=== PATIENT | male | born 1945 | race Caucasian/White ===

== ENCOUNTER 2017-07-14 12:09 | Inpatient (IN) | payer OTHER, MEDICARE ==
[~2017-07-14] VITALS: Ht 172.7 cm; Wt 84.6 kg
[2017-07-14] MEDS ORDERED: MAGNESIUM SULFATE 1GM / D5W 1 GM BAG IV STA (13:02)
[2017-07-14] MEDS ORDERED: METHYLPREDNISOLONE 125 MG VIAL IV STA (13:02)
--- NOTE | 2017-07-14 13:02 | EMERGENCY ROOM VISIT NOTE ---
History Report prepared by Carlos: Oni Parsons Under the Supervision of: Dr. Dimitry Kessler M.D. First contact with patient: 12:57 Chief Complaint: CARDIAC ASSESSMENT Stated Complaint: CHEST TIGHTNESS Nursing Triage Summary: Pt. arrived to exam room via EMS transport. Pt. sent from physician's office for an abnormal EKG. Per report from EMS, pt. is new to [facility] and was having an intake appt. with new physician. He has been reporting increasing SOB, orthopnea and wheezing. Has history of COPD. History of Present Illness The patient is a 71 year old male who presents to the Emergency Room with complaints of worsening shortness of breath that started a week ago. He says that was diagnosed with COPD a year ago, but his breathing has worsened over the past week, especially with walking. The patient says that the shortness of breath is intermittent, and is resolved by medicine. Currently, he says that he is not short of breath. The patient states that he recently moved to the [facility], so he had his initial primary care physician visit earlier today, and during the visit, he started to "feel funny", so the patient was told to come here. He was given medications in the office, but has not taken the medications yet. The patient was noted to have had an abnormal EKG at the visit. The patient notes that he feels okay right now, and has no chest pain. He adds that he has had a worsening cough lately, with yellow phlegm. He states that he has been taking a nebulizer, as well as [id number] sinus and allergy tablets. The patient denies any dizziness, headaches, nausea, vomiting, fevers, chills, or leg swelling. He notes no history of blood clots in his legs or lungs. He is an ex- smoker. The patient states that he had a stent placement 2 years ago. Source of History: patient Onset: A week ago Position: other (global - shortness of breath) Timing: worsening Modifying Factors (Worsening): exertion Modifying Factors (Relieving): other (nebulizer) Associated Symptoms: + cough (yellow phlegm), No fevers, No chills, No chest pain, No nausea, No vomiting Note: Associated symptoms: [place] "funny" earlier today. Denies dizziness, leg swelling. Review of Systems See HPI for pertinent positives and negatives. A total of ten systems were reviewed and were otherwise negative. Past Medical & Surgical Medical Problems: (1) COPD (chronic obstructive pulmonary disease) (2) Diabetes (3) HLD (hyperlipidemia) Surgical Problems: (1) History of intravascular stent placement Family History Diabetes mellitus Social History Smoking Status: Former Smoker Smokeless Tobacco Use: No Housing Status: lives with family Current/Historical Medications Scheduled Clopidogrel (Plavix), 75 MG PO DAILY Fluticasone Furoate-Vilanterol (Breo Ellipta 200-25 Mcg/INH), 1 PUFF INH DAILY Insulin Human Regular (Insulin Regular Pump ), 1 EA N/A UD Isosorbide Mononitrate Ext Rel (Imdur Ext Rel), 1 TAB PO DAILY Lisinopril (Lisinopril), 10 MG PO DAILY Lovastatin (Mevacor), 10 MG PO HS Metoprolol Tartrate (Lopressor) (Lopressor), 25 MG PO BID Multiple Vitamins W/ Minerals (Centrum Silver Adult 50+), 1 TAB PO DAILY [place]-3 Fatty Acids (Fish Oil), 1,200 MG PO DAILY Prednisone (Prednisone), 1 DOSE PO UD Umeclidinium [place] (Incruse Ellipta), 1 PUFF INH DAILY Scheduled PRN Albuterol Hfa (Ventolin Hfa), 2 PUFFS INH Q4 PRN for SOB/Wheezing Cetirizine (Zyrtec), 10 MG PO DAILY PRN for ALLERGIES Ipratropium-Albuterol (Duoneb), 1 TREATMENT INH Q4H PRN for SOB/Wheezing Allergies Coded Allergies: Simvastatin (Unverified Adverse Reaction, Intermediate, SEE COMMENT PLEASE , 07/14/17) PATIENT IS UNSURE OF WHICH CHOLESTEROL MEDS HE IS ALLERGIC TO BUT HE SAYS THEY "JUST DON'T AGREE WITH ME" Physical Exam Vital Signs Date Time Temp Pulse Resp B/P (MAP) Pulse Ox O2 Delivery O2 Flow Rate FiO2 07/14/17 16:31 82 07/14/17 16:14 86 16 126/69 95 Room Air 07/14/17 14:46 85 16 120/58 95 Room Air 07/14/17 13:35 61 18 96 Room Air 07/14/17 13:30 62 21 148/80 99 Room Air 07/14/17 13:00 63 24 168/68 94 Room Air 8/24/17 12:25 63 07/14/17 12:10 36.8 68 19 187/89 98 Room Air 07/14/17 12:10 98 Room Air 07/14/17 12:10 98 Room Air Physical Exam GENERAL: Awake, alert, appears short of breath but in no acute distress. HENT: Normocephalic, atraumatic. Oropharynx unremarkable. Dry mucous membranes. EYES: Normal conjunctiva. Sclera non-icteric. NECK: Supple. No nuchal rigidity. FROM. No JVD. RESPIRATORY: Diffuse wheezing with poor airflow, diminished particularly at bases. Pursed lip breathing. CARDIAC: Regular rate, normal rhythm. Extremities warm and well perfused. Pulses equal. ABDOMEN: Soft, non-distended. No tenderness to palpation. No rebound or guarding. No masses. RECTAL: Deferred. MUSCULOSKELETAL: Chest examination reveals no tenderness. The back is symmetrical on inspection without obvious abnormality. There is no CVA tenderness to palpation. No joint edema. LOWER EXTREMITIES: Calves are equal size bilaterally and non-tender. No edema. No discoloration. NEURO: Normal sensorium. No sensory or motor deficits noted. SKIN: No rash or jaundice noted. Medical Decision & Procedures ER Provider Diagnostic Interpretation: X-ray: Per my interpretation, radiologist review. CHEST ONE VIEW PORTABLE CLINICAL HISTORY: Chest tightness. Chest pain. COMPARISON STUDY: None available at time of interpretation due to PACS downtime. FINDINGS: Lung volumes are normal. No pneumothorax or pleural effusion is present. There is no evidence of pulmonary edema. Cardiomediastinal silhouette is unremarkable. Pulmonary vascularity is normal. IMPRESSION: No acute cardiopulmonary findings. Electronically signed by: Ren Zepeda M.D. 07/14/2017 2:13 PM Dictated Date/Time: 07/14/2017 2:09 PM Laboratory Results Test 07/14/17 13:00 07/14/17 13:29 Pro-B-Type Natriuretic Peptide 921 pg/ml (0-900) Hepatitis C Antibody Screen NEG (NEG) Venous Blood pH 7.38 (7.36-7.41) Venous Blood Partial Pressure CO2 45 mmHg (38.0-50.0) Venous Blood Partial Pressure O2 40 mmHg Venous Blood HCO3 26 mmol/L Venous Blood Oxygen Saturation 72.1 % Venous Blood Base Excess 0.2 mEq/L Laboratory results reviewed by me Medications Administered Medications (Trade) Dose Ordered Sig/Nessa Route Start Time Stop Time Status Last Admin Dose Admin Methylprednisolone Sodium Succinate (Solu-Medrol IV) 125 mg NOW STAT IV 07/14/17 13:02 07/14/17 13:07 DC 07/14/17 13:34 125 MG Albuterol/ Ipratropium (Duoneb) 12 ml ONE ONCE INH 07/14/17 13:15 07/14/17 13:16 DC 07/14/17 13:32 12 ML Azithromycin 500 mg/Dextrose 255 ml @ 125 mls/hr ONE ONCE IV 07/14/17 13:15 07/14/17 15:17 DC 07/14/17 14:12 125 MLS/HR Magnesium Sulfate (Magnesium Sulfate) 2 gm NOW STAT IV 07/14/17 13:02 07/14/17 13:08 DC 07/14/17 13:34 2 GM Sodium Chloride 500 ml @ 999 mls/hr Q31M STAT IV 07/14/17 17:16 07/14/17 17:46 DC 07/14/17 17:16 999 MLS/HR Acetaminophen (Tylenol Tab) 650 mg Q4H PRN PO 07/14/17 17:30 08/13/17 17:29 07/14/17 21:14 650 MG Cetirizine HCl (zyrTEC TAB) 10 mg DAILY PRN PO 07/14/17 17:30 08/13/17 17:29 07/15/17 09:17 10 MG ECG Indication: SOB/dyspnea Rate (beats per minute): 69 Rhythm: normal sinus Findings: no acute ischemic change, other (nonspecific T-wave abnormalities latearlly, normal axis) Comparison ECG Date: no prior available ED Course 1258: The patient was evaluated in room B12B. A complete history and physical exam was performed. 1302: Ordered Magnesium Sulfate 2 gm IV, Solu-Medrol IV 125 mg IV. 1315: Ordered Azithromycin 500 mg/Dextrose 255 ml @ 125 mls/hr IV, Duoneb 12 ml INH. 1627: I reevaluated the patient and he is feeling better, but still has pursed lip breathing. The patient verbally expressed understanding and agreement of the treatment plan. The patient will be evaluated for further treatment. 1705: I discussed the patient with Dr. Nolasco - [facility] [place] dextrine mixer - he will evaluate the patient for further treatment. Medical Decision I reviewed the patient's past medical history, medications, and the nursing notes as described above. Differential diagnoses: COPD exacerbation, pneumonia, bronchitis, ACS, less likely CHF. Patient is a 71 gentleman with a pmhx of COPD who presents to the ED with worsening cough, congestion, sputum, sob over the past week per HPI. On arrival the patient appears dyspneic but in NAD. AFVSS. On exam patient has diffuse wheezing with poor air movement, particularly diminished at baseline. Given Solu -medrol, hour continuous duoneb, Magnesium, and azithro in setting of yellow thick sputum production. EKG unremarkable. Trop negative in setting of 1 week of sx. CXR negative. WBC 14. Cr 1.5 and K 5.4 in setting of clinically dry appearing. Given IVF. Patient feeling improved but still with some pursed lip breathing. Case d/w medicine team who will admit the patient for further management. Medication Reconcilliation Current Medication List: was personally reviewed by me Blood Pressure Screening Patient's blood pressure: Elevated blood pressure Referred to dextrine mixer. Consults Time Called: 1650 Consulting Physician: Dr. Constance GONZALEZ dextrine mixer Returned Call: 1705 I discussed the patient with Dr. Constance GONZALEZ dextrine mixer - he will evaluate the patient for further treatment. Impression Primary Impression: COPD exacerbation Scribe Attestation The scribe's documentation has been prepared under my direction and personally reviewed by me in its entirety. I confirm that the note above accurately reflects all work, treatment, procedures, and medical decision making performed by me. Departure Information Dispostion Being Evaluated By Hospitalist Referrals Balaji Lopez M.D. (PCP) Patient Instructions [facility]
[2017-07-14 13:15] LABS: BASO % 0.3 %; BASO ABS # 0.05 K/uL (0-0.2); COMPLETE YES; EOS % 7.7 %; IG% 0.3 %; LYMPH % 13.4 %; LYMPH ABS # 1.92 K/uL (1.2-3.4); MEAN CELL VOLUME 85.6 fL (80-100); MEAN CORPUSCULAR HEMOGLOBIN 30.4 pg (25-34); MEAN CORPUSCULAR HGB CONC 35.5 g/dl (32-36); MEAN PLATELET VOLUME 9.3 fL (7.4-10.4); MONO % 5.5 %; NEUT % 72.8 %; PLATELET COUNT 254 K/uL (130-400); RED BLOOD COUNT 5.14 M/uL (4.2-5.4); WHITE BLOOD COUNT 14.36 K/uL (4.8-10.8)
[2017-07-14] MEDS ORDERED: AZITHROMYCIN IV 500 MG in DEXTROSE 5% 250ML 250 ML IV ONE (13:15)
[2017-07-14] MEDS ORDERED: ALBUT/IPRATROP 3MG/0.5MG NEB 3 ML VIAL INH ONE (13:15)
[2017-07-14 13:32] LABS: BLOOD UREA NITROGEN 26 mg/dl (7-18); BUN/CREATININE RATIO 17.5 (10-20); CALCIUM 9.5 mg/dl (8.5-10.1); CARBON DIOXIDE 27 mmol/L (21-32); CHLORIDE 104 mmol/L (98-107); GLUCOSE 182 mg/dl (70-99); POTASSIUM 5.4 mmol/L (3.5-5.1); SODIUM 135 mmol/L (136-145)
[2017-07-14 13:35] VITALS: PULSE 61; O2SAT 96
[2017-07-14 13:39] LABS: VEN BLD GAS O2 SATURATION 72.1 %; VEN BLOOD GAS BASE EXCESS 0.2 mEq/L
--- NOTE | 2017-07-14 14:14 | DIAGNOSTIC IMAGING REPORT ---
CHEST ONE VIEW PORTABLE CLINICAL HISTORY: Chest tightness. Chest pain. COMPARISON STUDY: None available at time of interpretation due to PACS downtime. FINDINGS: Lung volumes are normal. No pneumothorax or pleural effusion is present. There is no evidence of pulmonary edema. Cardiomediastinal silhouette is unremarkable. Pulmonary vascularity is normal. IMPRESSION: No acute cardiopulmonary findings. Electronically signed by: Ren Zepeda M.D. 07/14/2017 2:13 PM Dictated Date/Time: 07/14/2017 2:09 PM
[2017-07-14] MEDS ORDERED: CLOP1TAB15 PO (14:29)
[2017-07-14] MEDS ORDERED: METO25TA56 PO (14:29)
[2017-07-14] MEDS ORDERED: OMEG120013 PO (14:29)
[2017-07-14] MEDS ORDERED: IPRASOL4 INH (14:29)
[2017-07-14] MEDS ORDERED: CETI10TA84 PO (14:29)
[2017-07-14] MEDS ORDERED: FLUT1INH7 INH (14:29)
[2017-07-14] MEDS ORDERED: ISOS30TA35 PO (14:29)
[2017-07-14] MEDS ORDERED: PRED10TA PO (14:29)
[2017-07-14] MEDS ORDERED: LOVA10TA3 PO (14:29)
[2017-07-14] MEDS ORDERED: LISI-461 PO (14:29)
[2017-07-14] MEDS ORDERED: UMEC1INH INH (14:29)
[2017-07-14] MEDS ORDERED: VNTHFA/IN INH (14:29)
[2017-07-14] MEDS ORDERED: INSPMPRG (14:29)
[2017-07-14] MEDS ORDERED: MULT-845 PO (14:29)
[2017-07-14] MEDS ORDERED: SODIUM CHLORIDE 0.9% 500ML 500 ML IV STA (17:16)
[2017-07-14] MEDS ORDERED: ACETAMINOPHEN 325 MG TAB PO PRN (17:30)
[2017-07-14] MEDS ORDERED: MoRPHine SULFATE 2 MG/ML CARP IV PRN (17:30)
[2017-07-14] MEDS ORDERED: NITROGLYCERIN 0.4 MG SL PER TAB CHARGE SL PRN (17:30)
[2017-07-14] MEDS ORDERED: ALUMINUM/MAGNESIUM/SIMETH (MAALOX MAX) 30 ML UDC PO PRN (17:30)
[2017-07-14] MEDS ORDERED: CETIRIZINE HCL 10 MG TAB PO PRN (17:30)
[2017-07-14] MEDS ORDERED: ALBUTEROL HFA 8 GM INHALER INH PRN (17:30)
[2017-07-14] MEDS ORDERED: INSULIN REGULAR PUMP SCH (17:30)
[2017-07-14] MEDS ORDERED: POLYETHYLENE (MIRALAX) 17 GM PACK PO PRN (17:30)
[2017-07-14] MEDS ORDERED: MAGNESIUM HYDROXIDE SUSP 30 ML UDC PO PRN (17:30)
[2017-07-14] MEDS ORDERED: ONDANSETRON INJ 2 MG/ML 2 ML VIAL IV PRN (17:30)
[2017-07-14] MEDS ORDERED: HydrALAZINE HCL 20 MG/ML VIAL IV. PRN (17:30)
--- NOTE | 2017-07-14 18:02 | History and Physical ---
History & Physical Date & Time of Service: Jul 14, 2017 at 17:37 Chief Complaint: Chest Tightness Primary Care Physician: Balaji Lopez M.D. History of Present Illness Source: patient, family (son at bedside), clinic records, hospital records Patient is a pleasant 71 y/o male, with PMHx of COPD, HTN, T2DM w/ insulin pump , hyperlipidemia, CAD s/p stent placement, PAD, and BPH, who presented to the ED via EMS from Dr. Singer's office due to "feeling funny" and chest tightness. Patient is new to the area; he is from [place] and has recently moved to the area to live with his son. He has been having progressive SOB on exertion over the past few days and needed to establish care with a PCP in the area. Per Dr. Singer's record, patient was getting ready to leave from his appointment and an EKG was ordered showing possible septal infarct, ST T wave changes, and inverted T waves. Upon further questioning, patient admitted to chest tightness so he was advised to come to ED. Currently, patient states he is feeling well; SOB is at baseline and anterior central chest tightness has resolved. Discomfort did not radiate. Denies any other associated symptoms. Admits to productive cough- sputum yellow/green in color. He does have a h/o CAD w/ stents x5. According to patient, his only symptoms was SOB, which resulted in a stress test indicated cath. +wheezing. Patient denies any fever, chills, sweats , lightheadedness, dizziness, vision changes, palpitations, edema, abdominal pain, nausea, vomiting, diarrhea, urinary symptoms, melena, numbness/tingling, weakness, muscle/joint pain, anxiety/depression, active bleeding, or new skin discoloration/changes. Past Medical/Surgical History Medical Problems: COPD HTN T2DM w/ insulin pump hyperlipidemia CAD s/p stent placement PAD BPH Surgical history: s/p stent placement x5 cataract surgery prostate surgery Family History DM- mother cancer- father Social History Smoking Status: Former Smoker Smokeless Tobacco Use: No Allergies Coded Allergies: Simvastatin (Unverified Adverse Reaction, Intermediate, SEE COMMENT PLEASE , 07/14/17) PATIENT IS UNSURE OF WHICH CHOLESTEROL MEDS HE IS ALLERGIC TO BUT HE SAYS THEY "JUST DON'T AGREE WITH ME" Home Medications Scheduled Clopidogrel (Plavix), 75 MG PO DAILY Fluticasone Furoate-Vilanterol (Breo Ellipta 200-25 Mcg/INH), 1 PUFF INH DAILY Insulin Human Regular (Insulin Regular Pump ), 1 EA N/A UD Isosorbide Mononitrate Ext Rel (Imdur Ext Rel), 1 TAB PO DAILY Lisinopril (Lisinopril), 10 MG PO DAILY Lovastatin (Mevacor), 10 MG PO HS Metoprolol Tartrate (Lopressor) (Lopressor), 25 MG PO BID Multiple Vitamins W/ Minerals (Centrum Silver Adult 50+), 1 TAB PO DAILY [place]-3 Fatty Acids (Fish Oil), 1,200 MG PO DAILY Prednisone (Prednisone), 1 DOSE PO UD Umeclidinium [place] (Incruse Ellipta), 1 PUFF INH DAILY Scheduled PRN Albuterol Hfa (Ventolin Hfa), 2 PUFFS INH Q4 PRN for SOB/Wheezing Cetirizine (Zyrtec), 10 MG PO DAILY PRN for ALLERGIES Ipratropium-Albuterol (Duoneb), 1 TREATMENT INH Q4H PRN for SOB/Wheezing Physical Exam Vital Signs Date Time Temp Pulse Resp B/P (MAP) Pulse Ox O2 Delivery O2 Flow Rate FiO2 07/14/17 16:31 82 07/14/17 16:14 86 16 126/69 95 Room Air 07/14/17 14:46 85 16 120/58 95 Room Air 07/14/17 13:35 61 18 96 Room Air 07/14/17 13:30 62 21 148/80 99 Room Air 07/14/17 13:00 63 24 168/68 94 Room Air 07/14/17 12:25 63 07/14/17 12:10 36.8 68 19 187/89 98 Room Air 07/14/17 12:10 98 Room Air 07/14/17 12:10 98 Room Air General Appearance: no apparent distress Head: normocephalic, atraumatic Eyes: normal inspection, PERRL ENT: hearing grossly normal Neck: supple Respiratory/Chest: no respiratory distress, no accessory muscle use, + decreased breath sounds, + wheezing (throughout all lung spencer ) Cardiovascular: regular rate, rhythm, no JVD Abdomen/GI: normal bowel sounds, non tender, soft Back: normal inspection Extremities/Musculoskelatal: no calf tenderness, no pedal edema Neurologic/Psych: alert, normal mood/affect, oriented x 3 Skin: normal color, warm/dry, no rash Diagnostics Laboratory Results Results Past 24 Hours Test 07/14/17 13:00 07/14/17 13:29 Range/Units White Blood Count 14.36 4.8-10.8 K/uL Red Blood Count 5.14 4.2-5.4 M/uL Hemoglobin 15.6 12.0-16.0 g/dL Hematocrit 44.0 37-47 % Mean Corpuscular Volume 85.6 80-100 fL Mean Corpuscular Hemoglobin 30.4 25-34 pg Mean Corpuscular Hemoglobin Concent 35.5 32-36 g/dl Platelet Count 254 130-400 K/uL Mean Platelet Volume 9.3 7.4-10.4 fL Neutrophils (%) (Auto) 72.8 % Lymphocytes (%) (Auto) 13.4 % Monocytes (%) (Auto) 5.5 % Eosinophils (%) (Auto) 7.7 % Basophils (%) (Auto) 0.3 % Neutrophils # (Auto) 10.45 1.4-6.5 K/uL Lymphocytes # (Auto) 1.92 1.2-3.4 K/uL Monocytes # (Auto) 0.79 0.11-0.59 K/uL Eosinophils # (Auto) 1.11 0-0.5 K/uL Basophils # (Auto) 0.05 0-0.2 K/uL RDW Standard Deviation 44.0 36.4-46.3 fL RDW Coefficient of Variation 14.2 11.5-14.5 % Immature Granulocyte % (Auto) 0.3 % Immature Granulocyte # (Auto) 0.04 0.00-0.02 K/uL Sodium Level 135 136-145 mmol/L Potassium Level 5.4 3.5-5.1 mmol/L Chloride Level 104 98-107 mmol/L Carbon Dioxide Level 27 21-32 mmol/L Anion Gap 4.0 3-11 mmol/L Blood Urea Nitrogen 26 7-18 mg/dl Creatinine 1.50 0.60-1.20 mg/dl Est Creatinine Clear Calc Drug Dose 40.7 ml/min Estimated GFR () 40.5 Estimated GFR (Non- 34.9 BUN/Creatinine Ratio 17.5 10-20 Random Glucose 182 70-99 mg/dl Calcium Level 9.5 8.5-10.1 mg/dl Troponin I < 0.015 0-0.045 ng/ml Pro-B-Type Natriuretic Peptide 921 0-900 pg/ml Venous Blood pH 7.38 7.36-7.41 Venous Blood Partial Pressure CO2 45 38.0-50.0 mmHg Venous Blood Partial Pressure O2 40 mmHg Venous Blood HCO3 26 mmol/L Venous Blood Oxygen Saturation 72.1 % Venous Blood Base Excess 0.2 mEq/L Diagnostic Radiology CHEST ONE VIEW PORTABLE CLINICAL HISTORY: Chest tightness. Chest pain. COMPARISON STUDY: None available at time of interpretation due to PACS downtime. FINDINGS: Lung volumes are normal. No pneumothorax or pleural effusion is present. There is no evidence of pulmonary edema. Cardiomediastinal silhouette is unremarkable. Pulmonary vascularity is normal. IMPRESSION: No acute cardiopulmonary findings. Electronically signed by: Ren Zepeda M.D. 07/14/2017 2:13 PM Dictated Date/Time: 07/14/2017 2:09 PM The status of this report is Signed. Draft = Not yet reviewed or approved by Radiologist. Signed = Reviewed and approved by Radiologist. EKG AUBREE TAY ID:[id number] 14-JUL-2017 12:15:11 [facility] Normal sinus rhythm Septal infarct , age undetermined T wave abnormality, consider lateral ischemia Abnormal ECG No previous ECGs available 25mm/s 10mm/mV 150Hz 8.0 SP2 12SL 241 SHAHID: 0 Referred by: ER Unconfirmed Vent. rate 69 BPM IL interval 156 ms QRS duration 88 ms QT/QTc 410/439 ms P-R-T axes 73 78 125 1945 (71 yr) Female Room: Loc:15 Cager Operator:BRIANNE Pugh ind: Impression Assessment and Plan Patient is a pleasant 71 y/o male, with PMHx of COPD, HTN, T2DM w/ insulin pump , hyperlipidemia, CAD s/p stent placement, PAD, and BPH, who presented to the ED via EMS from Dr. Singer's office due to "feeling funny" and chest tightness. ACS r/o, h/o CAD s/p stent placement, PAD, dyslipidemia: - Admit to tele for cardiac monitoring - Trend cardiac enzymes- initial trop negative - EKG QAM and PRN w/ chest pain - Continue Plavix 75 mg daily, Imdur 30 mg daily, Lopressor 25 mg BID - Continue Lovastatin 10 mg HS- check lipid panel - Add ASA 81 mg daily Mild acute on chronic COPD exacerbation: - O2 protocol, wean as tolerated- does not wear O2 supplement at home - DuoNeb QID and PRN SOB/wheezing - Continue home inhalers - IV SoluMedrol 125 mg x1 given in ED; per Dr. Singer's note, was going to start Prednisone 60 mg taper- will start tomorrow - IV Azithromycin 500 mg x1 given in ED; due to discolored sputum, will continue Azithromycin 250 mg daily HTN: - Hold Lisinopril 10 mg day due to Cr at 1.50- unsure of baseline - Hydralazine 10 mg IV q6 hrs PRN sbp >180 or dbp >100 ?CKD stage III- baseline Cr unknown: - IV NSS @ 125 ml/hr - Hold Lisinopril to follow kidney function - Follow PRP Mild hyponatremia at 1.5: IVF as above and follow PRP Mild hyperkalemia at 5.4: - Follow PRP, tele monitor, and EKG - Treat PRN if continues to rise tomorrow and/or EKG/tele monitor changes T2DM: - Continue insulin pump - Check HgbA1c h/o BPH GI prophylaxis: Protonix DVT prophylaxis: Heparin SQ BID Code Status: LEVEL V, DNR Dispo: From home, lives w/ son- no discharge needs anticipated i personally examined pt and verified all hay points w T Murarik PAC feeling sob. also was told EKG abnormal. vitals noted lungs quiet w poor air entry and wheezing COPD exac - med management as above CP - likely relates to COPD but concern on cardiac -- serial enzymes and baseline echo. at some point stress echo likely reasonable but while having active exacerbation will hold off otherwise as above Level of Care Telemetry Resuscitation Status DO NOT RESUSCITATE VTE Prophylaxis VTE Risk Assessment Done? Y/N: Yes Risk Level: Moderate Given or contraindicated: Unfractionated heparin SQ, T.E.D. Stockings, SCD's
[2017-07-14 18:25] VITALS: O2SAT 94; BMI 29.8
[2017-07-14 19:18] VITALS: BP 158/79; PULSE 93; TEMP 36.7; O2SAT 94
[2017-07-14 19:50] VITALS: PULSE 94; O2SAT 94
[2017-07-14] MEDS: ALBUT/IPRATROP 3MG/0.5MG NEB 3 ML VIAL INH SCH (19:50)
[2017-07-14 20:00] VITALS: O2SAT 94
[2017-07-14] MEDS ORDERED: GLUCAGON FOR INJ 1 MG VIAL SQ PRN (20:15)
[2017-07-14] MEDS ORDERED: GLUCOSE 40% GEL 15 GM TUBE PO PRN (20:15)
[2017-07-14] MEDS ORDERED: DEXTROSE 50% 50 ML SYR IV PRN (20:15)
[2017-07-14] MEDS ORDERED: HumuLIN-R 10 ML VIAL SC PRN (20:15)
[2017-07-14] MEDS ORDERED: GLUCOSE 10 TABS/TUBE PO PRN (20:15)
[2017-07-14] MEDS: INCRUSE ELLIPTA~ORDER AWAITING ACTION SCH ×2 (20:30→23:58)
[2017-07-14] MEDS ORDERED: LOVASTATIN 20 MG TAB PO SCH (21:00)
[2017-07-14] MEDS ORDERED: INSULIN GLARGINE SOLOSTAR 100 UNITS/ML 3 ML PEN SC SCH (21:00)
[2017-07-14] MEDS ORDERED: [UNRECOGNIZED DRUG - OTHER] SCH (21:00)
[2017-07-14] MEDS: SODIUM CHLORIDE 0.9% 1000ML 1,000 ML IV SCH (21:07)
[2017-07-14] MEDS: METOPROLOL TARTRATE 25 MG TAB PO SCH (21:08)
[2017-07-14] MEDS: INSULIN ASPART 100 UNITS/ML 3 ML PEN SC SCH (21:13)
[2017-07-14 22:23] LABS: PROTHROMBIN TIME (PATIENT) 10.8 SECONDS (9.0-12.0)
[2017-07-14] MEDS ORDERED: IV FLUIDS COMPLETED PRN (23:30)
[2017-07-15] VITALS (15 sets, daily range): BP systolic 102–149; BP diastolic 55–75; PULSE 69–89; TEMP 36.3–36.7; O2SAT 91–99; Ht 172.7 cm; Wt 84.6 kg
[2017-07-15] MEDS: ALBUT/IPRATROP 3MG/0.5MG NEB 3 ML VIAL INH SCH ×6 (00:08→19:45)
[2017-07-15] MEDS: SODIUM CHLORIDE 0.9% 1000ML 1,000 ML IV SCH (04:03)
[2017-07-15] MEDS: INCRUSE ELLIPTA~ORDER AWAITING ACTION SCH ×3 (08:00→23:58)
[2017-07-15 08:27] LABS: BASO % 0.1 %; BASO ABS # 0.01 K/uL (0-0.2); COMPLETE YES; HEMATOCRIT 40.3 % (42-52); IG% 0.3 %; LYMPH % 9.3 %; LYMPH ABS # 1.66 K/uL (1.2-3.4); MEAN CELL VOLUME 85.4 fL (80-100); MEAN CORPUSCULAR HEMOGLOBIN 29.7 pg (25-34); MEAN CORPUSCULAR HGB CONC 34.7 g/dl (32-36); MEAN PLATELET VOLUME 9.3 fL (7.4-10.4); NEUT % 85.3 %; PLATELET COUNT 306 K/uL (130-400); RED BLOOD COUNT 4.72 M/uL (4.7-6.1)
[2017-07-15] MEDS: INSULIN ASPART 100 UNITS/ML 3 ML PEN SC SCH ×4 (08:34→20:29)
[2017-07-15 08:56] LABS: BLOOD UREA NITROGEN 31 mg/dl (7-18); BUN/CREATININE RATIO 19.2 (10-20); CALCIUM 8.8 mg/dl (8.5-10.1); CARBON DIOXIDE 21 mmol/L (21-32); CHLORIDE 105 mmol/L (98-107); CHOLESTEROL 211 mg/dl (0-200); GLUCOSE 272 mg/dl (70-99); POTASSIUM 4.7 mmol/L (3.5-5.1); SODIUM 134 mmol/L (136-145)
[2017-07-15] MEDS: ASPIRIN 81 MG ECTAB PO SCH (09:00)
[2017-07-15] MEDS ORDERED: HEPARIN SOD 5000 UNIT/0.5 ML CARP SQ SCH (09:00)
[2017-07-15 09:07] LABS: CHOLESTEROL/HDL RATIO 3.7; HDL CHOLESTEROL 57 mg/dl; LDL CHOLESTEROL CALCULATED 138 mg/dl; TRIGLYCERIDES 79 mg/dl (0-150); VERY LOW DENSITY LIPOPROT CALC 16 mg/dl
[2017-07-15] MEDS: AZITHROMYCIN 250 MG TAB PO SCH (09:17)
[2017-07-15] MEDS: CLOPIDOGREL BISULFATE 75 MG TAB PO SCH (09:18)
[2017-07-15] MEDS: METOPROLOL TARTRATE 25 MG TAB PO SCH ×2 (09:18→20:32)
[2017-07-15] MEDS: ISOSORBIDE MONONITRATE 30 MG TABCR PO SCH (09:18)
[2017-07-15] MEDS: CEROVITE ADV FORMULA TAB PO SCH (09:19)
[2017-07-15] MEDS: PANTOprazole SOD 40 MG TAB PO SCH (09:19)
[2017-07-15 09:24] LABS: ESTIMATED AVERAGE GLUCOSE 209 mg/dl; HA1C FLAG Normal (Normal)
[2017-07-15] MEDS ORDERED: HEPARIN IV LOW DOSE NO BOLUS STA (11:33)
[2017-07-15] MEDS: GUAIFENESIN 600 MG TABCR PO SCH ×2 (12:06→20:31)
[2017-07-15] MEDS ORDERED: INSULIN GLARGINE SOLOSTAR 100 UNITS/ML 3 ML PEN SC SCH (12:30)
[2017-07-15] MEDS: HEPARIN 25,000 UNIT/500ML D5W 500 ML IV PRN ×2 (12:30→20:29)
--- NOTE | 2017-07-15 14:40 | Hospitalist Progress Note ---
Hospitalist Progress Note Date of Service Jul 15, 2017. (Laurie Hernández ., RUCHIC) Subjective Pt evaluation today including: conversation w/ patient, physical exam, chart review, lab review, review of inpatient medication list Pain: None PO Intake: Tolerating PO diet Voiding: no voiding problems Patient states that he did not sleep at all last night but is otherwise feeling better today compared to admission. He states that he has a productive cough and that this is worse at night or when he is laying down. He describes this as "congestion" in his chest and associates an intermittent shortness of breath and wheezing. He denies any chest pain, tightness or discomfort currently, but states his chest feels tight sometimes when he's coughing. The patient denies fevers, chills, sweats, chest pain, palpitations, claudication, cough, wheezing , shortness of breath, nausea, vomiting, abdominal pain, dysuria, hematuria, urinary retention, paralysis, weakness, numbness and tingling. Additional Comments: See HPI for pertinent positives and negatives. All other systems reviewed and negative. (Laurie Hernández ., PA-C) Objective Vital Signs Date Time Temp Pulse Resp B/P (MAP) Pulse Ox O2 Delivery O2 Flow Rate FiO2 07/15/17 13:17 99 Room Air 07/15/17 11:52 99 Room Air 07/15/17 11:32 72 20 97 Room Air 07/15/17 10:56 36.7 69 20 102/55 (71) 95 Room Air 07/15/17 08:00 99 Room Air 07/15/17 07:48 36.4 87 20 149/75 (99) 99 Room Air 07/15/17 07:11 82 20 93 Room Air 07/15/17 04:54 36.4 89 16 122/69 (86) 94 Room Air 07/15/17 04:00 94 Room Air 07/15/17 01:57 77 20 91 Room Air 07/15/17 00:00 94 Room Air 07/15/17 00:00 36.3 71 22 129/69 (89) 94 Room Air 07/15/17 00:00 74 20 92 Room Air 07/14/17 20:00 94 Room Air 07/14/17 19:50 94 20 94 Room Air 07/14/17 19:18 36.7 93 20 158/79 (105) 94 Room Air 07/14/17 18:25 94 Room Air 07/14/17 18:00 86 16 124/74 94 07/14/17 16:31 82 07/14/17 16:14 86 16 126/69 95 Room Air 07/14/17 14:46 85 16 120/58 95 Room Air (Laurie Hernández ., PA-C) Physical Exam Notes: General appearance: Well-developed, well-nourished, no apparent distress Head: Normocephalic, atraumatic Eyes: Normal inspection, PERRL, EOMI ENT: Normal ENT inspection, hearing grossly normal, pharynx normal Neck: Supple, no JVD, trachea midline Respiratory/Chest: +Diffuse wheezing throughout all lung spencer. Diminished breath sounds throughout, especially in bases. Poor air movement. No respiratory distress Cardiovascular: Regular rate & rhythm, no gallop, no murmur Abdomen/GI: Normal bowel sounds, non-tender, soft Extremities/Musculoskeletal: Normal inspection, no calf tenderness, no pedal edema Neurological/Psych: Alert, normal mood/affect, oriented x 3 Skin: Normal color, warm/dry, no rash (Laurie Hernández ., PA-C) Laboratory Results Last 24 Hours Test 07/14/17 19:53 07/14/17 20:56 07/14/17 21:00 07/14/17 21:57 Bedside Glucose 318 mg/dl 333 mg/dl Creatine Kinase MB Ratio Prothrombin Time 10.8 SECONDS Prothromb Time International Ratio 1.0 Creatine Kinase MB 2.0 ng/ml Troponin I 0.017 ng/ml Test 07/15/17 02:13 07/15/17 04:44 07/15/17 07:51 07/15/17 08:07 Bedside Glucose 247 mg/dl 242 mg/dl Creatine Kinase MB Ratio White Blood Count 17.90 K/uL Red Blood Count 4.72 M/uL Hemoglobin 14.0 g/dL Hematocrit 40.3 % Mean Corpuscular Volume 85.4 fL Mean Corpuscular Hemoglobin 29.7 pg Mean Corpuscular Hemoglobin Concent 34.7 g/dl Platelet Count 306 K/uL Mean Platelet Volume 9.3 fL Neutrophils (%) (Auto) 85.3 % Lymphocytes (%) (Auto) 9.3 % Monocytes (%) (Auto) 5.0 % Eosinophils (%) (Auto) 0.0 % Basophils (%) (Auto) 0.1 % Neutrophils # (Auto) 15.28 K/uL Lymphocytes # (Auto) 1.66 K/uL Monocytes # (Auto) 0.89 K/uL Eosinophils # (Auto) 0.00 K/uL Basophils # (Auto) 0.01 K/uL RDW Standard Deviation 43.2 fL RDW Coefficient of Variation 13.9 % Immature Granulocyte % (Auto) 0.3 % Immature Granulocyte # (Auto) 0.06 K/uL Sodium Level 134 mmol/L Potassium Level 4.7 mmol/L Chloride Level 105 mmol/L Carbon Dioxide Level 21 mmol/L Anion Gap 8.0 mmol/L Blood Urea Nitrogen 31 mg/dl Creatinine 1.60 mg/dl Est Creatinine Clear Calc Drug Dose 45.9 ml/min Estimated GFR () 49.9 Estimated GFR (Non- 43.0 BUN/Creatinine Ratio 19.2 Random Glucose 272 mg/dl Estimated Average Glucose 209 mg/dl Hemoglobin A1c 8.9 % Calcium Level 8.8 mg/dl Magnesium Level 2.0 mg/dl Creatine Kinase MB 7.9 ng/ml Troponin I 0.565 ng/ml Triglycerides Level 79 mg/dl Cholesterol Level 211 mg/dl HDL Cholesterol 57 mg/dl LDL Cholesterol, Calculated 138 mg/dl VLDL Cholesterol, Calculated 16 mg/dl Cholesterol/HDL Ratio 3.7 Test 07/15/17 11:35 07/15/17 12:12 07/15/17 13:39 07/15/17 14:22 Bedside Glucose 241 mg/dl Activated Partial Thromboplast Time 27.1 SECONDS Partial Thromboplastin Ratio 1.0 Creatine Kinase MB Ratio (Laurie Hernández, RUCHIC) Assessment and Plan 71 y/o male with a history of COPD, HTN, T2DM w/ insulin pump, hyperlipidemia, CAD s/p stent placement, PAD, and BPH who presented to the ED via EMS from Dr. Singer's office due to "feeling funny" and chest tightness. ACS r/o, h/o CAD s/p stent placement, PAD, dyslipidemia - Admit to tele for cardiac monitoring - Cardiac enzymes negative first 2 sets, 3rd set positive with troponin of 0.565. Continue to trend - Started on heparin drip - Echo pending - Repeat EKG 07/15 shows same T wave inversions - EKG QAM and PRN w/ chest pain - Continue Plavix 75 mg daily, Imdur 30 mg daily, Lopressor 25 mg BID - Continue Lovastatin 10 mg HS - Lipid panel: total cholesterol 211, LDL 138, HDL 57, triglycerides 79 - Add ASA 81 mg daily Acute COPD exacerbation--ongoing - O2 protocol, wean as tolerated--currently 99% on room air - DuoNeb QID and PRN SOB/wheezing - Continue Breo and Incruse inhalers - IV SoluMedrol 125 mg x1 given in ED. Pt was to start Prednisone 60 mg taper per PCP - Solu-Medrol 40 mg IV BID - IV Azithromycin 500 mg x1 given in ED; due to discolored sputum, will continue Azithromycin 250 mg PO daily x 4 more days. Day #1 HTN--stable - Hold Lisinopril 10 mg daily due to Cr at 1.50- unsure of baseline. Cr 1.6 on 07/15, continue to hold - Hydralazine 10 mg IV q6 hrs PRN sbp >180 or dbp >100 ?CKD stage III- baseline Cr unknown--stable - Creatinine 1.6 on 07/15 - D/C IVF - Hold Lisinopril to follow kidney function - Follow PRP Mild hyperkalemia at 5.4--resolved - Potassium 4.7 on 07/15, no hyperkalemia EKG changes Q2AM--jtxyree last HgbA1c - Continue insulin pump - HgbA1c 8.9 on 07/15 DVT prophylaxis -Heparin drip -SARAVANAN jimenez and SCDs Code Status -Level V, DO NOT RESUSCITATE (Laurie Hernández ., PA-C) Attending Attestation: Pt seen/examined, chart reviewed, care plan d/w STEVEN Hernández. I agree w/ the hay components of her documentation. Pt c/o cough, mucous production, wheezing, dyspnea. States that his cough is chronic but since moving to [place] from [place] a few weeks ago his cough has considerably worsened. The chest pain/tightness he had yesterday has not returned. He is a poor historian and told me he didn't have coronary stents but had what sounds like stents in his legs for PAD and possibly an intra-abdominal stent ( renal artery?). He reports having been hospitalized "5 times" at [facility] since 2014. Tele stable since admission. When asked about his pump he reports a basal rate of 3 units/hr from 7am-7pm and 2.5 units/hr from 7pm-7am. He cannot tell me his carb ratio or a correction or how much he gets in boluses with eating. Pump battery is . VSS no fever o2 sats acceptable gen - mild purse lipped breathing but able to talk in full sentences, mild tachypnea neck - no JVD heart - tones are very distant, but s1 s2 lungs - diffuse wheezing in all lung segments with poor airation; no rales abd - soft, NT ext - no edema troponin + Cr 1.6 Na, K both improved EKG - lateral ST changes A/P: 1. COPD with exacerbation - moderate-severe - ongoing. d/c oral prednisone, change to solumedrol 40mg IV q12h. nebs, mucinex, pulmonary toilet. 2. NSTEMI - trending enzymes appears to show acute injury pattern. I reviewed the limited # of records that came from [facility]. I don't have a formal cath report but simply a [id number] cath procedure report. The report appears to show he had a drug-eluting stent to a diagonal in February 2015. I have requested the formal cath report to get details on his coronary anatomy. In meantime - start heparin drip, cont BB, increase his statin agent, continue aspirin, and I have formally consulted Dr. Ernandez from cardiology. Echo w/o wall motion abnormality. Trend enzymes until the peak. 3. Uncontrolled T2DM - on pump - pump battery is , and thus changed to SC insulin regimen. His basals would put him at about 70 units of basal insulin per day. Change lantus to 30 units BID; use novolog correction of 15 with carb ratio of 1:5. 4. CKD - unclear stage, No response to fluids, Repeat bmp in AM. 5. PAD - per limited records from [place] has had various procedures on b/l legs along with stents. Cont statin, asa, etc 6. hyperlipidemia - uncontrolled - increase his statin to 40mg daily. total time today - about 70 minutes which included speaking with cardiology, reviewing records, seeing patient twice, etc. Gopi Thompson MD In my clinical judgment this beneficiary meets acute admission criteria, established by [facility], that includes being hospitalized through two midnights. (Gopi Thompson MD)
[2017-07-15 15:11] LABS: CKMB/CK RATIO 3.7 (0-3.0)
--- NOTE | 2017-07-15 16:11 | ECHOCARDIOGRAM REPORT ---
*NOTICE TO RECEIVING DEMOCRAT AGENCY This information is strictly Confidential and protected under [place] law. [place] law prohibits you from making any further disclosure of this information unless further disclosure is expressly permitted by the written consent of the person to whom it pertains or is authorized by law. A general authorization for the release of medical or other information is not sufficient for this purpose. Hospital accepts no responsibility if the information is made available to any other person, INCLUDING THE PATIENT. Interpretation Summary * Conclusions -- * Technically limited study. * Left ventricular systolic function is normal. * No obvious wall motion abnormality. * Ejection Fraction = 60-65%. * There is mild concentric left ventricular hypertrophy. Procedure Details * There were technical limitations due to patient'sinability to cooperate Left Ventricle * The left ventricle is grossly normal size. * There is mild concentric left ventricular hypertrophy. * Ejection Fraction = 60-65%. * Left ventricular systolic function is normal. * No obvious wall motion abnormality. Right Ventricle * The right ventricle is not well visualized. * The right ventricular systolic function is normal as assessed by tricuspid annular plane systolic excursion (TAPSE) (normal >1.5 cm). Atria * The left atrium is not well visualized. * Right atrium not well visualized. * Atrial septum not well visualized. Mitral Valve * The mitral valve is not well visualized. * Significant mitral regurgitation is absent. Tricuspid Valve * The tricuspid valve is not well visualized. * Significant tricuspid regurgitation is absent. Aortic Valve * The aortic valve is not well visualized. * There is severe calcific aortic valve stenosis. * There is no significant aortic regurgitation. Pulmonic Valve * The pulmonic valve is not well visualized. Great Vessels * The aortic root is normal size. Pericardium/Pleural * There is no pericardial effusion. Great Vessels * Inferior vena cava not well visualized. MMode 2D Measurements and Calculations IVSd 1.0 cm LVIDd 4.8 cm LVIDs 2.4 cm LVPWd 1.4 cm IVS/LVPW 0.72 FS 49.6 % EDV(Teich) 109.3 ml ESV(Teich) 20.9 ml EF(Teich) 80.8 % EDV(cubed) 113.0 ml ESV(cubed) 14.5 ml EF(cubed) 87.2 % LV mass(C)d 220.9 grams LV mass(C)dI 109.3 grams/m\S\2 SV(Teich) 88.4 ml SI(Teich) 43.7 ml/m\S\2 SV(cubed) 98.5 ml SI(cubed) 48.7 ml/m\S\2 Ao root diam 3.0 cm Ao root area 7.3 cm\S\2 LVOT diam 2.0 cm LVOT area 3.2 cm\S\2 LVAd ap4 34.5 cm\S\2 LVLd ap4 9.7 cm EDV(MOD-sp4) 100.7 ml EDV(sp4-el) 104.5 ml LVAs ap4 20.3 cm\S\2 LVLs ap4 8.3 cm ESV(MOD-sp4) 40.3 ml ESV(sp4-el) 42.0 ml EF(MOD-sp4) 60.0 % EF(sp4-el) 59.8 % LVAd ap2 42.2 cm\S\2 LVLd ap2 9.5 cm EDV(MOD-sp2) 155.6 ml EDV(sp2-el) 158.6 ml LVAs ap2 22.5 cm\S\2 LVLs ap2 7.7 cm ESV(MOD-sp2) 55.8 ml ESV(sp2-el) 56.0 ml EF(MOD-sp2) 64.2 % EF(sp2-el) 64.7 % LVLd %diff -1.48 % EDV(MOD-bp) 125.0 ml LVLs %diff -8.85 % ESV(MOD-bp) 48.7 ml EF(MOD-bp) 61.0 % SV(MOD-sp4) 60.4 ml SI(MOD-sp4) 29.9 ml/m\S\2 SV(MOD-sp2) 99.8 ml SI(MOD-sp2) 49.4 ml/m\S\2 SV(MOD-bp) 76.3 ml SI(MOD-bp) 37.7 ml/m\S\2 SV(sp4-el) 62.5 ml SI(sp4-el) 30.9 ml/m\S\2 SV(sp2-el) 102.7 ml SI(sp2-el) 50.8 ml/m\S\2 Doppler Measurements and Calculations Ao V2 max 98.8 cm/sec Ao max PG 3.9 mmHg Ao max PG (full) 1.5 mmHg NICK(V,A) 2.5 cm\S\2 NICK(V,D) 2.5 cm\S\2 LV V1 max PG 2.4 mmHg LV V1 max 77.7 cm/sec
[2017-07-15] MEDS: METHYLPREDNISOLONE IV 40 MG in SYRINGE 0 ML IV SCH (19:13)
[2017-07-15 19:41] LABS: PARTIAL THROMBOPLASTIN RATIO 1.7
[2017-07-15] MEDS ORDERED: HEPARIN IV BOLUS 3,000 UNIT in SYRINGE 0 ML IV ONE (20:15)
[2017-07-15] MEDS: LOVASTATIN 20 MG TAB PO SCH (21:29)
[2017-07-15] MEDS: INSULIN GLARGINE SOLOSTAR 100 UNITS/ML 3 ML PEN SC SCH (21:31)
[2017-07-15 22:42] LABS: CKMB/CK RATIO 2.5 (0-3.0)
[2017-07-16] VITALS (8 sets, daily range): BP systolic 112–152; BP diastolic 67–83; PULSE 63–80; TEMP 36.4–36.6; O2SAT 93–97
[2017-07-16] MEDS ORDERED: NURSING DECISION MEDICATION ORDER SCH (03:15)
[2017-07-16] MEDS ORDERED: COUGH DROP (SUGAR FREE) LOZ 24 LOZ/1 BOX PO PRN (03:15)
[2017-07-16 03:24] LABS: PARTIAL THROMBOPLASTIN RATIO 4.8
[2017-07-16] MEDS: HEPARIN 25,000 UNIT/500ML D5W 500 ML IV PRN ×3 (04:33→18:10)
[2017-07-16] MEDS: METHYLPREDNISOLONE IV 40 MG in SYRINGE 0 ML IV SCH ×2 (06:33→19:04)
[2017-07-16] MEDS: ALBUT/IPRATROP 3MG/0.5MG NEB 3 ML VIAL INH SCH ×4 (07:10→20:08)
[2017-07-16 07:12] LABS: HEMATOCRIT 36.6 % (42-52); MEAN CELL VOLUME 84.7 fL (80-100); MEAN CORPUSCULAR HEMOGLOBIN 29.6 pg (25-34); MEAN PLATELET VOLUME 9.5 fL (7.4-10.4); PLATELET COUNT 243 K/uL (130-400); RED BLOOD COUNT 4.32 M/uL (4.7-6.1); WHITE BLOOD COUNT 19.77 K/uL (4.8-10.8)
[2017-07-16 07:53] LABS: BUN/CREATININE RATIO 25.9 (10-20); CALCIUM 8.8 mg/dl (8.5-10.1); CREATININE 1.4 mg/dl (0.60-1.40); POTASSIUM 5.4 mmol/L (3.5-5.1)
[2017-07-16] MEDS: INCRUSE ELLIPTA~ORDER AWAITING ACTION SCH ×2 (08:00→16:00)
[2017-07-16 08:02] LABS: CKMB/CK RATIO 1.9 (0-3.0)
[2017-07-16] MEDS: INSULIN ASPART 100 UNITS/ML 3 ML PEN SC SCH ×4 (08:04→20:57)
[2017-07-16] MEDS: AZITHROMYCIN 250 MG TAB PO SCH (08:05)
[2017-07-16] MEDS: GUAIFENESIN 600 MG TABCR PO SCH ×2 (08:06→20:58)
[2017-07-16] MEDS: ASPIRIN 81 MG ECTAB PO SCH ×2 (08:06→08:11)
[2017-07-16] MEDS: ISOSORBIDE MONONITRATE 30 MG TABCR PO SCH (08:06)
[2017-07-16] MEDS: METOPROLOL TARTRATE 25 MG TAB PO SCH ×2 (08:06→20:59)
[2017-07-16] MEDS: CLOPIDOGREL BISULFATE 75 MG TAB PO SCH (08:06)
[2017-07-16] MEDS: CEROVITE ADV FORMULA TAB PO SCH (08:06)
[2017-07-16] MEDS: PANTOprazole SOD 40 MG TAB PO SCH (08:07)
[2017-07-16] MEDS: INSULIN GLARGINE SOLOSTAR 100 UNITS/ML 3 ML PEN SC SCH ×2 (08:08→20:58)
[2017-07-16 10:11] LABS: PARTIAL THROMBOPLASTIN RATIO 4.3
--- NOTE | 2017-07-16 11:11 | Cardiology Consultation ---
Cardiology Consultation Date of Consultation: Jul 16, 2017. Requesting Physician: Jay Reason for Consultation: Elevated troponin Pt evaluation today including: conversation w/ patient, physical exam, chart review, lab review, review of studies, conversation w/ attending History of Present Illness Patient is a 71-year-old gentleman with a history of both cardiac and peripheral vascular disease who was admitted to [facility] 2 days ago for worsening dyspnea. Patient states that several years ago he was diagnosed with pneumonia and ever since then he has had progressive worsening shortness of breath. He moved to the area approximately 3 weeks ago and that his primary care physician on . At that visit the patient was noted to be significantly short of breath and also had some EKG changes concerning for acute coronary syndrome. On that basis he was admitted to [facility] for evaluation. Patient states that he also felt unwell and states that his primary symptom was wooziness. Patient was treated for a COPD exacerbation and based on his abnormal EKG cardiac biomarkers were obtained. These were markedly elevated. Patient states that he has not had symptoms of chest discomfort. In the past he has been evaluated for cardiac disease with stress testing due to his dyspnea. He states that he never had symptoms of chest discomfort leading up to any cardiac intervention. Subsequent to his cardiac interventions he cannot recall any significant improvement in symptoms including no improvement in his breathing difficulty. Currently the patient claims to be feeling well. He continues to have an element of breathing difficulty. He denies chest pain currently. In general he is a sedentary individual who is limited by his dyspnea. He is unable to walk through a large department store without stopping due to breathing difficulty. He denies any lower extremity claudication or leg discomfort with ambulation. He does state that on occasion his legs get tired. Denies any exertional chest discomfort. He denies any orthopnea or paroxysmal nocturnal dyspnea. He has not suffered any recent syncope. He has not report symptoms of palpitations. Past Medical/Surgical History 1. COPD 2. coronary artery disease having undergone percutaneous intervention in the LAD in 2014 3. Peripheral vascular disease with stenting to the right SFA and possibly right popliteal arteries. 4. Diabetes mellitus 5. Hyperlipidemia 6. Hypertension 7. BPH 8. Allergic rhinitis 9. Cataracts Surgical history TURP Bilateral cataract surgery Family History Diabetes mellitus No premature coronary disease Social History Smoking Status: Former Smoker History of Alcohol Use: Yes (beer, "once in awhile") Recently moved to the area and is living with his son Review of Systems Constitutional: + see HPI Respiratory: + see HPI Cardiac: + see HPI Abdomen: + see HPI Male : + see HPI Neurologic: + see HPI Heme: + see HPI Endo: + see HPI Skin: + see HPI He states that he does have some nasal drainage occasionally this causes coughing. During coughing fits he will have some right-sided chest discomfort. He also notices an elevation in his blood pressure around that time. He has been eating well. Occasionally dry food gets stuck but this is a chronic problem. He denies swelling of lower extremities. He denies any ulcerations and lower extremities. He does have a rash that comes and goes on his legs. This appears to have improved with application of a dermatologic cream. No change in his bowel habits. No recent epistaxis. All Other Systems: Reviewed and Negative Allergies Coded Allergies: Simvastatin (Unverified Adverse Reaction, Intermediate, SEE COMMENT PLEASE , 07/14/17) PATIENT IS UNSURE OF WHICH CHOLESTEROL MEDS HE IS ALLERGIC TO BUT HE SAYS THEY "JUST DON'T AGREE WITH ME" Medications Current Inpatient Medications Medications (Trade) Dose Ordered Sig/Nessa Route Start Time Stop Time Status Last Admin Dose Admin Acetaminophen (Tylenol Tab) 650 mg Q4H PRN PO 07/14/17 17:30 08/13/17 17:29 07/14/17 21:14 650 MG Al Hydrox/Mg Hydrox/Simethicone (Maalox Max Susp) 15 ml Q4H PRN PO 07/14/17 17:30 08/13/17 17:29 Magnesium Hydroxide (Milk Of Magnesia Susp) 30 ml Q12H PRN PO 07/14/17 17:30 08/13/17 17:29 Ondansetron HCl (Zofran Inj) 4 mg Q6H PRN IV 07/14/17 17:30 08/13/17 17:29 Nitroglycerin (Nitrostat Tab) 0.4 mg UD PRN SL 07/14/17 17:30 08/13/17 17:29 Morphine Sulfate (MoRPHine SULFATE INJ) 2 mg Q30M PRN IV 07/14/17 17:30 07/28/17 17:29 Aspirin (Ecotrin Tab) 81 mg QAM PO 07/15/17 09:00 08/14/17 08:59 Polyethylene (Miralax Powder Packet) 17 gm DAILY PRN PO 07/14/17 17:30 08/13/17 17:29 Azithromycin (Zithromax Tab) 250 mg QAM PO 07/15/17 09:00 07/22/17 08:59 07/16/17 08:05 250 MG Albuterol (Ventolin Hfa Inhaler) 2 puffs Q4 PRN INH 07/14/17 17:30 08/13/17 17:29 07/16/17 04:40 2 PUFFS Cetirizine HCl (zyrTEC TAB) 10 mg DAILY PRN PO 07/14/17 17:30 08/13/17 17:29 07/15/17 09:17 10 MG Clopidogrel Bisulfate (plAVix TAB) 75 mg DAILY PO 07/15/17 09:00 08/14/17 08:59 07/16/17 08:06 75 MG Isosorbide Mononitrate (Imdur Ext Rel Tab) 30 mg DAILY PO 07/15/17 09:00 08/14/17 08:59 07/16/17 08:06 30 MG Metoprolol Tartrate (Lopressor Tab) 25 mg BID PO 07/14/17 21:00 08/13/17 20:59 07/16/17 08:06 25 MG Multivitamins/ Minerals (Multivitamin W/ Minerals Tab) 1 tab DAILY PO 07/15/17 09:00 08/14/17 08:59 07/16/17 08:06 1 TAB Miscellaneous Information (Order Awaiting Action) 1 ea QS N/A 07/14/17 20:30 08/13/17 20:29 Miscellaneous Information (Order Awaiting Action) 1 ea QS N/A 07/14/17 20:30 08/13/17 20:29 Hydralazine HCl (HydrALAZINE INJ) 10 mg Q6H PRN IV. 07/14/17 17:30 08/13/17 17:29 Albuterol/ Ipratropium (Duoneb) 3 ml QIDR INH 07/14/17 20:00 08/13/17 19:59 07/16/17 07:10 3 ML Pantoprazole Sodium (Protonix Tab) 40 mg QAM PO 07/15/17 09:00 08/14/17 08:59 07/16/17 08:07 40 MG Glucose (Glucose 40% Gel) UD PRN PO 07/14/17 20:15 08/13/17 20:14 Glucose (Glucose Chew Tab) 1 tabs UD PRN PO 07/14/17 20:15 08/13/17 20:14 Dextrose (Dextrose 50% 50ML Syringe) 50 ml UD PRN IV 07/14/17 20:15 08/13/17 20:14 Glucagon (Glucagon Inj) 1 mg UD PRN SQ 07/14/17 20:15 08/13/17 20:14 Insulin Aspart (novoLOG ASPART) SLIDING SCALE G... ACHS SC 07/14/17 21:00 08/13/17 20:59 07/16/17 08:04 13 UNITS Miscellaneous (Iv Fluids Completed) 1 ea PRN PRN N/A 07/14/17 23:30 07/14/18 23:29 Methylprednisolone Sodium Succinate 40 mg/Syringe 0.64 ml @ 1.5 mls/min Q12H IV 07/15/17 19:00 08/14/17 18:59 07/16/17 06:33 1.5 MLS/MIN Guaifenesin (Mucinex Contr Rel Tab) 1,200 mg Q12 PO 07/15/17 12:00 08/14/17 11:59 07/16/17 08:06 1,200 MG Heparin Sodium/ Dextrose 500 ml @ 10 mls/hr Q24H PRN IV 07/15/17 12:00 08/14/17 11:59 07/16/17 04:33 15 MLS/HR Insulin Glargine (Lantus Solostar Pen) 30 units HS SC 07/15/17 21:00 08/13/17 20:59 07/15/17 21:31 30 UNITS Insulin Glargine (Lantus Solostar Pen) 30 units QAM SC 07/16/17 09:00 08/14/17 12:29 07/16/17 08:08 30 UNITS Lovastatin (Mevacor Tab) 40 mg PM PO 07/15/17 21:00 08/13/17 20:59 07/15/17 21:29 40 MG Menthol (Nice Marcello) 1 marcello PRN PRN PO 07/16/17 03:15 08/15/17 03:14 07/16/17 03:24 1 MARCELLO Physical Exam Vital Signs Past 12 Hours Date Time Temp Pulse Resp B/P (MAP) Pulse Ox O2 Delivery O2 Flow Rate FiO2 07/16/17 08:00 Room Air 07/16/17 07:57 36.4 63 18 125/82 (96) 97 07/16/17 07:12 65 18 96 Room Air 07/16/17 04:00 Room Air 07/16/17 04:00 36.5 73 22 152/83 (106) 07/16/17 00:00 Room Air 07/15/17 23:22 36.5 77 18 108/70 (83) 93 Room Air The patient is alert and oriented. Mood and affect appeared normal. He answered all questions appropriately. HEENT: Pupils are equal and reactive to light and accommodation. Extraocular movements are intact. The sclerae are anicteric. Neuro: Cranial nerves intact Neck: Patient's neck is supple. He has palpable carotid pulses bilaterally without bruits on auscultation. There is no evidence of jugular venous distention. The thyroid is not enlarged. Lungs: Clear to auscultation bilaterally. He has good air movement without use of accessory muscles. No rales wheezes or rhonchi. Cardiac: Heart demonstrates a regular rate and rhythm. Normal S1 and S2. No murmurs on examination. Pulses: The patient has palpable radial pulses bilaterally that are equal in intensity. He had palpable femoral pulses bilaterally that were slightly reduced. There are no bruits on auscultation. Extremities: There was no evidence of hypoperfusion. There is no cyanosis or clubbing. There is no edema. Patient was wearing compression stockings. There are trophic changes bilaterally. Skin: I did not appreciate any rashes on examination today. Some excoriations on the legs bilaterally Data Laboratory Results: Last 24 Hours Test 07/15/17 11:35 07/15/17 12:12 07/15/17 14:22 07/15/17 16:49 Bedside Glucose 241 mg/dl 286 mg/dl Activated Partial Thromboplast Time 27.1 SECONDS Partial Thromboplastin Ratio 1.0 Total Creatine Kinase 344 U/L Creatine Kinase MB 12.7 ng/ml Creatine Kinase MB Ratio 3.7 Troponin I 1.280 ng/ml Test 07/15/17 18:58 8/25/17 19:58 07/15/17 21:55 07/16/17 02:35 Activated Partial Thromboplast Time 44.4 SECONDS 125.3 SECONDS Partial Thromboplastin Ratio 1.7 4.8 Bedside Glucose 314 mg/dl Total Creatine Kinase 542 U/L Creatine Kinase MB 13.4 ng/ml Creatine Kinase MB Ratio 2.5 Troponin I 1.770 ng/ml Test 07/16/17 06:27 07/16/17 07:45 07/16/17 09:38 White Blood Count 19.77 K/uL Red Blood Count 4.32 M/uL Hemoglobin 12.8 g/dL Hematocrit 36.6 % Mean Corpuscular Volume 84.7 fL Mean Corpuscular Hemoglobin 29.6 pg Mean Corpuscular Hemoglobin Concent 35.0 g/dl RDW Standard Deviation 44.6 fL RDW Coefficient of Variation 14.2 % Platelet Count 243 K/uL Mean Platelet Volume 9.5 fL Sodium Level 135 mmol/L Potassium Level 5.4 mmol/L Chloride Level 105 mmol/L Carbon Dioxide Level 24 mmol/L Anion Gap 6.0 mmol/L Blood Urea Nitrogen 36 mg/dl Creatinine 1.40 mg/dl Est Creatinine Clear Calc Drug Dose 52.3 ml/min Estimated GFR () 58.6 Estimated GFR (Non- 50.5 BUN/Creatinine Ratio 25.9 Random Glucose 276 mg/dl Calcium Level 8.8 mg/dl Total Creatine Kinase 574 U/L Creatine Kinase MB 11.1 ng/ml Creatine Kinase MB Ratio 1.9 Troponin I 2.760 ng/ml Bedside Glucose 264 mg/dl Activated Partial Thromboplast Time 110.9 SECONDS Partial Thromboplastin Ratio 4.3 Imaging: Chest x-ray did not demonstrate any acute cardiopulmonary process. EKG: Normal sinus rhythm with T-wave inversions. Telemetry reviewed: No significant arrhythmias Echocardiogram demonstrated preserved LV systolic function. No wall motion abnormalities There is no significant valvular disease. Mild LVH Assessment & Plan 1. Non ST-elevation myocardial infarction: Patient did have elevation of cardiac biomarkers consistent with an recent infarct. This appears to have happened within the last 24 hours. Interestingly, he did not appear to have symptoms of coronary insufficiency during this period of time. I asked him on several occasions with a had any symptoms of chest discomfort in the past 24 hours and denied any. He is not appear to have been markedly hypotensive for hypoxic during this period of time. Does have intermittent episodes of hypertension, but this is unlikely to have resulted in the significant rise in his biomarkers. Would seem reasonable to conclude that he did suffer a recent plaque rupture event. Echocardiogram is normal without evidence of wall motion abnormality, but this may have happened subsequent to his imaging. This point would seem reasonable to continue him on heparin infusion, his outpatient medical regimen of beta-blockade and Mack inhibition. Aspirin has been added to his Plavix. He does report a history of epistaxis associated with dual anti- platelet therapy, but this is somewhat remote. I suggested we repeat his coronary angiogram on Tuesday provided he maintains an element of stability over the weekend. 2. Coronary artery disease: Patient reports having had 5 stents. Do not have all the records regarding these interventions. Appears that he did have at least 1 stent placed in the LAD. Appears to be on a reasonable outpatient medical regimen for secondary prevention. He was on low-dose lovastatin due to an intolerance to other medications. Did not appear to have symptoms of angina leading up to his interventions. 3. Peripheral vascular disease: Patient did not describe symptoms of claudication or nonhealing ulcers leading up to his evaluations. He is not appear to have limiting claudication currently. He is very sedentary. He is limited mostly by his breathing difficulty. Not appear to have any nonhealing ulcers. Femoral pulses appear to be adequate currently. Secondary prevention for his coronary disease will also address his peripheral vascular disease. 4. Hypertension: Somewhat labile but will be monitored during his hospitalization
--- NOTE | 2017-07-16 12:25 | PROGRESS NOTE ---
DATE: 07/16/2017 HOSPITALIST PROGRESS NOTE HISTORY OF PRESENT ILLNESS: Mr. Bruner is a very pleasant 71-year-old male with a history of longstanding hypertension, insulin requiring type 2 diabetes mellitus, dyslipidemia, PAD, BPH, CAD status post multiple stents, and COPD, who was admitted acutely on 07/14/2017, complaining of progressive shortness of breath, dyspnea on exertion, wheezing, and cough over the preceding 3-4 days. He also had a "funny feeling" in his chest and some chest tightness (which was somewhat pleuritic). He was admitted with an acute COPD exacerbation and was started on the appropriate medication regimen. His wheezing, cough, and shortness of breath continued to improve gradually. He was noted to have elevated cardiac biomarkers and had some nonspecific EKG changes. He subsequently ruled in for an NSTEMI. Fortunately, his echocardiogram shows no significant wall motion abnormalities, LVEF is 60%. The patient was evaluated by cardiology today and will undergo a cardiac catheterization on 07/18/2017. The patient offers no other complaints or concerns. He denies any chest discomfort at the present time. Shortness of breath has improved. Wheezing has improved. He denies any orthopnea or PND. He denies any palpitations, tachypalpitations, syncope, or near syncope. MEDICATIONS: 1. Lantus 30 units subcutaneous injection b.i.d. 2. Lovastatin 40 mg daily. 3. Menthol lozenges. 4. Methylprednisolone 40 mg IV q. 12 hours. 5. Mucinex 1200 mg p.o. q. 12 hours. 6. Heparin drip. 7. Aspirin 81 mg daily. 8. Azithromycin 250 mg daily. 9. Plavix 75 mg daily. 10. Imdur 30 mg daily. 11. Multivitamin with minerals daily. 12. Protonix 40 mg daily. 13. Lopressor 25 mg b.i.d. 14. NovoLog sliding scale insulin. 15. DuoNeb nebulizers q.i.d. 16. Tylenol p.r.n. 17. Maalox Max p.r.n. 18. Milk of magnesia p.r.n. 19. Zofran 4 mg IV q. 6 hours p.r.n. 20. Nitroglycerin 0.4 mg as needed. 21. Morphine sulfate 2 mg IV q. 30 minutes p.r.n. for chest pain. 22. MiraLax p.r.n. 23. Albuterol MDI 2 puffs p.o. q. 4 hours p.r.n. 24. Zyrtec 10 mg daily as needed for allergies. 25. Hydralazine 10 mg IV q. 6 hours p.r.n. for systolic blood pressure greater than 180 or diastolic blood pressure greater than 100. PHYSICAL EXAMINATION: VITAL SIGNS: Temperature is 36.4 degrees, pulse 63 and regular, respiratory rate 18 and unlabored, blood pressure is 125/82 and SpO2 is 97% on room air. GENERAL: The patient is in no acute distress. HEENT: Head is atraumatic and normocephalic. EOMs intact. Sclerae are anicteric. Face is symmetric. No perioral cyanosis. Mucous membranes moist. NECK: Without thyromegaly, adenopathy or JVD. Carotid upstrokes +2 bilaterally without bruits. CHEST AND LUNGS: With diffuse late inspiratory and expiratory wheezes. No rales. No accessory muscle use. CARDIOVASCULAR: S1 and S2 are regular without murmur, gallop or rub. PMI is nondisplaced. No lifts, heaves, or thrills. ABDOMINAL EXAM: Bowel sounds present. No masses, organomegaly or tenderness. EXTREMITIES: Without clubbing, cyanosis or edema. NEUROLOGIC: The patient is awake, alert and oriented. Pleasant and cooperative. Answers questions appropriately. Speech is clear. Normal movement in all 4 extremities. LABORATORIES: White blood cell count is 19.77, hemoglobin 12.8 g/dL, hematocrit 36.6%, and platelet count 243,000. Sodium is 135 mmol/L, potassium 5.4 mmol/L, BUN 36 mg/dL, creatinine 1.40 mg/dL and random glucose 264 mg/dL. Total CKs are 574, 542, and 344 units per liter with respective CK-MBs of 11.1, 13.4, and 12.7 ng/mL. Troponin I levels are 2.760, 1.770, 1.280, 0.565, 0.017, and less than 0.015 ng/mL. ASSESSMENT: 1. Chronic obstructive pulmonary disease exacerbation. 2. Non-ST elevation myocardial infarction by cardiac enzymes. The patient has a known history of coronary artery disease. 3. History of coronary artery disease. 4. Peripheral arterial disease. 5. Insulin requiring type 2 diabetes mellitus. 6. History of LAD stent in 2014. 7. Hypertension. 8. Dyslipidemia. PLAN: 1. The patient continues to improve gradually. Shortness of breath, wheezing, and cough have improved. 2. Continue IV methylprednisolone 40 mg q. 12 hours. 3. Continue DuoNeb nebulizers. 4. Continue Albuterol inhaler as needed. 5. We will strongly recommend starting higher dose Advair upon discharge to prevent future COPD exacerbations. 6. Continue guaifenesin as directed. 7. As far as his NSTEMI, he was evaluated by cardiology. 8. Continue dual antiplatelet therapy with aspirin 81 mg and Plavix 75 mg daily. 9. Continue heparin drip for the time being. 10. Continue Lopressor at current dose. 11. Continue Imdur 30 mg daily. 12. Agree with increasing Lovastatin to 40 mg daily. 13. Continue aggressive management of underlying diabetes mellitus. Continue sliding scale insulin as his blood sugars are quite labile and now that he is on corticosteroids. 14. Continue Protonix for GI prophylaxis. 15. Anticipate diagnostic cardiac catheterization on Tuesday with Dr. Ernandez. 16. Continue to monitor daily laboratories. 17. We will continue to follow while hospitalized. TESS
[2017-07-16 17:52] LABS: PARTIAL THROMBOPLASTIN RATIO 2.1
[2017-07-16] MEDS: LOVASTATIN 20 MG TAB PO SCH (20:59)
[2017-07-17] VITALS (8 sets, daily range): BP systolic 118–138; BP diastolic 64–82; PULSE 58–78; TEMP 36.4–36.6; O2SAT 91–100
[2017-07-17 06:34] LABS: COMPLETE YES; HEMATOCRIT 37.1 % (42-52); IG% 0.5 %; LYMPH % 7.3 %; LYMPH ABS # 1.37 K/uL (1.2-3.4); MEAN CELL VOLUME 83.6 fL (80-100); MEAN CORPUSCULAR HEMOGLOBIN 29.7 pg (25-34); MEAN CORPUSCULAR HGB CONC 35.6 g/dl (32-36); MEAN PLATELET VOLUME 9.2 fL (7.4-10.4); MONO % 4.6 %; NEUT % 87.6 %; PLATELET COUNT 235 K/uL (130-400); RED BLOOD COUNT 4.44 M/uL (4.7-6.1); WHITE BLOOD COUNT 18.65 K/uL (4.8-10.8)
[2017-07-17 06:54] LABS: PARTIAL THROMBOPLASTIN RATIO 2.2
[2017-07-17 07:11] LABS: BUN/CREATININE RATIO 23.4 (10-20); CALCIUM 8.9 mg/dl (8.5-10.1); CREATININE 1.4 mg/dl (0.60-1.40); POTASSIUM 4.9 mmol/L (3.5-5.1)
[2017-07-17] MEDS: ALBUT/IPRATROP 3MG/0.5MG NEB 3 ML VIAL INH SCH ×4 (07:23→20:00)
[2017-07-17] MEDS: INCRUSE ELLIPTA~ORDER AWAITING ACTION SCH ×4 (07:53→23:26)
[2017-07-17] MEDS: INSULIN ASPART 100 UNITS/ML 3 ML PEN SC SCH ×4 (08:03→20:59)
[2017-07-17] MEDS: METHYLPREDNISOLONE IV 40 MG in SYRINGE 0 ML IV SCH ×2 (08:04→18:42)
[2017-07-17] MEDS: INSULIN GLARGINE SOLOSTAR 100 UNITS/ML 3 ML PEN SC SCH ×2 (08:04→20:59)
[2017-07-17] MEDS: CEROVITE ADV FORMULA TAB PO SCH (08:04)
[2017-07-17] MEDS: METOPROLOL TARTRATE 25 MG TAB PO SCH ×2 (08:04→19:11)
[2017-07-17] MEDS: PANTOprazole SOD 40 MG TAB PO SCH (08:04)
[2017-07-17] MEDS: CLOPIDOGREL BISULFATE 75 MG TAB PO SCH (08:05)
[2017-07-17] MEDS: ASPIRIN 81 MG ECTAB PO SCH (08:05)
[2017-07-17] MEDS: ISOSORBIDE MONONITRATE 30 MG TABCR PO SCH (08:05)
[2017-07-17] MEDS: AZITHROMYCIN 250 MG TAB PO SCH (08:05)
[2017-07-17] MEDS: GUAIFENESIN 600 MG TABCR PO SCH ×2 (08:05→19:12)
--- NOTE | 2017-07-17 10:10 | Progress Note ---
Subjective Date of Service: Jul 17, 2017. Subjective pt has no current chest pain is agreeable to [facility] 07/18. He is resting comfortably and only ambulating short distances in room Problem List Medical Problems: (1) COPD exacerbation Status: Acute Review of Systems Constitutional: No fever, No chills Respiratory: No cough, No sputum, No shortness of breath, No dyspnea on exertion Cardiac: No chest pain, No orthopnea, No edema Abdomen: No pain, No nausea, No vomiting, No diarrhea Neurologic: No memory loss, No paralysis Psychiatric: No depression symptoms, No anhedonism Objective Vital Signs Date Time Temp Pulse Resp B/P (MAP) Pulse Ox O2 Delivery O2 Flow Rate FiO2 07/17/17 08:04 36.5 61 18 130/64 (86) 96 Room Air 07/17/17 08:00 Room Air 07/17/17 07:24 78 18 95 Room Air 07/17/17 04:18 36.4 63 18 138/79 (98) 95 Room Air 07/17/17 04:00 Room Air 07/17/17 00:00 Room Air 07/16/17 23:55 36.6 63 18 117/67 (84) 96 Room Air 07/16/17 20:15 Room Air 07/16/17 20:08 80 18 96 Room Air 07/16/17 18:59 36.5 78 17 112/70 (84) 93 07/16/17 16:15 Room Air 07/16/17 15:01 36.5 76 16 133/72 (92) 93 07/16/17 14:40 68 18 95 Room Air 07/16/17 12:00 Room Air Physical Exam General Appearance: WD/WN, + mild distress Neck: supple, no JVD Respiratory/Chest: chest non-tender, lungs clear, normal breath sounds Cardiovascular: regular rate, rhythm, no murmur Abdomen: normal bowel sounds, non tender, soft Extremities: normal range of motion, no pedal edema Neurologic/Psychiatric: alert, oriented x 3 Laboratory Results Last 24 Hours Test 07/16/17 12:03 07/16/17 16:51 07/16/17 17:24 07/16/17 20:36 Bedside Glucose 269 mg/dl 228 mg/dl 289 mg/dl Activated Partial Thromboplast Time 55.4 SECONDS Partial Thromboplastin Ratio 2.1 Test 07/17/17 06:13 07/17/17 07:53 White Blood Count 18.65 K/uL Red Blood Count 4.44 M/uL Hemoglobin 13.2 g/dL Hematocrit 37.1 % Mean Corpuscular Volume 83.6 fL Mean Corpuscular Hemoglobin 29.7 pg Mean Corpuscular Hemoglobin Concent 35.6 g/dl Platelet Count 235 K/uL Mean Platelet Volume 9.2 fL Neutrophils (%) (Auto) 87.6 % Lymphocytes (%) (Auto) 7.3 % Monocytes (%) (Auto) 4.6 % Eosinophils (%) (Auto) 0.0 % Basophils (%) (Auto) 0.0 % Neutrophils # (Auto) 16.33 K/uL Lymphocytes # (Auto) 1.37 K/uL Monocytes # (Auto) 0.86 K/uL Eosinophils # (Auto) 0.00 K/uL Basophils # (Auto) 0.00 K/uL RDW Standard Deviation 43.3 fL RDW Coefficient of Variation 14.2 % Immature Granulocyte % (Auto) 0.5 % Immature Granulocyte # (Auto) 0.09 K/uL Activated Partial Thromboplast Time 56.9 SECONDS Partial Thromboplastin Ratio 2.2 Sodium Level 135 mmol/L Potassium Level 4.9 mmol/L Chloride Level 104 mmol/L Carbon Dioxide Level 24 mmol/L Anion Gap 7.0 mmol/L Blood Urea Nitrogen 33 mg/dl Creatinine 1.40 mg/dl Est Creatinine Clear Calc Drug Dose 52.2 ml/min Estimated GFR () 58.6 Estimated GFR (Non- 50.5 BUN/Creatinine Ratio 23.4 Random Glucose 271 mg/dl Calcium Level 8.9 mg/dl Bedside Glucose 243 mg/dl Assessment and Plan Non-ST elevation myocardial infarction by cardiac enzymes. The patient is with a known history of coronary artery disease and previous stent, is on heparin and cardiology is going to consider [facility] 07/18 ,dual antiplatelet therapy with aspirin 81 mg and Plavix 75 mg, Imdur 30 mg daily. lovastatin to 40 mg daily. Insulin requiring type 2 diabetes mellitus. basal bolus Copd, IV methylprednisolone 40 mg q. 12 hours, Continue DuoNeb nebulizers, prn Albuterol inhaler as needed. Protonix for GI prophylaxis.
--- NOTE | 2017-07-17 16:00 | Cardiology Follow-Up ---
Subjective Date of Service: Jul 17, 2017. History of Present Illness Patient claims he feeling better. He has not had any additional episodes of feeling poorly. He has had some breathing trouble which has improved with inhaled therapy. He has not had any symptoms of chest discomfort. He has been ambulatory to the restroom and back without symptoms. Social History Smoking Status: Former Smoker History of Alcohol Use: Yes (beer, "once in awhile") Review of Systems Respiratory: + see HPI Cardiac: + see HPI He states that he does have some nasal drainage occasionally this causes coughing. During coughing fits he will have some right-sided chest discomfort. He also notices an elevation in his blood pressure around that time. He has been eating well. Occasionally dry food gets stuck but this is a chronic problem. He denies swelling of lower extremities. He denies any ulcerations and lower extremities. He does have a rash that comes and goes on his legs. This appears to have improved with application of a dermatologic cream. No change in his bowel habits. No recent epistaxis. Objective Vital Signs Past 12 Hours Date Time Temp Pulse Resp B/P (MAP) Pulse Ox O2 Delivery O2 Flow Rate FiO2 07/17/17 15:31 76 18 94 Room Air 07/17/17 12:00 Room Air 07/17/17 11:16 36.6 68 20 118/74 (89) 100 Room Air 07/17/17 08:04 36.5 61 18 130/64 (86) 96 Room Air 07/17/17 08:00 Room Air 07/17/17 07:24 78 18 95 Room Air 07/17/17 04:18 36.4 63 18 138/79 (98) 95 Room Air 07/17/17 04:00 Room Air Last Recorded Weight-Kilograms: 85.500 Intake & Output 8-Hour Column 07/17/17 07/18/17 07/18/17 16:00 00:00 08:00 Intake Total 300 ml Output Total 525 ml Balance -225 ml 24-Hour Column 07/18/17 08:00 Intake Total 300 ml Output Total 525 ml Balance -225 ml Physical Exam The patient is alert and oriented. Mood and affect appeared normal. He answered all questions appropriately. HEENT: Pupils are equal and reactive to light and accommodation. Extraocular movements are intact. The sclerae are anicteric. Neuro: Cranial nerves intact Neck: Patient's neck is supple. He has palpable carotid pulses bilaterally without bruits on auscultation. There is no evidence of jugular venous distention. The thyroid is not enlarged. Lungs: Coarse bronchial breath sounds with some expiratory wheezing. Cardiac: Heart demonstrates a regular rate and rhythm. Normal S1 and S2. No murmur Pulses: The patient has palpable radial pulses bilaterally that are equal in intensity. He had palpable femoral pulses bilaterally that were slightly reduced. There are no bruits on auscultation. Extremities: There was no evidence of hypoperfusion. There is no cyanosis or clubbing. There is no edema. Patient was wearing compression stockings. There are trophic changes bilaterally. Skin: I did not appreciate any rashes on examination today. Some excoriations on the legs bilaterally Data Laboratory Results: Last 24 Hours Test 07/16/17 16:51 07/16/17 17:24 07/16/17 20:36 07/17/17 06:13 Bedside Glucose 228 mg/dl 289 mg/dl Activated Partial Thromboplast Time 55.4 SECONDS 56.9 SECONDS Partial Thromboplastin Ratio 2.1 2.2 White Blood Count 18.65 K/uL Red Blood Count 4.44 M/uL Hemoglobin 13.2 g/dL Hematocrit 37.1 % Mean Corpuscular Volume 83.6 fL Mean Corpuscular Hemoglobin 29.7 pg Mean Corpuscular Hemoglobin Concent 35.6 g/dl Platelet Count 235 K/uL Mean Platelet Volume 9.2 fL Neutrophils (%) (Auto) 87.6 % Lymphocytes (%) (Auto) 7.3 % Monocytes (%) (Auto) 4.6 % Eosinophils (%) (Auto) 0.0 % Basophils (%) (Auto) 0.0 % Neutrophils # (Auto) 16.33 K/uL Lymphocytes # (Auto) 1.37 K/uL Monocytes # (Auto) 0.86 K/uL Eosinophils # (Auto) 0.00 K/uL Basophils # (Auto) 0.00 K/uL RDW Standard Deviation 43.3 fL RDW Coefficient of Variation 14.2 % Immature Granulocyte % (Auto) 0.5 % Immature Granulocyte # (Auto) 0.09 K/uL Sodium Level 135 mmol/L Potassium Level 4.9 mmol/L Chloride Level 104 mmol/L Carbon Dioxide Level 24 mmol/L Anion Gap 7.0 mmol/L Blood Urea Nitrogen 33 mg/dl Creatinine 1.40 mg/dl Est Creatinine Clear Calc Drug Dose 52.2 ml/min Estimated GFR () 58.6 Estimated GFR (Non- 50.5 BUN/Creatinine Ratio 23.4 Random Glucose 271 mg/dl Calcium Level 8.9 mg/dl Test 07/17/17 07:53 07/17/17 11:41 Bedside Glucose 243 mg/dl 253 mg/dl Assessment and Plan 1. Non ST-elevation myocardial infarction: No symptoms of chest discomfort. Patient has been on a heparin infusion, Plavix and aspirin. Based on the rise in his biomarkers in his history, I suggest repeating angiography. I described the risks benefits and alternatives and he is familiar with the procedure having gone through it several times. He signed a witnessed consent form and will plan on proceeding tomorrow. 2. Coronary artery disease: Patient reports having had 5 stents. Do not have all the records regarding these interventions. Appears that he did have at least 1 stent placed in the LAD. Appears to be on a reasonable outpatient medical regimen for secondary prevention. He was on low-dose lovastatin due to an intolerance to other medications. Did not appear to have symptoms of angina leading up to his interventions. 3. Peripheral vascular disease: Patient did not describe symptoms of claudication or nonhealing ulcers leading up to his evaluations. He is not appear to have limiting claudication currently. He is very sedentary. He is limited mostly by his breathing difficulty. Not appear to have any nonhealing ulcers. Femoral pulses appear to be adequate currently. Secondary prevention for his coronary disease will also address his peripheral vascular disease. 4. Hypertension: Somewhat labile but will be monitored during his hospitalization
[2017-07-17] MEDS: LOVASTATIN 20 MG TAB PO SCH (19:11)
[2017-07-17] MEDS: SODIUM CHLORIDE 0.9% 1000ML 1,000 ML IV SCH (23:27)
[2017-07-18] VITALS (18 sets, daily range): BP systolic 124–165; BP diastolic 64–84; PULSE 59–76; TEMP 36.2–36.8; O2SAT 95–97
[2017-07-18] MEDS ORDERED: [UNRECOGNIZED DRUG - REMARK] ONE (03:00)
[2017-07-18 06:32] LABS: PARTIAL THROMBOPLASTIN RATIO 1.1
[2017-07-18] MEDS: METHYLPREDNISOLONE IV 40 MG in SYRINGE 0 ML IV SCH ×2 (07:03→18:33)
[2017-07-18] MEDS: INCRUSE ELLIPTA~ORDER AWAITING ACTION SCH ×2 (07:13→16:00)
[2017-07-18] MEDS: GUAIFENESIN 600 MG TABCR PO SCH ×2 (07:14→20:36)
[2017-07-18] MEDS: ISOSORBIDE MONONITRATE 30 MG TABCR PO SCH (07:14)
[2017-07-18] MEDS: PANTOprazole SOD 40 MG TAB PO SCH (07:15)
[2017-07-18] MEDS: METOPROLOL TARTRATE 25 MG TAB PO SCH ×2 (07:15→20:35)
[2017-07-18] MEDS: CLOPIDOGREL BISULFATE 75 MG TAB PO SCH (07:15)
[2017-07-18] MEDS: AZITHROMYCIN 250 MG TAB PO SCH (07:15)
[2017-07-18] MEDS: ASPIRIN 81 MG ECTAB PO SCH (07:15)
[2017-07-18] MEDS: CEROVITE ADV FORMULA TAB PO SCH (07:15)
[2017-07-18] MEDS: ALBUT/IPRATROP 3MG/0.5MG NEB 3 ML VIAL INH SCH ×4 (07:20→20:00)
[2017-07-18] MEDS: INSULIN ASPART 100 UNITS/ML 3 ML PEN SC SCH ×4 (08:04→20:45)
[2017-07-18] MEDS: INSULIN GLARGINE SOLOSTAR 100 UNITS/ML 3 ML PEN SC SCH ×2 (08:54→20:44)
[2017-07-18] MEDS ORDERED: FENTANYL CITRATE INJ 50 MCG/1 ML 2 ML VIAL ONE (10:59)
[2017-07-18] MEDS ORDERED: HEPARIN SOD (PORCINE) 1000 UNIT/ML 10 ML VIAL ONE (10:59)
[2017-07-18] MEDS ORDERED: MIDAZOLAM HCL 1 MG/ML 2ML VIAL ONE ×2 (10:59→11:51)
[2017-07-18] MEDS ORDERED: NiCARDipine HCL INJ 2.5 MG/ML 10 ML AMP ONE (10:59)
[2017-07-18] MEDS: SODIUM CHLORIDE 0.9% 1000ML 1,000 ML IV SCH (11:46)
[2017-07-18] MEDS ORDERED: ADENOSINE IV SOLN 3 MG/ML 20 ML VIAL ONE ×2 (11:52→11:56)
--- NOTE | 2017-07-18 12:41 | [facility] Post Operative Brief Note ---
Preliminary Procedure Note Procedure Date Jul 18, 2017. Pre-Procedure Diagnosis Non STEMI AUC Score 8 Post-Procedure Diagnosis Severe CAD Procedure(s) Performed Fractional Flow [place] Project Surveyor Alfonso Stab Setter And Driller(s) Von Estimated Blood Loss 10 Medication(s) Fentanyl, Heparin, Versed Preliminary Findings For full details of patient's coronary angiography please see cath report dictated by Dr. Ernandez. Found to have moderate to severe distal LM/ostial LAD disease as well as moderate mid LAD disease and FFR undertaken. Access: 6Fr right radial artery Catheters: JL3.5 guide Mid circumflex: iFR 0.91 FFR 0.86 Distal LAD: iFR 0.70 Proximal LAD: FFR 0.78 Arterial Closure: TR Band Summary: 1. Hemodynamically significant distal LM/ostial LAD disease by FFR (0.78) Recommendations: Discussed with Dr. Ernandez, patient's primary relay dispatcher, will consider coronary bypass surgery. Recommendations CABG Specimens None Fluids (cc crystalloids) 125 NSS Drains None Anesthesia Moderate Procedural Complication(s) None Disposition PCU
--- NOTE | 2017-07-18 17:34 | Discharge Instructions ---
Discharge Instructions Date of Service Jul 18, 2017. Admission Reason for Admission: Copd Exacerbation Discharge Discharge Diagnosis / Problem: unstable angina, left main CAD Discharge Goals Goal(s): Diagnostic testing, Therapeutic intervention Activity Recommendations Activity Limitations: as noted below Lifting Limitations: until after follow-up appointment . Instructions / Follow-Up Instructions / Follow-Up Home Care: * Take your medications exactly as directed. Don't skip doses. * Remember that recovery after a heart attack takes time. Plan to rest for at lease 4-8 weeks while you recover. Then return to normal activity when your doctor says it's okay. * Ask your doctor about joining a heart rehabilitation program. * Tell your doctor if you are feeling depressed. Feelings of sadness are common after a heart attack, but it is important that you speak to someone if you are feeling overwhelmed by these feelings. * If you are having chest pain, call 911 for an ambulance. Do NOT drive yourself to the hospital. * Ask your family members to learn CPR. * Learn to take your own blood pressure and pulse. Keep a record of your results. Ask your doctor when you should seek emergency medical attention. He or she will tell you which blood pressure reading is dangerous. Lifestyle Changes: * Maintain a healthy weight. Get help to lose any extra pounds. * Cut back on salt. * Limit canned, dried, packaged, and fast foods. * Don't add salt to your food. * Season foods with herbs instead of salt when you cook. * Break the smoking habit. Enroll in a stop-smoking program to improve your chances of success. * Limit fatty foods. * Ask your doctor about having your lipid levels checked regularly. * Build up your activity according to your doctor's recommendation. * Ask your doctor when it's okay to resume sexual activity. * Tell your doctor about any erectile dysfunction (ED) medication you are taking. Some ED medications are not safe if you take certain heart medications. * Try to manage stress. Follow Up: It is important for you to keep your follow up appointments with your medical provider. Current Hospital Diet Patient's current hospital diet: AHA Diet (Heart Healthy), Diabetes Type 2 Diet Discharge Diet Recommended Diet: AHA Diet (Heart Healthy), Diabetes Type 2 Diet Pending Studies Studies pending at discharge: no Laboratory Results Hemoglobin A1c Test 07/15/17 08:07 Range/Units Estimated Average Glucose 209 mg/dl Hemoglobin A1c 8.9 H 4.5-5.6 % Lipid Panel Test 07/15/17 08:07 Range/Units Triglycerides Level 79 0-150 mg/dl Cholesterol Level 211 H 0-200 mg/dl HDL Cholesterol 57 mg/dl Cholesterol/HDL Ratio 3.7 LDL Cholesterol, Calculated 138 mg/dl Medical Emergencies . Who to Call and When: Medical Emergencies: If at any time you feel your situation is an emergency, please call 911 immediately. Call 911 immediately or go to your nearest Emergency Room if you experience any of the following: Warning Signs and Symptoms of a Heart Attack * Chest pain that is not relieved by medication * Shortness of breath . Non-Emergent Contact Non-Emergency issues call your: Cut And Cover Line Worker, Surgeon . . "Provider Documentation" section prepared by Sandeep Alvarez. . AMI Core Measures Reason no ASA as I/P: Treatment provided - N/A Reason no ASA at D/C: Contraindicated (may need cabg) Reason no statin as I/P: Treatment provided - N/A Reason no statin at D/C: Treatment provided - N/A VTE Core Measure Inpt VTE Proph given/why not?: Unfractionated heparin SQ, T.E.D. Stockings, SCD 's
--- NOTE | 2017-07-18 17:36 | Procedure Note ---
Cardiac Cath Report Procedure performed: Cardiac catheterization Staff superior court justice: Torey Ernandez MD Indication: Patient is a 71-year-old gentleman with a history of coronary artery disease having previously undergone multiple percutaneous interventions. He presented to [facility] after evaluation by his primary care physician. At that evaluation the patient complained of not feeling well and some atypical chest pain symptoms. He had an abnormal EKG and was referred for evaluation. During his hospitalization was noted to have elevated cardiac biomarkers in a pattern consistent with an acute coronary syndrome. Based on these results he was advised to undergo coronary angiography today Procedure in detail: The patient was informed of the risks benefits and alternatives to the intended procedure, he understood such an which proceed. He was taken to the cardiac catheterization suite in a fasting state. Conscious sedation was administered per protocol the patient was monitored electrocardiographically throughout today 's procedure. The right wrist area was prepped and draped in usual sterile fashion. This area was anesthetized using subcutaneous menstruation lidocaine solution. The right radial artery was then accessed using Seldinger technique, and a arterial sheath was placed at this site over a guidewire. The sheath was used to facilitate passage of the cardiac catheter for coronary angiography and left heart catheterization. Coronary angiography was then obtained in multiple orthogonal views prior to removal of the catheter. At the conclusion of the procedure the sheath was removed and hemostasis was achieved at the access site using manual pressure. The patient tolerated procedure well, there were no immediate complications. Equipment used: 5 Citizen Of [place] trapeze 3.5 Findings: Opening aortic pressure: 145/62 Left ventricular pressure: 161/9 Left ventricular end-diastolic pressure: 10 Coronary angiography: Left main: Left main was normal in size and caliber with tapering at its distal portion just before the takeoff of the ramus intermedius, left anterior descending and circumflex arteries. This appeared to be approximately 50% stenosis Left anterior descending: Left anterior descending was a large transapical vessel. It had approximately 60-70% ostial stenosis. There is no visible stent in the proximal portion but there was a discrete 70% stenosis in its midportion after a large septal intelligent systems engineer. Ramus intermedius: There was a large ramus intermedius branch with a stent in its proximal portion. This was 100% occluded Left circumflex: Left circumflex artery was a medium-size nondominant vessel. There were luminal irregularities throughout its course. There is approximate 50% ostial stenosis. There was a 90% stenosis a relatively small 1st OM branch. Right coronary artery: The right coronary artery had stent throughout the proximal and midportion prior to takeoff of the PDA and PLV branches. There is approximately 30% ostial stenosis. There were luminal irregularities in the distal branches but no discrete lesions. Impression: occlusion of the ramus intermedius at site of prior stenting, distal left main stenosis and discrete mid LAD stenosis. Plan: Order to determine if the patient is a candidate for percutaneous intervention evaluation of the distal left main stenosis will be performed.
--- NOTE | 2017-07-18 18:52 | Discharge Summary ---
Discharge Summary Date of Service Jul 18, 2017. Discharge Summary Admission Date: Jul 15, 2017 at 13:40 Discharge Date: Jul 18, 2017 Discharge Disposition: Acute care facility Principal Diagnosis: unstable angina left main coronary artery disease Procedures: Left heart catheterization showing left main coronary artery disease by Dr. Jarett Hamilton Medication Reconciliation Continued Medications: Albuterol Hfa (Ventolin Hfa) 200 Puffs/47338 Mcg Aers 2 PUFFS INH Q4 PRN for SOB/Wheezing Fluticasone Furoate-Vilanterol (Breo Ellipta 200-25 Mcg/INH) 1 Inh Inh 1 PUFF INH DAILY Insulin Human Regular (Insulin Regular Pump ) Pump 1 EA N/A UD Ipratropium-Albuterol (Duoneb) 3 Ml Nebu 1 TREATMENT INH Q4H PRN for SOB/Wheezing Isosorbide Mononitrate Ext Rel (Imdur Ext Rel) 30 Mg Tabcr 1 TAB PO DAILY Lisinopril (Lisinopril) 10 Mg Tab 10 MG PO DAILY Lovastatin (Mevacor) 10 Mg Tab 10 MG PO HS Metoprolol Tartrate (Lopressor) (Lopressor) 25 Mg Tab 25 MG PO BID Multiple Vitamins W/ Minerals (Centrum Silver Adult 50+) 1 Tab Tab 1 TAB PO DAILY [place]-3 Fatty Acids (Fish Oil) 1,200 Mg Cap 1200 MG PO DAILY Umeclidinium Vega (Incruse Ellipta) 62.5 Mcg/Inh Inh 1 PUFF INH DAILY Discontinued Medications: Cetirizine (Zyrtec) 10 Mg Tab 10 MG PO DAILY PRN for ALLERGIES Clopidogrel (Plavix) 75 Mg Tab 75 MG PO DAILY Prednisone (Prednisone) 10 Mg Tab 1 DOSE PO UD TAKE 60 MG BY MOUTH ONCE DAILY, TAPER BY 10 MG EVERY 2 DAYS UNTIL OFF (START DATE ON [facility] LIST SAYS 07/14/17), SON SAYS NEW MEDICATIONS TODAY WERE NOT STARTED YET. Discharge Exam Review of Systems: Constitutional: No fever, No chills, No sweats Respiratory: No cough, No sputum, No wheezing Cardiovascular: No chest pain, No orthopnea, No PND Abdomen: No pain, No nausea, No vomiting Physical Exam: General Appearance: WD/WN, + mild distress Neck: supple, no JVD Respiratory/Chest: chest non-tender, lungs clear, normal breath sounds Cardiovascular: regular rate, rhythm, no murmur Abdomen / GI: normal bowel sounds, non tender, soft Extremities: no pedal edema, normal range of motion Neurologic/Psychiatric: alert, oriented x 3 Hospital Course Non-ST elevation myocardial infarction by cardiac enzymes. The patient is with a known history of coronary artery disease and previous stent, cardiology and Dr. Jarett Hamilton have performed a [facility] 07/18 showing left main coronary disease with recommendation for bypass. The patient previously has been on,dual antiplatelet therapy with aspirin 81 mg and Plavix 75 mg this will need to be held and reevaluating given the possibility of upcoming surgery will continue, Imdur 30 mg daily. lovastatin to 40 mg daily. Patient is except at [facility] Dr. DUFF on the CT surgery service , ALS transfer is being arranged currently Insulin requiring type 2 diabetes mellitus. basal bolus Copd, initiated on IV methylprednisolone 40 mg q. 12 hours but has been stable this may be D escalated once arrives at [place], Continue DuoNeb nebulizers, prn Albuterol inhaler as needed. Protonix for GI prophylaxis. Total Time Spent: Greater than 30 minutes This includes examination of the patient, discharge planning, medication reconciliation, and communication with other providers. Discharge Instructions Please refer to the electronic Patient Visit Report (Discharge Instructions) for additional information.
[2017-07-18] MEDS: LOVASTATIN 20 MG TAB PO SCH (20:35)
[2017-09-02] MEDS ORDERED: CPR250 PO (12:34)
== END 2017-07-18 22:55 | disposition short-term general hospital (02) | DRG 281 ==
LOC: EDSEX 12:09 → EDBD 12:09 → C.EDB 12:10 → EDSEX 12:10 → C.MED 17:37 → ENRESERV 17:57 → OBSVTOIN 07-15 13:40 → CANBEDREQ 07-18 08:20 → ENRESERV 07-18 12:00 → C.2T 07-18 13:18
PROVIDERS: ADMIT Family Medicine; ATTEND Internal Medicine
PROC: 4A033BC Measurement of Arterial Pressure, Coronary, Percutaneous Approach (ICD-10-PCS; 2017-07-18)
PROC: B211YZZ Fluoroscopy of Multiple Coronary Arteries using Other Contrast (ICD-10-PCS; principal; 2017-07-18 07:19)
PROC: 4A023N7 Measurement of Cardiac Sampling and Pressure, Left Heart, Percutaneous Approach (ICD-10-PCS; principal; 2017-07-18 07:19)
DX: I21.4 Non-ST elevation (NSTEMI) myocardial infarction (principal); J44.1 Chronic obstructive pulmonary disease with (acute) exacerbation; E87.1 Hypo-osmolality and hyponatremia; E87.5 Hyperkalemia; E11.65 Type 2 diabetes mellitus with hyperglycemia; I25.110 Atherosclerotic heart disease of native coronary artery with unstable angina pectoris; I13.10 Hypertensive heart and chronic kidney disease without heart failure, with stage 1 through stage 4 chronic kidney disease, or unspecified chronic kidney disease; E78.5 Hyperlipidemia, unspecified; I73.9 Peripheral vascular disease, unspecified; N18.3 Chronic kidney disease, stage 3 (moderate); Z51.81 Encounter for therapeutic drug level monitoring; Z79.899 Other long term (current) drug therapy; Z79.4 Long term (current) use of insulin; Z79.02 Long term (current) use of antithrombotics/antiplatelets; Z96.41 Presence of insulin pump (external) (internal); Z66 Do not resuscitate; Z95.5 Presence of coronary angioplasty implant and graft; Z87.891 Personal history of nicotine dependence; Z83.3 Family history of diabetes mellitus

== ENCOUNTER → 2017-08-09 | Outpatient (CLI) | payer OTHER, MEDICARE ==
[~2017-08-09] MED LIST: CETI10TA84 PO; CLOP1TAB15 PO; CPR250 PO; FLUT1INH7 INH; GUAI1TAB75 PO; INSPMPRG; IPRASOL4 INH; ISOS30TA35 PO; LISI-461 PO; LOVA10TA3 PO; LSN10 PO; METO25TA56 PO; MULT-845 PO; OMEG120013 PO; PRD10 PO; PRED10TA PO; UMEC1INH INH; VNTHFA/IN INH
--- NOTE | 2017-08-09 16:28 | DIAGNOSTIC IMAGING REPORT ---
CHEST 2 VIEWS ROUTINE CLINICAL HISTORY: I25.10 Coronary artery [id number] Atherosclerotic vascular di dyspnea COMPARISON STUDY: 07/14/2017 FINDINGS: Interval median sternotomy. Atelectasis combined with pleural effusion left lung base. Lungs otherwise appear clear. No evidence pneumothorax. IMPRESSION: 1. Interval median sternotomy. 2. Interval small left pleural effusion with left basilar atelectatic change The above report was generated using voice recognition software. It may contain grammatical, syntax or spelling errors. Electronically signed by: Clint Reed M.D. 08/09/2017 4:27 PM Dictated Date/Time: 08/09/2017 4:26 PM
== END | disposition home or self-care (01) ==
LOC: C.RAD1850 16:11
PROVIDERS: ATTEND Internal Medicine Clinical Cardiac Electrophysiology
DX: I70.90 Unspecified atherosclerosis (principal); I25.10 Atherosclerotic heart disease of native coronary artery without angina pectoris; J90 Pleural effusion, not elsewhere classified; J98.11 Atelectasis

== ENCOUNTER → 2017-08-19 | Outpatient (CLI) | payer OTHER, MEDICARE ==
[~2017-08-19] MED LIST changes: -CPR250 PO; -GUAI1TAB75 PO; -LSN10 PO; -PRD10 PO
--- NOTE | 2017-08-19 10:49 | DIAGNOSTIC IMAGING REPORT ---
CHEST 2 VIEWS ROUTINE CLINICAL HISTORY: 71 years-old Male presenting with CAD, MULTIPLE VESSEL. TECHNIQUE: PA and lateral views of the chest were obtained. COMPARISON: 08/09/2017. FINDINGS: Median sternotomy wires and mediastinal surgical clips unchanged. Atherosclerosis of aortic arch. Cardiac silhouette slightly decreased in prominence from prior. Persistent elevation of the left hemidiaphragm with left basilar opacity and small pleural effusion. Right lung and pleural space clear. No pneumothorax. Osseous structures normal. Upper abdomen normal. IMPRESSION: 1. Unchanged left basilar atelectasis and small left pleural effusion. Electronically signed by: Jayme Mendez M.D. 08/19/2017 10:48 AM Dictated Date/Time: 08/19/2017 10:47 AM
== END | disposition home or self-care (01) ==
LOC: C.RAD1850 10:26
PROVIDERS: ATTEND Internal Medicine Clinical Cardiac Electrophysiology
DX: I25.10 Atherosclerotic heart disease of native coronary artery without angina pectoris (principal); J98.11 Atelectasis; J90 Pleural effusion, not elsewhere classified

== ENCOUNTER → 2017-08-19 | Outpatient (CLI) | payer OTHER, MEDICARE ==
[2017-08-19 13:09] LABS: HEMATOCRIT 35.8 % (42-52); MEAN CELL VOLUME 88.8 fL (80-100); MEAN CORPUSCULAR HEMOGLOBIN 27.5 pg (25-34); MEAN PLATELET VOLUME 8.5 fL (7.4-10.4); PLATELET COUNT 404 K/uL (130-400); RED BLOOD COUNT 4.03 M/uL (4.7-6.1); WHITE BLOOD COUNT 11.11 K/uL (4.8-10.8)
[2017-08-19 13:32] LABS: BLOOD UREA NITROGEN 11 mg/dl (7-18); BUN/CREATININE RATIO 8.8 (10-20); CALCIUM 9.5 mg/dl (8.5-10.1); CARBON DIOXIDE 29 mmol/L (21-32); CHLORIDE 101 mmol/L (98-107); GLUCOSE 228 mg/dl (70-99); POTASSIUM 4.3 mmol/L (3.5-5.1); SODIUM 137 mmol/L (136-145)
== END | disposition home or self-care (01) ==
LOC: C.LAB1850 10:44
PROVIDERS: ATTEND Internal Medicine Clinical Cardiac Electrophysiology
DX: I25.10 Atherosclerotic heart disease of native coronary artery without angina pectoris (principal)

== ENCOUNTER 2017-08-26 03:56 | Inpatient (IN) | payer OTHER, MEDICARE ==
[2017-08-26] VITALS (35 sets, daily range): BP systolic 84–198; BP diastolic 54–185; PULSE 72–118; TEMP 36–36.7; O2SAT 95–99; BMI 23.6
[~2017-08-26] VITALS: Ht 182.9 cm; Wt 76.0 kg
[2017-08-26] MEDS ORDERED: ALBUT/IPRATROP 3MG/0.5MG NEB 3 ML VIAL INH ONE (04:30)
[2017-08-26 04:41] LABS: BASO % 0.4 %; BASO ABS # 0.09 K/uL (0-0.2); COMPLETE YES; HEMATOCRIT 41.3 % (42-52); IG% 0.5 %; LYMPH % 18.3 %; LYMPH ABS # 4.37 K/uL (1.2-3.4); MEAN CELL VOLUME 86.8 fL (80-100); MEAN CORPUSCULAR HEMOGLOBIN 25.6 pg (25-34); MEAN CORPUSCULAR HGB CONC 29.5 g/dl (32-36); MEAN PLATELET VOLUME 8.7 fL (7.4-10.4); MONO % 5.1 %; NEUT % 63.7 %; PLATELET COUNT 549 K/uL (130-400); RED BLOOD COUNT 4.76 M/uL (4.7-6.1); WHITE BLOOD COUNT 23.88 K/uL (4.8-10.8)
[2017-08-26 05:04] LABS: BUN/CREATININE RATIO 13.6 (10-20); CALCIUM 9.1 mg/dl (8.5-10.1); CREATININE 1.6 mg/dl (0.60-1.40)
[2017-08-26] MEDS ORDERED: NITROGLYCERIN 0.4 MG SL PER TAB CHARGE SL PRN (06:15)
[2017-08-26] MEDS ORDERED: LORAZEPAM 2 MG/ML 1 ML VIAL IV PRN (06:15)
[2017-08-26] MEDS ORDERED: ACETAMINOPHEN 325 MG TAB PO PRN (06:15)
[2017-08-26] MEDS ORDERED: MoRPHine SULFATE 2 MG/ML CARP IV PRN (06:15)
[2017-08-26] MEDS ORDERED: GLUCOSE 40% GEL 15 GM TUBE PO PRN (06:30)
[2017-08-26] MEDS ORDERED: GLUCOSE 10 TABS/TUBE PO PRN (06:30)
[2017-08-26] MEDS ORDERED: ONDANSETRON INJ 2 MG/ML 2 ML VIAL IV PRN (06:30)
[2017-08-26] MEDS ORDERED: GLUCAGON FOR INJ 1 MG VIAL SQ PRN (06:30)
[2017-08-26] MEDS ORDERED: DEXTROSE 50% 50 ML SYR IV PRN (06:30)
[2017-08-26 06:34] LABS: INR 1.1 (0.9-1.1); PARTIAL THROMBOPLASTIN RATIO 1.1; PROTHROMBIN TIME (PATIENT) 11.5 SECONDS (9.0-12.0)
[2017-08-26] MEDS ORDERED: IPRATROPIUM BROMIDE NEB SOLN 0.02% 2.5 ML VIAL INH PRN (06:45)
[2017-08-26] MEDS ORDERED: LEVALBUTEROL 1.25MG/0.5ML NEB INH PRN (06:45)
[2017-08-26] MEDS ORDERED: HEPARIN 25000 UNIT/500 ML D5W ONE (06:46)
--- NOTE | 2017-08-26 06:54 | EMERGENCY ROOM VISIT NOTE ---
History Report prepared by Carlos: Zuleima Butterfield Under the Supervision of: Dr. Denise Mckeon D.O. First contact with patient: 04:13 Chief Complaint: RESPIRATORY DISTRESS Stated Complaint: RESPIRATORY DISTRESS Nursing Triage Summary: Patient arrived via EMS. EMS reports patient had CABG done recently. Patient Went to bed and awoke with SOB tonight. Patient has no lungsounds in the bases of the lungs. Patient was 85% on room air, on CPAP upon arrival at 99%. Patient given duoneb, albuterol neb, solumedrol, and 1 inch nitro paste. Patient has history of CHF and COPD. History of Present Illness The patient is a 71 year old male who presents to the Emergency Room with complaints of an episode of respiratory distress starting three hours ago. The patient states that he went to bed and felt fine. He reports that he had a double bypass and an aortic valve replacement. He states that he has had breathing difficulties in episodes since coming home from [place]. He notes that he sees the pulmonary doctor in a week. He states that tonight it worsened and he started using nebulizer treatments with no relief. His daughter states that his pulse ox was 79%. She reports that that is when they decided to call EMS because they have no O2 at home. The patient denies chest pain, abdominal pain, and recent use of steroids. The patient notes that his left leg has been swollen since surgery. Source of History: patient, family Onset: three hours ago Position: other (global) Quality: other (global) Timing: other (episode) Associated Symptoms: No chest pain, No abdominal pain Note: The patient complains of leg swelling. The patient denies recent use of steroids. Review of Systems See HPI for pertinent positives & negatives. A total of 10 systems reviewed and were otherwise negative. Past Medical & Surgical Medical Problems: (1) Acute respiratory failure with hypoxia (2) COPD (chronic obstructive pulmonary disease) (3) Diabetes (4) HLD (hyperlipidemia) Surgical Problems: (1) History of intravascular stent placement Family History Diabetes mellitus Social History Smoking Status: Former Smoker Alcohol Use: none Drug Use: none Marital Status: Housing Status: lives with family Current/Historical Medications Scheduled Clopidogrel (Plavix), 75 MG PO DAILY Insulin Human Regular (Insulin Regular Pump ), 1 EA N/A UD Lovastatin (Mevacor), 10 MG PO HS Metoprolol Tartrate (Lopressor) (Lopressor), 25 MG PO BID Multiple Vitamins W/ Minerals (Centrum Silver Adult 50+), 1 TAB PO DAILY [place]-3 Fatty Acids (Fish Oil), 1,200 MG PO DAILY Umeclidinium [place] (Incruse Ellipta), 1 PUFF INH DAILY Scheduled PRN Albuterol Hfa (Ventolin Hfa), 2 PUFFS INH Q4 PRN for SOB/Wheezing Cetirizine (Zyrtec), 10 MG PO DAILY PRN for ALLERGIES Ipratropium-Albuterol (Duoneb), 1 TREATMENT INH Q4H PRN for SOB/Wheezing Allergies Coded Allergies: Simvastatin (Unverified Adverse Reaction, Intermediate, SEE COMMENT PLEASE , 08/26/17) PATIENT IS UNSURE OF WHICH CHOLESTEROL MEDS HE IS ALLERGIC TO BUT HE SAYS THEY "JUST DON'T AGREE WITH ME" Physical Exam Vital Signs Date Time Temp Pulse Resp B/P (MAP) Pulse Ox O2 Delivery O2 Flow Rate FiO2 08/26/17 05:26 117 24 96 08/26/17 05:24 118 96 30 08/26/17 05:01 185/136 08/26/17 04:46 144/107 08/26/17 04:41 112 26 100 08/26/17 04:36 111 25 97 BiPAP/CPAP 30 08/26/17 04:19 113 96 30 08/26/17 04:08 114 08/26/17 04:04 99 CPAP 30 08/26/17 04:04 30 CPAP 99 08/26/17 04:04 36.8 114 24 167/95 99 CPAP 30 08/26/17 04:02 167/95 Physical Exam HEENT: Head - normocephalic and atraumatic Pupils are equal, round, and reactive to light. Extraocular eye muscles are intact, and sclera are anicteric. Nose - moist nasal mucosa without discharge. Mouth - moist buccal mucosa. Oropharynx is nonerythematous and there is no tonsillar exudate or edema noted. Neck: Supple; no cervical lymphadenopathy or auscultated stridor. Heart: Regular rate and rhythm. There is a normal S1 and S2 with no murmurs, clicks, or gallops appreciated. Lungs: Very minimal air exchange with end expiratory wheezing. In moderate to severe respiratory distress. Abdomen: Soft, completely nontender, nondistended, with good bowel sounds. There are no palpable pulsatile masses or hepatosplenomegaly. There is no guarding, rigidity, or rebound noted. Extremities: No evidence of cyanosis or clubbing. LLE edema greater than right but baseline. There are easily palpable peripheral pulses. Skin: warm and dry with good turgor and no rashes. Medical Decision & Procedures ER Provider Diagnostic Interpretation: CHEST X-RAY: Results were interpreted by me. Sternotomy wires in place. No evidence of CHF. Elevated [place]-diaphragm. Laboratory Results 08/26/17 03:50 Red Blood Count 4.76, Mean Corpuscular Volume 86.8, Mean Corpuscular Hemoglobin 25.6, Mean Corpuscular Hemoglobin Concent 29.5, Mean Platelet Volume 8.7, Neutrophils (%) (Auto) 63.7, Lymphocytes (%) (Auto) 18.3, Monocytes (%) (Auto) 5.1, Eosinophils (%) (Auto) 12.0, Basophils (%) (Auto) 0.4, Neutrophils # (Auto ) 15.21, Lymphocytes # (Auto) 4.37, Monocytes # (Auto) 1.22, Eosinophils # (Auto ) 2.87, Basophils # (Auto) 0.09 08/26/17 03:50 Test 08/26/17 03:50 08/26/17 06:12 08/26/17 06:18 White Blood Count 23.88 K/uL (4.8-10.8) Red Blood Count 4.76 M/uL (4.7-6.1) Hemoglobin 12.2 g/dL (14.0-18.0) Hematocrit 41.3 % (42-52) Mean Corpuscular Volume 86.8 fL (80-100) Mean Corpuscular Hemoglobin 25.6 pg (25-34) Mean Corpuscular Hemoglobin Concent 29.5 g/dl (32-36) Platelet Count 549 K/uL (130-400) Mean Platelet Volume 8.7 fL (7.4-10.4) Neutrophils (%) (Auto) 63.7 % Lymphocytes (%) (Auto) 18.3 % Monocytes (%) (Auto) 5.1 % Eosinophils (%) (Auto) 12.0 % Basophils (%) (Auto) 0.4 % Neutrophils # (Auto) 15.21 K/uL (1.4-6.5) Lymphocytes # (Auto) 4.37 K/uL (1.2-3.4) Monocytes # (Auto) 1.22 K/uL (0.11-0.59) Eosinophils # (Auto) 2.87 K/uL (0-0.5) Basophils # (Auto) 0.09 K/uL (0-0.2) RDW Standard Deviation 48.2 fL (36.4-46.3) RDW Coefficient of Variation 15.1 % (11.5-14.5) Immature Granulocyte % (Auto) 0.5 % Immature Granulocyte # (Auto) 0.12 K/uL (0.00-0.02) Prothrombin Time 11.5 SECONDS (9.0-12.0) Prothromb Time International Ratio 1.1 (0.9-1.1) Activated Partial Thromboplast Time 27.3 SECONDS (21.0-31.0) Partial Thromboplastin Ratio 1.1 Anion Gap 7.0 mmol/L (3-11) Est Creatinine Clear Calc Drug Dose 47.2 ml/min Estimated GFR () 49.9 Estimated GFR (Non- 43.0 BUN/Creatinine Ratio 13.6 (10-20) Calcium Level 9.1 mg/dl (8.5-10.1) Total Bilirubin 0.5 mg/dl (0.2-1) Direct Bilirubin 0.1 mg/dl (0-0.2) Aspartate Amino Transf (AST/SGOT) 14 U/L (15-37) Alanine Aminotransferase (ALT/SGPT) 23 U/L (12-78) Alkaline Phosphatase 105 U/L (45-117) Pro-B-Type Natriuretic Peptide 2171 pg/ml (0-900) Total Protein 8.2 gm/dl (6.4-8.2) Albumin 3.6 gm/dl (3.4-5.0) Bedside D-Dimer > 450 ng/mlFEU (0-450) Bedside Lactic Acid Venous 1.47 mmol/L (0.90-1.70) Laboratory results per my review. Medications Administered Medications (Trade) Dose Ordered Sig/Nessa Route Start Time Stop Time Status Last Admin Dose Admin Albuterol/ Ipratropium (Duoneb) 12 ml ONE ONCE INH 08/26/17 04:30 08/26/17 04:31 DC 08/26/17 04:36 12 ML Procedure 0430: Ordered Duoneb 12 ml INH. ECG Indication: SOB/dyspnea Rate (beats per minute): 116 Rhythm: sinus tachycardia Findings: PVC, ST depression (Inferior), T-wave inversion (Lateral) Comparison ECG Date: 07/16/2017 Change: no significant change ED Course 0423: Past medical records reviewed. The patient was evaluated in room A2. A complete history and physical exam was performed. Laboratory studies were drawn as above. The patient was placed on BiPAP 0430: Ordered Duoneb 12 ml INH. A chest x-ray was obtained as described above. 0534: The patient was reevaluated and seemed to be doing better after the hour- long nebulizer treatment. However, the patient had a significant leukocytosis. A septic protocol was completed. Discussed the patient's case with Dr. Murillo. The patient will be evaluated for further management. 0543: I reevaluated the patient and went over everything with him and his family. When they took Bi-PAP off for a short amount of time, he became short of breath without it. He now appears to be in more significant risk for distress. With such a normal-appearing chest x-ray, I was concerned about the possibility of PE. A [id number] d-dimer was obtained and was significantly elevated. Medical Decision This is a 71-year-old male patient who presents to the emergency department with hypoxia and increasing shortness of breath. Differential diagnoses include CHF, COPD exacerbation, PE, respiratory failure, pneumonia, sepsis. LABS: D dimer: 2311 White count 23.8 Hemoglobin 12.2 Lactic acid 1.4 Glucose 189 BUN 22 Creatine 1.6 Troponin 0.018 BNP 2171 Coags normal This is a 71-year-old male patient with multiple health problems presents to the emergency department with increasing shortness of breath and hypoxia. The patient recently underwent aortic valve replacement and bypass surgery. He also has a history of COPD. On physical exam, the patient had no obvious signs of heart failure but was having very little air exchange with expiratory wheezing. The patient's symptoms seemed to improve after an hour-long nebulized treatment on the BiPAP circuit. However, after removing his BiPAP mask for only a short period of time to go the bathroom, the patient had severe respiratory distress. Medication Reconcilliation Current Medication List: was personally reviewed by me Blood Pressure Screening Patient's blood pressure: Elevated blood pressure Will be further monitored by the hospitalist. Consults Time Called: 529 Consulting Physician: Dr. Murillo Returned Call: 05 Discussed the patient's case with Dr. Murillo. The patient will be evaluated for further management. Impression Primary Impression: COPD exacerbation Additional Impression: Acute respiratory failure with hypoxia Scribe Attestation The scribe's documentation has been prepared under my direction and personally reviewed by me in its entirety. I confirm that the note above accurately reflects all work, treatment, procedures, and medical decision making performed by me. Departure Information Dispostion Being Evaluated By Hospitalist Referrals Balaji Lopez M.D. (PCP) Patient Instructions Asthma - [facility], COPD - [facility], Croup - [facility], My [facility] Health Problem Qualifiers
[2017-08-26] MEDS ORDERED: INSULIN ASPART 100 UNITS/ML 3 ML PEN SC SCH (07:00)
--- NOTE | 2017-08-26 07:06 | DIAGNOSTIC IMAGING REPORT ---
CHEST ONE VIEW PORTABLE HISTORY: 71 years-old Male sob acute shortness of breath. COMPARISON: Chest radiograph 08/19/2017 TECHNIQUE: Portable upright AP view of the chest FINDINGS: Cardiac silhouette is upper limits of normal. Prior median sternotomy. There is atherosclerosis of the aorta. No pneumothorax. Left hemidiaphragmatic elevation is unchanged. Small left pleural effusion is again noted with subsegmental left basilar opacity suggesting atelectasis. No overt pulmonary edema. Peripheral nodular opacities are seen involving the lateral left mid thorax and also within the region of the left upper lobe. The bones are grossly intact. IMPRESSION: 1. Unchanged left hemidiaphragmatic elevation with subsegmental left basilar atelectasis and small left pleural effusion. 2. Nonspecific nodular opacities are seen involving the lateral left midlung and projecting over the left upper lobe. Attention at follow-up recommended. The above report was generated using voice recognition software. It may contain grammatical, syntax or spelling errors. Electronically signed by: Dagoberto Guerrero M.D. 08/26/2017 7:04 AM Dictated Date/Time: 08/26/2017 7:00 AM
[2017-08-26] MEDS ORDERED: HEPARIN 25,000 UNIT/500ML D5W 500 ML IV PRN (07:15)
--- NOTE | 2017-08-26 07:26 | History and Physical ---
History & Physical Date & Time of Service: Aug 26, 2017 at 07:03 Chief Complaint: Respiratory Distress Primary Care Physician: Balaji Lopez M.D. History of Present Illness Source: patient, family The patient is a 71-year-old male who presents to the emergency department with acute onset of shortness of breath/respiratory distress that began about 3 hours prior to arrival. He had a normal week, and went to bed feeling fine, and awoke acutely short of breath as noted. He was most recently admitted to [facility] from July 15 through July 18 for COPD exacerbation and referral was made to [facility], where he stayed for a week, and then underwent a CABG 2 and AVR on July 26. He was discharged from [facility] on August 02, and is staying locally with family. He had been doing well until the acute symptoms develop this morning. Past Medical/Surgical History Medical Problems: (1) COPD (chronic obstructive pulmonary disease) Status: Chronic (2) Diabetes Status: Chronic (3) HLD (hyperlipidemia) Status: Chronic Surgical Problems: (1) History of intravascular stent placement Status: Resolved Family History Diabetes mellitus Social History Smoking Status: Former Smoker Smokeless Tobacco Use: No Alcohol Use: none Drug Use: none Marital Status: Housing status: lives with family Occupational Status: retired Immunizations History of Influenza Vaccine: Unknown History of Tetanus Vaccine?: Unknown History of Pneumococcal: Unknown History of Hepatitis B Vaccine: Unknown Multi-Drug Resistant Organisms History of MDRO: No Allergies Coded Allergies: Simvastatin (Unverified Adverse Reaction, Intermediate, SEE COMMENT PLEASE , 08/26/17) PATIENT IS UNSURE OF WHICH CHOLESTEROL MEDS HE IS ALLERGIC TO BUT HE SAYS THEY "JUST DON'T AGREE WITH ME" Home Medications Scheduled Clopidogrel (Plavix), 75 MG PO DAILY Insulin Human Regular (Insulin Regular Pump ), 1 EA N/A UD Lovastatin (Mevacor), 10 MG PO HS Metoprolol Tartrate (Lopressor) (Lopressor), 25 MG PO BID Multiple Vitamins W/ Minerals (Centrum Silver Adult 50+), 1 TAB PO DAILY [place]-3 Fatty Acids (Fish Oil), 1,200 MG PO DAILY Umeclidinium [place] (Incruse Ellipta), 1 PUFF INH DAILY Scheduled PRN Albuterol Hfa (Ventolin Hfa), 2 PUFFS INH Q4 PRN for SOB/Wheezing Cetirizine (Zyrtec), 10 MG PO DAILY PRN for ALLERGIES Ipratropium-Albuterol (Duoneb), 1 TREATMENT INH Q4H PRN for SOB/Wheezing Review of Systems The patient denies palpitations, vision change, hearing change, sore throat, fevers, chills, sweats, weight change, fatigue, nausea, vomiting, diarrhea or constipation, abdominal pain, pelvic pain, blood in urine or stool, dysuria, urinary frequency or urgency, lightheadedness , dizziness, headache, memory loss, rash, abnormal bruising or bleeding, imbalance, focal or generalized weakness, numbness or tingling in arms or legs, generalized arthralgias or myalgias, back or neck pain, or night sweats. The review of systems is otherwise negative other than for that already noted above, and at least 10 systems have been reviewed. Physical Exam Vital Signs Date Time Temp Pulse Resp B/P (MAP) Pulse Ox O2 Delivery O2 Flow Rate FiO2 08/26/17 05:26 117 24 96 08/26/17 05:24 118 96 30 08/26/17 05:01 185/136 08/26/17 04:46 144/107 08/26/17 04:41 112 26 100 08/26/17 04:36 111 25 97 BiPAP/CPAP 30 08/26/17 04:19 113 96 30 08/26/17 04:08 114 08/26/17 04:04 99 CPAP 30 08/26/17 04:04 30 CPAP 99 08/26/17 04:04 36.8 114 24 167/95 99 CPAP 30 08/26/17 04:02 167/95 The patient is awake, well-developed and adequately nourished, alert and oriented 3, wearing CPAP, normocephalic and atraumatic, lying in bed and in moderately severe respiratory distress. HEENT--PERRL, EOMI, mucous membranes and oropharynx dry. Neck--supple, no JVD or bruits, thyroid normal, trachea midline, no adenopathy. Heart--normal S1 and S2, no extra beats, no murmurs, rubs or gallops. Lungs--clear bilaterally with good air movement, moderately severe respiratory distress with accessory muscle use. Abdomen--normal bowel sounds and soft, nontender and nondistended, no hernias or masses, no organomegaly. Extremities--no cyanosis, clubbing. There is bilateral pretibial and pedal 3+ pitting Edema. There are good distal pulses b/l. Dermatologic--normal skin turgor, normal color, warm and dry, no abnormal lymph nodes, no rash. Neurologic--cranial nerves II through XII grossly intact, motor and sensory examination normal. Rheumatologic--normal range of motion, nontender, muscles and joints. Psychiatric--normal affect. Diagnostics Laboratory Results Results Past 24 Hours Test 08/26/17 03:50 08/26/17 04:10 08/26/17 06:09 08/26/17 06:12 Range/Units White Blood Count 23.88 4.8-10.8 K/uL Red Blood Count 4.76 4.7-6.1 M/uL Hemoglobin 12.2 14.0-18.0 g/dL Hematocrit 41.3 42-52 % Mean Corpuscular Volume 86.8 80-100 fL Mean Corpuscular Hemoglobin 25.6 25-34 pg Mean Corpuscular Hemoglobin Concent 29.5 32-36 g/dl Platelet Count 549 130-400 K/uL Mean Platelet Volume 8.7 7.4-10.4 fL Neutrophils (%) (Auto) 63.7 % Lymphocytes (%) (Auto) 18.3 % Monocytes (%) (Auto) 5.1 % Eosinophils (%) (Auto) 12.0 % Basophils (%) (Auto) 0.4 % Neutrophils # (Auto) 15.21 1.4-6.5 K/uL Lymphocytes # (Auto) 4.37 1.2-3.4 K/uL Monocytes # (Auto) 1.22 0.11-0.59 K/uL Eosinophils # (Auto) 2.87 0-0.5 K/uL Basophils # (Auto) 0.09 0-0.2 K/uL RDW Standard Deviation 48.2 36.4-46.3 fL RDW Coefficient of Variation 15.1 11.5-14.5 % Immature Granulocyte % (Auto) 0.5 % Immature Granulocyte # (Auto) 0.12 0.00-0.02 K/uL Prothrombin Time 11.5 9.0-12.0 SECONDS Prothromb Time International Ratio 1.1 0.9-1.1 Activated Partial Thromboplast Time 27.3 21.0-31.0 SECONDS Partial Thromboplastin Ratio 1.1 Sodium Level 136 136-145 mmol/L Potassium Level 4.0 3.5-5.1 mmol/L Chloride Level 96 98-107 mmol/L Carbon Dioxide Level 33 21-32 mmol/L Anion Gap 7.0 3-11 mmol/L Blood Urea Nitrogen 22 7-18 mg/dl Creatinine 1.60 0.60-1.40 mg/dl Est Creatinine Clear Calc Drug Dose 47.2 ml/min Estimated GFR () 49.9 Estimated GFR (Non- 43.0 BUN/Creatinine Ratio 13.6 10-20 Random Glucose 189 70-99 mg/dl Calcium Level 9.1 8.5-10.1 mg/dl Total Bilirubin 0.5 0.2-1 mg/dl Direct Bilirubin 0.1 0-0.2 mg/dl Aspartate Amino Transf (AST/SGOT) 14 15-37 U/L Alanine Aminotransferase (ALT/SGPT) 23 12-78 U/L Alkaline Phosphatase 105 45-117 U/L Total Creatine Kinase 70 39-308 U/L Creatine Kinase MB 2.8 0.5-3.6 ng/ml Creatine Kinase MB Ratio 4.0 0-3.0 Troponin I 0.018 0-0.045 ng/ml Pro-B-Type Natriuretic Peptide 2171 0-900 pg/ml Total Protein 8.2 6.4-8.2 gm/dl Albumin 3.6 3.4-5.0 gm/dl Bedside Glucose 199 70-99 mg/dl Bedside D-Dimer > 450 0-450 ng/mlFEU Test 08/26/17 06:18 Range/Units Bedside Lactic Acid Venous 1.47 0.90-1.70 mmol/L Microbiology Results 08/26/17 Blood Culture, Received Pending 08/26/17 Blood Culture, Received Pending Impression Assessment and Plan Acute respiratory failure with hypoxia-- Patient is being admitted to the ICU. Continue BiPAP with settings 14/6 , FiO2 30%. Order venous Dopplers bilateral lower extremities to assess for DVT. Order VQ scan assess her pulmonary embolism. CTA chest not order due to creatinine 1.6 and prerenal state. Xopenex/Atrovent nebulizer every 6 hours while awake and every 2 hours when necessary. Pulmicort Respules 0.5 mg inhaled twice a day. Empiric treatment with heparin infusion standard concentration no bolus per protocol. CAD/hypertension/status post CABG 2 and aortic valve replacement on 07/26/2017- - Continue present medications of clopidogrel 75 mg by mouth daily, metoprolol tartrate 25 mg by mouth twice a day, aspirin 81 mg by mouth daily, Imdur extended release daily and lisinopril 10 mg by mouth daily. Order 2-D echocardiogram with Dopplers. Serial troponins. Consult his injection molding machine operator Dr. Ernandez. Diabetes mellitus-- D/C his insulin pump. Place on Accu-Cheks before meals and at bedtime with NovoLog coverage per scale. Hypercholesterolemia-- Continue lovastatin 10 mg by mouth at bedtime. Level of Care Critical Care Advanced Directives Existing Advance Directive: No Existing Living Will: No Existing Power of Generation Manager: No Resuscitation Status FULL RESUSCITATION VTE Prophylaxis VTE Risk Assessment Done? Y/N: Yes Risk Level: High Given or contraindicated: Unfractionated heparin SQ Social Service Consult None Apply Note Total Time: Critical Care 30 - 74 minutes
[2017-08-26] MEDS: IPRATROPIUM BROMIDE NEB SOLN 0.02% 2.5 ML VIAL INH SCH ×3 (07:41→19:43)
[2017-08-26] MEDS: BUDESONIDE 0.5 MG/2 ML VIAL (PULMICORT) INH SCH ×2 (07:42→19:43)
[2017-08-26] MEDS: LEVALBUTEROL 1.25MG/0.5ML NEB INH SCH ×3 (07:42→19:43)
[2017-08-26] MEDS ORDERED: PHARMACY GLYCEMIC MGMT CONSULT PRN (08:30)
[2017-08-26] MEDS ORDERED: LEVALBUTEROL/IPRATROPIUM NEB INH SCH (09:00)
[2017-08-26] MEDS ORDERED: FAMOTIDINE IV INJ 20 MG in DEXTROSE 5% 100ML 100 ML IV SCH (09:00)
[2017-08-26] MEDS: INSULIN REGULAR 250 UNITS in SODIUM CHLORIDE 0.9% 250ML 250 ML IV SCH (09:01)
[2017-08-26] MEDS: CLOPIDOGREL BISULFATE 75 MG TAB PO SCH (09:05)
[2017-08-26] MEDS: METOPROLOL TARTRATE 25 MG TAB PO SCH ×2 (09:05→20:52)
[2017-08-26] MEDS: PANTOprazole SOD 40 MG TAB PO SCH ×2 (09:05→20:53)
[2017-08-26] MEDS ORDERED: FUROSEMIDE INJ 20 MG in SYRINGE 0 ML IV ONE (09:45)
[2017-08-26] MEDS ORDERED: METHYLPREDNISOLONE 40 MG in SYRINGE 0 ML IV SCH (10:00)
--- NOTE | 2017-08-26 10:01 | Cardiology Consultation ---
Cardiology Consultation Date of Consultation: Aug 26, 2017. Requesting Physician: Merissa Reason for Consultation: Dyspnea Pt evaluation today including: conversation w/ patient, physical exam, chart review, lab review, review of studies, conversation w/ parts consultant, review of inpatient medication list, conversation w/ attending History of Present Illness The patient is a 71-year-old gentleman with a history of coronary disease and critical aortic stenosis who was admitted to [facility] at the end of June with symptoms of dyspnea on exertion. Patient underwent cardiac evaluation at that time was found to have significant coronary artery disease as well as critical aortic stenosis. He was transfer to [facility] for surgical evaluation and underwent aortic valve replacement and bypass surgery. The patient's recovery was uneventful and he was sent home for follow-up. Since returning home the patient continues to have significant dyspnea. He notes dyspnea on exertion with very limited activity. This occurs with simply transiting the room. He has some mild dyspnea at rest. He has been sleeping in a recliner at home. He does report some coughing at nighttime which often keeps him awake. During the course of yesterday he stated his breathing became worse. This appeared to be a fairly gradual phenomenon in the evening he was noted to have oxygen saturations of 79% by his daughter. Based on the progressive nature of his symptoms and hypoxemia he was brought to [facility] for an evaluation. The patient has rare episodes of chest discomfort with coughing. This is fairly focal in nature in the right mid chest. He does not seem to have pain with inspiration. He has no chest pain at rest. He denies any dizziness or lightheadedness recently. He attempted to participate in physical therapy recently but was too dyspneic. He has noticed some mild lower extremity edema involving the left leg. This appears to be chronic since his bypass surgery. He denies any pain in the left leg. He is not aware of any palpitations. He claims to be urinating normally. He has a Romero in place due to inability to urinate. He is unclear regarding the volume of urine he is producing as his son generally empties the Romero bag. Past Medical/Surgical History Coronary artery disease. Stenting to the LAD 2014, Status post coronary bypass grafting 07/27/2017 Aortic stenosis status post aortic valve replacement COPD Benign prostatic hypertrophy currently with indwelling Romero Asthma Allergic rhinitis Diabetes mellitus Retinopathy associated with diabetes Hyperlipidemia Hypertension Peripheral vascular disease with stenting of the right superficial femoral artery possibly popliteal artery in the past Surgical history: Percutaneous intervention involving the right superficial femoral artery and popliteal artery Coronary bypass grafting 07/27/2017 [facility] Carpenter to LAD, saphenous vein graft to diagonal, Aortic valve replacement 07/27/2017 23 mm bioprosthetic aortic valve Family History Diabetes mellitus Noncontributory Social History Smoking Status: Former Smoker History of Alcohol Use: Yes (beer, "once in awhile") Review of Systems He denies any recent fevers or chills. The remainder of the review of systems is contained in the history of present illness. All Other Systems: Reviewed and Negative Allergies Coded Allergies: Simvastatin (Unverified Adverse Reaction, Intermediate, SEE COMMENT PLEASE , 08/26/17) PATIENT IS UNSURE OF WHICH CHOLESTEROL MEDS HE IS ALLERGIC TO BUT HE SAYS THEY "JUST DON'T AGREE WITH ME" Medications Current Inpatient Medications Medications (Trade) Dose Ordered Sig/Nessa Route Start Time Stop Time Status Last Admin Dose Admin Acetaminophen (Tylenol Tab) 650 mg Q4H PRN PO 08/26/17 06:15 09/25/17 06:14 Lorazepam (Ativan Inj) 0.5 mg Q4H PRN IV 08/26/17 06:15 09/25/17 06:14 Nitroglycerin (Nitrostat Tab) 0.4 mg UD PRN SL 08/26/17 06:15 09/25/17 06:14 Morphine Sulfate (MoRPHine SULFATE INJ) 2 mg Q2H PRN IV 08/26/17 06:15 09/09/17 06:14 Cetirizine HCl (zyrTEC TAB) 10 mg DAILY PRN PO 08/26/17 06:15 09/25/17 06:14 Clopidogrel Bisulfate (plAVix TAB) 75 mg DAILY PO 08/26/17 09:00 09/25/17 08:59 08/26/17 09:05 75 MG Metoprolol Tartrate (Lopressor Tab) 25 mg BID PO 08/26/17 09:00 09/25/17 08:59 08/26/17 09:05 25 MG Ondansetron HCl (Zofran Inj) 4 mg Q6H PRN IV 08/26/17 06:30 09/25/17 06:29 Budesonide (Pulmicort Respules 0.5MG/ 2ML Neb Soln) 0.5 mg BIDR INH 08/26/17 08:00 09/25/17 07:59 08/26/17 07:42 0.5 MG Glucose (Glucose 40% Gel) UD PRN PO 08/26/17 06:30 09/25/17 06:29 Glucose (Glucose Chew Tab) 1 tabs UD PRN PO 08/26/17 06:30 09/25/17 06:29 Dextrose (Dextrose 50% 50ML Syringe) 50 ml UD PRN IV 08/26/17 06:30 09/25/17 06:29 Glucagon (Glucagon Inj) 1 mg UD PRN SQ 08/26/17 06:30 09/25/17 06:29 Ipratropium [place] (Atrovent 0.02% 0.5MG/2.5ML Neb) 0.5 mg Q6R INH 08/26/17 09:00 09/25/17 08:59 08/26/17 07:41 0.5 MG Levalbuterol (Xopenex 1.25MG/ 0.5ML Neb) 1.25 mg Q6R INH 08/26/17 09:00 09/25/17 08:59 08/26/17 07:42 1.25 MG Ipratropium [place] (Atrovent 0.02% 0.5MG/2.5ML Neb) 0.5 mg Q2H PRN INH 08/26/17 06:45 09/25/17 06:44 Levalbuterol (Xopenex 1.25MG/ 0.5ML Neb) 1.25 mg Q2H PRN INH 08/26/17 06:45 09/25/17 06:44 Heparin Sodium/ Dextrose 500 ml @ 28 mls/hr [id number] PRN IV 08/26/17 07:15 09/25/17 07:14 Pantoprazole Sodium (Protonix Tab) 40 mg BID PO 08/26/17 09:00 09/25/17 08:59 08/26/17 09:05 40 MG Miscellaneous Information (Consult Glycemic Management Pharmacy) 1 ea UD PRN N/A 08/26/17 08:30 09/25/17 08:29 Insulin Human Regular 250 units/ Sodium Chloride 252.5 ml @ 0 mls/hr DAILY@1130 IV 08/26/17 08:30 09/25/17 08:29 08/26/17 09:01 2 MLS/HR Insulin Aspart (novoLOG ASPART) [facility] 08/26/17 12:00 09/25/17 11:59 Furosemide 20 mg/ Syringe 2 ml @ 4 mls/min ONE ONCE IV 08/26/17 09:45 08/26/17 09:46 Physical Exam Vital Signs Past 12 Hours Date Time Temp Pulse Resp B/P (MAP) Pulse Ox O2 Delivery O2 Flow Rate FiO2 08/26/17 07:55 118 98 30 08/26/17 07:54 113 24 98 BiPAP/CPAP 30 08/26/17 07:36 36.6 114 24 130/87 98 BiPAP 08/26/17 05:26 117 24 96 08/26/17 05:24 118 96 30 08/26/17 05:01 185/136 08/26/17 04:46 144/107 08/26/17 04:41 112 26 100 08/26/17 04:36 111 25 97 BiPAP/CPAP 30 08/26/17 04:19 113 96 30 08/26/17 04:08 114 08/26/17 04:04 99 CPAP 30 08/26/17 04:04 30 CPAP 99 08/26/17 04:04 36.8 114 24 167/95 99 CPAP 30 08/26/17 04:02 167/95 The patient is alert and oriented. Mood and affect appeared normal. He answered all questions appropriately. He has increased work of breathing HEENT: Pupils are equal and reactive to light and accommodation. Extraocular movements are intact. The sclerae are anicteric. Neuro: Cranial nerves intact Neck: Patient's neck is supple. He has palpable carotid pulses bilaterally without bruits on auscultation. There is no evidence of jugular venous distention. The thyroid is not enlarged. Lungs: Reduced breath sounds in all lung spencer. With some expiratory wheezing was noted. No rales. Cardiac: Heart demonstrates a regular rate and rhythm. Normal S1 and crisp S2. No murmurs on examination. Chest: Well-healed sternotomy scar Pulses: The patient has palpable radial pulses bilaterally that are equal in intensity Extremities: There was no evidence of hypoperfusion. There is no cyanosis or clubbing. Mild edema in the left lower extremity. Skin: I did not appreciate any rashes on examination today. Data Laboratory Results: Last 24 Hours Test 08/26/17 03:50 08/26/17 04:10 08/26/17 06:12 08/26/17 06:18 White Blood Count 23.88 K/uL Red Blood Count 4.76 M/uL Hemoglobin 12.2 g/dL Hematocrit 41.3 % Mean Corpuscular Volume 86.8 fL Mean Corpuscular Hemoglobin 25.6 pg Mean Corpuscular Hemoglobin Concent 29.5 g/dl Platelet Count 549 K/uL Mean Platelet Volume 8.7 fL Neutrophils (%) (Auto) 63.7 % Lymphocytes (%) (Auto) 18.3 % Monocytes (%) (Auto) 5.1 % Eosinophils (%) (Auto) 12.0 % Basophils (%) (Auto) 0.4 % Neutrophils # (Auto) 15.21 K/uL Lymphocytes # (Auto) 4.37 K/uL Monocytes # (Auto) 1.22 K/uL Eosinophils # (Auto) 2.87 K/uL Basophils # (Auto) 0.09 K/uL RDW Standard Deviation 48.2 fL RDW Coefficient of Variation 15.1 % Immature Granulocyte % (Auto) 0.5 % Immature Granulocyte # (Auto) 0.12 K/uL Prothrombin Time 11.5 SECONDS Prothromb Time International Ratio 1.1 Activated Partial Thromboplast Time 27.3 SECONDS Partial Thromboplastin Ratio 1.1 Sodium Level 136 mmol/L Potassium Level 4.0 mmol/L Chloride Level 96 mmol/L Carbon Dioxide Level 33 mmol/L Anion Gap 7.0 mmol/L Blood Urea Nitrogen 22 mg/dl Creatinine 1.60 mg/dl Est Creatinine Clear Calc Drug Dose 47.2 ml/min Estimated GFR () 49.9 Estimated GFR (Non- 43.0 BUN/Creatinine Ratio 13.6 Random Glucose 189 mg/dl Calcium Level 9.1 mg/dl Total Bilirubin 0.5 mg/dl Direct Bilirubin 0.1 mg/dl Aspartate Amino Transf (AST/SGOT) 14 U/L Alanine Aminotransferase (ALT/SGPT) 23 U/L Alkaline Phosphatase 105 U/L Total Creatine Kinase 70 U/L Creatine Kinase MB 2.8 ng/ml Creatine Kinase MB Ratio 4.0 Troponin I 0.018 ng/ml Pro-B-Type Natriuretic Peptide 2171 pg/ml Total Protein 8.2 gm/dl Albumin 3.6 gm/dl Bedside Glucose 199 mg/dl Bedside D-Dimer > 450 ng/mlFEU Bedside Lactic Acid Venous 1.47 mmol/L Test 08/26/17 08:48 Lactic Acid Level 1.9 mmol/L Imaging: Single-view chest x-ray demonstrated mild elevation of the left hemidiaphragm. Minimal pulmonary vascular congestion. No effusions. EKG: Sinus tachycardia Telemetry reviewed: Sinus tachycardia Echocardiogram obtained during his last admission [facility] revealed preserved LV systolic function. Cardiac catheterization revealed left ventricular end-diastolic pressure 10 Assessment & Plan 1. Coronary artery disease: Patient recently underwent 2 vessel bypass surgery at [facility]. Many of his symptoms leading up to his evaluation and treatment involve dyspnea on exertion. He is not currently having symptoms consistent with angina. He was noted to have preserved LV systolic function prior to his surgery. I think it is unlikely that he had any graft failure or a recent acute coronary syndrome. He will be maintained on his current medical regimen which includes dual antiplatelet therapy, beta-shawn and lovastatin ( patient intolerant to other statins) 2. Aortic valve disease: Patient underwent successful aortic valve replacement with a bioprosthetic valve. While the hope was that his symptoms would improve with the surgery noted, he has not had marked improvement of his dyspnea suggesting that a lot of his symptoms are likely pulmonary in nature leading up to his surgery. 3. Dyspnea: His examination is more consistent with severe COPD. His x-ray is also suggestive of COPD rather than significant pulmonary vascular congestion. He has no effusions on exam. Despite significant dyspnea at his last admission his LVEDP was normal if not low. While he does suffer from an acute coronary syndrome at the time of his last admission, it is very likely that some of his chronic dyspnea was not related to his valve or coronary disease but to primary lung disease. He he was documented to be hypoxic last evening it is very possible that at times he was hypoxic in the setting of severe coronary disease resulting in elevated cardiac biomarkers and cardiac ischemia. Once again, despite revascularization and a new aortic valve he continues to have symptoms of dyspnea suggesting that this was not the etiology of his prior dyspnea either. I think we can maintain him on his usual diuretic regimen. Blood pressure could be controlled with nitroglycerin infusion which also reduce pulmonary vascular congestion. I think a lot of the efforts at improving his breathing will be directed at presumed severe COPD. He does have an elevated pro BNP and we will continue some mild diuresis. He does have some mild swelling in the left lower extremity but this is not severe. He has no pain in that extremity. I think the likelihood this is secondary to a pulmonary embolus is low, but Dopplers of the lower extremity will be obtained.
[2017-08-26 10:06] LABS: MANUAL MICROSCOPIC REQUIRED? NO; REVIEW REQ? YES; URINE APPEARANCE TURBID (CLEAR); URINE BILIRUBIN NEG (NEG); URINE COLOR DK YELLOW; URINE EPITHELIAL CELL AUTO 20-30 /lpf (0-5); URINE NITRITE NEG (NEG); URINE SPECIFIC GRAVITY 1.027 (1.000-1.030); UROBILINOGEN NEG (NEG); ZZURINE CULT IF INDIC CATH YES
[2017-08-26] MEDS ORDERED: NITROGLYCERIN/D5W 100 MCG/ML IV PRN (10:15)
[2017-08-26] MEDS: AZITHROMYCIN 500 MG / D5W 250 ML IV SCH ×2 (10:20)
--- NOTE | 2017-08-26 11:22 | Progress Note ---
Progress Note Date of Service Aug 26, 2017. Progress Note Patient admitted early this AM due to acute respiratory failure. Patient currently in ICU- resting in bed w/ BiPAP. States his breathing seem slightly improved since admission, but still extremely SOB at rest. +cough w/ yellow sputum production. General: BiPAP, mild distress HEENT: Normocephalic, atraumatic, PERRL Neck: Supple, no JVD noted Chest/Lungs: Noted anterior/midline scar- C/D/I; +accessory muscle use, decreased breath sounds and expiratory wheeze throughout all lung spencer Cardiac: Regular rate and rhythm - Romero draining concentrated yellow/clear urine Extremities: No pedal edema, no calf tenderness Skin: Normal color, warm/dry, no noted rashes or lesions Discussed ?infectious process due to recent hospitalization and ventilation w / ICU team- does not think infectious at this time, but likely acute on chronic COPD exacerbation. CXR w/out evidence of infectious process, believe leukocytosis is an acute response to exacerbation. BCx pending, MRSA negative Placed on IV Azithromycin Pulmonary consulted ?PE w/ elevated d-dimer, tachycardia and SOB- venous Doppler and VQ scan pending Cardiology consulted- does not believe acute cardiac issue Chronic indwelling Romero- UA dirty, UCx pending
[2017-08-26] MEDS ORDERED: METHYLPREDNISOLONE IV 80 MG in SYRINGE 0 ML IV ONE (12:00)
[2017-08-26] MEDS: INSULIN ASPART 100 UNITS/ML 3 ML PEN SC SCH ×3 (12:00→20:54)
--- NOTE | 2017-08-26 12:29 | Critical Care Consultation ---
Critical Care Consultation Date of Consultation: Aug 26, 2017. Attending Physician: Reece Vargas M.D. Reason for Consultation: Acute hypoxic respiratory failure History of Present Illness This is a 71 y/o male with hx of COPD, DM, HLD, and CAD s/p CABG X2 and aortic valve replacement presented to the ED with SOB/respiratory distress. Patient was admitted to the [facility] on Jul 15- for COPD exacerbation and was sent to [facility], where he had CABGX2 and AVR on Jul 26. Patient was discharged from [facility] on Aug 02. He states that after returning to home he continues to have dyspnea. However, last night his dyspnea worsened and used neb tx without much relief. Per daughter his ox was 79%. He doesn't use oxygen at home. He also had trouble sleeping at night because of cough. The patient notes that his left leg has been swollen since surgery. Denies chest pain, palpitation, headache, nausea, vomiting or any other symptoms. He is a former smoker and smoke until age of 36. Past Medical/Surgical History PMHx: - CAD, Stenting to the LAD 2014, Status post coronary bypass grafting 07/27/2017 - Aortic stenosis status post aortic valve replacement - COPD - Benign prostatic hypertrophy currently with indwelling Walsh - Asthma - Diabetes mellitus - Retinopathy associated with diabetes - HLD - HTN - Peripheral vascular disease with stenting of the right superficial femoral artery possibly popliteal artery in the past Surgical history: - Percutaneous intervention involving the right superficial femoral artery and popliteal artery - Coronary bypass grafting 07/27/2017 [facility] to LAD, saphenous vein graft to diagonal, - Aortic valve replacement 07/27/2017 23 mm bioprosthetic aortic valve Family History Diabetes mellitus Social History Smoking Status: Former Smoker Smokeless Tobacco Use: No Alcohol Use: none Drug Use: none Marital Status: Housing Status: lives with family Occupation Status: retired Allergies Coded Allergies: Simvastatin (Unverified Adverse Reaction, Intermediate, SEE COMMENT PLEASE , 08/26/17) PATIENT IS UNSURE OF WHICH CHOLESTEROL MEDS HE IS ALLERGIC TO BUT HE SAYS THEY "JUST DON'T AGREE WITH ME" Home Medications Scheduled Clopidogrel (Plavix), 75 MG PO DAILY Insulin Human Regular (Insulin Regular Pump ), 1 EA N/A UD Lovastatin (Mevacor), 10 MG PO HS Metoprolol Tartrate (Lopressor) (Lopressor), 25 MG PO BID Multiple Vitamins W/ Minerals (Centrum Silver Adult 50+), 1 TAB PO DAILY [place]-3 Fatty Acids (Fish Oil), 1,200 MG PO DAILY Umeclidinium [place] (Incruse Ellipta), 1 PUFF INH DAILY Scheduled PRN Albuterol Hfa (Ventolin Hfa), 2 PUFFS INH Q4 PRN for SOB/Wheezing Cetirizine (Zyrtec), 10 MG PO DAILY PRN for ALLERGIES Ipratropium-Albuterol (Duoneb), 1 TREATMENT INH Q4H PRN for SOB/Wheezing Current Inpatient Medications Current Inpatient Medications Medications (Trade) Dose Ordered Sig/Nessa Route Start Time Stop Time Status Last Admin Dose Admin Acetaminophen (Tylenol Tab) 650 mg Q4H PRN PO 08/26/17 06:15 09/25/17 06:14 Lorazepam (Ativan Inj) 0.5 mg Q4H PRN IV 08/26/17 06:15 09/25/17 06:14 Nitroglycerin (Nitrostat Tab) 0.4 mg UD PRN SL 08/26/17 06:15 09/25/17 06:14 Morphine Sulfate (MoRPHine SULFATE INJ) 2 mg Q2H PRN IV 08/26/17 06:15 09/09/17 06:14 Cetirizine HCl (zyrTEC TAB) 10 mg DAILY PRN PO 08/26/17 06:15 09/25/17 06:14 Clopidogrel Bisulfate (plAVix TAB) 75 mg DAILY PO 08/26/17 09:00 09/25/17 08:59 08/26/17 09:05 75 MG Metoprolol Tartrate (Lopressor Tab) 25 mg BID PO 08/26/17 09:00 09/25/17 08:59 08/26/17 09:05 25 MG Ondansetron HCl (Zofran Inj) 4 mg Q6H PRN IV 08/26/17 06:30 09/25/17 06:29 Budesonide (Pulmicort Respules 0.5MG/ 2ML Neb Soln) 0.5 mg BIDR INH 08/26/17 08:00 09/25/17 07:59 08/26/17 07:42 0.5 MG Glucose (Glucose 40% Gel) UD PRN PO 08/26/17 06:30 11/5/17 06:29 Glucose (Glucose Chew Tab) 1 tabs UD PRN PO 08/26/17 06:30 09/25/17 06:29 Dextrose (Dextrose 50% 50ML Syringe) 50 ml UD PRN IV 08/26/17 06:30 09/25/17 06:29 Glucagon (Glucagon Inj) 1 mg UD PRN SQ 08/26/17 06:30 09/25/17 06:29 Ipratropium [place] (Atrovent 0.02% 0.5MG/2.5ML Neb) 0.5 mg Q6R INH 08/26/17 09:00 09/25/17 08:59 08/26/17 07:41 0.5 MG Levalbuterol (Xopenex 1.25MG/ 0.5ML Neb) 1.25 mg Q6R INH 08/26/17 09:00 09/25/17 08:59 08/26/17 07:42 1.25 MG Ipratropium [place] (Atrovent 0.02% 0.5MG/2.5ML Neb) 0.5 mg Q2H PRN INH 08/26/17 06:45 09/25/17 06:44 Levalbuterol (Xopenex 1.25MG/ 0.5ML Neb) 1.25 mg Q2H PRN INH 08/26/17 06:45 09/25/17 06:44 Heparin Sodium/ Dextrose 500 ml @ 28 mls/hr [id number] PRN IV 08/26/17 07:15 09/25/17 07:14 Pantoprazole Sodium (Protonix Tab) 40 mg BID PO 08/26/17 09:00 09/25/17 08:59 08/26/17 09:05 40 MG Miscellaneous Information (Consult Glycemic Management Pharmacy) 1 ea UD PRN N/A 08/26/17 08:30 09/25/17 08:29 Insulin Human Regular 250 units/ Sodium Chloride 252.5 ml @ 0 mls/hr DAILY@1130 IV 08/26/17 08:30 09/25/17 08:29 08/26/17 09:01 2 MLS/HR Insulin Aspart (novoLOG ASPART) SLIDING SCALE PCHS SC 08/26/17 12:00 09/25/17 11:59 Review of Systems Constitutional: No fever, No chills Respiratory: + cough, + wheezing, + shortness of breath, + dyspnea on exertion , + dyspnea at rest Cardiovascular: + edema (left leg), No chest pain Abdomen: No pain, No nausea, No vomiting, No diarrhea, No constipation Musculoskeletal: No calf pain Genitourinary - Male: + urinary retention (on chronic walsh cath because of BPH ) Integumentary: No rash Physical Exam Date Time Temp Pulse Resp B/P (MAP) Pulse Ox O2 Delivery O2 Flow Rate FiO2 08/26/17 07:55 118 98 30 08/26/17 07:54 113 24 98 BiPAP/CPAP 30 08/26/17 07:36 36.6 114 24 130/87 98 BiPAP 08/26/17 05:26 117 24 96 08/26/17 05:24 118 96 30 08/26/17 05:01 185/136 08/26/17 04:46 144/107 08/26/17 04:41 112 26 100 08/26/17 04:36 111 25 97 BiPAP/CPAP 30 08/26/17 04:19 113 96 30 08/26/17 04:08 114 08/26/17 04:04 99 CPAP 30 08/26/17 04:04 30 CPAP 99 08/26/17 04:04 36.8 114 24 167/95 99 CPAP 30 08/26/17 04:02 167/95 General Appearance: well-appearing, mild distress, other (on BiPAP) Head: normocephalic, atraumatic Eyes: PERRLA, EOMI ENT: normal ear exam, normal nasal exam Neck: trachea midline, supple Respiratory: accessory muscle use, respiratory distress, wheezing, other ( decrease breath sound) Cardiovasular: normal S1S2, no JVD, normal peripheral pulses, other ( tachycardic) Abdomen: non tender, normal bowel sounds, no rebound, no guarding Lower Extremities: edema (LLE) Neuro: alert, oriented x 3, normal speech Psychiatric: normal affect Laboratory Results Last 24 Hours Test 08/26/17 03:50 08/26/17 04:10 08/26/17 06:12 08/26/17 06:18 White Blood Count 23.88 K/uL Red Blood Count 4.76 M/uL Hemoglobin 12.2 g/dL Hematocrit 41.3 % Mean Corpuscular Volume 86.8 fL Mean Corpuscular Hemoglobin 25.6 pg Mean Corpuscular Hemoglobin Concent 29.5 g/dl Platelet Count 549 K/uL Mean Platelet Volume 8.7 fL Neutrophils (%) (Auto) 63.7 % Lymphocytes (%) (Auto) 18.3 % Monocytes (%) (Auto) 5.1 % Eosinophils (%) (Auto) 12.0 % Basophils (%) (Auto) 0.4 % Neutrophils # (Auto) 15.21 K/uL Lymphocytes # (Auto) 4.37 K/uL Monocytes # (Auto) 1.22 K/uL Eosinophils # (Auto) 2.87 K/uL Basophils # (Auto) 0.09 K/uL RDW Standard Deviation 48.2 fL RDW Coefficient of Variation 15.1 % Immature Granulocyte % (Auto) 0.5 % Immature Granulocyte # (Auto) 0.12 K/uL Prothrombin Time 11.5 SECONDS Prothromb Time International Ratio 1.1 Activated Partial Thromboplast Time 27.3 SECONDS Partial Thromboplastin Ratio 1.1 Sodium Level 136 mmol/L Potassium Level 4.0 mmol/L Chloride Level 96 mmol/L Carbon Dioxide Level 33 mmol/L Anion Gap 7.0 mmol/L Blood Urea Nitrogen 22 mg/dl Creatinine 1.60 mg/dl Est Creatinine Clear Calc Drug Dose 47.2 ml/min Estimated GFR () 49.9 Estimated GFR (Non- 43.0 BUN/Creatinine Ratio 13.6 Random Glucose 189 mg/dl Calcium Level 9.1 mg/dl Total Bilirubin 0.5 mg/dl Direct Bilirubin 0.1 mg/dl Aspartate Amino Transf (AST/SGOT) 14 U/L Alanine Aminotransferase (ALT/SGPT) 23 U/L Alkaline Phosphatase 105 U/L Total Creatine Kinase 70 U/L Creatine Kinase MB 2.8 ng/ml Creatine Kinase MB Ratio 4.0 Troponin I 0.018 ng/ml Pro-B-Type Natriuretic Peptide 2171 pg/ml Total Protein 8.2 gm/dl Albumin 3.6 gm/dl Bedside Glucose 199 mg/dl Bedside D-Dimer > 450 ng/mlFEU Bedside Lactic Acid Venous 1.47 mmol/L Test 08/26/17 08:48 08/26/17 09:40 08/26/17 09:49 Lactic Acid Level 1.9 mmol/L Assessment & Plan This is a 71 y/o male with hx of COPD, DM, HLD, and CAD s/p CABG X2 and aortic valve replacement presented to the ED with hypoxic respiratory failure. Currently on BiPAP (10/25, FiO2 30%). Neuro - * CAM ICU: NEGATIVE. * Acetaminophen 650mg q4h prn * Ativan 0.5mg q4h prn * Morphine 2mg q2h Cardiac - * CAD s/p 2 vessel bypass surgery in [facility] * Cardiology was consulted and patient was evaluated Dr. Ernandez. His symptoms are not consistent with angina. His last echo prior to surgery showed preserved LV systolic function. It is very less likely he had graft failure or recent ACS. * Continue dual Plavix, Metoprolol and Lovastatin. * HTN * Will start him on Nitro drip which will also help with pulmonary congestion * Continue to monitor BP * Dyspnea * It is most likely multiple factorial, and COPD being the major contributor. He might have mild fluid overload also. CXR showed small left plural effusion. Will do mild diuresis with Lasix. * Gave IV 20mg Lasix, will monitor urine output and creatinine, will continue accordingly. Respiratory - * Acute hypoxic respiratory failure * Currently on BiPAP (10/25, FiO2 30%) * His symptoms most likely multifactorial, COPD exacerbation being the major contributor. There might be fluid overload as well. * Will tx the COPD with IV steroid, levalbuterol neb and Atrovent neb prn * Given IV 20mg Lasix, monitor I/O and BMP * COPD exacerbation * His current symptoms most likely secondary to COPD exacerbation * Continue IV Methylprednisone 60mg Q6h * IV azithromycin 500mg daily * Levalbuterol neb q6h and Atrovent neb q2h prn * Continue to with BiPAP * Dyspnea * D-dimer was elevated, it is very less likely patient PE, given he has no calf tenderness and very minimum edema of LLE. His symptoms most likely 2/2 COPD exacerbation * CXR showed small left pleural effusion, given IV 20mg Lasix, will monitor I/ O and BMP * will cancel US LE for now * d/himanshu heparin drip and started on SQ heparin 5000unit q8h * Pulmonology is consulted and patient was seen by Dr. Bueno and will continue to appreciate his recommendation GI - * Diet : regular diet * Protonix for GI prophylaxis RENAL/LYTES - * Baseline creatinine is 1.2-1.6. Current creatinine is 1.6 * Will continue to monitor his BMP - * Patient is in chronic Walsh because if BPH ENDO - * DM II * Patient had 2 reading of glucose >180 * Will start him on insulin drip, he is also on very high dose of steroid. HEME - * H&H stable ID - * No concerns for infection at this point. His WBC is elevated but he is afebrile. Will await for the result of BCx and UCx for further management. * Will monitor fever curve. DVT PROPHYLAXIS - * Heparin 5000unit SQ * * * Resident Physician Supervision Note: I was present with Dr. Delaney Rock during the history and exam. I discussed the case with the resident and agree with the findings and plan as documented in the note. In summary, the patient is a 71-year-old man, ex-smoker with history of COPD, coronary artery disease, severe aortic stenosis, chronic dyspnea for recently underwent CABG procedure with aortic valve replacement (08/02) without any significant improvement of his shortness of breath. Patient stated, that his shortness of breath has been progressively getting worse for last couple of days to the point that he was not able to sleep in his recliner chair. He denies any fever, chills, chest pain, abdominal pain, nausea or vomiting. Patient was started on steroids, IV antibiotics, BiPAP and transferred critically ill to the surgical intensive care unit for further management. Lung examination revealed diffusely decreased breath sounds and poor air movement bilaterally, no crackles, accessory muscle use. I suspect, patient has an acute on chronic respiratory failure secondary to emphysema and COPD exacerbation. We will continue with BiPAP and 25% of oxygen. Chest x-ray without any obvious infiltrates, improved right base congestion following diuresis. Patient does not tolerate being off BiPAP longer than 25 minutes. We 'll attempt gentle diuresis even though there are no signs of obvious fluid overload. COPD exacerbation for what will continue with DuoNeb's, steroids, azithromycin. Coronary artery disease, recent CABG 2 vessels, aortic valve replacement for severe aortic stenosis. I doubt that patient has any cardiac ischemia at this time. We will continue with aspirin, Plavix, metoprolol. Renal insufficiency, will follow urine output and replace electrolytes. Hyperglycemia is likely from steroids. Patient may require insulin drip. GI and DVT prophylaxis. Patient is full code. CCT 32 min.
[2017-08-26 12:36] LABS: IPAP 12; ISTAT ALLEN TEST Pass; ISTAT ARTERIAL BLOOD GAS HCO3 32 meq/L (19-24); ISTAT ARTERIAL BLOOD GAS PCO2 50 mmHg (35-46); ISTAT ARTERIAL BLOOD GAS PO2 105 mmHg (80-95); ISTAT ARTERIAL BLOOD GAS pH 7.41 (7.35-7.45); ISTAT CARBON DIOXIDE 34 mEq/l (24-31); ISTAT DELIVERY SYSTEM BIPAP; ISTAT FIO2 30 %; ISTAT RATE 23; ISTAT SITE L Radial
--- NOTE | 2017-08-26 13:00 | Pharmacy Progress Note ---
Glycemic Control Intl Consult Date of Service Aug 26, 2017. Scope Glycemic Pharmacist consulted by Dr Lazo on 08/26/17 for glycemic control and to write orders per [facility] inpatient glycemic control protocol. Objective Weight (Kilograms): 79.000 Accuchecks BSG (last 24hrs): Test 08/26/17 03:50 08/26/17 04:10 08/26/17 10:18 Random Glucose 189 mg/dl (70-99) Bedside Glucose 199 mg/dl (70-99) 161 mg/dl (70-99) Laboratory Data (last 24hrs) Test 08/26/17 03:50 Anion Gap 7.0 mmol/L BUN/Creatinine Ratio 13.6 Blood Urea Nitrogen 22 mg/dl Creatinine 1.60 mg/dl Potassium Level 4.0 mmol/L Sodium Level 136 mmol/L White Blood Count 23.88 K/uL Red Blood Count 4.76 M/uL Hemoglobin 12.2 g/dL Hematocrit 41.3 % Mean Corpuscular Volume 86.8 fL Mean Corpuscular Hemoglobin 25.6 pg Mean Corpuscular Hemoglobin Concent 29.5 g/dl Platelet Count 549 K/uL Mean Platelet Volume 8.7 fL Neutrophils (%) (Auto) 63.7 % Lymphocytes (%) (Auto) 18.3 % Monocytes (%) (Auto) 5.1 % Eosinophils (%) (Auto) 12.0 % Basophils (%) (Auto) 0.4 % Neutrophils # (Auto) 15.21 K/uL Lymphocytes # (Auto) 4.37 K/uL Monocytes # (Auto) 1.22 K/uL Eosinophils # (Auto) 2.87 K/uL Basophils # (Auto) 0.09 K/uL Recent Pertinent Medications Outpatient Anti-diabetic Regimen: * Regular insulin pump * A1c = 8.9% (07/15/17) Risk Factors for Insulin Resistance: * Steroids: SoluMedrol 60mg IV q6h * Infection: Azithromycin IV (COPD exac vs infx) * IVF: Nitro gtt * Diet: Type 2 diabetic/AHA diet Assessment & Plan ASSESSMENT: * Mr Bruner is a 71yo diabetic male who is managed on an insulin pump as an outpatient. * Patient reports on admission that his pump is not working correctly. Pump was therefore disconnected and patient was initiated on insulin gtt this morning. In the past, SQ insulin was attempted during admission, but it was not successful in controlling his BSGs. * Of note, patient reported problems with his pump the last time that he was admitted, also. Would recommend that patient f/u with PCP/inspector general HERVE upon discharge. Unsure if there is an issue with his pump, or if this is a matter of patient compliance? Pt seems unsure of pump settings as well. * CDE consult in place. * High-dose steroids initiated this morning. * ADA & AACE recommend a goal blood sugar range 140-180 mg/dl for the majority of critically ill & non-critically ill patients. However, more stringent targets may be selected in individual cases. Insulin infusion goal range ordered as 110-190mg/dL, which should produce BSGs within ICU goal range and require minimal rate adjustments. PLAN FOR INPATIENT GLYCEMIC CONTROL: * Starting IV insulin infusion per moderate stress protocol, no bolus * Goal Range 110 - 190 mg/dl * In the critical care setting, continuous IV insulin infusion has been shown to be the best method for achieving glycemic targets. * Would recommend continuing insulin infusion until steroids are discontinued and until pt can be transitioned back to insulin pump. * Please note that the plan above was derived based on current level of insulin resistance and hospital stress. These recommendations are appropriate for inpatient admission only. Plan of care upon discharge will need to be reassessed to avoid potential outpatient hypo/hyperglycemia. Thank you.
[2017-08-26] MEDS: HEPARIN SOD 5000 UNIT/0.5 ML CARP SQ SCH ×2 (14:36→21:01)
[2017-08-26 14:40] LABS: CKMB/CK RATIO 4.8 (0-3.0)
--- NOTE | 2017-08-26 15:05 | PULMONARY CONSULTATION ---
DATE OF CONSULTATION: 08/26/2017 TIME: 11:55 a.m. REPORT OF CONSULTATION: The patient was seen in room 105 in the intensive care unit. He is a 71-year-old male who is being seen because of respiratory distress. The patient has a significant history. He was hospitalized at [facility] from July 15 through July 18. During that hospital stay, he was found to have coronary artery disease with an abnormal catheterization. He was transferred to [facility]. The patient had coronary artery bypass grafting along with an aortic valve replacement. He was discharged from [facility] approximately August 02. He states that he did have shortness of breath before that surgery. It did not seem to improve much afterwards. He has had persistent shortness of breath since the surgery. Yesterday, he had a bad day all day. He was quite winded. He states even when he has a good day, he can only walk about 15 feet on level. He is short of breath walking from room to room. The patient previously had lived in [place], [place]. He was seeing a product tester there, but he cannot recall his name. He does know that at some point in time, he had a pulmonary function test done. Currently, he is living in the [facility] with his son. Yesterday, he was quite short of breath. He then awakened in the human resources services specialist hours today with gasping respirations. This prompted coming to the Emergency Room. He was in severe respiratory distress despite having a BiPAP on. His pulse ox initially reportedly had been 79% and I believe that was at home. He does not feel any better. He is still on BiPAP. Thus far, he has not responded dramatically to nebulizer treatment. Obtaining a history was somewhat difficult as the patient has a BiPAP in place and he is breathless. PAST SURGICAL HISTORY: 1. Cataract surgeries bilaterally. 2. Coronary artery bypass graft and aortic valve replacement. 3. Cardiac stent to the LAD in 2014. 4. Prostate surgery. 5. Stent to the right superficial femoral artery. PAST MEDICAL HISTORY: 1. Hypertension. 2. Diabetes. 3. Diabetic retinopathy. 4. Hyperlipidemia. 5. Hypertension. 6. COPD. 7. CHF. SOCIAL HISTORY: Tobacco none since age 36. Previously 1 pack per day for 20 years. FAMILY HISTORY: Positive for diabetes in his mother and cancer in his father. 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 ALLERGIES: LISTED ALLERGY TO A CHOLESTEROL MEDICATION THAT MAY HAVE BEEN SIMVASTATIN. MEDICATIONS: At home, 1. Clopidogrel 75 mg daily. 2. Breo Ellipta 1 puff daily, 200/25. 3. Insulin pump. 4. Isosorbide mononitrate 1 daily. 5. Lisinopril 10 mg daily. 6. Mevacor 10 mg daily. 7. Metoprolol 25 mg b.i.d., 8. Incruse Ellipta 1 puff daily. 9. Ventolin HFA. 10. DuoNeb treatments p.r.n. 11. Zyrtec p.r.n. REVIEW OF SYSTEMS: Very difficult to obtain as the patient is very winded and on BiPAP. However, essentially none except for the complaints noted above. PHYSICAL EXAMINATION: GENERAL: Mr. Bruner is a 71-year-old male who was cooperative and alert. He is using accessory muscles of respiration at rest and with wearing BiPAP. HEENT: His pupils were reactive to light. Implants were noted bilaterally. Nares and mouth exam could not be done as he has a BiPAP in place. NECK: Palpation of the neck reveals no lymph nodes. HEART: Heart rate is 93 per minute. The rhythm is regular. VITAL SIGNS: The blood pressure most recently was 153/84. However, current blood pressure recording is 84/72, but that probably needs repeating. Temperature is 36 degrees. CHEST: Lung spencer revealed the patient is severely tight. He has diffusely diminished breath sounds. He has marked prolongation to the expiratory phase of respiration. He is using the strap muscles. Oxygen saturation is 97% on the BiPAP with 30%. There is a scar on the anterior chest from his recent surgery. ABDOMEN: Soft. Bowel sounds were present. There was no tenderness to palpation or masses. EXTREMITIES: Showed edema in both lower extremities. There was no cyanosis or clubbing. LABORATORY DATA: Chest x-ray shows an elevation of the left hemidiaphragm. I reviewed serial x-rays going back prior to his cardiac surgery. The left hemidiaphragm elevation was not seen preoperatively. Thus, I suspect this is a postoperative complication. There was a question of a nonspecific nodular opacities in the left mid lung. White count is elevated at 23.88. Hemoglobin 12.2. Platelets are 549,000. Coags were normal. Urinalysis showed +2 protein, +3 blood, greater than 30 WBCs, greater than 30 RBCs, and +4 bacteria. Procalcitonin was 0.06. IMPRESSION: 1. Respiratory failure -- acute on chronic with hypercarbia and hypoxia. 2. Chronic obstructive pulmonary disease exacerbation. 3. Elevation of the left hemidiaphragm, likely secondary to at least partial paralysis. 4. Coronary artery disease. COMMENTS AND RECOMMENDATIONS: The patient is severely tight. He has only received 40 mg of Solu-Medrol. Suggest he be given another 80 and then changed his dose to 60 mg IV q. 6 hours. Would obtain a blood gas in the form of an arterial blood gas. This will give us a handle on how much carbon dioxide he is retaining. This may help with decision making in terms of needing mechanical ventilation if necessary. Urine culture should be done if it has not been put forth already, but I think it has been put forth. Blood cultures are also pending. The patient is listed as being on Incruse Ellipta. This may be contributing to his urinary retention. He has had a catheter in apparently since the surgery. I would not continue the Incruse upon discharge. Thank you very much for asking me to assist in his care.
[2017-08-26] MEDS: METHYLPREDNISOLONE IV 60 MG in SYRINGE 0 ML IV SCH (17:08)
[2017-08-26] MEDS: LOVASTATIN 20 MG TAB PO SCH (20:53)
[2017-08-26 23:01] LABS: CKMB/CK RATIO 4.4 (0-3.0)
[2017-08-27] VITALS (36 sets, daily range): BP systolic 85–132; BP diastolic 51–82; PULSE 77–106; TEMP 36.5–36.9; O2SAT 93–100
[2017-08-27] MEDS: METHYLPREDNISOLONE IV 60 MG in SYRINGE 0 ML IV SCH ×5 (00:45→23:49)
[2017-08-27] MEDS: LEVALBUTEROL 1.25MG/0.5ML NEB INH SCH ×4 (02:01→18:57)
[2017-08-27] MEDS: IPRATROPIUM BROMIDE NEB SOLN 0.02% 2.5 ML VIAL INH SCH ×4 (02:01→18:57)
[2017-08-27] MEDS: HEPARIN SOD 5000 UNIT/0.5 ML CARP SQ SCH ×3 (05:32→21:09)
[2017-08-27 05:45] LABS: INR 1.1 (0.9-1.1); PARTIAL THROMBOPLASTIN RATIO 1.1; PROTHROMBIN TIME (PATIENT) 11.6 SECONDS (9.0-12.0)
[2017-08-27 05:49] LABS: BASO % 0.1 %; BASO ABS # 0.01 K/uL (0-0.2); COMPLETE YES; HEMATOCRIT 32.3 % (42-52); IG% 0.3 %; LYMPH % 5.4 %; LYMPH ABS # 0.62 K/uL (1.2-3.4); MEAN CELL VOLUME 84.8 fL (80-100); MEAN CORPUSCULAR HEMOGLOBIN 27.8 pg (25-34); MEAN CORPUSCULAR HGB CONC 32.8 g/dl (32-36); MEAN PLATELET VOLUME 8.6 fL (7.4-10.4); MONO % 1.4 %; NEUT % 92.8 %; PLATELET COUNT 334 K/uL (130-400); RED BLOOD COUNT 3.81 M/uL (4.7-6.1)
[2017-08-27 06:00] LABS: BUN/CREATININE RATIO 24.3 (10-20); CALCIUM 8.7 mg/dl (8.5-10.1); CREATININE 1.6 mg/dl (0.60-1.40); MAGNESIUM 1.9 mg/dl (1.8-2.4); POTASSIUM 4.2 mmol/L (3.5-5.1)
[2017-08-27 06:05] LABS: PHOSPHORUS 3.2 mg/dl (2.5-4.9)
--- NOTE | 2017-08-27 06:42 | DIAGNOSTIC IMAGING REPORT ---
CHEST ONE VIEW PORTABLE HISTORY: 71 years-old Male ACUTE RESPIRATORY FAILURE acute respiratory failure COMPARISON: Chest radiograph 08/26/2017 TECHNIQUE: Portable upright AP view of the chest FINDINGS: Cardiac silhouette is upper limits of normal. Prior median sternotomy. There is unchanged left hemidiaphragmatic elevation with mildly improved aeration of the left lung base. Persistent blunting the left costophrenic angle. No pneumothorax, large pleural effusion or lobar airspace consolidation. There is persistent pleural thickening or nodular opacities of the lateral left midlung and left upper lobe region. Bones appear grossly intact. IMPRESSION: 1. Improved aeration of the left lung base with persistent small left pleural effusion. 2. Nonspecific pleural thickening or nodular opacities of the lateral left midlung redemonstrated. The above report was generated using voice recognition software. It may contain grammatical, syntax or spelling errors. Electronically signed by: Dagoberto Guerrero M.D. 08/27/2017 6:41 AM Dictated Date/Time: 08/27/2017 6:38 AM
[2017-08-27] MEDS: PANTOprazole SOD 40 MG TAB PO SCH ×2 (07:40→20:20)
[2017-08-27] MEDS: METOPROLOL TARTRATE 25 MG TAB PO SCH ×2 (07:40→20:20)
[2017-08-27] MEDS: CLOPIDOGREL BISULFATE 75 MG TAB PO SCH (07:40)
[2017-08-27] MEDS: BUDESONIDE 0.5 MG/2 ML VIAL (PULMICORT) INH SCH ×2 (08:17→18:56)
[2017-08-27] MEDS: INSULIN ASPART 100 UNITS/ML 3 ML PEN SC SCH ×5 (08:27→20:21)
--- NOTE | 2017-08-27 09:39 | PULMONARY PROGRESS NOTE ---
DATE: 08/27/2017 DATE: 08/27/2017 TIME: 9:10 a.m. SUBJECTIVE: The patient is feeling much better than yesterday. He is less short of breath. He has been wearing BiPAP most of the time. During the night when nursing had him off for about 30 minutes he was was getting short of breath. This morning he may have been off for 45 minutes while he ate breakfast. Clearly his work of breathing is less. He states he coughed up a little bit of phlegm. The patient is concerned about having his catheter in. He is asking about seeing a urologist. This is being deferred to his primary team. OBJECTIVE: The patient has BiPAP on. He looks comfortable. Temperature is 36.9. He has not had any significant fevers. His intake for yesterday; however, was only 473 mL. The patient likely will need some IV fluids if he is not able to eat and drink more. He did have 446 mL for breakfast this morning. PHYSICAL EXAMINATION: VITAL SIGNS: Heart rate is 92 per minute. The rhythm is regular. Blood pressure is 105/62. His respiratory rate is 24 per minute. He does not appear labored. Saturation is 97% on 4 liters. CHEST: Auscultation reveals wheezes bilaterally. They are not nearly as tight as they were yesterday. ABDOMEN: Soft and nontender. Good bowel sounds are heard. EXTREMITIES: Showed no cyanosis, clubbing or edema. The patient had a chest x-ray done this morning. This showed some improvement in the aeration of the left base compared with the prior x-ray done yesterday. There is nonspecific opacification of the lateral portion of the left mid lung. It is possible these are actually on the pleural surface. Ultimately perhaps a CAT scan of the chest could be done. The x-ray continues to show elevation of the left hemidiaphragm, likely related to his cardiac surgery. LABORATORY DATA: White count today is down to 11.4. Yesterday was 23.88. Hemoglobin is down to 10.6 and previously was 12.2. Platelets are 334,000. The patient's blood gas yesterday done on BiPAP, did show a pH of 7.41 with a pCO2 of 50, pO2 105. Electrolytes today show sodium 135, potassium 4.2, chloride 97, bicarb 31. BUN is 39 with a creatinine of 1.6. Previously they were 22 and 1.6. This may correlate with prerenal azotemia. His blood sugars are elevated. These were as high as 342. IMPRESSIONS: 1. Respiratory failure -- acute on chronic, both hypercarbia and hypoxia -- improved. 2. Chronic obstructive pulmonary disease exacerbation. 3. Elevation of left hemidiaphragm, likely secondary to at least partial paralysis. 4. Coronary artery disease. 5. Possible prerenal azotemia. COMMENTS AND RECOMMENDATIONS: The patient is improved. I would try to increase the time that he is off BiPAP during the day. He should still wear BiPAP at night. If he continues to improve as the day goes on the methylprednisolone dose could be decreased down to 40 mg IV q. 6 hours. Obviously his sugars need control, perhaps better than what we are doing thus far. I think the patient may need cautious hydration. This could even be simply by the patient drinking if he continues to improve.
[2017-08-27] MEDS: AZITHROMYCIN 500 MG / D5W 250 ML IV SCH ×2 (10:23)
--- NOTE | 2017-08-27 11:26 | Critical Care Progress Note ---
Critical Care Progress Note Date of Service Aug 27, 2017. Attending Dr. Clifton Hedrick I personally examined this patient, reviewed his clinical and laboratory data, interpreted x-ray and formulated further plan of care. In summary, the patient is a 71-year-old man, ex-smoker with history of COPD, coronary artery disease, severe aortic stenosis, sp CABG 2, aortic valve replacement (08/02) who developed progressively worsening shortness of breath to the point that patient was not able to sleep at night in his recliner. He was admitted to [facility] surgical intensive care unit on 08/26/2017 for management of his acute on chronic respiratory failure requiring BiPAP. Uneventful night. Patient almost continuously requires BiPAP. Objective General Appearance: well-appearing, mild distress, on BiPAP, increased work of breathing off BiPAP. Head: normocephalic, atraumatic Eyes: PERRLA, EOMI ENT: normal ear exam, normal nasal exam Neck: trachea midline, supple Respiratory: I'll accessory muscle use, diffusely decreased breath sounds, no crackles. Cardiovasular: normal S1S2, no JVD, normal peripheral pulses, other ( tachycardic) Abdomen: non tender, normal bowel sounds, no rebound, no guarding Lower Extremities: Minimal bilateral lower extremity edema. Neuro: alert, oriented x 3, normal speech Psychiatric: normal affect Assessment & Plan 1. Acute on chronic respiratory failure secondary to emphysema and COPD exacerbation. We will continue with BiPAP 25% of oxygen. Chest x-ray without any obvious infiltrates, improved right base congestion following diuresis. Patient does not tolerate being off BiPAP longer than 25 minutes. We'll attempt further gentle diuresis shooting for negative fluid balance for 500 mL to 1 L. 2. COPD exacerbation for what will continue with DuoNeb's, steroids, azithromycin. 3. Cardiovascular: Cor artery disease, status post CABG 2 vessels, aortic valve replacement for severe aortic stenosis. Marginal hypotension. We will discontinue nitroglycerin drip, continue with aspirin, Plavix and metoprolol as blood pressure allows. We will attempt diuresis with Lasix 20 middle grams IV to 12 hours. 4. Renal insufficiency, follow urinary output and replace electrolytes. 5. Hyperglycemia secondary to steroids. We will titrate up insulin drip for adequate glycemia control. 6. Neurologically, nonfocal examination. 7. GI/DVT prophylaxis. 8. Patient is full code. CCT 32 min. EMMONAK II Score Date Score Was Generated: Aug 27, 2017 Consults & Procedures Consultants: Critical care medicine Cardiology Pulmonary Procedures: None Data Medications: Current Inpatient Medications Medications (Trade) Dose Ordered Sig/Nessa Route Start Time Stop Time Status Last Admin Dose Admin Acetaminophen (Tylenol Tab) 650 mg Q4H PRN PO 08/26/17 06:15 09/25/17 06:14 Lorazepam (Ativan Inj) 0.5 mg Q4H PRN IV 08/26/17 06:15 09/25/17 06:14 Nitroglycerin (Nitrostat Tab) 0.4 mg UD PRN SL 08/26/17 06:15 09/25/17 06:14 Morphine Sulfate (MoRPHine SULFATE INJ) 2 mg Q2H PRN IV 08/26/17 06:15 09/09/17 06:14 Cetirizine HCl (zyrTEC TAB) 10 mg DAILY PRN PO 08/26/17 06:15 09/25/17 06:14 Clopidogrel Bisulfate (plAVix TAB) 75 mg DAILY PO 08/26/17 09:00 09/25/17 08:59 08/27/17 07:40 75 MG Metoprolol Tartrate (Lopressor Tab) 25 mg BID PO 08/26/17 09:00 09/25/17 08:59 08/27/17 07:40 25 MG Ondansetron HCl (Zofran Inj) 4 mg Q6H PRN IV 08/26/17 06:30 09/25/17 06:29 Budesonide (Pulmicort Respules 0.5MG/ 2ML Neb Soln) 0.5 mg BIDR INH 08/26/17 08:00 09/25/17 07:59 08/27/17 08:17 0.5 MG Glucose (Glucose 40% Gel) UD PRN PO 08/26/17 06:30 09/25/17 06:29 Glucose (Glucose Chew Tab) 1 tabs UD PRN PO 08/26/17 06:30 09/25/17 06:29 Dextrose (Dextrose 50% 50ML Syringe) 50 ml UD PRN IV 08/26/17 06:30 09/25/17 06:29 Glucagon (Glucagon Inj) 1 mg UD PRN SQ 08/26/17 06:30 09/25/17 06:29 Ipratropium [place] (Atrovent 0.02% 0.5MG/2.5ML Neb) 0.5 mg Q6R INH 08/26/17 09:00 09/25/17 08:59 08/27/17 08:17 0.5 MG Levalbuterol (Xopenex 1.25MG/ 0.5ML Neb) 1.25 mg Q6R INH 08/26/17 09:00 09/25/17 08:59 08/27/17 08:17 1.25 MG Ipratropium [place] (Atrovent 0.02% 0.5MG/2.5ML Neb) 0.5 mg Q2H PRN INH 08/26/17 06:45 09/25/17 06:44 Levalbuterol (Xopenex 1.25MG/ 0.5ML Neb) 1.25 mg Q2H PRN INH 08/26/17 06:45 09/25/17 06:44 Pantoprazole Sodium (Protonix Tab) 40 mg BID PO 08/26/17 09:00 09/25/17 08:59 08/27/17 07:40 40 MG Miscellaneous Information (Consult Glycemic Management Pharmacy) 1 ea UD PRN N/A 08/26/17 08:30 09/25/17 08:29 Insulin Human Regular 250 units/ Sodium Chloride 252.5 ml @ 0 mls/hr DAILY@1130 IV 08/26/17 08:30 09/25/17 08:29 08/26/17 09:01 2 MLS/HR Insulin Aspart (novoLOG ASPART) SLIDING SCALE [facility] 08/26/17 12:00 09/25/17 11:59 08/27/17 08:27 4 UNITS Azithromycin 500 mg/Dextrose 255 ml @ 127.5 mls/ hr Q24H IV 08/26/17 10:00 09/02/17 09:59 08/27/17 10:23 127.5 MLS/HR Nitroglycerin/ Dextrose 250 ml @ 0 mls/hr Q0M PRN IV 08/26/17 10:15 09/25/17 10:14 08/26/17 11:51 6 MLS/HR Heparin Sodium (Porcine) (Heparin Sq 5000 Unit/0.5ml) 5,000 unit Q8 SQ 08/26/17 14:00 09/25/17 13:59 08/27/17 05:32 5,000 UNIT Lovastatin (Mevacor Tab) 10 mg PM PO 08/26/17 21:00 09/25/17 20:59 08/26/17 20:53 10 MG Methylprednisolone Sodium Succinate 60 mg/Syringe 0.96 ml @ 1.5 mls/min Q6H IV 08/26/17 18:00 09/25/17 17:59 08/27/17 05:31 1.5 MLS/MIN Vital Signs: Date Time Temp Pulse Resp B/P (MAP) Pulse Ox O2 Delivery O2 Flow Rate FiO2 08/27/17 10:01 79 25 96/58 (71) 93 BiPAP 25 08/27/17 09:31 79 25 105/51 (69) 94 BiPAP 25 08/27/17 09:01 87 22 97/56 (70) 94 BiPAP 25 08/27/17 08:31 92 27 105/62 (76) 97 Nasal Cannula 4.0 08/27/17 08:18 90 24 94 BiPAP/CPAP 25 08/27/17 08:01 36.9 98 24 85/66 (72) 96 Nasal Cannula 4.0 08/27/17 08:00 Nasal Cannula 4.0 08/27/17 07:31 88 25 116/60 (78) 100 Nasal Cannula 4.0 08/27/17 07:01 91 25 88/57 (67) 95 BiPAP 25 08/27/17 06:00 89 20 87/59 (68) 93 BiPAP 25 08/27/17 05:24 92 94 25 08/27/17 04:00 BiPAP 25 08/27/17 04:00 36.9 96 20 96/62 (73) 95 BiPAP 25 08/27/17 02:02 88 96 25 08/27/17 02:01 88 24 96 BiPAP/CPAP 25 08/27/17 02:00 93 18 108/71 (83) 96 BiPAP 25 08/27/17 00:01 36.6 94 16 97/65 (76) 97 BiPAP 25 08/26/17 23:59 BiPAP 25 08/26/17 22:54 80 96 25 08/26/17 22:00 93 20 89/54 (66) 95 BiPAP 25 08/26/17 20:00 BiPAP 25 08/26/17 20:00 36.5 99 24 101/68 (79) 95 BiPAP 25 08/26/17 19:50 93 95 25 08/26/17 19:49 93 22 95 BiPAP/CPAP 25 08/26/17 18:00 36.7 93 20 127/64 (85) 96 Mechanical Ventilator 50 08/26/17 17:00 94 97 25 08/26/17 16:00 36.7 72 20 109/65 (80) 95 Mechanical Ventilator 50 08/26/17 16:00 BiPAP 25 08/26/17 15:01 86 119/62 (81) 98 08/26/17 15:00 84 97 08/26/17 14:31 86 127/64 (85) 96 08/26/17 14:30 86 97 08/26/17 14:17 88 116/74 (88) 99 08/26/17 14:01 75 17 97 BiPAP/CPAP 25 08/26/17 14:00 77 97 08/26/17 14:00 88 116/74 (88) 99 08/26/17 13:59 75 96 25 08/26/17 13:30 78 97 08/26/17 13:01 82 120/76 (90) 97 08/26/17 13:01 82 120/76 (91) 97 08/26/17 13:00 81 96 08/26/17 12:38 25 08/26/17 12:30 87 98 08/26/17 12:08 94 126/84 (117) 95 08/26/17 12:08 94 126/84 (98) 95 08/26/17 12:01 90 84/72 (76) 98 08/26/17 12:00 97 BiPAP 25 08/26/17 12:00 94 24 126/84 (98) 95 BiPAP 25 08/26/17 12:00 90 98 Laboratory Results: Last 24 Hours Test 08/26/17 11:37 08/26/17 12:21 08/26/17 12:25 08/26/17 13:35 Bedside Glucose 131 mg/dl 124 mg/dl 90 mg/dl Blood Gas Sample Site L Radial Bedside Blood Gas pH (LAB) 7.41 Bedside Blood Gas pCO2 (LAB) 50 mmHg Bedside Blood Gas pO2 (LAB) 105 mmHg Bedside Blood Gas HCO3 (LAB) 32 meq/L Bedside Blood Gas Total CO2 34 mEq/l Bedside Blood Gas Base Excess (LAB) 7.0 meq/L Bedside Blood Gas O2 Saturation 98.0 % Eamon Test Pass Oxygen Delivery Device BIPAP Bedside Oxygen Rate (breaths/min) 23 Bedside FiO2 30 % Blood Gas IPAP 12 Test 08/26/17 14:00 08/26/17 14:14 08/26/17 14:32 08/26/17 14:54 Total Creatine Kinase 85 U/L Creatine Kinase MB 4.1 ng/ml Creatine Kinase MB Ratio 4.8 Troponin I < 0.015 ng/ml Bedside Glucose 93 mg/dl 96 mg/dl 112 mg/dl Test 08/26/17 15:53 08/26/17 17:12 08/26/17 18:01 08/26/17 20:25 Bedside Glucose 120 mg/dl 129 mg/dl 136 mg/dl 170 mg/dl Test 08/26/17 21:45 08/26/17 22:17 08/27/17 00:47 08/27/17 02:19 Bedside Glucose 188 mg/dl 208 mg/dl 198 mg/dl Total Creatine Kinase 62 U/L Creatine Kinase MB 2.7 ng/ml Creatine Kinase MB Ratio 4.4 Troponin I 0.018 ng/ml Test 08/27/17 04:10 08/27/17 05:05 08/27/17 05:21 08/27/17 06:19 Bedside Glucose 235 mg/dl 229 mg/dl 246 mg/dl White Blood Count 11.40 K/uL Red Blood Count 3.81 M/uL Hemoglobin 10.6 g/dL Hematocrit 32.3 % Mean Corpuscular Volume 84.8 fL Mean Corpuscular Hemoglobin 27.8 pg Mean Corpuscular Hemoglobin Concent 32.8 g/dl Platelet Count 334 K/uL Mean Platelet Volume 8.6 fL Neutrophils (%) (Auto) 92.8 % Lymphocytes (%) (Auto) 5.4 % Monocytes (%) (Auto) 1.4 % Eosinophils (%) (Auto) 0.0 % Basophils (%) (Auto) 0.1 % Neutrophils # (Auto) 10.58 K/uL Lymphocytes # (Auto) 0.62 K/uL Monocytes # (Auto) 0.16 K/uL Eosinophils # (Auto) 0.00 K/uL Basophils # (Auto) 0.01 K/uL RDW Standard Deviation 48.0 fL RDW Coefficient of Variation 15.5 % Immature Granulocyte % (Auto) 0.3 % Immature Granulocyte # (Auto) 0.03 K/uL Prothrombin Time 11.6 SECONDS Prothromb Time International Ratio 1.1 Activated Partial Thromboplast Time 27.3 SECONDS Partial Thromboplastin Ratio 1.1 Sodium Level 135 mmol/L Potassium Level 4.2 mmol/L Chloride Level 97 mmol/L Carbon Dioxide Level 31 mmol/L Anion Gap 7.0 mmol/L Blood Urea Nitrogen 39 mg/dl Creatinine 1.60 mg/dl Est Creatinine Clear Calc Drug Dose 47.2 ml/min Estimated GFR () 49.9 Estimated GFR (Non- 43.0 BUN/Creatinine Ratio 24.3 Random Glucose 234 mg/dl Calcium Level 8.7 mg/dl Phosphorus Level 3.2 mg/dl Magnesium Level 1.9 mg/dl Total Bilirubin 0.5 mg/dl Direct Bilirubin 0.2 mg/dl Aspartate Amino Transf (AST/SGOT) 12 U/L Alanine Aminotransferase (ALT/SGPT) 19 U/L Alkaline Phosphatase 74 U/L Total Protein 6.5 gm/dl Albumin 3.0 gm/dl Lipase 55 U/L Test 08/27/17 07:17 08/27/17 08:23 Bedside Glucose 246 mg/dl 342 mg/dl
[2017-08-27] MEDS: INSULIN REGULAR 250 UNITS in SODIUM CHLORIDE 0.9% 250ML 250 ML IV SCH (11:53)
[2017-08-27] MEDS ORDERED: FUROSEMIDE INJ 20 MG in SYRINGE 0 ML IV SCH (13:00)
[2017-08-27] MEDS ORDERED: NURSING VERBAL MED ORDER ONE (13:00)
--- NOTE | 2017-08-27 13:31 | Cardiology Follow-Up ---
Subjective Date of Service: Aug 27, 2017. Pt evaluation today including: conversation w/ patient, physical exam, chart review, lab review, review of studies, conversation w/ funeral pre need consultant History of Present Illness The patient continues to be short of breath. He was able to eat a portion of his large became significantly short of breath while his BiPAP was off. He does not report significant improvement with the breathing treatments. He denies any significant chest discomfort. Was not out of bed yesterday. Social History Smoking Status: Former Smoker History of Alcohol Use: Yes (beer, "once in awhile") Review of Systems He denies any recent fevers or chills. The remainder of the review of systems is contained in the history of present illness. Objective Vital Signs Past 12 Hours Date Time Temp Pulse Resp B/P (MAP) Pulse Ox O2 Delivery O2 Flow Rate FiO2 08/27/17 12:37 96 25 08/27/17 12:36 98 24 97 BiPAP/CPAP 25 08/27/17 12:02 36.6 100 26 115/70 (85) 98 Nasal Cannula 2.0 08/27/17 12:00 Nasal Cannula 2.0 08/27/17 11:01 81 22 86/56 (66) 96 BiPAP 25 08/27/17 10:01 79 25 96/58 (71) 93 BiPAP 25 08/27/17 09:31 79 25 105/51 (69) 94 BiPAP 25 08/27/17 09:01 87 22 97/56 (70) 94 BiPAP 25 08/27/17 08:31 92 27 105/62 (76) 97 Nasal Cannula 4.0 08/27/17 08:18 90 24 94 BiPAP/CPAP 25 08/27/17 08:01 36.9 98 24 85/66 (72) 96 Nasal Cannula 4.0 08/27/17 08:00 Nasal Cannula 4.0 08/27/17 07:31 88 25 116/60 (78) 100 Nasal Cannula 4.0 08/27/17 07:01 91 25 88/57 (67) 95 BiPAP 25 08/27/17 06:00 89 20 87/59 (68) 93 BiPAP 25 08/27/17 05:24 92 94 25 08/27/17 04:00 BiPAP 25 08/27/17 04:00 36.9 96 20 96/62 (73) 95 BiPAP 25 08/27/17 02:02 88 96 25 08/27/17 02:01 88 24 96 BiPAP/CPAP 25 08/27/17 02:00 93 18 108/71 (83) 96 BiPAP 25 Last Recorded Weight-Kilograms: 79.000 Physical Exam The patient is alert and oriented. Mood and affect appeared normal. He answered all questions appropriately. He has increased work of breathing HEENT: Pupils are equal and reactive to light and accommodation. Extraocular movements are intact. The sclerae are anicteric. Neuro: Cranial nerves intact Neck: Patient's neck is supple. He has palpable carotid pulses bilaterally without bruits on auscultation. There is no evidence of jugular venous distention. The thyroid is not enlarged. Lungs: Reduced breath sounds in all lung spencer. With some expiratory wheezing was noted. No rales. Cardiac: Heart demonstrates a regular rate and rhythm. Normal S1 and crisp S2. No murmurs on examination. Chest: Well-healed sternotomy scar Pulses: The patient has palpable radial pulses bilaterally that are equal in intensity Extremities: There was no evidence of hypoperfusion. There is no cyanosis or clubbing. Mild edema in the left lower extremity. Skin: I did not appreciate any rashes on examination today. Data Laboratory Results: Last 24 Hours Test 08/26/17 13:35 08/26/17 14:00 08/26/17 14:14 08/26/17 14:32 Bedside Glucose 90 mg/dl 93 mg/dl 96 mg/dl Total Creatine Kinase 85 U/L Creatine Kinase MB 4.1 ng/ml Creatine Kinase MB Ratio 4.8 Troponin I < 0.015 ng/ml Test 08/26/17 14:54 08/26/17 15:53 08/26/17 17:12 08/26/17 18:01 Bedside Glucose 112 mg/dl 120 mg/dl 129 mg/dl 136 mg/dl Test 08/26/17 20:25 08/26/17 21:45 08/26/17 22:17 08/27/17 00:47 Bedside Glucose 170 mg/dl 188 mg/dl 208 mg/dl Total Creatine Kinase 62 U/L Creatine Kinase MB 2.7 ng/ml Creatine Kinase MB Ratio 4.4 Troponin I 0.018 ng/ml Test 08/27/17 02:19 10/7/17 04:10 08/27/17 05:05 08/27/17 05:21 Bedside Glucose 198 mg/dl 235 mg/dl 229 mg/dl White Blood Count 11.40 K/uL Red Blood Count 3.81 M/uL Hemoglobin 10.6 g/dL Hematocrit 32.3 % Mean Corpuscular Volume 84.8 fL Mean Corpuscular Hemoglobin 27.8 pg Mean Corpuscular Hemoglobin Concent 32.8 g/dl Platelet Count 334 K/uL Mean Platelet Volume 8.6 fL Neutrophils (%) (Auto) 92.8 % Lymphocytes (%) (Auto) 5.4 % Monocytes (%) (Auto) 1.4 % Eosinophils (%) (Auto) 0.0 % Basophils (%) (Auto) 0.1 % Neutrophils # (Auto) 10.58 K/uL Lymphocytes # (Auto) 0.62 K/uL Monocytes # (Auto) 0.16 K/uL Eosinophils # (Auto) 0.00 K/uL Basophils # (Auto) 0.01 K/uL RDW Standard Deviation 48.0 fL RDW Coefficient of Variation 15.5 % Immature Granulocyte % (Auto) 0.3 % Immature Granulocyte # (Auto) 0.03 K/uL Prothrombin Time 11.6 SECONDS Prothromb Time International Ratio 1.1 Activated Partial Thromboplast Time 27.3 SECONDS Partial Thromboplastin Ratio 1.1 Sodium Level 135 mmol/L Potassium Level 4.2 mmol/L Chloride Level 97 mmol/L Carbon Dioxide Level 31 mmol/L Anion Gap 7.0 mmol/L Blood Urea Nitrogen 39 mg/dl Creatinine 1.60 mg/dl Est Creatinine Clear Calc Drug Dose 47.2 ml/min Estimated GFR () 49.9 Estimated GFR (Non- 43.0 BUN/Creatinine Ratio 24.3 Random Glucose 234 mg/dl Calcium Level 8.7 mg/dl Phosphorus Level 3.2 mg/dl Magnesium Level 1.9 mg/dl Total Bilirubin 0.5 mg/dl Direct Bilirubin 0.2 mg/dl Aspartate Amino Transf (AST/SGOT) 12 U/L Alanine Aminotransferase (ALT/SGPT) 19 U/L Alkaline Phosphatase 74 U/L Total Protein 6.5 gm/dl Albumin 3.0 gm/dl Lipase 55 U/L Test 08/27/17 06:19 08/27/17 07:17 08/27/17 08:23 08/27/17 09:20 Bedside Glucose 246 mg/dl 246 mg/dl 342 mg/dl 313 mg/dl Test 08/27/17 10:15 08/27/17 11:20 08/27/17 12:19 Bedside Glucose 274 mg/dl 332 mg/dl 307 mg/dl Imaging: Chest x-ray demonstrated minimal change Telemetry reviewed: Continued sinus tachycardia Assessment and Plan 1. Coronary artery disease: No angina or chest pain. Status post recent revascularization. Continue on usual outpatient medical regimen to include anti-platelet therapy with Plavix and high-dose atorvastatin. 2. Aortic valve disease: Normal exam. No significant improvement in his dyspnea with aortic valve replacement. 3. Dyspnea: This appears more likely to be a primary lung issue. He did diurese approximately 500 cc yesterday. BUN creatinine are up slightly suggesting an element of intravascular depletion. It would seem reasonable to continue on his usual oral dose of Lasix monitoring his electrolytes and volume status closely. I think if most of his dyspnea was related to pulmonary vascular congestion we would seen some improvement. BiPAP is in excellent therapy for pulmonary edema and this is not appear to have improved his symptoms significantly. At the time of his catheterization prior to his valve replacement he had low filling pressures. If he does not have marked improvement in his breathing or there is some concern regarding the possibility of pulmonary vascular congestion we could perform right heart catheterization and measure the pressures.
--- NOTE | 2017-08-27 14:35 | Pharmacy Progress Note ---
Glycemic Control Progress Note Date of Service Aug 27, 2017. Scope Glycemic Pharmacist consulted for glycemic control to write orders per [facility] inpatient glycemic control protocol. Objective Accuchecks BSG (last 24hrs): Test 08/26/17 14:32 08/26/17 14:54 08/26/17 15:53 08/26/17 17:12 Bedside Glucose 96 mg/dl (70-99) 112 mg/dl (70-99) 120 mg/dl (70-99) 129 mg/dl (70-99) Test 08/26/17 18:01 08/26/17 20:25 08/26/17 21:45 08/27/17 00:47 Bedside Glucose 136 mg/dl (70-99) 170 mg/dl (70-99) 188 mg/dl (70-99) 208 mg/dl (70-99) Test 08/27/17 02:19 08/27/17 04:10 08/27/17 05:05 08/27/17 05:21 Bedside Glucose 198 mg/dl (70-99) 235 mg/dl (70-99) 229 mg/dl (70-99) Random Glucose 234 mg/dl (70-99) Test 08/27/17 06:19 08/27/17 07:17 08/27/17 08:23 08/27/17 09:20 Bedside Glucose 246 mg/dl (70-99) 246 mg/dl (70-99) 342 mg/dl (70-99) 313 mg/dl (70-99) Test 08/27/17 10:15 08/27/17 11:20 08/27/17 12:19 Bedside Glucose 274 mg/dl (70-99) 332 mg/dl (70-99) 307 mg/dl (70-99) Recent Pertinent Medications The patient is currently receiving: * IV insulin infusion per moderate stress protocol, no bolus * Goal Range 110 - 190 mg/dl * Drip rate has continuously increased over the past 24 hours from 0.8 --> 4.9units/hr Outpatient Anti-diabetic Regimen: * Regular insulin pump * A1c = 8.9% (07/15/17) Risk Factors for Insulin Resistance: * Steroids: SoluMedrol 60mg IV q6h * Infection: Azithromycin IV (COPD exac vs infx) * IVF: Nitro gtt * Diet: Type 2 diabetic/AHA diet Assessment & Plan ASSESSMENT: * See progress note from 08/26/17 for more background info, in short: * Pt receiving SQ basal bolus insulin regimen for hyperglycemia secondary to baseline DM (outpatient regimen on hold), respiratory stress/infection, dextrose IVF in Heparin drip, IV steroids * Pt continues to be on High-dose steroids, blood sugars continue to rise and insulin drip rate has been consistently increasing as a result. * Patient is eating a type 2 diabetes diet while on insulin drip * I will add a fixed carb ratio (instead of the carb ratio given per insulin drip) to ensure patient is receiving enough insulin for carb coverage, which will hopefully help with some of the cause of the hyperglycemia * ADA & AACE recommend a goal blood sugar range 140-180 mg/dl for the majority of critically ill & non-critically ill patients. However, more stringent targets may be selected in individual cases. Insulin infusion goal range ordered as 110-190mg/dL, which should produce BSGs within ICU goal range and require minimal rate adjustments. PLAN FOR INPATIENT GLYCEMIC CONTROL: * Continue IV insulin infusion per moderate stress protocol * Goal Range 110 - 190 mg/dl * FIXED CARB RATIO ADDED: 1 UNIT PER 6 GRAMS CHO CONSUMED * In the critical care setting, continuous IV insulin infusion has been shown to be the best method for achieving glycemic targets. * Would recommend continuing insulin infusion until steroids are discontinued and until pt can be transitioned back to insulin pump. * Please note that the plan above was derived based on current level of insulin resistance and hospital stress. These recommendations are appropriate for inpatient admission only. Plan of care upon discharge will need to be reassessed to avoid potential outpatient hypo/hyperglycemia. Thank you.
[2017-08-27] MEDS: LOVASTATIN 20 MG TAB PO SCH (20:20)
[2017-08-27] MEDS: FUROSEMIDE INJ 20 MG in SYRINGE 0 ML IV SCH (20:20)
[2017-08-28] VITALS (24 sets, daily range): BP systolic 108–136; BP diastolic 60–73; PULSE 70–90; TEMP 36.5–36.9; O2SAT 93–99
--- NOTE | 2017-08-28 00:44 | Hospitalist Progress Note ---
Hospitalist Progress Note Date of Service Aug 27, 2017. Subjective Pt evaluation today including: conversation w/ patient Pt feeling much better today, has been off BiPAP since lunchtime but will go back on it for night. All Other Systems: Reviewed and Negative Objective Vital Signs Date Time Temp Pulse Resp B/P (MAP) Pulse Ox O2 Delivery O2 Flow Rate FiO2 08/28/17 00:01 36.6 08/28/17 00:01 71 20 121/64 (90) 95 08/27/17 23:59 96 BiPAP 25 08/27/17 23:00 84 30 115/66 (73) 93 08/27/17 22:56 77 97 25 08/27/17 22:01 85 23 124/76 (92) 98 08/27/17 21:01 93 25 132/82 (109) 97 08/27/17 20:01 102 23 102/63 (67) 96 08/27/17 20:00 95 Nasal Cannula 4.0 08/27/17 20:00 36.5 08/27/17 19:01 105 24 108/80 (91) 99 08/27/17 19:00 86 24 95 Nasal Cannula 3.0 08/27/17 18:01 106 17 120/65 (83) 96 Nasal Cannula 2.0 08/27/17 17:02 104 20 118/67 (84) 97 Nasal Cannula 2.0 08/27/17 16:01 101 21 97/60 (72) 98 Nasal Cannula 2.0 08/27/17 16:00 Nasal Cannula 2.0 08/27/17 15:01 98 17 112/74 (87) 96 Nasal Cannula 2.0 08/27/17 14:20 96 25 08/27/17 14:16 96 24 95 BiPAP/CPAP 25 08/27/17 14:01 36.9 101 23 120/55 (76) 95 BiPAP 25 08/27/17 13:01 95 22 99/67 (78) 95 BiPAP 25 08/27/17 12:37 96 25 08/27/17 12:36 98 24 97 BiPAP/CPAP 25 08/27/17 12:02 36.6 100 26 115/70 (85) 98 Nasal Cannula 2.0 08/27/17 12:00 Nasal Cannula 2.0 08/27/17 11:01 81 22 86/56 (66) 96 BiPAP 25 08/27/17 10:01 79 25 96/58 (71) 93 BiPAP 25 08/27/17 09:31 79 25 105/51 (69) 94 BiPAP 25 08/27/17 09:01 87 22 97/56 (70) 94 BiPAP 25 08/27/17 08:31 92 27 105/62 (76) 97 Nasal Cannula 4.0 08/27/17 08:18 90 24 94 BiPAP/CPAP 25 08/27/17 08:01 36.9 98 24 85/66 (72) 96 Nasal Cannula 4.0 08/27/17 08:00 Nasal Cannula 4.0 08/27/17 07:31 88 25 116/60 (78) 100 Nasal Cannula 4.0 08/27/17 07:01 91 25 88/57 (67) 95 BiPAP 25 08/27/17 06:00 89 20 87/59 (68) 93 BiPAP 25 08/27/17 05:24 92 94 25 08/27/17 04:00 BiPAP 25 08/27/17 04:00 36.9 96 20 96/62 (73) 95 BiPAP 25 08/27/17 02:02 88 96 25 08/27/17 02:01 88 24 96 BiPAP/CPAP 25 08/27/17 02:00 93 18 108/71 (83) 96 BiPAP 25 Physical Exam General Appearance: WD/WN, no apparent distress Eyes: normal inspection, sclerae normal ENT: hearing grossly normal Neck: trachea midline Respiratory/Chest: no respiratory distress, no accessory muscle use, + decreased breath sounds (throughout with diffuse exp wheezes, prolonged exp phase) Cardiovascular: regular rate, rhythm, no edema (except trace pitting edema left leg), no murmur Abdomen: normal bowel sounds, non tender, soft Extremities: no calf tenderness Neurologic/Psychiatric: alert, normal mood/affect, oriented x 3 Skin: normal color, warm/dry, no rash, + pertinent finding (midline sternotomy incisional wound with scab and healing well) Laboratory Results Last 24 Hours Test 08/27/17 00:47 08/27/17 02:19 08/27/17 04:10 08/27/17 05:05 Bedside Glucose 208 mg/dl 198 mg/dl 235 mg/dl 229 mg/dl Test 08/27/17 05:21 08/27/17 06:19 08/27/17 07:17 08/27/17 08:23 White Blood Count 11.40 K/uL Red Blood Count 3.81 M/uL Hemoglobin 10.6 g/dL Hematocrit 32.3 % Mean Corpuscular Volume 84.8 fL Mean Corpuscular Hemoglobin 27.8 pg Mean Corpuscular Hemoglobin Concent 32.8 g/dl Platelet Count 334 K/uL Mean Platelet Volume 8.6 fL Neutrophils (%) (Auto) 92.8 % Lymphocytes (%) (Auto) 5.4 % Monocytes (%) (Auto) 1.4 % Eosinophils (%) (Auto) 0.0 % Basophils (%) (Auto) 0.1 % Neutrophils # (Auto) 10.58 K/uL Lymphocytes # (Auto) 0.62 K/uL Monocytes # (Auto) 0.16 K/uL Eosinophils # (Auto) 0.00 K/uL Basophils # (Auto) 0.01 K/uL RDW Standard Deviation 48.0 fL RDW Coefficient of Variation 15.5 % Immature Granulocyte % (Auto) 0.3 % Immature Granulocyte # (Auto) 0.03 K/uL Prothrombin Time 11.6 SECONDS Prothromb Time International Ratio 1.1 Activated Partial Thromboplast Time 27.3 SECONDS Partial Thromboplastin Ratio 1.1 Sodium Level 135 mmol/L Potassium Level 4.2 mmol/L Chloride Level 97 mmol/L Carbon Dioxide Level 31 mmol/L Anion Gap 7.0 mmol/L Blood Urea Nitrogen 39 mg/dl Creatinine 1.60 mg/dl Est Creatinine Clear Calc Drug Dose 47.2 ml/min Estimated GFR () 49.9 Estimated GFR (Non- 43.0 BUN/Creatinine Ratio 24.3 Random Glucose 234 mg/dl Calcium Level 8.7 mg/dl Phosphorus Level 3.2 mg/dl Magnesium Level 1.9 mg/dl Total Bilirubin 0.5 mg/dl Direct Bilirubin 0.2 mg/dl Aspartate Amino Transf (AST/SGOT) 12 U/L Alanine Aminotransferase (ALT/SGPT) 19 U/L Alkaline Phosphatase 74 U/L Total Protein 6.5 gm/dl Albumin 3.0 gm/dl Lipase 55 U/L Bedside Glucose 246 mg/dl 246 mg/dl 342 mg/dl Test 08/27/17 09:20 08/27/17 10:15 08/27/17 11:20 08/27/17 12:19 Bedside Glucose 313 mg/dl 274 mg/dl 332 mg/dl 307 mg/dl Test 08/27/17 13:16 08/27/17 14:15 08/27/17 15:18 08/27/17 16:16 Bedside Glucose 286 mg/dl 238 mg/dl 199 mg/dl 228 mg/dl Test 08/27/17 17:16 08/27/17 18:18 08/27/17 19:14 08/27/17 20:16 Bedside Glucose 187 mg/dl 233 mg/dl 214 mg/dl 188 mg/dl Test 08/27/17 21:01 08/27/17 21:58 08/27/17 22:57 08/27/17 23:51 Bedside Glucose 166 mg/dl 154 mg/dl 156 mg/dl 130 mg/dl Assessment and Plan The patient is a 71-year-old male who presents to the emergency department with acute onset of shortness of breath/respiratory distress that began about 3 hours prior to arrival. He had a normal week, and went to bed feeling fine, and awoke acutely short of breath as noted. He was most recently admitted to [facility] from July 15 through July 18 for COPD exacerbation and referral was made to [facility], where he stayed for a week, and then underwent a CABG 2 and AVR on July 26. He was discharged from [facility] on August 02, and is staying locally with family. He had been doing well until the acute symptoms developed the AM of admission. Acute respiratory failure with hypoxia and hypercapnia--AECOPD and some acute on chronic preserved EF CHF as cause. WBC count and platelets elevated on admission points towards acute infectious or inflammatory process, now improving on steroids and azithro CXR with nodular opacities and small pleural effusion not completely unexpected 4 weeks post-op from CABG/AVR -admitted to the ICU as was requiring BiPAP and [facility]--> now improving. -Continue BiPAP nocturnally and prn during day, continue supplemental O2 -Doppler LLE cancelled by Critical Care team--> seems to be normal considering saphenous vein harvesting from that leg -continue bronchodilators -continue IV steroids and taper down as able to -continue Pulmicort Respules 0.5 mg inhaled twice a day. -continue azithro x 5 day course -diurese with lasix IV -Appreciate [employer] management -follow CXR to resolution given nodular opacities CAD/hypertension/status post CABG 2 and aortic valve replacement on 07/26/2017/ PAD-- Continue present medications of clopidogrel 75 mg by mouth daily, metoprolol tartrate 25 mg by mouth twice a day, statin (Mevacor, not on high intensity dose ?) Serial troponins neg x 3 Consult his truer pinion and wheel Dr. Ernandez-recommendations appreciated -switch to po lasix likely tomorrow Diabetes mellitus-insulin dependent, with hyperglycemia here on IV steroids D/C his insulin pump. On insulin gtt and Glycemic Pharmacy consult managing Hypercholesterolemia-- Continue lovastatin 10 mg by mouth at bedtime. BPH with indwelling Romero- UA grossly abnormal, Ur cx growing GNRs -start Rocephin -follow Urcx -should likely change out Romero catheter tomorrow Proph-SQ heparin Dispo-to tele likely tomorrow FULL CODE
[2017-08-28] MEDS: LEVALBUTEROL 1.25MG/0.5ML NEB INH SCH ×4 (01:10→19:31)
[2017-08-28] MEDS: IPRATROPIUM BROMIDE NEB SOLN 0.02% 2.5 ML VIAL INH SCH ×4 (01:10→19:31)
[2017-08-28] MEDS: CEFTRIAXONE SOD INJ 1 GM in DEXTROSE 5% ADD-VANTAGE 50ML 50 ML IV SCH (01:17)
[2017-08-28] MEDS: METHYLPREDNISOLONE IV 60 MG in SYRINGE 0 ML IV SCH (05:31)
[2017-08-28] MEDS: HEPARIN SOD 5000 UNIT/0.5 ML CARP SQ SCH ×3 (05:31→22:30)
[2017-08-28 06:03] LABS: COMPLETE YES; HEMATOCRIT 35.5 % (42-52); IG% 0.3 %; LYMPH % 3.7 %; MEAN CELL VOLUME 84.9 fL (80-100); MEAN CORPUSCULAR HEMOGLOBIN 27.8 pg (25-34); MEAN CORPUSCULAR HGB CONC 32.7 g/dl (32-36); MEAN PLATELET VOLUME 8.9 fL (7.4-10.4); MONO % 2.2 %; NEUT % 93.8 %; PLATELET COUNT 433 K/uL (130-400); RED BLOOD COUNT 4.18 M/uL (4.7-6.1)
[2017-08-28 06:09] LABS: PARTIAL THROMBOPLASTIN RATIO 1.2; PROTHROMBIN TIME (PATIENT) 11.2 SECONDS (9.0-12.0)
[2017-08-28 06:29] LABS: ALT/SGPT 21 U/L (12-78); AST/SGOT 13 U/L (15-37); BLOOD UREA NITROGEN 43 mg/dl (7-18); BUN/CREATININE RATIO 28.8 (10-20); CALCIUM 9.3 mg/dl (8.5-10.1); CARBON DIOXIDE 30 mmol/L (21-32); CHLORIDE 99 mmol/L (98-107); GLUCOSE 129 mg/dl (70-99); MAGNESIUM 2.3 mg/dl (1.8-2.4); POTASSIUM 3.8 mmol/L (3.5-5.1); SODIUM 138 mmol/L (136-145)
[2017-08-28 06:34] LABS: ALKALINE PHOSPHATASE 83 U/L (45-117); PHOSPHORUS 3.2 mg/dl (2.5-4.9)
[2017-08-28] MEDS: BUDESONIDE 0.5 MG/2 ML VIAL (PULMICORT) INH SCH ×2 (06:57→19:31)
--- NOTE | 2017-08-28 07:12 | DIAGNOSTIC IMAGING REPORT ---
CHEST ONE VIEW PORTABLE CLINICAL HISTORY: 71 years-old Male presenting with ACUTE RESPIRATORY FAILURE. TECHNIQUE: Portable upright AP view of the chest was obtained. COMPARISON: 08/27/2017. FINDINGS: Median sternotomy wires intact. Cardiomediastinal silhouette otherwise normal. Persistent elevation of the left hemidiaphragm. Mild bronchial wall thickening may be present. Relative increased density of the left lung in comparison to the right without focal infiltrate. Vague peripheral/pleural nodularity on the left better demonstrated on previous radiographs. No large effusion or pneumothorax. Osseous structures normal. Upper abdomen normal. IMPRESSION: 1. Vague left peripheral/pleural nodularity better demonstrated on prior radiographs. This could be further evaluated with chest CT as clinically indicated. 2. Overall lower left lung volumes. No focal infiltrate. 3. Mild bronchial wall thickening could suggest bronchitis/bronchiolitis. Electronically signed by: Jayme Mendez M.D. 08/28/2017 7:11 AM Dictated Date/Time: 08/28/2017 7:08 AM
[2017-08-28] MEDS: AZITHROMYCIN 250 MG TAB PO SCH (07:52)
[2017-08-28] MEDS: METOPROLOL TARTRATE 25 MG TAB PO SCH ×2 (07:52→21:06)
[2017-08-28] MEDS: PANTOprazole SOD 40 MG TAB PO SCH ×2 (07:52→21:06)
[2017-08-28] MEDS: CLOPIDOGREL BISULFATE 75 MG TAB PO SCH (07:52)
[2017-08-28] MEDS: INSULIN ASPART 100 UNITS/ML 3 ML PEN SC SCH ×4 (07:54→21:10)
--- NOTE | 2017-08-28 09:18 | PULMONARY PROGRESS NOTE ---
DATE: 08/28/2017 TIME: 08:50 a.m. SUBJECTIVE: The patient is feeling better. He is less short of breath. He was able to stay off of BiPAP much of the time after yesterday afternoon. He did wear the BiPAP overnight. He is not expectorating any phlegm. He does feel a rattle in his throat as that he still has some congestion. His appetite is good. He was able to get out of bed and up to the chair without too much difficulty. OBJECTIVE: GENERAL: The patient is comfortable at rest. VITAL SIGNS: Temperature is 36.9. Heart rate is 80 per minute. The rhythm is regular. Blood pressure is 134/71. EARS, NOSE, AND THROAT EXAMINATION: Unremarkable. LUNGS: Lung spencer reveal diffuse wheezing bilaterally, both anteriorly and posteriorly. In spite of this, he is not in distress and he is not using accessory muscles. Respiratory rate is 20 breaths per minute. Saturation is 98% on 2 liters. ABDOMEN: Soft and nontender. Romero catheter is still in place. EXTREMITIES: Showed no cyanosis, clubbing or edema. LABORATORY DATA: CBC today shows a white count of 16.3. Yesterday, it was 11.4. Hemoglobin is 11.6. Platelets are 433,000. Coags were normal. Electrolytes show sodium 138, potassium 3.8, chloride 99, and bicarbonate 30. The BUN is 43 with a creatinine of 1.5. This has been not significantly changed from yesterday when the BUN was 39 and a creatinine was 1.6. Baseline BUN and creatinine on admission were 22 and 1.6. The patient was given some Lasix yesterday. He did diurese 2350 mL. Chest x-ray was done today. It again shows elevation of the left hemidiaphragm. The lung spencer are otherwise clear. It does not appear that he has vascular congestion. Questionable nodules in the left side of the chest are no longer as easily identified. IMPRESSIONS: 1. Respiratory failure -- acute on chronic with hypercarbia and hypoxia. 2. Chronic obstructive pulmonary disease exacerbation. 3. Elevation of the right hemidiaphragm, likely related to his cardiac surgery. 4. Coronary artery disease. 5. Renal insufficiency. COMMENTS AND RECOMMENDATIONS: The patient is clinically improved. He still has a lot of wheezing. His work of breathing is much better. I would have no objection to the patient moving out of ICU. In light of his elevation of BUN and creatinine, I would not continue to give the furosemide. I do not think he is volume overloaded. I believe we can start to decrease the methylprednisolone. I will cut this down to 40 mg IV q. 6 hours. I would continue his nebulizer treatments as present.
[2017-08-28] MEDS: FUROSEMIDE INJ 20 MG in SYRINGE 0 ML IV SCH (10:17)
[2017-08-28] MEDS: INSULIN REGULAR 250 UNITS in SODIUM CHLORIDE 0.9% 250ML 250 ML IV SCH (11:52)
[2017-08-28] MEDS: METHYLPREDNISOLONE IV 40 MG in SYRINGE 0 ML IV SCH ×3 (11:52→23:51)
--- NOTE | 2017-08-28 12:03 | Critical Care Progress Note ---
Critical Care Progress Note Date of Service Aug 28, 2017. Attending Dr. Clifton Hedrick I personally examined this patient, reviewed his clinical and laboratory data, interpreted x-ray and formulated further plan of care. In summary, the patient is a 71-year-old man, ex-smoker with history of COPD, coronary artery disease, severe aortic stenosis, sp CABG 2, aortic valve replacement (08/02) who developed progressively worsening shortness of breath to the point that patient was not able to sleep at night in his recliner. He was admitted to [facility] surgical intensive care unit on 08/26/2017 for management of his acute on chronic respiratory failure requiring BiPAP. Uneventful night. Off BiPAP since 5 AM. Still short of breath but subjectively feels improvement. Denies having any chest pain, fever, chills, nausea, vomiting or diarrhea. Objective General Appearance: well-appearing, mild distress off BiPAP with increased work of breathing, comfortable on BiPAP. Head: normocephalic, atraumatic Eyes: PERRLA, EOMI ENT: normal ear exam, normal nasal exam Neck: trachea midline, supple Respiratory: accessory muscle use, diffusely decreased breath sounds, no crackles. Air movement somewhat improved since admission Cardiovasular: normal S1S2, no JVD, normal peripheral pulses, other ( tachycardic) Abdomen: non tender, normal bowel sounds, no rebound, no guarding Lower Extremities: No leg edema, no calf tenderness. Neuro: alert, oriented x 3, normal speech Psychiatric: normal affect Assessment & Plan 1. Acute on chronic respiratory failure secondary to emphysema and COPD exacerbation. We will continue with BiPAP 25% of oxygen on as needed basis. 2. COPD exacerbation for what will continue with DuoNeb's, steroids, azithromycin. 3. Cardiovascular: Coronary artery disease, status post CABG 2 vessels on aspirin and metoprolol, aortic valve replacement for severe aortic stenosis. We will continue with gentle diuresis as patient does not complain of being thirsty, hypotension has improved, creatinine has improved to 4. Renal insufficiency, follow urinary output and replace electrolytes. 5. Hyperglycemia secondary to steroids. On insulin drip 6. Neurologically, nonfocal examination. 7. GI/DVT prophylaxis. 8. Patient is full code. Will transfer patient to floor for further management. [id number] note. [place] II Score Date Score Was Generated: Aug 27, 2017 Consults & Procedures Consultants: Critical care medicine Cardiology Pulmonary Procedures: None Data Medications: Current Inpatient Medications Medications (Trade) Dose Ordered Sig/Nessa Route Start Time Stop Time Status Last Admin Dose Admin Acetaminophen (Tylenol Tab) 650 mg Q4H PRN PO 08/26/17 06:15 09/25/17 06:14 Lorazepam (Ativan Inj) 0.5 mg Q4H PRN IV 08/26/17 06:15 09/25/17 06:14 Nitroglycerin (Nitrostat Tab) 0.4 mg UD PRN SL 08/26/17 06:15 09/25/17 06:14 Morphine Sulfate (MoRPHine SULFATE INJ) 2 mg Q2H PRN IV 08/26/17 06:15 09/09/17 06:14 Cetirizine HCl (zyrTEC TAB) 10 mg DAILY PRN PO 08/26/17 06:15 09/25/17 06:14 Clopidogrel Bisulfate (plAVix TAB) 75 mg DAILY PO 08/26/17 09:00 09/25/17 08:59 08/28/17 07:52 75 MG Metoprolol Tartrate (Lopressor Tab) 25 mg BID PO 08/26/17 09:00 09/25/17 08:59 08/28/17 07:52 25 MG Ondansetron HCl (Zofran Inj) 4 mg Q6H PRN IV 08/26/17 06:30 09/25/17 06:29 Budesonide (Pulmicort Respules 0.5MG/ 2ML Neb Soln) 0.5 mg BIDR INH 08/26/17 08:00 09/25/17 07:59 08/28/17 06:57 0.5 MG Glucose (Glucose 40% Gel) UD PRN PO 08/26/17 06:30 09/25/17 06:29 Glucose (Glucose Chew Tab) 1 tabs UD PRN PO 08/26/17 06:30 09/25/17 06:29 Dextrose (Dextrose 50% 50ML Syringe) 50 ml UD PRN IV 08/26/17 06:30 09/25/17 06:29 Glucagon (Glucagon Inj) 1 mg UD PRN SQ 08/26/17 06:30 09/25/17 06:29 Ipratropium [place] (Atrovent 0.02% 0.5MG/2.5ML Neb) 0.5 mg Q6R INH 08/26/17 09:00 09/25/17 08:59 08/28/17 06:56 0.5 MG Levalbuterol (Xopenex 1.25MG/ 0.5ML Neb) 1.25 mg Q6R INH 08/26/17 09:00 09/25/17 08:59 08/28/17 06:56 1.25 MG Ipratropium [place] (Atrovent 0.02% 0.5MG/2.5ML Neb) 0.5 mg Q2H PRN INH 08/26/17 06:45 09/25/17 06:44 08/27/17 12:36 0.5 MG Levalbuterol (Xopenex 1.25MG/ 0.5ML Neb) 1.25 mg Q2H PRN INH 08/26/17 06:45 09/25/17 06:44 08/27/17 12:36 1.25 MG Pantoprazole Sodium (Protonix Tab) 40 mg BID PO 08/26/17 09:00 09/25/17 08:59 08/28/17 07:52 40 MG Miscellaneous Information (Consult Glycemic Management Pharmacy) 1 ea UD PRN N/A 08/26/17 08:30 09/25/17 08:29 Insulin Human Regular 250 units/ Sodium Chloride 252.5 ml @ 0 mls/hr DAILY@1130 IV 08/26/17 08:30 09/25/17 08:29 08/27/17 11:53 3.4 MLS/HR Insulin Aspart (novoLOG ASPART) SLIDING SCALE PCHS SC 08/26/17 12:00 09/25/17 11:59 08/28/17 07:54 9 UNITS Heparin Sodium (Porcine) (Heparin Sq 5000 Unit/0.5ml) 5,000 unit Q8 SQ 08/26/17 14:00 09/25/17 13:59 08/28/17 05:31 5,000 UNIT Lovastatin (Mevacor Tab) 10 mg PM PO 08/26/17 21:00 09/25/17 20:59 08/27/17 20:20 10 MG Furosemide 20 mg/ Syringe 2 ml @ 4 mls/min Q12 IV 08/27/17 21:00 09/26/17 20:59 08/28/17 10:17 4 MLS/MIN Azithromycin (Zithromax Tab) 500 mg DAILY PO 08/28/17 09:00 09/04/17 08:59 08/28/17 07:52 500 MG Ceftriaxone Sodium 1 gm/ Dextrose 50 ml @ 100 mls/hr Q24H IV 08/28/17 01:00 09/07/17 00:59 08/28/17 01:17 100 MLS/HR Methylprednisolone Sodium Succinate 40 mg/Syringe 0.64 ml @ 1.5 mls/min Q6H IV 08/28/17 12:00 09/25/17 17:59 Vital Signs: Date Time Temp Pulse Resp B/P (MAP) Pulse Ox O2 Delivery O2 Flow Rate FiO2 08/28/17 10:01 77 17 136/60 (85) 97 Nasal Cannula 2.0 08/28/17 09:01 76 18 131/62 (85) 98 Nasal Cannula 2.0 08/28/17 08:23 36.9 90 20 134/71 (92) 98 Nasal Cannula 2.0 08/28/17 08:00 Nasal Cannula 2.0 08/28/17 07:03 72 18 94 Nasal Cannula 2.0 25 08/28/17 07:01 70 23 131/72 (94) 99 08/28/17 07:01 70 23 131/72 (91) 99 Nasal Cannula 2.0 08/28/17 06:01 74 19 131/66 (88) 95 08/28/17 05:10 87 22 118/65 (80) 96 08/28/17 04:01 84 19 124/63 (91) 93 08/28/17 04:00 36.6 08/28/17 04:00 94 BiPAP 25 08/28/17 03:01 87 19 111/69 (80) 96 08/28/17 02:01 78 19 108/60 (66) 94 08/28/17 01:12 85 95 25 08/28/17 01:11 85 23 95 BiPAP/CPAP 25 08/28/17 01:01 81 18 116/65 (70) 95 08/28/17 00:01 36.6 08/28/17 00:01 71 20 121/64 (90) 95 08/27/17 23:59 96 BiPAP 25 08/27/17 23:00 84 30 115/66 (73) 93 08/27/17 22:56 77 97 25 08/27/17 22:01 85 23 124/76 (92) 98 08/27/17 21:01 93 25 132/82 (109) 97 08/27/17 20:01 102 23 102/63 (67) 96 08/27/17 20:00 95 Nasal Cannula 4.0 08/27/17 20:00 36.5 08/27/17 19:01 105 24 108/80 (91) 99 08/27/17 19:00 86 24 95 Nasal Cannula 3.0 08/27/17 18:01 106 17 120/65 (83) 96 Nasal Cannula 2.0 08/27/17 17:02 104 20 118/67 (84) 97 Nasal Cannula 2.0 08/27/17 16:01 101 21 97/60 (72) 98 Nasal Cannula 2.0 08/27/17 16:00 Nasal Cannula 2.0 08/27/17 15:01 98 17 112/74 (87) 96 Nasal Cannula 2.0 08/27/17 14:20 96 25 08/27/17 14:16 96 24 95 BiPAP/CPAP 25 08/27/17 14:01 36.9 101 23 120/55 (76) 95 BiPAP 25 08/27/17 13:01 95 22 99/67 (78) 95 BiPAP 25 08/27/17 12:37 96 25 08/27/17 12:36 98 24 97 BiPAP/CPAP 25 Laboratory Results: Last 24 Hours Test 08/27/17 12:19 08/27/17 13:16 08/27/17 14:15 08/27/17 15:18 Bedside Glucose 307 mg/dl 286 mg/dl 238 mg/dl 199 mg/dl Test 08/27/17 16:16 08/27/17 17:16 08/27/17 18:18 08/27/17 19:14 Bedside Glucose 228 mg/dl 187 mg/dl 233 mg/dl 214 mg/dl Test 08/27/17 20:16 08/27/17 21:01 08/27/17 21:58 08/27/17 22:57 Bedside Glucose 188 mg/dl 166 mg/dl 154 mg/dl 156 mg/dl Test 08/27/17 23:51 08/28/17 00:57 08/28/17 01:57 08/28/17 03:00 Bedside Glucose 130 mg/dl 141 mg/dl 145 mg/dl 149 mg/dl Test 08/28/17 04:47 08/28/17 05:17 08/28/17 07:02 Bedside Glucose 144 mg/dl 151 mg/dl White Blood Count 16.30 K/uL Red Blood Count 4.18 M/uL Hemoglobin 11.6 g/dL Hematocrit 35.5 % Mean Corpuscular Volume 84.9 fL Mean Corpuscular Hemoglobin 27.8 pg Mean Corpuscular Hemoglobin Concent 32.7 g/dl Platelet Count 433 K/uL Mean Platelet Volume 8.9 fL Neutrophils (%) (Auto) 93.8 % Lymphocytes (%) (Auto) 3.7 % Monocytes (%) (Auto) 2.2 % Eosinophils (%) (Auto) 0.0 % Basophils (%) (Auto) 0.0 % Neutrophils # (Auto) 15.29 K/uL Lymphocytes # (Auto) 0.60 K/uL Monocytes # (Auto) 0.36 K/uL Eosinophils # (Auto) 0.00 K/uL Basophils # (Auto) 0.00 K/uL RDW Standard Deviation 47.9 fL RDW Coefficient of Variation 15.4 % Immature Granulocyte % (Auto) 0.3 % Immature Granulocyte # (Auto) 0.05 K/uL Prothrombin Time 11.2 SECONDS Prothromb Time International Ratio 1.0 Activated Partial Thromboplast Time 30.4 SECONDS Partial Thromboplastin Ratio 1.2 Sodium Level 138 mmol/L Potassium Level 3.8 mmol/L Chloride Level 99 mmol/L Carbon Dioxide Level 30 mmol/L Anion Gap 9.0 mmol/L Blood Urea Nitrogen 43 mg/dl Creatinine 1.50 mg/dl Est Creatinine Clear Calc Drug Dose 49.0 ml/min Estimated GFR () 53.9 Estimated GFR (Non- 46.5 BUN/Creatinine Ratio 28.8 Random Glucose 129 mg/dl Calcium Level 9.3 mg/dl Phosphorus Level 3.2 mg/dl Magnesium Level 2.3 mg/dl Total Bilirubin 0.3 mg/dl Direct Bilirubin < 0.1 mg/dl Aspartate Amino Transf (AST/SGOT) 13 U/L Alanine Aminotransferase (ALT/SGPT) 21 U/L Alkaline Phosphatase 83 U/L Total Protein 7.1 gm/dl Albumin 3.2 gm/dl Lipase 113 U/L
--- NOTE | 2017-08-28 12:06 | Cardiology Follow-Up ---
Subjective Date of Service: Aug 28, 2017. Pt evaluation today including: conversation w/ patient, physical exam, chart review, lab review, review of studies, review of inpatient medication list History of Present Illness Patient is feeling much better today. His breathing is improved and he is not requiring as much use of the BiPAP. His appetite has improved. He was up in chair earlier today. He had some very transient dizziness with initially rising out of bed but this appears to have resolved. No significant chest discomfort. Social History Smoking Status: Former Smoker History of Alcohol Use: Yes (beer, "once in awhile") Review of Systems He denies any recent fevers or chills. The remainder of the review of systems is contained in the history of present illness. Objective Vital Signs Past 12 Hours Date Time Temp Pulse Resp B/P (MAP) Pulse Ox O2 Delivery O2 Flow Rate FiO2 08/28/17 10:01 77 17 136/60 (85) 97 Nasal Cannula 2.0 08/28/17 09:01 76 18 131/62 (85) 98 Nasal Cannula 2.0 08/28/17 08:23 36.9 90 20 134/71 (92) 98 Nasal Cannula 2.0 08/28/17 08:00 Nasal Cannula 2.0 08/28/17 07:03 72 18 94 Nasal Cannula 2.0 25 08/28/17 07:01 70 23 131/72 (94) 99 08/28/17 07:01 70 23 131/72 (91) 99 Nasal Cannula 2.0 08/28/17 06:01 74 19 131/66 (88) 95 08/28/17 05:10 87 22 118/65 (80) 96 08/28/17 04:01 84 19 124/63 (91) 93 08/28/17 04:00 36.6 08/28/17 04:00 94 BiPAP 25 08/28/17 03:01 87 19 111/69 (80) 96 08/28/17 02:01 78 19 108/60 (66) 94 08/28/17 01:12 85 95 25 08/28/17 01:11 85 23 95 BiPAP/CPAP 25 08/28/17 01:01 81 18 116/65 (70) 95 Last Recorded Weight-Kilograms: 75.600 Physical Exam The patient is alert and oriented. Mood and affect appeared normal. He answered all questions appropriately. He has increased work of breathing HEENT: Pupils are equal and reactive to light and accommodation. Extraocular movements are intact. The sclerae are anicteric. Neuro: Cranial nerves intact Neck: Patient's neck is supple. He has palpable carotid pulses bilaterally without bruits on auscultation. There is no evidence of jugular venous distention. The thyroid is not enlarged. Lungs: Reduced breath sounds in all lung spencer. With some expiratory wheezing was noted. No rales. Cardiac: Heart demonstrates a regular rate and rhythm. Normal S1 and crisp S2. No murmurs on examination. Chest: Well-healed sternotomy scar Pulses: The patient has palpable radial pulses bilaterally that are equal in intensity Extremities: There was no evidence of hypoperfusion. There is no cyanosis or clubbing. Mild edema in the left lower extremity. Skin: I did not appreciate any rashes on examination today. Data Laboratory Results: Last 24 Hours Test 08/27/17 12:19 08/27/17 13:16 08/27/17 14:15 08/27/17 15:18 Bedside Glucose 307 mg/dl 286 mg/dl 238 mg/dl 199 mg/dl Test 08/27/17 16:16 08/27/17 17:16 08/27/17 18:18 08/27/17 19:14 Bedside Glucose 228 mg/dl 187 mg/dl 233 mg/dl 214 mg/dl Test 08/27/17 20:16 08/27/17 21:01 08/27/17 21:58 08/27/17 22:57 Bedside Glucose 188 mg/dl 166 mg/dl 154 mg/dl 156 mg/dl Test 08/27/17 23:51 08/28/17 00:57 08/28/17 01:57 08/28/17 03:00 Bedside Glucose 130 mg/dl 141 mg/dl 145 mg/dl 149 mg/dl Test 08/28/17 04:47 08/28/17 05:17 08/28/17 07:02 Bedside Glucose 144 mg/dl 151 mg/dl White Blood Count 16.30 K/uL Red Blood Count 4.18 M/uL Hemoglobin 11.6 g/dL Hematocrit 35.5 % Mean Corpuscular Volume 84.9 fL Mean Corpuscular Hemoglobin 27.8 pg Mean Corpuscular Hemoglobin Concent 32.7 g/dl Platelet Count 433 K/uL Mean Platelet Volume 8.9 fL Neutrophils (%) (Auto) 93.8 % Lymphocytes (%) (Auto) 3.7 % Monocytes (%) (Auto) 2.2 % Eosinophils (%) (Auto) 0.0 % Basophils (%) (Auto) 0.0 % Neutrophils # (Auto) 15.29 K/uL Lymphocytes # (Auto) 0.60 K/uL Monocytes # (Auto) 0.36 K/uL Eosinophils # (Auto) 0.00 K/uL Basophils # (Auto) 0.00 K/uL RDW Standard Deviation 47.9 fL RDW Coefficient of Variation 15.4 % Immature Granulocyte % (Auto) 0.3 % Immature Granulocyte # (Auto) 0.05 K/uL Prothrombin Time 11.2 SECONDS Prothromb Time International Ratio 1.0 Activated Partial Thromboplast Time 30.4 SECONDS Partial Thromboplastin Ratio 1.2 Sodium Level 138 mmol/L Potassium Level 3.8 mmol/L Chloride Level 99 mmol/L Carbon Dioxide Level 30 mmol/L Anion Gap 9.0 mmol/L Blood Urea Nitrogen 43 mg/dl Creatinine 1.50 mg/dl Est Creatinine Clear Calc Drug Dose 49.0 ml/min Estimated GFR () 53.9 Estimated GFR (Non- 46.5 BUN/Creatinine Ratio 28.8 Random Glucose 129 mg/dl Calcium Level 9.3 mg/dl Phosphorus Level 3.2 mg/dl Magnesium Level 2.3 mg/dl Total Bilirubin 0.3 mg/dl Direct Bilirubin < 0.1 mg/dl Aspartate Amino Transf (AST/SGOT) 13 U/L Alanine Aminotransferase (ALT/SGPT) 21 U/L Alkaline Phosphatase 83 U/L Total Protein 7.1 gm/dl Albumin 3.2 gm/dl Lipase 113 U/L Telemetry reviewed: Sinus tachycardia, improving Assessment and Plan 1. Coronary artery disease: No angina or chest pain. Status post recent revascularization. Continue on usual outpatient medical regimen to include anti-platelet therapy with Plavix and high-dose atorvastatin. 2. Aortic valve disease: Normal exam. No significant improvement in his dyspnea with aortic valve replacement. 3. Dyspnea: He appears to be much improved clinically. I would agree with Dr. Bueno regarding his diuretics. He does not appear to require any additional diuretic at this point. I would hold his diuretics currently and we can monitor his volume status closely. Seems that most of his dyspnea has responded to treatment of his underlying COPD. His vital signs are much improved.
--- NOTE | 2017-08-28 14:51 | Pharmacy Progress Note ---
Glycemic Control Progress Note Date of Service Aug 28, 2017. Scope Glycemic Pharmacist consulted for glycemic control to write orders per [facility] inpatient glycemic control protocol. Objective Accuchecks BSG (last 24hrs): Test 08/27/17 15:18 08/27/17 16:16 08/27/17 17:16 08/27/17 18:18 Bedside Glucose 199 mg/dl (70-99) 228 mg/dl (70-99) 187 mg/dl (70-99) 233 mg/dl (70-99) Test 08/27/17 19:14 08/27/17 20:16 08/27/17 21:01 08/27/17 21:58 Bedside Glucose 214 mg/dl (70-99) 188 mg/dl (70-99) 166 mg/dl (70-99) 154 mg/dl (70-99) Test 08/27/17 22:57 08/27/17 23:51 08/28/17 00:57 08/28/17 01:57 Bedside Glucose 156 mg/dl (70-99) 130 mg/dl (70-99) 141 mg/dl (70-99) 145 mg/dl (70-99) Test 08/28/17 03:00 08/28/17 04:47 08/28/17 05:17 08/28/17 07:02 Bedside Glucose 149 mg/dl (70-99) 144 mg/dl (70-99) 151 mg/dl (70-99) Random Glucose 129 mg/dl (70-99) Test 08/28/17 12:56 08/28/17 14:00 Bedside Glucose 260 mg/dl (70-99) 222 mg/dl (70-99) Recent Pertinent Medications The patient is currently receiving: * IV insulin infusion per moderate stress protocol, no bolus * Goal Range 110 - 190 mg/dl * Drip currently running at 4.5units/hr Outpatient Anti-diabetic Regimen: * Regular insulin pump * A1c = 8.9% (07/15/17) Risk Factors for Insulin Resistance: * Steroids: SoluMedrol 60mg IV q6h --> decreased to 40mg IV q6h today * Infection: Azithromycin & Rocephin IV (COPD exac vs infx) * Diet: Type 2 diabetic/AHA diet Assessment & Plan ASSESSMENT: * See progress note from 08/26/17 for more background info, in short: * Pt receiving IV insulin drip and SQ prandial insulin regimen for hyperglycemia secondary to baseline DM (outpatient regimen on hold), stress/ infection, IV steroids * Pt continues to be on High-dose steroids, appetite has increased and he is eating more. Pt transferred from ICU to PCU. * Patient is eating a type 2 diabetes diet while on insulin drip, and blood sugars rising with each meal * Nurse Layla called, pt seems to use a carb ratio of 1:1 or 1:2 with his pump at home * Layla to follow-up with patient to see if his pump can be brought in to resume * I will tighten fixed carb ratio to ensure patient is receiving enough insulin for carb coverage, which will hopefully help with some of the cause of the hyperglycemia * ADA & AACE recommend a goal blood sugar range 140-180 mg/dl for the majority of critically ill & non-critically ill patients. However, more stringent targets may be selected in individual cases. Insulin infusion goal range ordered as 110-190mg/dL, which should produce BSGs within ICU goal range and require minimal rate adjustments. PLAN FOR INPATIENT GLYCEMIC CONTROL: * Continue IV insulin infusion per moderate stress protocol * Goal Range 110 - 190 mg/dl * FIXED CARB RATIO change to: 1 UNIT PER 2 GRAMS CHO CONSUMED * In the critical care setting, continuous IV insulin infusion has been shown to be the best method for achieving glycemic targets. * Would recommend continuing insulin infusion until steroids are discontinued and until pt can be transitioned back to insulin pump. * Please note that the plan above was derived based on current level of insulin resistance and hospital stress. These recommendations are appropriate for inpatient admission only. Plan of care upon discharge will need to be reassessed to avoid potential outpatient hypo/hyperglycemia. Thank you.
[2017-08-28] MEDS: LOVASTATIN 20 MG TAB PO SCH (21:06)
[2017-08-28] MEDS ORDERED: NURSING VERBAL MED ORDER ONE (22:30)
--- NOTE | 2017-08-28 22:47 | Hospitalist Progress Note ---
Hospitalist Progress Note Date of Service Aug 28, 2017. Subjective Pt evaluation today including: conversation w/ patient, conversation w/ family ([id number] over the phone) Voiding: walsh catheter in place Spoke to [id number] on phone today who is a RN for more information at pt' s request. She reports he was on po lasix prn at home 3 separate times for a few days at a time since returning home from his CABG/AVR. He always seemed to get more SOB when he was off the lasix. He had a TOV in the Urologist's office recently and failed, had Walsh replaced and is to keep it in place until planned cystoscopy with Dr. Coffman on 09/08/17. Pt was requesting the Walsh be removed while he is here. She also reports he is to [place] f/[place] [facility] [place], and to see Dr. Fernandez for formal PFTs in the near future. Otherwise, pt feeling better, has remained off BiPAP since the AM, on NC. Still working to breathe with fluent sentences. No CP. All Other Systems: Reviewed and Negative Objective Vital Signs Date Time Temp Pulse Resp B/P (MAP) Pulse Ox O2 Delivery O2 Flow Rate FiO2 08/28/17 19:36 85 18 97 Nasal Cannula 2.0 08/28/17 19:02 36.7 85 21 134/67 (89) 94 Nasal Cannula 2.0 08/28/17 16:00 Nasal Cannula 2.0 08/28/17 15:31 36.6 79 21 127/70 (89) 96 Nasal Cannula 2.0 08/28/17 14:15 76 18 95 Nasal Cannula 2.0 08/28/17 13:01 36.6 82 19 112/66 (81) 95 Nasal Cannula 2.0 08/28/17 12:40 36.6 82 19 95 2.0 08/28/17 12:00 Nasal Cannula 2.0 08/28/17 10:01 77 17 136/60 (85) 97 Nasal Cannula 2.0 08/28/17 09:01 76 18 131/62 (85) 98 Nasal Cannula 2.0 08/28/17 08:23 36.9 90 20 134/71 (92) 98 Nasal Cannula 2.0 08/28/17 08:00 Nasal Cannula 2.0 10/8/17 07:03 72 18 94 Nasal Cannula 2.0 25 08/28/17 07:01 70 23 131/72 (94) 99 08/28/17 07:01 70 23 131/72 (91) 99 Nasal Cannula 2.0 08/28/17 06:01 74 19 131/66 (88) 95 08/28/17 05:10 87 22 118/65 (80) 96 08/28/17 04:01 84 19 124/63 (91) 93 08/28/17 04:00 36.6 08/28/17 04:00 94 BiPAP 25 08/28/17 03:01 87 19 111/69 (80) 96 08/28/17 02:01 78 19 108/60 (66) 94 08/28/17 01:12 85 95 25 08/28/17 01:11 85 23 95 BiPAP/CPAP 25 08/28/17 01:01 81 18 116/65 (70) 95 08/28/17 00:01 36.6 08/28/17 00:01 71 20 121/64 (90) 95 08/27/17 23:59 96 BiPAP 25 08/27/17 23:00 84 30 115/66 (73) 93 08/27/17 22:56 77 97 25 Physical Exam General Appearance: WD/WN, + mild distress (with fluent sentences, becomes tachypneic, using accessory muscles to breathe) Eyes: normal inspection, sclerae normal ENT: hearing grossly normal, pharynx normal Neck: trachea midline Respiratory/Chest: + decreased breath sounds (diminished throughout, not moving air well), + accessory muscle use, + wheezing (diffuse exp wheezes) Cardiovascular: regular rate, rhythm, no murmur, + pertinent finding (trace pitting edema left leg) Abdomen: normal bowel sounds, non tender, soft Neurologic/Psychiatric: alert, normal mood/affect Skin: normal color, warm/dry, no rash Laboratory Results Last 24 Hours Test 08/27/17 22:57 08/27/17 23:51 08/28/17 00:57 08/28/17 01:57 Bedside Glucose 156 mg/dl 130 mg/dl 141 mg/dl 145 mg/dl Test 08/28/17 03:00 08/28/17 04:47 08/28/17 05:17 08/28/17 07:02 Bedside Glucose 149 mg/dl 144 mg/dl 151 mg/dl White Blood Count 16.30 K/uL Red Blood Count 4.18 M/uL Hemoglobin 11.6 g/dL Hematocrit 35.5 % Mean Corpuscular Volume 84.9 fL Mean Corpuscular Hemoglobin 27.8 pg Mean Corpuscular Hemoglobin Concent 32.7 g/dl Platelet Count 433 K/uL Mean Platelet Volume 8.9 fL Neutrophils (%) (Auto) 93.8 % Lymphocytes (%) (Auto) 3.7 % Monocytes (%) (Auto) 2.2 % Eosinophils (%) (Auto) 0.0 % Basophils (%) (Auto) 0.0 % Neutrophils # (Auto) 15.29 K/uL Lymphocytes # (Auto) 0.60 K/uL Monocytes # (Auto) 0.36 K/uL Eosinophils # (Auto) 0.00 K/uL Basophils # (Auto) 0.00 K/uL RDW Standard Deviation 47.9 fL RDW Coefficient of Variation 15.4 % Immature Granulocyte % (Auto) 0.3 % Immature Granulocyte # (Auto) 0.05 K/uL Prothrombin Time 11.2 SECONDS Prothromb Time International Ratio 1.0 Activated Partial Thromboplast Time 30.4 SECONDS Partial Thromboplastin Ratio 1.2 Sodium Level 138 mmol/L Potassium Level 3.8 mmol/L Chloride Level 99 mmol/L Carbon Dioxide Level 30 mmol/L Anion Gap 9.0 mmol/L Blood Urea Nitrogen 43 mg/dl Creatinine 1.50 mg/dl Est Creatinine Clear Calc Drug Dose 49.0 ml/min Estimated GFR () 53.9 Estimated GFR (Non- 46.5 BUN/Creatinine Ratio 28.8 Random Glucose 129 mg/dl Calcium Level 9.3 mg/dl Phosphorus Level 3.2 mg/dl Magnesium Level 2.3 mg/dl Total Bilirubin 0.3 mg/dl Direct Bilirubin < 0.1 mg/dl Aspartate Amino Transf (AST/SGOT) 13 U/L Alanine Aminotransferase (ALT/SGPT) 21 U/L Alkaline Phosphatase 83 U/L Total Protein 7.1 gm/dl Albumin 3.2 gm/dl Lipase 113 U/L Test 08/28/17 10:15 08/28/17 11:03 08/28/17 12:01 08/28/17 12:56 Bedside Glucose 232 mg/dl 188 mg/dl 183 mg/dl 260 mg/dl Test 08/28/17 14:00 08/28/17 15:00 08/28/17 15:30 08/28/17 16:02 Bedside Glucose 222 mg/dl 150 mg/dl 122 mg/dl 120 mg/dl Test 08/28/17 17:00 08/28/17 17:59 08/28/17 19:01 08/28/17 20:02 Bedside Glucose 132 mg/dl 213 mg/dl 198 mg/dl 190 mg/dl Assessment and Plan The patient is a 71-year-old male who presents to the emergency department with acute onset of shortness of breath/respiratory distress that began about 3 hours prior to arrival. He had a normal week, and went to bed feeling fine, and awoke acutely short of breath as noted although [id number] who lives with him reports he was SOB off and on for 1-2 weeks, being treated with lasix. He was most recently admitted to [facility] from July 15 through July 18 for COPD exacerbation and referral was made to [facility], where he stayed for a week, and then underwent a CABG 2 and AVR on July 26. He was discharged from [facility] on August 02, and is staying locally with family. He had been doing well until the acute symptoms developed the AM of admission. Acute respiratory failure with hypoxia and hypercapnia--AECOPD and some acute on chronic preserved EF CHF as cause. WBC count and platelets elevated on admission points towards acute infectious or inflammatory process, then improved on steroids and azithro, along with IV diuresis CXR with nodular opacities and small pleural effusion not completely unexpected 4 weeks post-op from CABG/AVR--> repeat CXR today shows resolving nodular opacities, and with bronchial thickening c/w bronchitis -admitted to the ICU as was requiring BiPAP and had [facility]--> now improving and off BiPAP except for nighttime use--> transferred to [facility] today -Continue BiPAP nocturnally and prn during day, continue supplemental O2 -Doppler LLE cancelled by Critical Care team--> seems to be normal considering saphenous vein harvesting from that leg -continue bronchodilators -continue IV steroids and taper down today -continue Pulmicort Respules 0.5 mg inhaled twice a day. -continue azithro x 5 day course-today day #3/5 -diuresed with lasix IV which helped, now will hold off on further diuretics given movers 1.5 -Appreciate Mechanical Engineering Teacher management and Pulmonology recommendations -follow CXR to resolution given nodular opacities -has appt for PFTs coming up soon Dr. Fernandez CAD/hypertension/status post CABG 2 and aortic valve replacement on 07/26/2017/ PAD-- Continue present medications of clopidogrel 75 mg by mouth daily, metoprolol tartrate 25 mg by mouth twice a day, statin (Mevacor, not on high intensity dose possibly due to previous statin intolerance)-consider increasing Mevacor to 20mg Serial troponins neg x 3 Consult his national van truck driver Dr. Ernandez-recommendations appreciated -Cardio recommends holding off on further diuretics at this time Diabetes mellitus-insulin dependent, adult onset, with hyperglycemia here on IV steroids which is improving somewhat today. HgbA1C 8.9% in 06/2017 D/C'd his insulin pump from home. He was advised to bring pump in from home prior to discharge On insulin gtt and SSI qac, Glycemic Pharmacy consult managing BPH with indwelling Waslh- UA grossly abnormal, Ur cx growing Citrobacter freundii -cont Rocephin and then transition to po abx tomorrow to remain on for total 14 days at least through when has cystoscope -follow Urcx -has upcoming cystoscopy and possible Walsh exchange vs removal on 09/[address] Bahena Probable CKD Stage III- only have lab records back a few months and movers ranges from 1.2-1.6 -avoid nephrotoxins -holding diuretics again now although movers went down to IV diuresis -renally dose all meds Proph-SQ heparin Dispo-remain on tele FULL CODE Dispo-PT/OT evals, may need rehab
[2017-08-28] MEDS: DOCUSATE SODIUM/SENNA 50/8.6MG TAB PO SCH (23:48)
[2017-08-29] VITALS (19 sets, daily range): BP systolic 109–151; BP diastolic 56–83; PULSE 61–88; TEMP 36–36.7; O2SAT 92–99; Ht 182.9 cm; Wt 76.0 kg
[2017-08-29] MEDS: CEFTRIAXONE SOD INJ 1 GM in DEXTROSE 5% ADD-VANTAGE 50ML 50 ML IV SCH (00:48)
[2017-08-29] MEDS: LEVALBUTEROL 1.25MG/0.5ML NEB INH SCH ×4 (02:22→19:01)
[2017-08-29] MEDS: IPRATROPIUM BROMIDE NEB SOLN 0.02% 2.5 ML VIAL INH SCH ×4 (02:22→19:01)
[2017-08-29] MEDS: METHYLPREDNISOLONE IV 40 MG in SYRINGE 0 ML IV SCH ×3 (06:05→17:47)
[2017-08-29] MEDS: HEPARIN SOD 5000 UNIT/0.5 ML CARP SQ SCH ×3 (06:08→21:11)
[2017-08-29 06:21] LABS: BASO % 0.1 %; BASO ABS # 0.01 K/uL (0-0.2); COMPLETE YES; HEMATOCRIT 35.1 % (42-52); IG% 0.4 %; LYMPH % 5.4 %; LYMPH ABS # 0.77 K/uL (1.2-3.4); MEAN CELL VOLUME 85.6 fL (80-100); MEAN CORPUSCULAR HEMOGLOBIN 27.3 pg (25-34); MEAN CORPUSCULAR HGB CONC 31.9 g/dl (32-36); MEAN PLATELET VOLUME 8.6 fL (7.4-10.4); MONO % 3.1 %; PLATELET COUNT 343 K/uL (130-400); WHITE BLOOD COUNT 14.16 K/uL (4.8-10.8)
[2017-08-29 06:58] LABS: BUN/CREATININE RATIO 29.4 (10-20); CALCIUM 8.9 mg/dl (8.5-10.1); CREATININE 1.5 mg/dl (0.60-1.40); MAGNESIUM 2.3 mg/dl (1.8-2.4); POTASSIUM 4.4 mmol/L (3.5-5.1)
[2017-08-29] MEDS: BUDESONIDE 0.5 MG/2 ML VIAL (PULMICORT) INH SCH ×2 (07:00→19:01)
[2017-08-29] MEDS ORDERED: INSULIN PROTOCOL GOAL RANGE ONE (07:45)
--- NOTE | 2017-08-29 08:04 | Clinical Documentation Query ---
CLINICAL DOCUMENTATION QUERY 71 year old male with chronic indwelling Romero catheter who presents in acute on chronic respiratory failure, COPD exacerbation, and exacerbation of preserved EF heart failure. In your clinical opinion is this patient being managed for: ( x ) Romero catheter associated UTI treated with IV Ceftriaxone. ( ) Not Agree ( ) Other explanation of clinical findings (Please Explain) ( ) Unable to determine (Please Define) ( ) Need to Discuss The medical record reflects the following clinical findings, treatment, and risk factors. Clinical Indicators: UC +Citrobacter Freundii, WBC 23.88, Patient presented with indwelling Romero catheter 2/2 BPH. Treatment: UA, UC, IV Ceftriaxone, Risk Factors: Age, indwelling Romero, BPH, Please clarify and document your clinical opinion in the progress notes and discharge summary. Terms such as "probable", "suspected", "likely", "questionable", "possible", or "still to be ruled out" are acceptable. IF IN AGREEMENT, YOU MUST DOCUMENT ABOVE DIAGNOSTIC STATEMENT IN DAILY PROGRESS NOTES AND DISCHARGE SUMMARY. This document is not part of the patient's record. Thank You, uSleman Tyson, RN [phone]
[2017-08-29] MEDS: METOPROLOL TARTRATE 25 MG TAB PO SCH ×2 (08:18→21:00)
[2017-08-29] MEDS: AZITHROMYCIN 250 MG TAB PO SCH (08:19)
[2017-08-29] MEDS: PANTOprazole SOD 40 MG TAB PO SCH ×2 (08:19→21:00)
[2017-08-29] MEDS: CLOPIDOGREL BISULFATE 75 MG TAB PO SCH (08:20)
[2017-08-29] MEDS: INSULIN ASPART 100 UNITS/ML 3 ML PEN SC SCH ×4 (08:25→21:00)
[2017-08-29] MEDS ORDERED: INSULIN GLARGINE SOLOSTAR 100 UNITS/ML 3 ML PEN SC ONE ×3 (10:15→21:00)
--- NOTE | 2017-08-29 11:21 | Pharmacy Progress Note ---
Glycemic: Assessment & Plan Date of Service Aug 29, 2017. Assessment & Plan Item Value Date Time Bedside Glucose 366 mg/dl *H 08/29/17 1001 Bedside Glucose 405 mg/dl *H 08/29/17 0858 Bedside Glucose 412 mg/dl *H 08/29/17 0856 Bedside Glucose 169 mg/dl H 08/29/17 0654 Bedside Glucose 181 mg/dl H 08/29/17 0510 Bedside Glucose 173 mg/dl H 08/29/17 0509 Bedside Glucose 129 mg/dl H 08/29/17 0355 Bedside Glucose 120 mg/dl H 08/29/17 0303 Bedside Glucose 130 mg/dl H 08/29/17 0156 Bedside Glucose 104 mg/dl H 08/29/17 0121 Bedside Glucose 96 mg/dl 08/29/17 0053 Bedside Glucose 93 mg/dl 08/29/17 0022 Bedside Glucose 96 mg/dl 08/29/17 0003 Bedside Glucose 130 mg/dl H 08/28/17 2310 ASSESSMENT: * The patient is currently receiving IV insulin infusion per protocol + SQ insulin coverage per CR of 1 unit for 2very 2g CHO consumed. * Average drip rate is ~ 3-4 units/hr. However, drip rates significantly reduced /held overnight which then causes rebound hyperglycemia in the morning d/t insufficient basal insulin coverage. * Pt needs continuous 24hr basal insulin to help smooth out dramatic BSG fluctuations * Pt needs more aggressive Carb coverage for steroid induced hyperglycemia * Pt uses ~ 50 units of basal insulin as an outpatient (pump basal rate is 2 units/hr, used to be as high as 3 units/hr prior to heart surgery) * Pt uses aggressive CR as an outpatient, about 1:1 insulin:CHO ratio * Pt does NOT want to bring pump in for inpatient use. He would prefer IV insulin infusion + SQ basal bolus. He has a limited amount of supples and would prefer to conserve them at this time. PLAN: * Continue IV insulin infusion per protocol - this will serve as "correctional insulin" for steroid induced hyperglycemia * Widen goal range to 100-170mg/dl to achieve more time in goal range and less POC BSG checks * Pt states that he is exhausted, not able to sleep overnight with so many POC BSG checks. Will hold IV insulin infusion overnight and resume in morning. May need to give additional dose of basal insulin at the time that the drip is held. * Start Basal insulin to be given with IV insulin infusion * Lantus 50 units every 24 hours given in the morning. This is equal to outpatient dosing of basal insulin per pump therefore, will hold this dose at the time of d/c and patient can resume pump at home * Prandial insulin * NovoLog Per carb ratio of 1 unit per 1 grams CHO consumed Pharmacy will continue to monitor patient daily and write orders per [facility] inpatient glycemic control protocol. Thanks. * Please note that the plan above was derived based on current level of insulin resistance and hospital stress. These recommendations are appropriate for inpatient admission only. Plan of care upon discharge will need to be reassessed to avoid potential outpatient hypo/hyperglycemia.
[2017-08-29] MEDS ORDERED: NURSING DECISION MEDICATION ORDER SCH (11:45)
[2017-08-29] MEDS ORDERED: COUGH DROP (SUGAR FREE) LOZ 24 LOZ/1 BOX PO PRN (11:45)
[2017-08-29] MEDS: INSULIN REGULAR 250 UNITS in SODIUM CHLORIDE 0.9% 250ML 250 ML IV SCH (11:58)
--- NOTE | 2017-08-29 16:10 | Pulmonology Progress Note ---
Pulmonary Progress Note Date of Service Aug 29, 2017. Attending Dr. Romero Subjective Patient seen and examined. He states that he had a "rough" day. He feels generalized malaise and fatigue. He still has a dry cough with intermittent shortness of breath and wheezing. He is currently on 2L NC, but states that he used BIPAP for work of breathing. He denies any chest pain. Objective VS reviewed. Currently on 2L NC. Gen: AAOx3, NAD, speaking in full sentences without accessory muscle use CVS: S1, S2, RRR Lungs: prolonged expiratory phase with wheezing throughout Chest: midsternal incision, healing with scab Abd: soft/NT/ND/BS+ Ext: no cyanosis, no clubbing, no edema bilaterally Labs reviewed. Blood cx 08/26/2017--No growth to date Urine cx 08/26/2017--citrobacter freundii complex Imaging reviewed. Medications reviewed. Assessment & Plan 1. Respiratory failure -- acute on chronic with hypercarbia and hypoxia. 2. Chronic obstructive pulmonary disease exacerbation. 3. Elevation of the right hemidiaphragm, likely related to his cardiac surgery. 4. Coronary artery disease. 5. Renal insufficiency 6. UTI Patient appears to be improving somewhat. He states that he feels much better since admission, but still does not feel back to himself. Currently, he is only requiring 2L NC supplementation. However still requires BIPAP prn for dyspnea. Continue with this as needed to maintain SaO2 between 88-92%. continue with BIPAP prn Continue with Solumedrol IV. Taper to Solumedrol q8h in AM. Continue with ceftriaxone and azithromycin daily. Continue with bronchodilators q6h. Continue with incentive spirometry and flutter valve for pulmonary toilet Patient continues to diurese well. Lasix is on hold. Creatinine stable at 1.5. Cardiology is on board and following for aortic valve disease and CAD Continue to treat for UTI--per primary team Continue with DVT ppx Data Medications: Current Inpatient Medications Medications (Trade) Dose Ordered Sig/Nessa Route Start Time Stop Time Status Last Admin Dose Admin Acetaminophen (Tylenol Tab) 650 mg Q4H PRN PO 08/26/17 06:15 09/25/17 06:14 Lorazepam (Ativan Inj) 0.5 mg Q4H PRN IV 08/26/17 06:15 09/25/17 06:14 Nitroglycerin (Nitrostat Tab) 0.4 mg UD PRN SL 08/26/17 06:15 09/25/17 06:14 Morphine Sulfate (MoRPHine SULFATE INJ) 2 mg Q2H PRN IV 08/26/17 06:15 09/09/17 06:14 Cetirizine HCl (zyrTEC TAB) 10 mg DAILY PRN PO 08/26/17 06:15 09/25/17 06:14 Clopidogrel Bisulfate (plAVix TAB) 75 mg DAILY PO 08/26/17 09:00 09/25/17 08:59 08/29/17 08:20 75 MG Metoprolol Tartrate (Lopressor Tab) 25 mg BID PO 08/26/17 09:00 09/25/17 08:59 08/29/17 08:18 25 MG Ondansetron HCl (Zofran Inj) 4 mg Q6H PRN IV 08/26/17 06:30 09/25/17 06:29 Budesonide (Pulmicort Respules 0.5MG/ 2ML Neb Soln) 0.5 mg BIDR INH 08/26/17 08:00 09/25/17 07:59 08/29/17 07:00 0.5 MG Glucose (Glucose 40% Gel) UD PRN PO 08/26/17 06:30 09/25/17 06:29 Glucose (Glucose Chew Tab) 1 tabs UD PRN PO 08/26/17 06:30 09/25/17 06:29 Dextrose (Dextrose 50% 50ML Syringe) 50 ml UD PRN IV 08/26/17 06:30 09/25/17 06:29 Glucagon (Glucagon Inj) 1 mg UD PRN SQ 08/26/17 06:30 09/25/17 06:29 Ipratropium [place] (Atrovent 0.02% 0.5MG/2.5ML Neb) 0.5 mg Q6R INH 08/26/17 09:00 09/25/17 08:59 08/29/17 14:05 0.5 MG Levalbuterol (Xopenex 1.25MG/ 0.5ML Neb) 1.25 mg Q6R INH 08/26/17 09:00 09/25/17 08:59 08/29/17 14:05 1.25 MG Ipratropium [place] (Atrovent 0.02% 0.5MG/2.5ML Neb) 0.5 mg Q2H PRN INH 08/26/17 06:45 09/25/17 06:44 08/27/17 12:36 0.5 MG Levalbuterol (Xopenex 1.25MG/ 0.5ML Neb) 1.25 mg Q2H PRN INH 08/26/17 06:45 09/25/17 06:44 08/27/17 12:36 1.25 MG Pantoprazole Sodium (Protonix Tab) 40 mg BID PO 08/26/17 09:00 09/25/17 08:59 08/29/17 08:19 40 MG Miscellaneous Information (Consult Glycemic Management Pharmacy) 1 ea UD PRN N/A 08/26/17 08:30 09/25/17 08:29 Insulin Human Regular 250 units/ Sodium Chloride 252.5 ml @ 0 mls/hr DAILY@1130 IV 08/26/17 08:30 09/25/17 08:29 Future hold 08/29/17 11:58 1.8 MLS/HR Insulin Aspart (novoLOG ASPART) SLIDING SCALE PCHS SC 08/26/17 12:00 09/25/17 11:59 08/29/17 12:00 31 UNITS Heparin Sodium (Porcine) (Heparin Sq 5000 Unit/0.5ml) 5,000 unit Q8 SQ 08/26/17 14:00 09/25/17 13:59 08/29/17 14:22 5,000 UNIT Lovastatin (Mevacor Tab) 10 mg PM PO 08/26/17 21:00 09/25/17 20:59 08/28/17 21:06 10 MG Azithromycin (Zithromax Tab) 500 mg DAILY PO 08/28/17 09:00 09/04/17 08:59 08/29/17 08:19 500 MG Ceftriaxone Sodium 1 gm/ Dextrose 50 ml @ 100 mls/hr Q24H IV 08/28/17 01:00 09/07/17 00:59 08/29/17 00:48 100 MLS/HR Methylprednisolone Sodium Succinate 40 mg/Syringe 0.64 ml @ 1.5 mls/min Q6H IV 08/28/17 12:00 09/25/17 17:59 08/29/17 12:00 1.5 MLS/MIN Senna/Docusate Sodium (Senokot S Tab) 1 tab BID PO 08/29/17 09:00 09/28/17 08:59 08/28/17 23:48 1 TAB Insulin Aspart (novoLOG ASPART) SLIDING SCALE DAILY@0000,0400 SC 08/30/17 00:00 09/29/17 00:00 Insulin Glargine (Lantus Solostar Pen) 10 units Mo@2100 ONCE SC 08/29/17 21:00 08/29/17 21:01 Miscellaneous Information (Dc Iv Insulin Infusion) 1 ea Mo@2200 ONCE N/A 08/29/17 22:00 08/29/17 22:01 Menthol (Nice Marcello) 1 marcello PRN PRN PO 08/29/17 11:45 09/28/17 11:44 I & O: 24-Hour Column 08/30/17 08:00 Output Total 500 ml Balance -500 ml Vital Signs: Date Time Temp Pulse Resp B/P (MAP) Pulse Ox O2 Delivery O2 Flow Rate FiO2 08/29/17 14:06 88 18 93 BiPAP/CPAP 25 08/29/17 12:00 94 Nasal Cannula 2.0 08/29/17 11:40 36.0 69 20 146/76 (99) 98 08/29/17 08:00 94 Nasal Cannula 2.0 08/29/17 07:39 36.4 85 20 151/83 (105) 99 Nasal Cannula 2.0 08/29/17 07:00 84 18 95 Nasal Cannula 3.0 08/29/17 04:00 94 Nasal Cannula 2.0 08/29/17 03:52 36.5 69 22 112/66 (81) 94 CPAP 08/29/17 02:26 68 98 25 08/29/17 02:24 82 18 98 BiPAP/CPAP 25 08/29/17 00:01 97 Nasal Cannula 2.0 08/28/17 23:58 36.5 73 18 130/73 (92) 97 Nasal Cannula 2.0 08/28/17 22:53 72 96 25 08/28/17 20:00 97 Nasal Cannula 2.0 08/28/17 19:36 85 18 97 Nasal Cannula 2.0 08/28/17 19:02 36.7 85 21 134/67 (89) 94 Nasal Cannula 2.0 08/28/17 16:00 Nasal Cannula 2.0 Laboratory Results: Last 24 Hours Test 08/28/17 16:02 08/28/17 17:00 08/28/17 17:59 08/28/17 19:01 Bedside Glucose 120 mg/dl 132 mg/dl 213 mg/dl 198 mg/dl Test 08/28/17 20:02 08/28/17 21:03 08/28/17 22:03 08/28/17 23:10 Bedside Glucose 190 mg/dl 235 mg/dl 188 mg/dl 130 mg/dl Test 08/29/17 00:03 08/29/17 00:22 08/29/17 00:53 08/29/17 01:21 Bedside Glucose 96 mg/dl 93 mg/dl 96 mg/dl 104 mg/dl Test 08/29/17 01:56 08/29/17 03:03 08/29/17 03:55 08/29/17 05:10 Bedside Glucose 130 mg/dl 120 mg/dl 129 mg/dl 181 mg/dl Test 08/29/17 06:09 08/29/17 06:54 08/29/17 08:58 08/29/17 10:01 White Blood Count 14.16 K/uL Red Blood Count 4.10 M/uL Hemoglobin 11.2 g/dL Hematocrit 35.1 % Mean Corpuscular Volume 85.6 fL Mean Corpuscular Hemoglobin 27.3 pg Mean Corpuscular Hemoglobin Concent 31.9 g/dl Platelet Count 343 K/uL Mean Platelet Volume 8.6 fL Neutrophils (%) (Auto) 91.0 % Lymphocytes (%) (Auto) 5.4 % Monocytes (%) (Auto) 3.1 % Eosinophils (%) (Auto) 0.0 % Basophils (%) (Auto) 0.1 % Neutrophils # (Auto) 12.89 K/uL Lymphocytes # (Auto) 0.77 K/uL Monocytes # (Auto) 0.44 K/uL Eosinophils # (Auto) 0.00 K/uL Basophils # (Auto) 0.01 K/uL RDW Standard Deviation 47.9 fL RDW Coefficient of Variation 15.3 % Immature Granulocyte % (Auto) 0.4 % Immature Granulocyte # (Auto) 0.05 K/uL Sodium Level 140 mmol/L Potassium Level 4.4 mmol/L Chloride Level 102 mmol/L Carbon Dioxide Level 32 mmol/L Anion Gap 6.0 mmol/L Blood Urea Nitrogen 44 mg/dl Creatinine 1.50 mg/dl Est Creatinine Clear Calc Drug Dose 49.3 ml/min Estimated GFR () 53.9 Estimated GFR (Non- 46.5 BUN/Creatinine Ratio 29.4 Random Glucose 183 mg/dl Calcium Level 8.9 mg/dl Magnesium Level 2.3 mg/dl Bedside Glucose 169 mg/dl 405 mg/dl 366 mg/dl Test 08/29/17 11:12 08/29/17 12:20 08/29/17 13:03 Bedside Glucose 259 mg/dl 215 mg/dl 208 mg/dl
--- NOTE | 2017-08-29 16:44 | Cardiology Follow-Up ---
Subjective Date of Service: Aug 29, 2017. Pt evaluation today including: conversation w/ patient, physical exam, chart review, lab review, review of studies History of Present Illness Patient is feeling fairly well today. He still has periods of wheezing and dyspnea. But he was able to ambulate to the bathroom today with some mild dyspnea at the time he returned to bed. He denied dizziness or lightheadedness. He does have some mild coughing which appears to improve with nebulizer treatments. Social History Smoking Status: Former Smoker History of Alcohol Use: Yes (beer, "once in awhile") Review of Systems He denies any recent fevers or chills. The remainder of the review of systems is contained in the history of present illness. Objective Vital Signs Past 12 Hours Date Time Temp Pulse Resp B/P (MAP) Pulse Ox O2 Delivery O2 Flow Rate FiO2 08/29/17 16:00 94 Nasal Cannula 2.0 08/29/17 14:06 88 18 93 BiPAP/CPAP 25 08/29/17 12:00 94 Nasal Cannula 2.0 08/29/17 11:40 36.0 69 20 146/76 (99) 98 08/29/17 08:00 94 Nasal Cannula 2.0 08/29/17 07:39 36.4 85 20 151/83 (105) 99 Nasal Cannula 2.0 08/29/17 07:00 84 18 95 Nasal Cannula 3.0 Last Recorded Weight-Kilograms: 76.000 Intake & Output 8-Hour Column 08/29/17 08/30/17 08/30/17 16:00 00:00 08:00 Output Total 500 ml Balance -500 ml 24-Hour Column 08/30/17 08:00 Output Total 500 ml Balance -500 ml Physical Exam The patient is alert and oriented. Mood and affect appeared normal. He answered all questions appropriately. He has increased work of breathing HEENT: Pupils are equal and reactive to light and accommodation. Extraocular movements are intact. The sclerae are anicteric. Neuro: Cranial nerves intact Neck: Patient's neck is supple. He has palpable carotid pulses bilaterally without bruits on auscultation. There is no evidence of jugular venous distention. The thyroid is not enlarged. Lungs: Reduced breath sounds in all lung spencer. With some expiratory wheezing was noted. No rales. Cardiac: Heart demonstrates a regular rate and rhythm. Normal S1 and crisp S2. No murmurs on examination. Chest: Well-healed sternotomy scar Pulses: The patient has palpable radial pulses bilaterally that are equal in intensity Extremities: There was no evidence of hypoperfusion. There is no cyanosis or clubbing. Mild edema in the left lower extremity. Skin: I did not appreciate any rashes on examination today. Data Laboratory Results: Last 24 Hours Test 08/28/17 17:00 08/28/17 17:59 08/28/17 19:01 08/28/17 20:02 Bedside Glucose 132 mg/dl 213 mg/dl 198 mg/dl 190 mg/dl Test 08/28/17 21:03 08/28/17 22:03 08/28/17 23:10 08/29/17 00:03 Bedside Glucose 235 mg/dl 188 mg/dl 130 mg/dl 96 mg/dl Test 08/29/17 00:22 08/29/17 00:53 08/29/17 01:21 08/29/17 01:56 Bedside Glucose 93 mg/dl 96 mg/dl 104 mg/dl 130 mg/dl Test 08/29/17 03:03 08/29/17 03:55 08/29/17 05:10 08/29/17 06:09 Bedside Glucose 120 mg/dl 129 mg/dl 181 mg/dl White Blood Count 14.16 K/uL Red Blood Count 4.10 M/uL Hemoglobin 11.2 g/dL Hematocrit 35.1 % Mean Corpuscular Volume 85.6 fL Mean Corpuscular Hemoglobin 27.3 pg Mean Corpuscular Hemoglobin Concent 31.9 g/dl Platelet Count 343 K/uL Mean Platelet Volume 8.6 fL Neutrophils (%) (Auto) 91.0 % Lymphocytes (%) (Auto) 5.4 % Monocytes (%) (Auto) 3.1 % Eosinophils (%) (Auto) 0.0 % Basophils (%) (Auto) 0.1 % Neutrophils # (Auto) 12.89 K/uL Lymphocytes # (Auto) 0.77 K/uL Monocytes # (Auto) 0.44 K/uL Eosinophils # (Auto) 0.00 K/uL Basophils # (Auto) 0.01 K/uL RDW Standard Deviation 47.9 fL RDW Coefficient of Variation 15.3 % Immature Granulocyte % (Auto) 0.4 % Immature Granulocyte # (Auto) 0.05 K/uL Sodium Level 140 mmol/L Potassium Level 4.4 mmol/L Chloride Level 102 mmol/L Carbon Dioxide Level 32 mmol/L Anion Gap 6.0 mmol/L Blood Urea Nitrogen 44 mg/dl Creatinine 1.50 mg/dl Est Creatinine Clear Calc Drug Dose 49.3 ml/min Estimated GFR () 53.9 Estimated GFR (Non- 46.5 BUN/Creatinine Ratio 29.4 Random Glucose 183 mg/dl Calcium Level 8.9 mg/dl Magnesium Level 2.3 mg/dl Test 08/29/17 06:54 08/29/17 08:58 08/29/17 10:01 08/29/17 11:12 Bedside Glucose 169 mg/dl 405 mg/dl 366 mg/dl 259 mg/dl Test 08/29/17 12:20 08/29/17 13:03 Bedside Glucose 215 mg/dl 208 mg/dl Imaging: EKG: Telemetry reviewed: Assessment and Plan 1. Coronary artery disease: No angina or chest pain. Status post recent revascularization. Continue on usual outpatient medical regimen to include anti-platelet therapy with Plavix, lovastatin and metoprolol. If his blood pressure continues to be high we could consider the addition of an SIMON- inhibitor. Although this would have to be done cautiously given his mild renal insufficiency. 2. Aortic valve disease: Normal exam. No significant improvement in his dyspnea with aortic valve replacement. 3. Dyspnea: He continues to improve. I think we can reserve diuretics for obvious edema. His renal function appears to be stable. He may require low- dose oral diuretic at the time of discharge. I think we have the option of monitoring while he is in-house currently.
[2017-08-29] MEDS: DOCUSATE SODIUM/SENNA 50/8.6MG TAB PO SCH (20:58)
[2017-08-29] MEDS: LOVASTATIN 20 MG TAB PO SCH (21:00)
[2017-08-29] MEDS ORDERED: DC IV INSULIN INFUSION ONE (22:00)
--- NOTE | 2017-08-29 22:11 | Family Medicine Progress Note ---
Progress Note Date of Service Aug 29, 2017. Subjective Pt evaluation today including: conversation w/ patient, physical exam, chart review, lab review, review of studies Voiding: walsh catheter in place Pt is sitting up in chair, resting comfortably, nasal cannula in place. Pt reports feeling better than when he came in with regards to his breathing, although he still struggles to breathe some. Pt reports BiPAP machine helps him breathe, and that he does not normally use O2 at home. Pt states that he does still get somewhat winded when getting up to go to the bathroom back and forth. Respiratory: + cough, + wheezing, + dyspnea at rest, No sputum Cardiovascular: No chest pain Abdomen: No pain, No nausea Objective Vital Signs Date Time Temp Pulse Resp B/P (MAP) Pulse Ox O2 Delivery O2 Flow Rate FiO2 08/29/17 19:38 36.5 80 21 121/63 (82) 94 Nasal Cannula 2.0 08/29/17 19:01 78 18 96 Nasal Cannula 2.0 08/29/17 17:05 36.5 72 20 114/68 (83) 92 Nasal Cannula 2.0 08/29/17 16:00 94 Nasal Cannula 2.0 08/29/17 15:06 36.3 72 20 114/68 (83) 92 Nasal Cannula 2.0 08/29/17 14:06 88 18 93 BiPAP/CPAP 25 08/29/17 12:00 94 Nasal Cannula 2.0 08/29/17 11:40 36.0 69 20 146/76 (99) 98 08/29/17 08:00 94 Nasal Cannula 2.0 08/29/17 07:39 36.4 85 20 151/83 (105) 99 Nasal Cannula 2.0 08/29/17 07:00 84 18 95 Nasal Cannula 3.0 08/29/17 04:00 94 Nasal Cannula 2.0 08/29/17 03:52 36.5 69 22 112/66 (81) 94 CPAP 08/29/17 02:26 68 98 25 08/29/17 02:24 82 18 98 BiPAP/CPAP 25 08/29/17 00:01 97 Nasal Cannula 2.0 08/28/17 23:58 36.5 73 18 130/73 (92) 97 Nasal Cannula 2.0 08/28/17 22:53 72 96 25 Physical Exam General Appearance: WD/WN, no apparent distress, + thin Eyes: normal inspection, EOMI Respiratory/Chest: + accessory muscle use, + wheezing Cardiovascular: regular rate, rhythm, no gallop, no JVD Abdomen: normal bowel sounds, non tender, soft Assessment and Plan 71M admitted from ED for acute onset of shortness of breath/respiratory distress that began about 3 hours prior to arrival. PMH sig for COPD (most recent exac Jun 2017), DM II, HLD, CABG x2 w/AVR (Jul 2017). Lives with son and daughter in law. Pt reports that daughter in law manages details of his care. Acute respiratory failure with hypoxia Etiology may be multifactorial: COPD, preserved EF CHF, acute infectious or inflammatory process. CXR + for nodular opacities and small pleural effusion. Improved on steroids and azithro (#4/5 day course completed today), along with IV diuresis Continue BiPAP QPM and PRN during day (required this morning). Cont supp O2 Continue bronchodilators Continue steroids, will taper as able Continue pulmicort capsules Agree with cardio recs: holding lasix given mild renal insufficiency (Loss Prevention Auditor stable 1.5 today), may require low-dose oral diuretic at the time of discharge. Has outpt f/u for PFTs w/ Dr. Fernandez CAD/HTN, s/p CABGx2 w/ AVR Agree with cardio recs: cont clopidogrel, metoprolol tartrate, statin (not on high intensity dose possibly due to previous statin intolerance). DM II, insulin dependent Glycemic consult ongoing, appreciate pharm mgmt. HLD Continue statin Walsh catheter associated UTI treated with IV Ceftriaxone UA cx growing GNR (Citrobacter freundii). On Rocephin - goal 14 day course till next Uro appt. Follow Urine cx BPH Walsh in place since CABG in [place] (Jul 2017). Has upcoming cystoscopy 09/[address] Bahena. Walsh not to be removed till then, per pt's daughter in law. Probably CKD stage III Last few months indicate teletypist ranges from 1.2-1.6 Avoid nephrotoxins, holding diuretics Renally dose all meds PPX-SQ heparin Dispo-remain on tele, PT/OT evals, may need rehab FULL CODE Continued [facility] stay due to: multiple IV medications needed Discharge planning: home with home health Resident Tracking Resident Involvement: Resident Care Provided Care Provided: Adult Hospital Medicine Reviewed: Pt Seen/Exam by Me History Resident Physician Supervision Note: I interviewed and examined the patient. Discussed with Dr. Gamez and agree with findings and plan as documented in the note. Any exceptions or clarifications are listed here: Patient having a lot more trouble breathing today, is agreeable to having the BiPAP on this morning. Has 9 beats of V. tach on the telemetry this morning. Vitals and telemetry reviewed Mild distress with use of accessory muscles and tachypnea with minimal fluent speech Regular rate and rhythm. Lungs with very diminished sounds throughout and faint wheezes Abdomen has bowel sounds soft nontender nondistended Extremities trace pitting edema of the legs bilaterally The patient is a 71-year-old male who presents to the emergency department with acute onset of shortness of breath/respiratory distress that began about 3 hours prior to arrival. He had a normal week, and went to bed feeling fine, and awoke acutely short of breath as noted although [id number] who lives with him reports he was SOB off and on for 1-2 weeks, being treated with lasix. He was most recently admitted to [facility] from July 15 through July 18 for COPD exacerbation and referral was made to [facility], where he stayed for a week, and then underwent a CABG 2 and AVR on July 26. He was discharged from [facility] on August 02, and is staying locally with family. He had been doing well until the acute symptoms developed the AM of admission. Acute respiratory failure with hypoxia and hypercapnia--AECOPD and some acute on chronic preserved EF CHF as cause. WBC count and platelets elevated on admission points towards acute infectious or inflammatory process, then improved on steroids and azithro, along with IV diuresis CXR with nodular opacities and small pleural effusion not completely unexpected 4 weeks post-op from CABG/AVR--> repeat CXR today shows resolving nodular opacities, and with bronchial thickening c/w bronchitis -admitted to the ICU as was requiring BiPAP and [facility]--> now improved since admission but worse today since decreasing IV steroids-Will place BiPAP now for when necessary daytime use and daily at bedtime - continue supplemental O2 -Doppler LLE cancelled by Critical Care team--> seems to be normal considering saphenous vein harvesting from that leg -continue bronchodilators -continue IV steroids and taper down as tolerated-keep at same dose today -continue Pulmicort Respules 0.5 mg inhaled twice a day. -continue azithro x 5 day course-today day #4/5 -diuresed with lasix IV which helped, now will hold off on further diuretics given CKD -Appreciate Ophthalmic Aide management and Pulmonology recommendations -follow CXR to resolution given nodular opacities -has appt for PFTs coming up soon Dr. Santiago CAD/hypertension/status post CABG 2 and aortic valve replacement on 07/26/2017/ PAD-- Continue present medications of clopidogrel 75 mg by mouth daily, metoprolol tartrate 25 mg by mouth twice a day, statin (Mevacor, not on high intensity dose possibly due to previous statin intolerance)-consider increasing Mevacor to 20mg Serial troponins neg x 3 Consult his security systems installer Dr. Ernandez-recommendations appreciated -Cardio recommends holding off on further diuretics at this time but may need to restart at a low dose prior to discharge Diabetes mellitus-insulin dependent, adult onset, with continued hyperglycemia here on IV steroids, HgbA1C 8.9% in 06/2017 D/C'd his insulin pump from home. He was advised to bring pump in from home prior to discharge On insulin gtt and SSI qac, Glycemic Pharmacy consult managing -Started Lantus today BPH with indwelling Walsh- UA grossly abnormal, Ur cx growing Citrobacter freundii -cont Rocephin and then transition to po abx tomorrow to remain on for total 14 days at least through when has cystoscope -follow Urcx -has upcoming cystoscopy and possible Walsh exchange vs removal on 09/[address] Bahena Probable CKD Stage III- only have lab records back a few months and teletypist ranges from 1.2-1.6 -avoid nephrotoxins -holding diuretics again now although teletypist went down to IV diuresis -renally dose all meds Proph-SQ heparin Dispo-remain on tele FULL CODE Dispo-PT/OT evals, may need rehab Documented By: Dinah Mancia Assessment/Plan The patient is a 71-year-old male who presents to the emergency department with acute onset of shortness of breath/respiratory distress that began about 3 hours prior to arrival. He had a normal week, and went to bed feeling fine, and awoke acutely short of breath as noted although [id number] who lives with him reports he was SOB off and on for 1-2 weeks, being treated with lasix. He was most recently admitted to [facility] from July 15 through July 18 for COPD exacerbation and referral was made to [facility], where he stayed for a week, and then underwent a CABG 2 and AVR on July 26. He was discharged from [facility] on August 02, and is staying locally with family. He had been doing well until the acute symptoms developed the AM of admission. Acute respiratory failure with hypoxia and hypercapnia--AECOPD and some acute on chronic preserved EF CHF as cause. WBC count and platelets elevated on admission points towards acute infectious or inflammatory process, then improved on steroids and azithro, along with IV diuresis CXR with nodular opacities and small pleural effusion not completely unexpected 4 weeks post-op from CABG/AVR--> repeat CXR today shows resolving nodular opacities, and with bronchial thickening c/w bronchitis -admitted to the ICU as was requiring BiPAP and had potential for requiring mech ventilation--> now improving and off BiPAP except for nighttime use--> transferred to tele today -Continue BiPAP nocturnally and prn during day, continue supplemental O2 -Doppler LLE cancelled by Critical Care team--> seems to be normal considering saphenous vein harvesting from that leg -continue bronchodilators -continue IV steroids and taper down today -continue Pulmicort Respules 0.5 mg inhaled twice a day. -continue azithro x 5 day course-today day #3/5 -diuresed with lasix IV which helped, now will hold off on further diuretics given teletypist 1.5 -Appreciate Ophthalmic Aide management and Pulmonology recommendations -follow CXR to resolution given nodular opacities -has appt for PFTs coming up soon Dr. Fernandez CAD/hypertension/status post CABG 2 and aortic valve replacement on 07/26/2017/ PAD-- Continue present medications of clopidogrel 75 mg by mouth daily, metoprolol tartrate 25 mg by mouth twice a day, statin (Mevacor, not on high intensity dose possibly due to previous statin intolerance)-consider increasing Mevacor to 20mg Serial troponins neg x 3 Consult his security systems installer Dr. Ernandez-recommendations appreciated -Cardio recommends holding off on further diuretics at this time Diabetes mellitus-insulin dependent, adult onset, with hyperglycemia here on IV steroids which is improving somewhat today. HgbA1C 8.9% in 06/2017 D/C'd his insulin pump from home. He was advised to bring pump in from home prior to discharge On insulin gtt and SSI qac, Glycemic Pharmacy consult managing BPH with indwelling Walsh- UA grossly abnormal, Ur cx growing Citrobacter freundii -cont Rocephin and then transition to po abx tomorrow to remain on for total 14 days at least through when has cystoscope -follow Urcx -has upcoming cystoscopy and possible Walsh exchange vs removal on 09/[address] Bahena Probable CKD Stage III- only have lab records back a few months and teletypist ranges from 1.2-1.6 -avoid nephrotoxins -holding diuretics again now although teletypist went down to IV diuresis -renally dose all meds Proph-SQ heparin Dispo-remain on tele FULL CODE Dispo-PT/OT evals, may need rehab
[2017-08-30] VITALS (14 sets, daily range): BP systolic 105–144; BP diastolic 54–85; PULSE 46–77; TEMP 36.3–36.6; O2SAT 93–100
[2017-08-30] MEDS: METHYLPREDNISOLONE IV 40 MG in SYRINGE 0 ML IV SCH ×4 (00:48→20:55)
[2017-08-30] MEDS: CEFTRIAXONE SOD INJ 1 GM in DEXTROSE 5% ADD-VANTAGE 50ML 50 ML IV SCH (01:33)
[2017-08-30] MEDS: LEVALBUTEROL 1.25MG/0.5ML NEB INH SCH ×4 (01:47→20:18)
[2017-08-30] MEDS: IPRATROPIUM BROMIDE NEB SOLN 0.02% 2.5 ML VIAL INH SCH ×4 (01:47→20:18)
[2017-08-30] MEDS: INSULIN ASPART 100 UNITS/ML 3 ML PEN SC SCH ×6 (04:00→20:53)
[2017-08-30 05:53] LABS: COMPLETE YES; HEMATOCRIT 34.9 % (42-52); IG% 0.3 %; LYMPH % 6.6 %; MEAN CELL VOLUME 84.9 fL (80-100); MEAN CORPUSCULAR HEMOGLOBIN 27.3 pg (25-34); MEAN CORPUSCULAR HGB CONC 32.1 g/dl (32-36); MEAN PLATELET VOLUME 8.6 fL (7.4-10.4); MONO % 3.8 %; NEUT % 89.3 %; PLATELET COUNT 296 K/uL (130-400); RED BLOOD COUNT 4.11 M/uL (4.7-6.1); WHITE BLOOD COUNT 10.55 K/uL (4.8-10.8)
[2017-08-30] MEDS: HEPARIN SOD 5000 UNIT/0.5 ML CARP SQ SCH ×3 (05:57→20:56)
[2017-08-30 06:19] LABS: BUN/CREATININE RATIO 32.8 (10-20); CALCIUM 8.6 mg/dl (8.5-10.1); CREATININE 1.3 mg/dl (0.60-1.40); MAGNESIUM 2.2 mg/dl (1.8-2.4); POTASSIUM 4.3 mmol/L (3.5-5.1)
[2017-08-30] MEDS: BUDESONIDE 0.5 MG/2 ML VIAL (PULMICORT) INH SCH ×2 (06:53→20:18)
[2017-08-30] MEDS: PANTOprazole SOD 40 MG TAB PO SCH ×2 (08:22→20:51)
[2017-08-30] MEDS: INSULIN GLARGINE SOLOSTAR 100 UNITS/ML 3 ML PEN SC SCH (08:25)
[2017-08-30] MEDS: CETIRIZINE HCL 10 MG TAB PO PRN (08:26)
[2017-08-30] MEDS: METOPROLOL TARTRATE 25 MG TAB PO SCH ×2 (08:26→20:51)
[2017-08-30] MEDS: CLOPIDOGREL BISULFATE 75 MG TAB PO SCH (08:26)
[2017-08-30] MEDS: AZITHROMYCIN 250 MG TAB PO SCH (08:27)
[2017-08-30] MEDS: DOCUSATE SODIUM/SENNA 50/8.6MG TAB PO SCH ×2 (08:27→20:51)
--- NOTE | 2017-08-30 09:36 | Pharmacy Progress Note ---
Glycemic Control Progress Note Date of Service Aug 30, 2017. Scope Glycemic Pharmacist consulted for glycemic control to write orders per [facility] inpatient glycemic control protocol. Objective Accuchecks BSG (last 24hrs): Test 08/29/17 10:01 08/29/17 11:12 08/29/17 12:20 08/29/17 13:03 Bedside Glucose 366 mg/dl (70-99) 259 mg/dl (70-99) 215 mg/dl (70-99) 208 mg/dl (70-99) Test 08/29/17 15:09 08/29/17 16:52 08/29/17 18:25 08/29/17 20:08 Bedside Glucose 126 mg/dl (70-99) 188 mg/dl (70-99) 111 mg/dl (70-99) 93 mg/dl (70-99) Test 08/30/17 00:16 08/30/17 05:45 08/30/17 06:07 Bedside Glucose 96 mg/dl (70-99) 106 mg/dl (70-99) Random Glucose 99 mg/dl (70-99) Recent Pertinent Medications The patient is currently receiving: * Basal insulin: Lantus 50 units every 24 hours - plus additional 10 units last night to transition off drip * Correctional Insulin: Novolog Correction per scale ACHS Goal Range: Low 100 mg/dL - High 150 mg/dL Correction Factor: 10 mg/dL/unit * Prandial insulin: Per carb ratio of 1 unit per 1 grams CHO consumed Outpatient Anti-Diabetic Meds Regular insulin Pump * Basal rate = 2 units/hr * Bolus/Prandial = 1-2 unit for every 1 gram of CHO consumed Assessment & Plan ASSESSMENT: * See progress note from 08/29/17 for more background info, in short: * Pt receiving SQ basal bolus insulin regimen for hyperglycemia secondary to baseline DM (outpatient insulin pump regimen on hold),stress/infection, steroids * Patient is currently receiving an average of 140 units of insulin SQ insulin + IV insulin infusion per day * 60 units of basal insulin * 79 units of prandial/correctional insulin * BSGs ranging 93 - 106 mg/dl since transitioning off of IV insulin infusion last evening. IV insulin infusion held at 2200 last night to promote rest throughout the night. * Changes needed to insulin regimen: * AM Fasting BSG = 106 mg/dl. This is in goal range for patient based on inpatient targets and co-morbidities. No changes need to basal insulin. Current dosing is just slightly more than outpatient dosing for steroids. * Post-prandial BSGs are in range therefore no changes needed to CF/CR. Aggressive CF/CR warranted for steroid induced hyperglycemia. Will loosen CF/CR when steroids tapered. * Additional notes / comments: Of note, patient has been receiving Solumendol 40mg IV Q6hrs x 3 days. Recommend tapering steroids as soon as clinically warranted as this will greatly improve glycemic control. PLAN FOR INPATIENT GLYCEMIC CONTROL: BSGs well controlled since transitioning from IV to SQ basal bolus insulin regimen. Will continue to hold insulin infusion for now and continue with SQ insulin regimen. Will resume IV insulin infusion if BSG > 250mg/dl. * HOLD IV insulin infusion * Basal insulin * Lantus 55 units SQ Q24hrs given in the morning * Bolus insulin * NovoLog per scale ACHS or Q6hrs while NPO * Goal Range: Low 100 mg/dL - High 150 mg/dL * Correction Factor: 10 mg/dL/unit * Nutritional / Prandial insulin per carb ratio of 1 unit per 1 grams CHO consumed * Please note that the plan above was derived based on current level of insulin resistance and hospital stress. These recommendations are appropriate for inpatient admission only. Plan of care upon discharge will need to be reassessed to avoid potential outpatient hypo/hyperglycemia. Thank you.
--- NOTE | 2017-08-30 15:32 | Family Medicine Progress Note ---
Progress Note Date of Service Aug 30, 2017. Subjective Pt evaluation today including: conversation w/ patient, physical exam, chart review, lab review, review of studies Voiding: walsh catheter in place Pt reports that his wheezing has improved, although still coughing quite a bit, no sputum. Walsh in place, no pain or chest pain or light headedness. Motivated to go home. No events overnight. Respiratory: + cough, + wheezing, No sputum Cardiovascular: No chest pain, No orthopnea Abdomen: No pain Male : No dysuria Objective Vital Signs Date Time Temp Pulse Resp B/P (MAP) Pulse Ox O2 Delivery O2 Flow Rate FiO2 08/30/17 20:21 77 18 95 Nasal Cannula 2.0 08/30/17 20:00 Nasal Cannula 2.0 08/30/17 18:51 36.4 73 18 105/70 (82) 94 Nasal Cannula 2.0 08/30/17 16:00 Nasal Cannula 2.0 08/30/17 15:01 36.4 77 20 127/63 (84) 97 Nasal Cannula 2.0 08/30/17 14:13 46 20 97 Nasal Cannula 2.0 08/30/17 12:12 36.6 63 22 111/64 (80) 96 Room Air 08/30/17 12:00 Nasal Cannula 2.0 08/30/17 08:00 Nasal Cannula 2.0 08/30/17 07:59 36.5 76 20 144/85 (104) 100 Nasal Cannula 2.0 08/30/17 06:53 70 20 96 Nasal Cannula 2.0 08/30/17 04:38 36.6 77 20 109/54 (72) 95 BiPAP 08/30/17 04:00 96 BiPAP 08/30/17 01:48 66 96 25 08/30/17 01:47 66 22 96 BiPAP/CPAP 25 08/30/17 00:01 97 BiPAP 08/29/17 23:26 36.7 62 20 109/56 (73) 97 BiPAP 08/29/17 22:57 61 97 25 Physical Exam General Appearance: WD/WN, no apparent distress Eyes: normal inspection, EOMI Respiratory/Chest: + accessory muscle use, + wheezing Cardiovascular: regular rate, rhythm, no gallop, no JVD Abdomen: normal bowel sounds, non tender, soft Neurologic/Psychiatric: alert, normal mood/affect, oriented x 3 Assessment and Plan 71M admitted from ED for acute onset of shortness of breath/respiratory distress that began about 3 hours prior to arrival. PMH sig for COPD (most recent exac Jun 2017), DM II, HLD, CABG x2 w/AVR (Jul 2017). Lives with son and daughter in law. Pt reports that daughter in law manages details of his care. Hospital day 4: Acute respiratory failure with hypoxia Etiology may be multifactorial: COPD, preserved EF CHF, acute infectious or inflammatory process. CXR + for nodular opacities and small pleural effusion. Improved on steroids and azithro (#5/5 day course completed today), along with IV diuresis Continue BiPAP QPM and PRN during day (required this morning). Cont supp O2 Continue bronchodilators Taper steroids starting tonight PM dose to 40 from Q6 to Q8 Continue pulmicort capsules Agree with cardio recs: holding lasix given mild renal insufficiency (Housekeeping Director stable 1.5 today), may require low-dose oral diuretic at the time of discharge PRN only. Has outpt f/u for PFTs w/ Dr. Fernandez Will need 2 step, PT/OT rec home (see dispo). CAD/HTN, s/p CABGx2 w/ AVR Agree with cardio recs: cont clopidogrel, metoprolol tartrate, statin (not on high intensity dose possibly due to previous statin intolerance). DM II, insulin dependent BSG improving 99-106. Glycemic consult ongoing, appreciate pharm mgmt. HLD Continue statin. Recommend hi intensity statin (currently on Mevacor). Given recent CABG, would rec hi intensity, although may be on lower dose given adverse reaction to simvastatin. Will defer to cardio outpt mgmt. Walsh catheter associated UTI treated with IV Ceftriaxone UA cx growing GNR (Citrobacter freundii). On Rocephin. Will switch to PO Ciprofloxacin tomorrow renally dosed at 250mg q12 thru 09/08/17 (till urology appt with Dr. Bahena.) Follow Urine cx BPH Walsh in place since CABG in [place] (Jul 2017). Has upcoming cystoscopy 09/[address] Bahena. Walsh not to be removed till then, per pt's daughter in law. Probably CKD stage III Last few months indicate tax auditor ranges from 1.2-1.6 Avoid nephrotoxins, holding diuretics Renally dose all meds PPX-SQ heparin Dispo-remain on tele, PT/OT does not recommend rehab. Will likely need BiPAP at home, so will need 2 step, overnight oximetry and then morning ABG --> to be ordered on 08/31 to ready for possible DC on 09/01. FULL CODE Continued [facility] stay due to: abnormal vital signs Discharge planning: home Resident Tracking Resident Involvement: Resident Care Provided Care Provided: Adult Hospital Medicine Reviewed: Pt Seen/Exam by Me History Resident Physician Supervision Note: I interviewed and examined the patient. Discussed with Dr. Gamez and agree with findings and plan as documented in the note. Any exceptions or clarifications are listed here: Breathing much improved today, glucose now low and off insulin gtt. Feeling better Vitals and telemetry reviewed NAD Regular rate and rhythm. Lungs with very diminished sounds throughout and faint wheezes but better air movement than yesterday Abdomen has bowel sounds soft nontender nondistended Extremities trace pitting edema of the legs bilaterally The patient is a 71-year-old male who presents to the emergency department with acute onset of shortness of breath/respiratory distress that began about 3 hours prior to arrival. He had a normal week, and went to bed feeling fine, and awoke acutely short of breath as noted although [id number] who lives with him reports he was SOB off and on for 1-2 weeks, being treated with lasix. He was most recently admitted to [facility] from July 15 through July 18 for COPD exacerbation and referral was made to [facility], where he stayed for a week, and then underwent a CABG 2 and AVR on July 26. He was discharged from [facility] on August 02, and is staying locally with family. He had been doing well until the acute symptoms developed the AM of admission. Acute respiratory failure with hypoxia and hypercapnia--AECOPD and some acute on chronic preserved EF CHF as cause. WBC count and platelets elevated on admission points towards acute infectious or inflammatory process, then improved on steroids and azithro, along with IV diuresis CXR with nodular opacities and small pleural effusion not completely unexpected 4 weeks post-op from CABG/AVR--> repeat CXR today shows resolving nodular opacities, and with bronchial thickening c/w bronchitis -admitted to the ICU as was requiring Bi[facility]AP and [facility]--> now improved - continue supplemental O2 -continue bronchodilators -continue IV steroids and taper down -continue Pulmicort Respules 0.5 mg inhaled twice a day. -continue azithro x 5 day course-today day #5 -diuresed with lasix IV which helped, now will hold off on further diuretics given CKD, no h/o CHF -Appreciate Superintendent Sales management and Pulmonology recommendations -follow CXR to resolution given nodular opacities -has appt for PFTs coming up soon Dr. Santiago CAD/hypertension/status post CABG 2 and aortic valve replacement on 07/26/2017/ PAD-- Continue present medications of clopidogrel 75 mg by mouth daily, metoprolol tartrate 25 mg by mouth twice a day, statin (Mevacor, not on high intensity dose possibly due to previous statin intolerance)-consider increasing Mevacor to 20mg Serial troponins neg x 3 Consult his baggage security checker Dr. Ernandez-recommendations appreciated -Cardio recommends holding off on further diuretics at this time but may need to restart at a low dose prior to discharge Nonsustained V-tach on tele-12 beats today--> has normal EF on recent ECHO so not overly concerning -replace lytes as needed -follow on tele Diabetes mellitus-insulin dependent, adult onset, with hyperglycemia here on IV steroids, now with hypoglycemia, HgbA1C 8.9% in 06/2017 D/C'd his insulin pump from home. He was advised to bring pump in from home prior to discharge Now off insulin gtt an trudi Guerra and SSI-->Glycemic Pharmacy consult managing BPH with indwelling Walsh- UA grossly abnormal, Ur cx growing Citrobacter freundii -cont Rocephin and then transition to po Cipro to remain on for total 14 days at least through when has cystoscope -has upcoming cystoscopy and possible Walsh exchange vs removal on 09/[address] Bahena Probable CKD Stage III- only have lab records back a few months and tax auditor ranges from 1.2-1.6 -avoid nephrotoxins -renally dose all meds -follow PRP Proph-SQ heparin Dispo-remain on tele due to VTach, possibly dc in 2-3 days but respiratory status still tenuous FULL CODE Dispo-PT/OT evals no rehab recommended Documented By: Dinah Mancia
[2017-08-30] MEDS: LOVASTATIN 20 MG TAB PO SCH (20:52)
[2017-08-31] VITALS (14 sets, daily range): BP systolic 110–150; BP diastolic 58–79; PULSE 59–80; TEMP 36.3–36.9; O2SAT 93–98
[2017-08-31] MEDS: LEVALBUTEROL 1.25MG/0.5ML NEB INH SCH ×4 (02:31→19:07)
[2017-08-31] MEDS: IPRATROPIUM BROMIDE NEB SOLN 0.02% 2.5 ML VIAL INH SCH ×4 (02:31→19:07)
[2017-08-31] MEDS: INSULIN ASPART 100 UNITS/ML 3 ML PEN SC SCH ×6 (04:15→20:36)
[2017-08-31] MEDS: METHYLPREDNISOLONE IV 40 MG in SYRINGE 0 ML IV SCH ×3 (06:00→20:00)
[2017-08-31] MEDS: HEPARIN SOD 5000 UNIT/0.5 ML CARP SQ SCH ×3 (06:01→20:36)
[2017-08-31 06:49] LABS: COMPLETE YES; HEMATOCRIT 35.3 % (42-52); IG% 0.6 %; LYMPH % 6.2 %; LYMPH ABS # 0.71 K/uL (1.2-3.4); MEAN CELL VOLUME 85.9 fL (80-100); MEAN CORPUSCULAR HGB CONC 32.6 g/dl (32-36); MEAN PLATELET VOLUME 9.1 fL (7.4-10.4); MONO % 4.7 %; NEUT % 88.5 %; PLATELET COUNT 323 K/uL (130-400); RED BLOOD COUNT 4.11 M/uL (4.7-6.1); WHITE BLOOD COUNT 11.37 K/uL (4.8-10.8)
[2017-08-31] MEDS: BUDESONIDE 0.5 MG/2 ML VIAL (PULMICORT) INH SCH ×2 (07:13→19:08)
[2017-08-31 07:29] LABS: BUN/CREATININE RATIO 30.1 (10-20); CALCIUM 8.8 mg/dl (8.5-10.1); CREATININE 1.4 mg/dl (0.60-1.40); MAGNESIUM 2.3 mg/dl (1.8-2.4); POTASSIUM 4.7 mmol/L (3.5-5.1)
[2017-08-31] MEDS: CLOPIDOGREL BISULFATE 75 MG TAB PO SCH (07:41)
[2017-08-31] MEDS: PANTOprazole SOD 40 MG TAB PO SCH ×2 (07:41→20:41)
[2017-08-31] MEDS: CETIRIZINE HCL 10 MG TAB PO PRN (07:41)
[2017-08-31] MEDS: CIPROFLOXACIN 250 MG TAB PO SCH ×2 (07:42→21:09)
[2017-08-31] MEDS: METOPROLOL TARTRATE 25 MG TAB PO SCH ×2 (07:42→20:41)
[2017-08-31] MEDS: DOCUSATE SODIUM/SENNA 50/8.6MG TAB PO SCH ×2 (07:43→20:41)
[2017-08-31] MEDS: INSULIN GLARGINE SOLOSTAR 100 UNITS/ML 3 ML PEN SC SCH (07:50)
--- NOTE | 2017-08-31 09:51 | Pharmacy Progress Note ---
Glycemic Control Progress Note Date of Service Aug 31, 2017. Scope Glycemic Pharmacist consulted for glycemic control to write orders per [facility] inpatient glycemic control protocol. Objective Accuchecks BSG (last 24hrs): Test 08/30/17 11:09 08/30/17 16:09 08/30/17 16:27 08/30/17 17:39 Bedside Glucose 130 mg/dl (70-99) 53 mg/dl (70-99) 78 mg/dl (70-99) 166 mg/dl (70-99) Test 08/30/17 20:15 08/31/17 00:03 08/31/17 04:11 08/31/17 05:46 Bedside Glucose 157 mg/dl (70-99) 121 mg/dl (70-99) 192 mg/dl (70-99) Random Glucose 195 mg/dl (70-99) Test 08/31/17 06:54 Bedside Glucose 163 mg/dl (70-99) Recent Pertinent Medications The patient is currently receiving: * Basal insulin: Lantus 55 units every 24 hours * Correctional Insulin: Novolog Correction per scale ACHS Goal Range: Low 100 mg/dL - High 150 mg/dL Correction Factor: 10 mg/dL/unit * Prandial insulin: Per carb ratio of 1 unit per 1.5 grams CHO consumed Outpatient Anti-Diabetic Meds Regular insulin Pump * Basal rate = 2 units/hr * Bolus/Prandial = 1-2 unit for every 1 gram of CHO consumed Assessment & Plan ASSESSMENT: * See progress note from 08/30 for more background info, in short: * Pt receiving SQ basal bolus insulin regimen for hyperglycemia secondary to baseline DM (outpatient regimen on hold), stress/infection, steroids * Patient is currently receiving an average of 170 units of insulin per day * 55 units of basal insulin * BSGs ranging 53 - 195 mg/dl over the past 24hrs * Changes needed to insulin regimen: * AM Fasting BSG = 195 mg/dl. This is above goal range for patient based on inpatient targets and co-morbidities but hesitant to increase since 60 units the day before was dropping the BSG. * Post-prandial BSGs are trending downwards throughout the day (insulin stacking) - CR loosened last evening in because of this PLAN FOR INPATIENT GLYCEMIC CONTROL: * Continue Lantus 55 units qAM * Continue Novolog ACHS * Goal 100-150 * CF 10 * CR 1.5 RECOMMENDATIONS FOR DISCHARGE: * I have noted that patient was advised to bring in his pump prior to discharge. Will plan to place tomorrow's Lantus order on hold in case he is scheduled for discharge. Thank you.
--- NOTE | 2017-08-31 18:46 | Pulmonology Progress Note ---
Pulmonary Progress Note Date of Service Aug 31, 2017. Attending Subjective Patient seen and examined tonight. He states that he is not feeling good. He still having wheezing and shortness of breath with exertion. He is using incentive spirometry which he feels is helping. No chest pain or productive cough. Objective VS reviewed. Currently on 2L NC. Gen: AAOx3, NAD, speaking in full sentences without accessory muscle use CVS: S1, S2, RRR Lungs: prolonged expiratory phase with sporadic wheezing Chest: midsternal incision, healing with scab Abd: soft/NT/ND/BS+ Ext: no cyanosis, no clubbing, no edema bilaterally Labs reviewed. Blood cx 08/26/2017--No growth to date Urine cx 08/26/2017--citrobacter freundii complex Imaging reviewed. Medications reviewed. Assessment & Plan 1. Respiratory failure -- acute on chronic with hypercarbia and hypoxia.-- improving 2. Chronic obstructive pulmonary disease exacerbation. 3. Elevation of the right hemidiaphragm, likely related to his cardiac surgery. 4. Coronary artery disease. 5. Renal insufficiency 6. UTI Patient appears to be improving somewhat. He states that he feels much better since admission, but still does not feel back to himself. He is still wheezing. Currently, he is only requiring 2L NC supplementation. However still requires BIPAP prn for dyspnea. Continue with this as needed to maintain SaO2 between 88-92%. continue with BIPAP prn He is still on Solumedrol 40 mg BID IV. I would switch over to prednisone tomorrow 60 mg daily with a slow taper Continue with ceftriaxone and azithromycin daily. Continue with bronchodilators q6h. Continue with incentive spirometry and flutter valve for pulmonary toilet Patient continues to diurese well. He is about ~5.8 L negative balance since admission. Creatinine stable at 1.4 Cardiology is on board and following for aortic valve disease and CAD Continue to treat for UTI--per primary team Continue with DVT ppx. Recommend two step prior to discharge as he may need oxygen with exertion. I will sign off case for now. Contact me if you have any further questions or concerns. Data Medications: Current Inpatient Medications Medications (Trade) Dose Ordered Sig/Nessa Route Start Time Stop Time Status Last Admin Dose Admin Acetaminophen (Tylenol Tab) 650 mg Q4H PRN PO 08/26/17 06:15 09/25/17 06:14 Lorazepam (Ativan Inj) 0.5 mg Q4H PRN IV 08/26/17 06:15 09/25/17 06:14 Nitroglycerin (Nitrostat Tab) 0.4 mg UD PRN SL 08/26/17 06:15 09/25/17 06:14 Morphine Sulfate (MoRPHine SULFATE INJ) 2 mg Q2H PRN IV 08/26/17 06:15 09/09/17 06:14 Cetirizine HCl (zyrTEC TAB) 10 mg DAILY PRN PO 08/26/17 06:15 09/25/17 06:14 08/31/17 07:41 10 MG Clopidogrel Bisulfate (plAVix TAB) 75 mg DAILY PO 08/26/17 09:00 09/25/17 08:59 08/31/17 07:41 75 MG Metoprolol Tartrate (Lopressor Tab) 25 mg BID PO 08/26/17 09:00 09/25/17 08:59 08/31/17 07:42 25 MG Ondansetron HCl (Zofran Inj) 4 mg Q6H PRN IV 08/26/17 06:30 09/25/17 06:29 Budesonide (Pulmicort Respules 0.5MG/ 2ML Neb Soln) 0.5 mg BIDR INH 08/26/17 08:00 09/25/17 07:59 08/31/17 07:13 0.5 MG Glucose (Glucose 40% Gel) UD PRN PO 08/26/17 06:30 09/25/17 06:29 Glucose (Glucose Chew Tab) 1 tabs UD PRN PO 08/26/17 06:30 09/25/17 06:29 Dextrose (Dextrose 50% 50ML Syringe) 50 ml UD PRN IV 08/26/17 06:30 09/25/17 06:29 Glucagon (Glucagon Inj) 1 mg UD PRN SQ 08/26/17 06:30 09/25/17 06:29 Ipratropium [place] (Atrovent 0.02% 0.5MG/2.5ML Neb) 0.5 mg Q6R INH 08/26/17 09:00 09/25/17 08:59 08/31/17 14:20 0.5 MG Levalbuterol (Xopenex 1.25MG/ 0.5ML Neb) 1.25 mg Q6R INH 08/26/17 09:00 09/25/17 08:59 08/31/17 14:20 1.25 MG Ipratropium [place] (Atrovent 0.02% 0.5MG/2.5ML Neb) 0.5 mg Q2H PRN INH 08/26/17 06:45 09/25/17 06:44 08/27/17 12:36 0.5 MG Levalbuterol (Xopenex 1.25MG/ 0.5ML Neb) 1.25 mg Q2H PRN INH 08/26/17 06:45 09/25/17 06:44 08/27/17 12:36 1.25 MG Pantoprazole Sodium (Protonix Tab) 40 mg BID PO 08/26/17 09:00 09/25/17 08:59 08/31/17 07:41 40 MG Miscellaneous Information (Consult Glycemic Management Pharmacy) 1 ea UD PRN N/A 08/26/17 08:30 09/25/17 08:29 Heparin Sodium (Porcine) (Heparin Sq 5000 Unit/0.5ml) 5,000 unit Q8 SQ 08/26/17 14:00 09/25/17 13:59 08/31/17 13:40 5,000 UNIT Lovastatin (Mevacor Tab) 10 mg PM PO 08/26/17 21:00 09/25/17 20:59 08/30/17 20:52 10 MG Senna/Docusate Sodium (Senokot S Tab) 1 tab BID PO 08/29/17 09:00 09/28/17 08:59 08/28/17 23:48 1 TAB Menthol (Nice Marcello) 1 marcello PRN PRN PO 08/29/17 11:45 09/28/17 11:44 Insulin Glargine (Lantus Solostar Pen) 55 units DAILY SC 08/30/17 09:00 09/29/17 08:59 Future Hold 08/31/17 07:50 55 UNITS Insulin Aspart (novoLOG ASPART) SLIDING SCALE ACHS SC 08/30/17 07:00 09/29/17 06:59 08/31/17 18:04 28 UNITS Ciprofloxacin (Ciprofloxacin Tab) 250 mg Q12H PO 08/31/17 08:00 09/08/17 07:59 08/31/17 07:42 250 MG Methylprednisolone Sodium Succinate 40 mg/Syringe 0.64 ml @ 1.5 mls/min BID IV 08/31/17 20:00 09/29/17 21:59 I & O: 24-Hour Column 09/01/17 08:00 Intake Total 30 ml Output Total 600 ml Balance -570 ml Vital Signs: Date Time Temp Pulse Resp B/P (MAP) Pulse Ox O2 Delivery O2 Flow Rate FiO2 08/31/17 16:03 36.3 70 22 119/70 (86) 96 Nasal Cannula 2.0 08/31/17 14:23 68 16 97 Nasal Cannula 2.0 08/31/17 13:24 Nasal Cannula 2.0 08/31/17 13:07 36.5 80 20 150/79 (102) 98 Nasal Cannula 2.0 08/31/17 12:44 36.9 59 24 98 2.0 08/31/17 12:00 Nasal Cannula 2.0 08/31/17 11:30 36.9 59 24 137/73 (94) 98 Nasal Cannula 2.0 08/31/17 08:00 Nasal Cannula 2.0 08/31/17 07:51 36.6 68 22 122/66 (84) 96 Room Air 08/31/17 07:15 69 16 95 Nasal Cannula 2.0 08/31/17 04:08 36.7 79 20 122/58 (79) 94 Nasal Cannula 2.0 08/31/17 04:00 94 Nasal Cannula 2.0 08/31/17 02:34 71 16 97 Nasal Cannula 2.0 08/31/17 00:01 93 Nasal Cannula 2.0 08/30/17 23:19 36.3 54 20 117/62 (80) 95 BiPAP 08/30/17 21:49 68 93 25 08/30/17 20:21 77 18 95 Nasal Cannula 2.0 08/30/17 20:00 Nasal Cannula 2.0 08/30/17 18:51 36.4 73 18 105/70 (82) 94 Nasal Cannula 2.0 Laboratory Results: Last 24 Hours Test 08/30/17 20:15 08/31/17 00:03 08/31/17 04:11 08/31/17 05:46 Bedside Glucose 157 mg/dl 121 mg/dl 192 mg/dl White Blood Count 11.37 K/uL Red Blood Count 4.11 M/uL Hemoglobin 11.5 g/dL Hematocrit 35.3 % Mean Corpuscular Volume 85.9 fL Mean Corpuscular Hemoglobin 28.0 pg Mean Corpuscular Hemoglobin Concent 32.6 g/dl Platelet Count 323 K/uL Mean Platelet Volume 9.1 fL Neutrophils (%) (Auto) 88.5 % Lymphocytes (%) (Auto) 6.2 % Monocytes (%) (Auto) 4.7 % Eosinophils (%) (Auto) 0.0 % Basophils (%) (Auto) 0.0 % Neutrophils # (Auto) 10.06 K/uL Lymphocytes # (Auto) 0.71 K/uL Monocytes # (Auto) 0.53 K/uL Eosinophils # (Auto) 0.00 K/uL Basophils # (Auto) 0.00 K/uL RDW Standard Deviation 47.4 fL RDW Coefficient of Variation 15.2 % Immature Granulocyte % (Auto) 0.6 % Immature Granulocyte # (Auto) 0.07 K/uL Sodium Level 138 mmol/L Potassium Level 4.7 mmol/L Chloride Level 102 mmol/L Carbon Dioxide Level 32 mmol/L Anion Gap 3.0 mmol/L Blood Urea Nitrogen 42 mg/dl Creatinine 1.40 mg/dl Est Creatinine Clear Calc Drug Dose 52.8 ml/min Estimated GFR () 58.6 Estimated GFR (Non- 50.5 BUN/Creatinine Ratio 30.1 Random Glucose 195 mg/dl Calcium Level 8.8 mg/dl Magnesium Level 2.3 mg/dl Test 08/31/17 06:54 08/31/17 11:24 08/31/17 16:41 Bedside Glucose 163 mg/dl 118 mg/dl 71 mg/dl
[2017-08-31] MEDS: LOVASTATIN 20 MG TAB PO SCH (20:42)
--- NOTE | 2017-08-31 22:33 | Family Medicine Progress Note ---
Progress Note Date of Service Aug 31, 2017. Subjective Pt evaluation today including: conversation w/ patient, physical exam, chart review, lab review Voiding: walsh catheter in place Pt resting comfortably in bed, said he slept well and didn't want the BiPAP machine on his face early this AM and so took it off 0200. Reports he feels better, breathing better, would like to get up and walk around, go home. Constitutional: No weakness Respiratory: + cough, + wheezing Cardiovascular: No chest pain, No orthopnea Abdomen: No pain, No nausea, No vomiting Objective Physical Exam General Appearance: WD/WN, no apparent distress Eyes: normal inspection, EOMI Respiratory/Chest: no accessory muscle use, + wheezing Cardiovascular: regular rate, rhythm, no edema, no gallop, no JVD Abdomen: normal bowel sounds, non tender, soft Extremities: non-tender, normal inspection Skin: normal color, warm/dry, no rash Assessment and Plan 71M admitted from ED for acute onset of shortness of breath/respiratory distress that began about 3 hours prior to arrival. PMH sig for COPD (most recent exac Jun 2017), DM II, HLD, CABG x2 w/AVR (Jul 2017). Lives with son and daughter in law. Pt reports that daughter in law manages details of his care. Hospital day 5: Acute respiratory failure with hypoxia Etiology may be multifactorial: COPD, preserved EF CHF, acute infectious or inflammatory process. CXR + for nodular opacities and small pleural effusion. Improved on steroids and azithro (#5/5 day course completed today), along with IV diuresis Continue BiPAP QPM and PRN during day (required this morning). Cont supp O2 Continue bronchodilators Taper steroids to 40 BID IV. Continue pulmicort capsules Agree with cardio recs: holding lasix given mild renal insufficiency ([employer] stable 1.5 today), may require low-dose oral diuretic at the time of discharge PRN only. Has outpt f/u for PFTs w/ Dr. Fernandez Ordered 2 step, PT/OT rec home (see dispo). CAD/HTN, s/p CABGx2 w/ AVR Agree with cardio recs: cont clopidogrel, metoprolol tartrate, statin (not on high intensity dose possibly due to previous statin intolerance). DM II, insulin dependent BSG improving 118-160s Glycemic consult ongoing, appreciate pharm mgmt. HLD Continue statin. Recommend hi intensity statin (currently on Mevacor). Given recent CABG, would rec hi intensity, although may be on lower dose given adverse reaction to simvastatin. Will defer to cardio outpt mgmt. Walsh catheter associated UTI treated with IV Ceftriaxone UA cx growing GNR (Citrobacter freundii). Given IV Rocephin - switched to PO Ciprofloxacin tomorrow renally dosed at 250mg q12 thru 09/08/17 (till urology appt with Dr. Bahena.) BPH Walsh in place since CABG in [place] (Jul 2017). Has upcoming cystoscopy 09/[address] Bahena. Walsh not to be removed till then, per pt's daughter in law. Probably CKD stage III Last few months indicate shear scrapman ranges from 1.2-1.6 Avoid nephrotoxins, holding diuretics Renally dose all meds PPX-SQ heparin Dispo-remain on tele, PT/OT does not recommend rehab. Will likely need BiPAP at home, so will need 2 step, overnight oximetry and then morning ABG --> ordered on 08/31 to ready for possible DC on 09/01. FULL CODE Continued [facility] stay due to: abnormal vital signs Discharge planning: home Resident Tracking Resident Involvement: Resident Care Provided Care Provided: Adult Hospital Medicine
[2017-09-01] VITALS (8 sets, daily range): BP systolic 108–150; BP diastolic 64–81; PULSE 65–78; TEMP 36.3–36.5; O2SAT 92–96
[2017-09-01] MEDS: IPRATROPIUM BROMIDE NEB SOLN 0.02% 2.5 ML VIAL INH SCH ×4 (01:44→19:06)
[2017-09-01] MEDS: LEVALBUTEROL 1.25MG/0.5ML NEB INH SCH ×4 (01:44→19:06)
[2017-09-01] MEDS: HEPARIN SOD 5000 UNIT/0.5 ML CARP SQ SCH ×3 (05:52→21:13)
[2017-09-01 06:55] LABS: ISTAT ALLEN TEST Pass; ISTAT ARTERIAL BLOOD GAS HCO3 30 meq/L (19-24); ISTAT ARTERIAL BLOOD GAS PCO2 40 mmHg (35-46); ISTAT ARTERIAL BLOOD GAS PO2 47 mmHg (80-95); ISTAT ARTERIAL BLOOD GAS pH 7.48 (7.35-7.45); ISTAT CARBON DIOXIDE 31 mEq/l (24-31); ISTAT DELIVERY SYSTEM Room Air; ISTAT SITE L Radial
[2017-09-01 07:23] LABS: ARTERIAL BLD GAS O2 SATURATION 94.3 % (90-95); ARTERIAL BLOOD GAS HCO3 28 mmol/L (19-24); ARTERIAL BLOOD GAS PO2 73 mm/Hg (80-95); ARTERIAL BLOOD GAS pH 7.46 (7.35-7.45)
[2017-09-01] MEDS: BUDESONIDE 0.5 MG/2 ML VIAL (PULMICORT) INH SCH ×2 (07:23→19:07)
[2017-09-01 07:25] LABS: O2 ADMINISTRATION RA
[2017-09-01 07:26] LABS: ALLEN TEST POS (POS)
[2017-09-01] MEDS ORDERED: INSULIN GLARGINE SOLOSTAR 100 UNITS/ML 3 ML PEN SC ONE ×2 (08:30→21:00)
[2017-09-01] MEDS: INSULIN ASPART 100 UNITS/ML 3 ML PEN SC SCH ×4 (09:20→21:00)
[2017-09-01] MEDS: METHYLPREDNISOLONE IV 40 MG in SYRINGE 0 ML IV SCH (09:33)
[2017-09-01] MEDS: METOPROLOL TARTRATE 25 MG TAB PO SCH ×2 (09:39→21:06)
[2017-09-01] MEDS: CIPROFLOXACIN 250 MG TAB PO SCH ×2 (09:39→21:07)
[2017-09-01] MEDS: CLOPIDOGREL BISULFATE 75 MG TAB PO SCH (09:42)
[2017-09-01] MEDS: PANTOprazole SOD 40 MG TAB PO SCH ×2 (09:43→21:06)
[2017-09-01] MEDS: DOCUSATE SODIUM/SENNA 50/8.6MG TAB PO SCH ×2 (09:44→21:07)
--- NOTE | 2017-09-01 11:27 | Pharmacy Progress Note ---
Glycemic Control Progress Note Date of Service Sep 01, 2017. Scope Glycemic Pharmacist consulted for glycemic control to write orders per [facility] inpatient glycemic control protocol. Objective Accuchecks BSG (last 24hrs): Test 08/31/17 11:24 08/31/17 16:41 08/31/17 20:14 09/01/17 07:43 Bedside Glucose 118 mg/dl (70-99) 71 mg/dl (70-99) 165 mg/dl (70-99) 139 mg/dl (70-99) Recent Pertinent Medications The patient is currently receiving: * Basal insulin: Lantus 55 units every 24 hours * Correctional Insulin: Novolog Correction per scale ACHS Goal Range: Low 100 mg/dL - High 150 mg/dL Correction Factor: 10 mg/dL/unit * Prandial insulin: Per carb ratio of 1 unit per 1.5 grams CHO consumed Outpatient Anti-Diabetic Meds Regular insulin Pump * Basal rate = 2 units/hr * Bolus/Prandial = 1-2 unit for every 1 gram of CHO consumed Assessment & Plan ASSESSMENT: * See progress note from 08/31 for more background info, in short: * Pt receiving SQ basal bolus insulin regimen for hyperglycemia secondary to baseline DM (outpatient regimen on hold), stress/infection, steroids * Steroids reduced to q12h from q8h * Patient is currently receiving an average of 150 units of insulin per day * 55 units of basal insulin * BSGs ranging 71-165 mg/dl over the past 24hrs * Changes needed to insulin regimen: * BSGs are well controlled but adjustments will need made due to steroids being tapered * In addition, patient may be discharged today so will need to plan to transition back to his pump. I confirmed that the patient does not have his supplies with him so will give a reduced dose of Lantus this AM to allow for transition back to his pump when he gets home. PLAN FOR INPATIENT GLYCEMIC CONTROL: * Give Lantus 30 units x 1 this AM (may resume pump when he gets home) * Continue Novolog ACHS * Goal 100-150 * LOOSEN CF to 12 * LOOSEN CR to 2 RECOMMENDATIONS FOR DISCHARGE: * Resume insulin pump on discharge Thank you.
[2017-09-01] MEDS ORDERED: LISINOPRIL 10 MG TAB PO ONE (16:15)
--- NOTE | 2017-09-01 18:50 | Family Medicine Progress Note ---
Progress Note Date of Service Sep 01, 2017. Subjective Pt evaluation today including: conversation w/ patient, physical exam, chart review, lab review Pain: none Voiding: no voiding problems Pt motivated to get out of bed and walk around, still feels some wheeze on exertion. Resting comfortably. Motivated to go home. Respiratory: + wheezing, No cough, No sputum Cardiovascular: No chest pain, No edema Abdomen: No pain, No nausea, No vomiting Objective Vital Signs Date Time Temp Pulse Resp B/P (MAP) Pulse Ox O2 Delivery O2 Flow Rate FiO2 09/01/17 19:07 75 16 95 Room Air 09/01/17 16:00 Room Air 09/01/17 14:57 36.5 65 22 112/64 (80) 94 Room Air 09/01/17 14:31 78 16 94 Room Air 09/01/17 12:09 36.3 73 20 150/78 (102) 92 Room Air 09/01/17 12:07 Room Air 09/01/17 08:00 Room Air 09/01/17 07:53 36.4 71 24 129/81 (97) 92 Room Air 09/01/17 07:27 76 16 94 Room Air 09/01/17 00:16 36.4 71 20 117/72 (87) 96 09/01/17 00:00 Room Air 08/31/17 21:00 97 Nasal Cannula 2.0 08/31/17 20:29 64 110/68 (82) Physical Exam General Appearance: WD/WN, no apparent distress Eyes: normal inspection, EOMI Respiratory/Chest: chest non-tender, no respiratory distress, + wheezing Cardiovascular: regular rate, rhythm, no gallop, no JVD Abdomen: normal bowel sounds, non tender, soft Extremities: normal range of motion, no pedal edema Skin: normal color, warm/dry Assessment and Plan 71M admitted from ED for acute onset of shortness of breath/respiratory distress that began about 3 hours prior to arrival. PMH sig for COPD (most recent exac Jun 2017), DM II, HLD, CABG x2 w/AVR (Jul 2017). Lives with son and daughter in law. Pt reports that daughter in law manages details of his care. Hospital day 6: Acute respiratory failure with hypoxia Etiology may be multifactorial: COPD, preserved EF CHF, acute infectious or inflammatory process. CXR + for nodular opacities and small pleural effusion. Improved on steroids and azithro (#5/5 day course completed today), along with IV diuresis Continue BiPAP QPM and PRN during day (required this morning). Cont supp O2 Continue bronchodilators Taper steroids to 40x2, 30x2, 20x2, 10x2, stop. Continue pulmicort capsules Has outpt f/u for PFTs w/ Dr. Fernandez Ordered 2 step, PT/OT rec home (see dispo). CAD/HTN, s/p CABGx2 w/ AVR Agree with cardio recs: cont clopidogrel, metoprolol tartrate, statin (not on high intensity dose possibly due to previous statin intolerance). DM II, insulin dependent BSG improving 118-160s Glycemic consult ongoing, appreciate pharm mgmt. Started Lisinopril low dose. HLD Continue statin. Recommend hi intensity statin (currently on Mevacor). Given recent CABG, would rec hi intensity, although may be on lower dose given adverse reaction to simvastatin. Will defer to cardio outpt mgmt. Romero catheter associated UTI treated with IV Ceftriaxone UA cx growing GNR (Citrobacter freundii). Given IV Rocephin - switched to PO Ciprofloxacin tomorrow renally dosed at 250mg q12 thru 09/08/17 (till urology appt with Dr. Bahena.) BPH Romero in place since CABG in [place] (Jul 2017). Has upcoming cystoscopy 09/[address] Bahena. Romero not to be removed till then, per pt's daughter in law. Probably CKD stage III Last few months indicate general operations agent ranges from 1.2-1.6 Avoid nephrotoxins, holding diuretics Renally dose all meds PPX-SQ heparin Dispo-remain on tele, PT/OT does not recommend rehab. May need BiPAP at home, so will need 2 step, overnight oximetry and then morning ABG --> ordered on to ready for possible DC on 09/02. Continued [facility] stay due to: abnormal vital signs, home environment unsafe for pt Discharge planning: home Resident Tracking Resident Involvement: Resident Care Provided Care Provided: Adult Hospital Medicine
[2017-09-01] MEDS: LOVASTATIN 20 MG TAB PO SCH (21:06)
[2017-09-02] VITALS: O2SAT 95
[2017-09-02 02:01] VITALS: PULSE 76; O2SAT 95
[2017-09-02] MEDS: LEVALBUTEROL 1.25MG/0.5ML NEB INH SCH ×3 (02:01→14:23)
[2017-09-02] MEDS: IPRATROPIUM BROMIDE NEB SOLN 0.02% 2.5 ML VIAL INH SCH ×3 (02:01→14:23)
[2017-09-02] MEDS: HEPARIN SOD 5000 UNIT/0.5 ML CARP SQ SCH ×2 (06:00→14:00)
[2017-09-02 06:24] VITALS: PULSE 86; O2SAT 97
[2017-09-02] MEDS: BUDESONIDE 0.5 MG/2 ML VIAL (PULMICORT) INH SCH (06:24)
[2017-09-02] MEDS ORDERED: INSULIN GLARGINE SOLOSTAR 100 UNITS/ML 3 ML PEN SC SCH ×2 (08:00)
[2017-09-02] MEDS ORDERED: LISINOPRIL 10 MG TAB PO SCH (08:00)
[2017-09-02 08:08] VITALS: BP 106/59; PULSE 70; TEMP 36.5; O2SAT 97
[2017-09-02] MEDS: CIPROFLOXACIN 250 MG TAB PO SCH (08:51)
[2017-09-02] MEDS: METOPROLOL TARTRATE 25 MG TAB PO SCH (08:51)
[2017-09-02] MEDS: DOCUSATE SODIUM/SENNA 50/8.6MG TAB PO SCH (08:51)
[2017-09-02] MEDS: PANTOprazole SOD 40 MG TAB PO SCH (08:51)
[2017-09-02] MEDS: CLOPIDOGREL BISULFATE 75 MG TAB PO SCH (08:51)
[2017-09-02] MEDS: CETIRIZINE HCL 10 MG TAB PO PRN (08:52)
[2017-09-02] MEDS: INSULIN ASPART 100 UNITS/ML 3 ML PEN SC SCH ×2 (09:05→13:07)
--- NOTE | 2017-09-02 09:51 | Pharmacy Progress Note ---
Glycemic Control Progress Note Date of Service Sep 02, 2017. Scope Glycemic Pharmacist consulted for glycemic control to write orders per [facility] inpatient glycemic control protocol. Objective Accuchecks BSG (last 24hrs): Test 09/01/17 11:47 09/01/17 16:32 09/01/17 19:52 09/02/17 07:32 Bedside Glucose 156 mg/dl (70-99) 101 mg/dl (70-99) 118 mg/dl (70-99) 249 mg/dl (70-99) Recent Pertinent Medications The patient is currently receiving: * Basal insulin: Lantus 30 units every 24 hours - plus additional 7 units last night for a total of 37 units on 09/01 * Correctional Insulin: Novolog Correction per scale ACHS Goal Range: Low 100 mg/dL - High 150 mg/dL Correction Factor: 12 mg/dL/unit * Prandial insulin: Per carb ratio of 1 unit per 2 grams CHO consumed Outpatient Anti-Diabetic Meds Regular insulin pump Assessment & Plan ASSESSMENT: * See progress note from 08/29/17 for more background info, in short: * Pt receiving SQ basal bolus insulin regimen for hyperglycemia secondary to baseline DM (outpatient insulin pump regimen on hold),stress/infection, steroids * Patient is currently receiving 100-150 units of insulin SQ insulin per day * 37 units of basal insulin * ~90-100 units of prandial/correctional insulin * BSGs ranging 101 - 249 mg/dl * Changes needed to insulin regimen: * AM Fasting BSG = 249 mg/dl. This is elevated secondary to decreased basal insulin given yesterday. We are changing from once daily Lantus to BID Lantus to ease the transition back to patient own insulin pump at discharge. We do not want 24hrs of basal insulin on board whenever the patient goes home and puts his pump back on or else he may become hypoglycemic secondary to double basal insulin dosing. Considered giving additional Lantus this morning for AM fasting hyperglycemia and to make up reduced Lantus given yesterday but patient refused. * Post-prandial BSGs are in range therefore no changes needed to CF/CR. Aggressive CF/CR warranted for steroid induced hyperglycemia. Will loosen CF/CR when steroids tapered. PLAN FOR INPATIENT GLYCEMIC CONTROL: No changes at this time. Continue current regimen in prep for discharge. * Basal insulin * Lantus 20 units SQ Q12 hrs * Of note, patient uses ~ 50 units of basal insulin as an outpatient per his insulin pump. He should be able to transition back to pump ~8-12 hrs after last Lantus dose with this regimen. * Bolus insulin * NovoLog per scale ACHS or Q6hrs while NPO * Goal Range: Low 100 mg/dL - High 150 mg/dL * Correction Factor: 12 mg/dL/unit * Nutritional / Prandial insulin per carb ratio of 1 unit per 2 grams CHO consumed * Please note that the plan above was derived based on current level of insulin resistance and hospital stress. These recommendations are appropriate for inpatient admission only. Plan of care upon discharge will need to be reassessed to avoid potential outpatient hypo/hyperglycemia. Thank you.
[2017-09-02] MEDS ORDERED: LSN10 PO (11:42)
[2017-09-02] MEDS ORDERED: GUAI1TAB75 PO (11:42)
[2017-09-02] MEDS ORDERED: PRD10 PO (12:08)
--- NOTE | 2017-09-02 12:19 | Discharge Instructions ---
Discharge Instructions Date of Service Sep 02, 2017. Admission Reason for Admission: Acute Respiratory Failure With Hypoxia Discharge Discharge Diagnosis / Problem: Acute respiratory failure with hypoxia Discharge Goals Goal(s): Decrease discomfort, Improve function, Increase independence, Improve disease control Activity Recommendations Activity Limitations: as noted below Lifting Limitations: gradually increase as tolerated Exercise/Sports Limitations: as tolerated May Resume Sexual Activity: when tolerated Shower/Bathe: no limitations . Instructions / Follow-Up Instructions / Follow-Up You were admitted after having shortness of breath that was more than usual for you. You have chronic obstructive pulmonary disease which requires that you take your inhalers as prescribed, as well as medications for your diabetes, high cholesterol and heart disease. We want you to continue the steroid tabs as prescribed. We also started you on a new medication called Lisinopril to help protect your kidneys because your Creatinine was in the range of 1.4-1.6 which can indicate kidney damage in the setting of your other chronic illnesses. Do not take any "water pills" (also called diuretics) until after follow up with your primary care physician. We also have prescribed an antibiotic to be taken for your urinary tract infection, which is present because of the walsh catheter that is in right now. This catheter is to remain in place until your follow up appointment with Dr. Bahena on the 08 of September. You may also benefit from added oxygen at home, especially at night as you have described issues with breathing in the past, during the night time. I have written a script for that for you, please follow up with Dr. Fernandez for your pulmonary function tests to discuss this further. Lastly, I've written a script for Guafenasin that may help thin your lung secretions, so that coughing can be more productive. Thank you for allowing me to participate in your care. Current Hospital Diet Patient's current hospital diet: Diabetes Type 2 Diet, AHA Diet (Heart Healthy) Discharge Diet Recommended Diet: AHA Diet (Heart Healthy), Diabetes Type 1 Diet Fluid Restriction: None Pending Studies Studies pending at discharge: no Laboratory Results Hemoglobin A1c Test 07/15/17 08:07 Range/Units Estimated Average Glucose 209 mg/dl Hemoglobin A1c 8.9 H 4.5-5.6 % Lipid Panel Test 07/15/17 08:07 Range/Units Triglycerides Level 79 0-150 mg/dl Cholesterol Level 211 H 0-200 mg/dl HDL Cholesterol 57 mg/dl Cholesterol/HDL Ratio 3.7 LDL Cholesterol, Calculated 138 mg/dl Medical Emergencies . Who to Call and When: Medical Emergencies: If at any time you feel your situation is an emergency, please call 911 immediately. . Non-Emergent Contact Non-Emergency issues call your: Primary Care Provider . . "Provider Documentation" section prepared by Reena Gamez. . VTE Core Measure Inpt VTE Proph given/why not?: Unfractionated heparin SQ
[2017-09-02] MEDS ORDERED: CIPR250T5 PO (12:34)
[2017-09-02 14:24] VITALS: BP 106/59; PULSE 65; PULSE 70; TEMP 36.5; O2SAT 94; O2SAT 97
--- NOTE | 2017-09-02 22:39 | Discharge Summary ---
Discharge Summary Date of Service Sep 02, 2017. Discharge Summary Admission Date: Aug 26, 2017 at 06:25 Discharge Date: Sep 02, 2017 Discharge Disposition: Home Principal Diagnosis: acute on chronic respiratory failure Immunizations: Have You Had Influenza Vaccine: Unknown History of Tetanus Vaccine?: Unknown History of Pneumococcal: Unknown History of Hepatitis B Vaccine: Unknown Medication Reconciliation New Medications: Guaifenesin La (Guaifenesin Er) 600 Mg Tabcr 600 MG PO Q12H for 30 Days, #60 TAB Ciprofloxacin (Ciprofloxacin HCl) 250 Mg Tab 250 MG PO Q12H for 7 Days, #14 TAB Lisinopril (Zestril) 10 Mg Tab 10 MG PO QAM for 30 Days, #30 TAB Prednisone (Prednisone) 10 Mg Tab 10 MG PO DAILY for 7 Days, #30 TAB 4tab today this afternoon. 3 tab BID x 2days 2 tab BID x 2days 1 tab BID x 2 days Continued Medications: Albuterol Hfa (Ventolin Hfa) 200 Puffs/48915 Mcg Aers 2 PUFFS INH Q4 PRN for SOB/Wheezing Cetirizine (Zyrtec) 10 Mg Tab 10 MG PO DAILY PRN for ALLERGIES Clopidogrel (Plavix) 75 Mg Tab 75 MG PO DAILY Insulin Human Regular (Insulin Regular Pump ) Pump 1 EA N/A UD Ipratropium-Albuterol (Duoneb) 3 Ml Nebu 1 TREATMENT INH Q4H PRN for SOB/Wheezing Lovastatin (Mevacor) 10 Mg Tab 10 MG PO HS Metoprolol Tartrate (Lopressor) (Lopressor) 25 Mg Tab 25 MG PO BID Multiple Vitamins W/ Minerals (Centrum Silver Adult 50+) 1 Tab Tab 1 TAB PO DAILY [place]-3 Fatty Acids (Fish Oil) 1,200 Mg Cap 1200 MG PO DAILY Umeclidinium [place] (Incruse Ellipta) 62.5 Mcg/Inh Inh 1 PUFF INH DAILY Discharge Exam Review of Systems: Constitutional: No fever, No chills, No sweats Respiratory: + cough, + sputum, No wheezing, No shortness of breath, No hemoptysis Cardiovascular: No chest pain, No orthopnea Abdomen: No pain, No nausea, No vomiting Genitourinary - Male: + hematuria (mild giorgi hematuria seen in walsh bag), No dysuria Physical Exam: General Appearance: WD/WN, no apparent distress Eyes: normal inspection, EOMI Respiratory/Chest: no respiratory distress, + decreased breath sounds Cardiovascular: regular rate, rhythm, no edema, no gallop, no JVD, no murmur Abdomen / GI: normal bowel sounds, non tender, soft Hospital Course 71M admitted from ED for acute onset of shortness of breath/respiratory distress that began about 3 hours prior to arrival. PMH sig for COPD (most recent exac Jun 2017), DM II, HLD, CABG x2 w/AVR (Jul 2017). Lives with son and daughter in law. Pt reports that daughter in law manages details of his care. Acute respiratory failure with hypoxia Etiology may be multifactorial: COPD, preserved EF CHF, acute infectious or inflammatory process. CXR + for nodular opacities and small pleural effusion. Improved on steroids and azithro (#5/5 day course completed today), along with IV diuresis Continue BiPAP QPM and PRN during day (required this morning). Cont supp O2 Continue bronchodilators Taper steroids to 40x2, 30x2, 20x2, 10x2, stop. Continue pulmicort capsules Has outpt f/u for PFTs w/ Dr. Fernandez Ordered 2 step, PT/OT rec home (see dispo). Pt did not qualify for O2, though sent script for it and also for O2 qhs. Sent home on steroid taper, and inhalers. CAD/HTN, s/p CABGx2 w/ AVR Agree with cardio recs: cont clopidogrel, metoprolol tartrate, statin (not on high intensity dose possibly due to previous statin intolerance). DM II, insulin dependent BSG improving 118-160s Glycemic consult ongoing, appreciate pharm mgmt. Started Lisinopril low dose. HLD Continue statin. Recommend hi intensity statin (currently on Mevacor). Given recent CABG, would rec hi intensity, although may be on lower dose given adverse reaction to simvastatin. Will defer to cardio outpt mgmt. Walsh catheter associated UTI treated with IV Ceftriaxone UA cx growing GNR (Citrobacter freundii). Given IV Rocephin - switched to PO Cipro with renal dosed at 250mg q12 thru 09/08/17 (till urology appt with Dr. Bahena.) BPH Walsh in place since CABG in [place] (Jul 2017). Has upcoming cystoscopy 09/[address] Bahena. Walsh not to be removed till then, per pt's daughter in law. Probably CKD stage III Last few months indicate hay chopper ranges from 1.2-1.6 Avoid nephrotoxins, holding diuretics Renally dose all meds PPX-SQ heparin Dispo-Home with , who drove from [place] to pick him up, PT/OT does not recommend rehab, or oxygen per respiratory. Total Time Spent: Greater than 30 minutes This includes examination of the patient, discharge planning, medication reconciliation, and communication with other providers. Discharge Instructions Please refer to the electronic Patient Visit Report (Discharge Instructions) for additional information. Additional Copies To Balaji Lopez M.D.
== END 2017-09-02 15:10 | disposition home health service (06) | DRG 698 ==
LOC: EDBD 03:56 → C.EDA 03:56 → C.MSICU 06:25 → ENRESERV 06:32 → C.2T 08-28 12:43 → ENRESERV 08-31 12:23 → C.4E 08-31 13:02
PROVIDERS: ADMIT Hospitalist; ATTEND Hospitalist
DX: T83.511A Infection and inflammatory reaction due to indwelling urethral catheter, initial encounter (principal); J96.21 Acute and chronic respiratory failure with hypoxia; J96.22 Acute and chronic respiratory failure with hypercapnia; I50.33 Acute on chronic diastolic (congestive) heart failure; I13.0 Hypertensive heart and chronic kidney disease with heart failure and stage 1 through stage 4 chronic kidney disease, or unspecified chronic kidney disease; J44.1 Chronic obstructive pulmonary disease with (acute) exacerbation; N39.0 Urinary tract infection, site not specified; T38.0X5A Adverse effect of glucocorticoids and synthetic analogues, initial encounter; E11.65 Type 2 diabetes mellitus with hyperglycemia; E11.22 Type 2 diabetes mellitus with diabetic chronic kidney disease; N18.3 Chronic kidney disease, stage 3 (moderate); E78.00 Pure hypercholesterolemia, unspecified; I25.10 Atherosclerotic heart disease of native coronary artery without angina pectoris; N40.0 Benign prostatic hyperplasia without lower urinary tract symptoms; J40 Bronchitis, not specified as acute or chronic; Z96.41 Presence of insulin pump (external) (internal); Z79.02 Long term (current) use of antithrombotics/antiplatelets; Z79.4 Long term (current) use of insulin; Z79.899 Other long term (current) drug therapy; Z95.1 Presence of aortocoronary bypass graft; Z95.2 Presence of prosthetic heart valve; Z87.891 Personal history of nicotine dependence; Z83.3 Family history of diabetes mellitus; Y84.6 Urinary catheterization as the cause of abnormal reaction of the patient, or of later complication, without mention of misadventure at the time of the procedure; Y73.2 Prosthetic and other implants, materials and accessory gastroenterology and urology devices associated with adverse incidents

== ENCOUNTER 2017-09-17 00:22 | Inpatient (IN) | payer OTHER, MEDICARE ==
[~2017-09-17] VITALS: Ht 182.9 cm; Wt 75.0 kg
[2017-09-17] VITALS (15 sets, daily range): BP systolic 93–143; BP diastolic 57–92; PULSE 73–111; TEMP 36.2–36.5; O2SAT 94–100; Ht 182.9 cm; Wt 75.0 kg
[~2017-09-17 00:22] MED LIST changes: -FLUT1INH7 INH; +GUAI1TAB75 PO; -ISOS30TA35 PO; -LISI-461 PO; +LSN10 PO; -PRED10TA PO
[2017-09-17] MEDS ORDERED: CETIRIZINE HCL 10 MG TAB PO PRN (05:00)
[2017-09-17] MEDS ORDERED: ALUMINUM/MAGNESIUM/SIMETH (MAALOX MAX) 30 ML UDC PO PRN (05:00)
[2017-09-17] MEDS ORDERED: POLYETHYLENE (MIRALAX) 17 GM PACK PO PRN (05:00)
[2017-09-17] MEDS ORDERED: ONDANSETRON INJ 2 MG/ML 2 ML VIAL IV PRN (05:00)
[2017-09-17] MEDS ORDERED: ACETAMINOPHEN 325 MG TAB PO PRN (05:00)
[2017-09-17] MEDS ORDERED: NITROGLYCERIN 0.4 MG SL PER TAB CHARGE SL PRN (05:00)
--- NOTE | 2017-09-17 05:18 | History and Physical ---
History & Physical Date & Time of Service: Sep 17, 2017 at 05:06 Chief Complaint: Copd Exacerbation Primary Care Physician: Balaji Lopez M.D. History of Present Illness Source: patient 71-year-old male with past medical history of COPD, recent exacerbation in early August 2017, diabetes type 2, coronary artery disease status post CABG 2 with AVR, hyperlipidemia presented as a direct admit from [facility] for acute hypoxic and hypercarbic respiratory failure. He was unresponsive when initially assessed by EMS and transported to the [place] ER. He had received 125 mg Solu-Medrol and DuoNeb treatment and transported to [facility] on BiPAP. He is currently on a BiPAP and states that he feels somewhat better. Denies any chest pain, palpitations, lightheadedness or dizziness currently but had stated that he probably had a syncopal episode on the way from his home to [facility]. Denies any fevers/chills, body aches but states that he had been experiencing dry coughing and wheezing over the last few days. denies any abdominal pain, nausea, vomiting. Currently a nonsmoker, denies any recent immobilization or long haul travel or calf tenderness or swelling Past Medical/Surgical History Medical Problems: (1) COPD (chronic obstructive pulmonary disease) Status: Chronic (2) Diabetes Status: Chronic (3) HLD (hyperlipidemia) Status: Chronic Surgical Problems: (1) History of intravascular stent placement Status: Resolved Family History Diabetes mellitus Social History Smoking Status: Former Smoker Drug Use: none Marital Status: Housing status: lives with family Occupational Status: retired Immunizations History of Influenza Vaccine: Unknown History of Tetanus Vaccine?: Unknown History of Pneumococcal: Unknown History of Hepatitis B Vaccine: Unknown Multi-Drug Resistant Organisms History of MDRO: No Allergies Coded Allergies: Simvastatin (Unverified Adverse Reaction, Intermediate, SEE COMMENT PLEASE , 08/26/17) PATIENT IS UNSURE OF WHICH CHOLESTEROL MEDS HE IS ALLERGIC TO BUT HE SAYS THEY "JUST DON'T AGREE WITH ME" Home Medications Scheduled Clopidogrel (Plavix), 75 MG PO DAILY Guaifenesin La (Guaifenesin Er), 600 MG PO Q12H Insulin Human Regular (Insulin Regular Pump ), 1 EA N/A UD Lisinopril (Zestril), 10 MG PO QAM Lovastatin (Mevacor), 10 MG PO HS Metoprolol Tartrate (Lopressor) (Lopressor), 25 MG PO BID Multiple Vitamins W/ Minerals (Centrum Silver Adult 50+), 1 TAB PO DAILY [place]-3 Fatty Acids (Fish Oil), 1,200 MG PO DAILY Umeclidinium [place] (Incruse Ellipta), 1 PUFF INH DAILY Scheduled PRN Albuterol Hfa (Ventolin Hfa), 2 PUFFS INH Q4 PRN for SOB/Wheezing Cetirizine (Zyrtec), 10 MG PO DAILY PRN for ALLERGIES Ipratropium-Albuterol (Duoneb), 1 TREATMENT INH Q4H PRN for SOB/Wheezing Review of Systems Constitutional: No fever, No chills, No sweats Eyes: No worsening of vision ENT: No hearing loss Respiratory: + cough (dry), + wheezing, + shortness of breath, + dyspnea on exertion, + dyspnea at rest Cardiovascular: No chest pain, No edema, No palpitations Abdomen: No pain, No nausea, No vomiting Musculoskeletal: No joint pain Genitourinary - Male: No hematuria, No dysuria, No urinary frequency Neurologic: No memory loss, No paralysis Psychiatric: No depression symptoms Endocrine: No fatigue Hematologic / Lymphatic: No abnormal bleeding/bruising Integumentary: No rash Physical Exam Vital Signs Date Time Temp Pulse Resp B/P (MAP) Pulse Ox O2 Delivery O2 Flow Rate FiO2 09/17/17 05:02 106 96 30 09/17/17 04:21 36.2 109 28 143/92 BiPAP 09/17/17 04:09 111 99 30 General Appearance: WD/WN, + moderate distress Eyes: normal inspection ENT: hearing grossly normal Neck: supple, no adenopathy Respiratory/Chest: chest non-tender, + respiratory distress, + accessory muscle use, + wheezing (diffusely) Cardiovascular: + tachycardia, + pertinent finding (midsternal incision from bypass) Abdomen/GI: non tender, soft Back: normal inspection Extremities/Musculoskelatal: normal inspection, no pedal edema, normal range of motion Neurologic/Psych: alert, normal mood/affect, oriented x 3 Diagnostics Laboratory Results Results Past 24 Hours Test 09/17/17 04:49 Range/Units Impression Assessment and Plan 71-year-old male with past medical history of COPD, recent exacerbation in early August 2017, diabetes type 2, coronary artery disease status post CABG 2 with AVR, hyperlipidemia presented as a direct admit from [facility] for acute hypoxic and hypercarbic respiratory failure. Acute hypoxic and hypercarbic respiratory failure/COPD exacerbation - Chest x-ray ordered - Had already received 125 mg Solu-Medrol with DuoNeb treatment at outside hospital ER - continue prednisone 60 mg every 6 hours with DuoNeb's -Continue home inhalers - Flu vaccination declined - Pulmonology consult CAD/CABG 2/AVR/hypertension - Troponins trended - Continue clopidogrel, metoprolol, lovastatin, lisinopril Diabetes type 2: - Uses insulin pump at home which he has not carried with him -Pharmacy consult for glycemic management DVT prophylaxis: Lovenox DO NOT RESUSCITATE Disposition: Admitted to telemetry Resident Physician Supervision Note: Pt seen/evaluated independently. I discussed the case with the resident and agree with the findings and plan as documented in the note. Any exceptions or clarifications are listed here: 71 y/o M COPD, CAD, DM - transferred from [facility] due to acute hypercarbic and hypoxic resp failure - pt was reported poorly responsive prior to arrival at [place] - initial CO2 ~ 90 - mentation improved with BiPAP and decrease in CO2. Arrived at [facility] on Bipap. OE AAO x 3 S1,2 R Poor b/l air entry - no crackles NT, ND No CCE P: Duonebs, Albuterol, IV steroids, Abs, 02 protocol SS for DM Cont Plavix, Bblocker, Statin for CAD history Documented By: Darien Morgan Advanced Directives Existing Living Will: No Existing Power of [employer] Science Teacher: Yes VTE Prophylaxis VTE Risk Assessment Done? Y/N: Yes Risk Level: Moderate Given or contraindicated: Enoxaparin (Lovenox)SQ Resident Tracking Resident Involvement: Resident Care Provided Care Provided: Adult Hospital Medicine
[2017-09-17 05:29] LABS: BASO % 0.1 %; BASO ABS # 0.01 K/uL (0-0.2); COMPLETE YES; EOS % 0.1 %; HEMATOCRIT 36.8 % (42-52); IG% 0.3 %; LYMPH % 3.4 %; LYMPH ABS # 0.36 K/uL (1.2-3.4); MEAN CELL VOLUME 85.8 fL (80-100); MEAN CORPUSCULAR HGB CONC 32.6 g/dl (32-36); MEAN PLATELET VOLUME 8.9 fL (7.4-10.4); MONO % 0.5 %; NEUT % 95.6 %; PLATELET COUNT 222 K/uL (130-400); RED BLOOD COUNT 4.29 M/uL (4.7-6.1)
[2017-09-17] MEDS ORDERED: PHARMACY GLYCEMIC MGMT CONSULT PRN (05:30)
[2017-09-17] MEDS ORDERED: DEXTROSE 50% 50 ML SYR IV PRN (05:45)
[2017-09-17] MEDS ORDERED: GLUCAGON FOR INJ 1 MG VIAL SQ PRN (05:45)
[2017-09-17] MEDS ORDERED: GLUCOSE 10 TABS/TUBE PO PRN (05:45)
[2017-09-17] MEDS ORDERED: GLUCOSE 40% GEL 15 GM TUBE PO PRN (05:45)
[2017-09-17 05:47] LABS: BUN/CREATININE RATIO 19.1 (10-20); CALCIUM 8.8 mg/dl (8.5-10.1); CREATININE 1.66 mg/dl (0.60-1.40); POTASSIUM 5.6 mmol/L (3.5-5.1)
[2017-09-17] MEDS: METHYLPREDNISOLONE IV 60 MG in SYRINGE 0 ML IV SCH ×3 (05:54→17:34)
[2017-09-17] MEDS: INSULIN ASPART 100 UNITS/ML 3 ML PEN SC SCH ×4 (05:57→21:00)
[2017-09-17] MEDS ORDERED: INSULIN GLARGINE SOLOSTAR 100 UNITS/ML 3 ML PEN SC ONE (06:00)
[2017-09-17 06:52] LABS: PROTHROMBIN TIME (PATIENT) 10.7 SECONDS (9.0-12.0)
[2017-09-17] MEDS: IPRATROPIUM BROMIDE NEB SOLN 0.02% 2.5 ML VIAL INH SCH ×3 (07:28→19:35)
[2017-09-17] MEDS: LEVALBUTEROL 1.25MG/0.5ML NEB INH SCH ×3 (07:28→19:35)
[2017-09-17] MEDS ORDERED: LEVALBUTEROL/IPRATROPIUM NEB INH SCH (09:00)
[2017-09-17] MEDS ORDERED: INSULIN HUMAN REGULAR PER SC SCH (09:00)
[2017-09-17] MEDS: METOPROLOL TARTRATE 25 MG TAB PO SCH ×2 (09:11→20:09)
[2017-09-17] MEDS: CEROVITE ADV FORMULA TAB PO SCH (09:11)
[2017-09-17] MEDS: OMEGA-3 (PURIFIED FISH OIL) 1 GM CAP PO SCH (09:11)
[2017-09-17] MEDS: LISINOPRIL 10 MG TAB PO SCH (09:11)
[2017-09-17] MEDS: CLOPIDOGREL BISULFATE 75 MG TAB PO SCH (09:11)
[2017-09-17] MEDS: ENOXAPARIN 40 MG/0.4 ML SYR SC SCH (09:26)
[2017-09-17 09:43] LABS: BUN/CREATININE RATIO 21.2 (10-20); CALCIUM 9.4 mg/dl (8.5-10.1); CREATININE 1.73 mg/dl (0.60-1.40); MAGNESIUM 1.5 mg/dl (1.8-2.4); POTASSIUM 5.8 mmol/L (3.5-5.1)
--- NOTE | 2017-09-17 09:49 | DIAGNOSTIC IMAGING REPORT ---
CHEST ONE VIEW PORTABLE CLINICAL HISTORY: COPD exact dyspnea COMPARISON STUDY: 09/07/2017 FINDINGS: Prior median sternotomy. No evidence for cardiac enlargement. Lungs currently are considered clear. Chronic elevation left hemidiaphragm. IMPRESSION: Chronic change. No acute process. The above report was generated using voice recognition software. It may contain grammatical, syntax or spelling errors. Electronically signed by: Clint Reed M.D. 09/17/2017 9:47 AM Dictated Date/Time: 09/17/2017 9:47 AM
[2017-09-17 09:54] LABS: BETA-HYDROXYBUTYRATE 7.05 mg/dL (0.2-2.81)
--- NOTE | 2017-09-17 10:11 | Pulmonary Consultation ---
History General Date of Service: Sep 17, 2017. Stated Complaint: Copd Exacerbation HPI The patient is a 71 year old male who presents to [facility] with complaints of Copd Exacerbation. The patient's primary care provider is Balaji Lopez M.D.. Mr. Bruner is 8-year-old male with history of COPD. He has recent admission in 08/21/2017. He also has history of diabetes type 2, coronary artery disease, CABG status post recent aortic valve replacement. He is a direct transfer from [facility] for acute hypoxic hypercapnic respiratory failure. PCO2 at [place] was noted to be around 90. This morning patient was noted to be unresponsive and transferred to the hospital for a further evaluation. He was placed on BiPAP, received 125 mg of Solu-Medrol and Duoneb nebulizer while en route en route [facility]. At the time of his arrival he sustained feeling somewhat better. He denies any fevers, chills, chest pain, shortness of breath. Over the last few days he has been experiencing dry cough and wheezing over the last several days. He denies any lower extremity edema, orthopnea, lightheadedness or dizziness. He was recently discharged home on albuterol 2 puffs every 4 hours when necessary guaifenesin 600 mg by mouth every 12 hours, Duoneb every 4 when necessary, Incruse Ellipta 1 puff inhaled daily from a respiratory standpoint. Vital signs in the ER, temperature 36.2, pulse 109, respiratory rate 28, blood pressure 143/92, saturating 99% on BiPAP 12/530% FiO2. Laboratory data show white blood cell count of 10, hemoglobin of 12, hematocrit 36, platelet count 222. Chemistry shows a sodium of 132, potassium 5.6, chloride 98, carbon dioxide 26, BUN 32, creatinine 1.66, random glucose 300, troponin 0.19. Coags within normal. AM labs are pending. Chest x-ray low lung volumes. Mostly on the left than the right. No focal infiltrate seen. There is mild bronchial wall thickening bilaterally. EKG showed normal sinus rhythm, with ventricular rate of 100 bpm. Possible left atrial enlargement, with ST and T-wave abnormalities. Inferior T waves have replaced nonspecific T-wave abnormalities in the inferior leads. He was admitted for COPD exacerbation. Current medications include Xopenex inhaler every 6 hours, ipratropium every 6 hours and Solu-Medrol 60 mg every 6 hours IV. Historian: patient, EMS, long term Onset: just prior to arrival Complaint Status: persistent Review of Systems Constitutional: reports: as stated in HPI Eyes: reports: as stated in HPI ENT: reports: as stated in HPI Cardiovascular: reports: as stated in HPI Respiratory: reports: cough, shortness of breath, wheezing, LAO Gastrointestinal: reports: as stated in HPI Genitourinary - Male: reports: as stated in HPI Musculoskeletal: reports: as stated in HPI Integumentary: reports: as stated in HPI Neurologic: reports: as stated in HPI Psychiatric: reports: as stated in HPI Endocrine: as stated in HPI Hematologic / Lymphatic: as stated in HPI Allergic / Immunologic: as stated in HPI All Other Symptoms All Other Systems: Reviewed and Negative Past Medical History Past Medical History: PAST MEDICAL HISTORY: 1. Hypertension. 2. Diabetes. 3. Diabetic retinopathy. 4. Hyperlipidemia. 5. Hypertension. 6. COPD. 7. CHF. Past Surgical History: PAST SURGICAL HISTORY: 1. Cataract surgeries bilaterally. 2. Coronary artery bypass graft and aortic valve replacement. 3. Cardiac stent to the LAD in 2014. 4. Prostate surgery. 5. Stent to the right superficial femoral artery. Family History Diabetes mellitus FAMILY HISTORY: Positive for diabetes in his mother and cancer in his father. Social History SOCIAL HISTORY: Tobacco none since age 36. Previously 1 pack per day for 20 years. 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 Hx Tobacco Use In Past Year?: No Smoking Status: Former Smoker Marital status: Housing status: lives with family Occupational Status: retired Immunizations History of Influenza Vaccine: Unknown History of Tetanus Vaccine?: Unknown History of Pneumococcal: Unknown History of Hepatitis B Vaccine: Unknown History of MDRO History of MDRO: No Allergies Coded Allergies: Simvastatin (Unverified Adverse Reaction, Intermediate, SEE COMMENT PLEASE , 08/26/17) PATIENT IS UNSURE OF WHICH CHOLESTEROL MEDS HE IS ALLERGIC TO BUT HE SAYS THEY "JUST DON'T AGREE WITH ME" Current Medications Reported Home Medications Medications Dose Route/Sig Max Daily Dose Days Date Category Guaifenesin Er (Guaifenesin) 600 Mg Tabcr 600 Mg PO Q12H 30 09/02/17 Rx Zestril (Lisinopril) 10 Mg Tab 10 Mg PO QAM 30 09/02/17 Rx Ventolin Hfa (Albuterol) 200 Puffs/65382 Mcg Aers 2 Puffs INH Q4 PRN 07/14/17 Reported Centrum Silver Adult 50+ (Multiple Vitamins W/ Minerals) 1 Tab Tab 1 Tab PO DAILY 07/14/17 Reported Lopressor (Metoprolol Tartrate) 25 Mg Tab 25 Mg PO BID 07/14/17 Reported Mevacor (Lovastatin) 10 Mg Tab 10 Mg PO HS 07/14/17 Reported Duoneb (Ipratropium-Albuterol) 3 Ml Nebu 1 Treatment INH Q4H PRN 07/14/17 Reported Insulin Regular Pump (Insulin Human Regular) Pump 1 Ea N/A UD 07/14/17 Reported Incruse Ellipta (Umeclidinium [place]) 62.5 Mcg/Inh Inh 1 Puff INH DAILY 07/14/17 Reported Fish Oil ([place]-3 Fatty Acids) 1,200 Mg Cap 1,200 Mg PO DAILY 07/14/17 Reported Plavix (Clopidogrel Bisulfate) 75 Mg Tab 75 Mg PO DAILY 07/14/17 Reported Zyrtec (Cetirizine HCl) 10 Mg Tab 10 Mg PO DAILY PRN 07/14/17 Reported Physical Physical Exam Vital Signs: Date Time Temp Pulse Resp B/P (MAP) Pulse Ox O2 Delivery O2 Flow Rate FiO2 09/17/17 07:51 36.3 99 22 112/71 (85) 98 BiPAP 09/17/17 07:33 96 20 96 BiPAP/CPAP 30 09/17/17 07:24 97 98 30 09/17/17 05:02 106 96 30 09/17/17 04:21 36.2 109 28 143/92 BiPAP 09/17/17 04:09 111 99 30 General Appearance: mild distress Eyes: PERRLA, NO DISCHARGE, EOMI, SCLERAE NORMAL Neck: NORMAL RANGE OF MOTION, NO TENDERNESS, TRACHEA MIDLINE, NO STRIDOR, SUPPLE, NO LYMPHADENOPATHY Respiratory: accessory muscle use, other (Dimished breath sound bilaterally, tachypnea) Cardiovasular: REGULAR RATE/RHYTHM, NORMAL S1S2 Abdomen: NON TENDER, NORMAL BOWEL SOUNDS, NO REBOUND Genitourinary - Male: EXTERNAL GENITALIA NORMAL Back: NORMAL INSPECTION, NO MIDLINE TENDERNESS, NO CVA TENDERNESS Upper Extremities: NO EDEMA, NO DEFORMITY, NORMAL ROM, other (no clubbing, no cyanosis) Neuro: ALERT, ORIENTED x 3, NORMAL MOTOR EXAM, NORMAL SENSATION, NORMAL MEMORY Diagnostics Labs Results Past 24 Hours Test 09/17/17 05:20 09/17/17 05:49 09/17/17 06:19 09/17/17 06:29 Range/Units White Blood Count 10.60 4.8-10.8 K/uL Red Blood Count 4.29 4.7-6.1 M/uL Hemoglobin 12.0 14.0-18.0 g/dL Hematocrit 36.8 42-52 % Mean Corpuscular Volume 85.8 80-100 fL Mean Corpuscular Hemoglobin 28.0 25-34 pg Mean Corpuscular Hemoglobin Concent 32.6 32-36 g/dl Platelet Count 222 130-400 K/uL Mean Platelet Volume 8.9 7.4-10.4 fL Neutrophils (%) (Auto) 95.6 % Lymphocytes (%) (Auto) 3.4 % Monocytes (%) (Auto) 0.5 % Eosinophils (%) (Auto) 0.1 % Basophils (%) (Auto) 0.1 % Neutrophils # (Auto) 10.14 1.4-6.5 K/uL Lymphocytes # (Auto) 0.36 1.2-3.4 K/uL Monocytes # (Auto) 0.05 0.11-0.59 K/uL Eosinophils # (Auto) 0.01 0-0.5 K/uL Basophils # (Auto) 0.01 0-0.2 K/uL RDW Standard Deviation 51.6 36.4-46.3 fL RDW Coefficient of Variation 16.3 11.5-14.5 % Immature Granulocyte % (Auto) 0.3 % Immature Granulocyte # (Auto) 0.03 0.00-0.02 K/uL Sodium Level 132 136-145 mmol/L Potassium Level 5.6 3.5-5.1 mmol/L Chloride Level 98 98-107 mmol/L Carbon Dioxide Level 26 21-32 mmol/L Anion Gap 8.0 3-11 mmol/L Blood Urea Nitrogen 32 7-18 mg/dl Creatinine 1.66 0.60-1.40 mg/dl Est Creatinine Clear Calc Drug Dose 45.5 ml/min Estimated GFR () 47.7 Estimated GFR (Non- 41.1 BUN/Creatinine Ratio 19.1 10-20 Random Glucose 300 70-99 mg/dl Calcium Level 8.8 8.5-10.1 mg/dl Troponin I 0.019 0-0.045 ng/ml Bedside Glucose 286 311 70-99 mg/dl Prothrombin Time 10.7 9.0-12.0 SECONDS Prothromb Time International Ratio 1.0 0.9-1.1 Test 09/17/17 08:59 Range/Units Diagnostic Radiology CHEST ONE VIEW PORTABLE CLINICAL HISTORY: 71 years-old Male presenting with ACUTE RESPIRATORY FAILURE. TECHNIQUE: Portable upright AP view of the chest was obtained. COMPARISON: 08/27/2017. FINDINGS: Median sternotomy wires intact. Cardiomediastinal silhouette otherwise normal. Persistent elevation of the left hemidiaphragm. Mild bronchial wall thickening may be present. Relative increased density of the left lung in comparison to the right without focal infiltrate. Vague peripheral/pleural nodularity on the left better demonstrated on previous radiographs. No large effusion or pneumothorax. Osseous structures normal. Upper abdomen normal. IMPRESSION: 1. Vague left peripheral/pleural nodularity better demonstrated on prior radiographs. This could be further evaluated with chest CT as clinically indicated. 2. Overall lower left lung volumes. No focal infiltrate. 3. Mild bronchial wall thickening could suggest bronchitis/bronchiolitis. EKG EKG 09/18/2017 Normal sinus rhythm, ventricular rate 100 bpm Possible Left atrial enlargement Septal infarct (cited on or before 14-JUL-2017) ST & T wave abnormality, consider inferolateral ischemia Abnormal ECG When compared with ECG of 28-AUG-2017 09:44, Non-specific change in ST segment in Inferior leads Inverted T waves have replaced nonspecific T wave abnormality in Inferior leads Impression Assessment and Plan Acute on chronic hypoxic hypercapnic respiratory failure Nocturnal hypoxemia COPD exacerbation Coronary artery disease Patient recently discharged for COPD exacerbation earlier this month. Current medications currently include long-acting muscarinic agonist and albuterol when necessary. He was discharged home with oxygen for nocturnal hypoxemia. Patient is to be increasingly more lethargic. He has responded well with BiPAP and I recommend we continue. His baseline PCO2 is seems to be in the normal range, so we can improve PCO2 between 35-45. We can also switch between BiPAP to nasal cannula when necessary to maintain SaO2 between 88-92%, especially at night. I do agree with Solu-Medrol 60 mg every 6 hours for now. Continue with Spiriva or incruse ellipta. He should also be continued on an inhaled corticosteroid as LABA. He was on Breo 200/25, prior to previous admission and switched over to Symbicort while hospitalized , but does not look like he was discharged home on any of these medications. Please resume. Recommend a short course of Levaquin at this time. Recommend flutter valve when necessary. Patient has extensive cardiac history so I feel that the benefit outweighs the risk and that he should come continue on beta blockers at this time.
[2017-09-17] MEDS ORDERED: LEVOFLOXACIN CONSULT ACTIVE PRN (11:15)
[2017-09-17] MEDS ORDERED: LEVOFLOXACIN / D5W 750 MG in PREMIXED IN D5W 150 ML IV SCH (11:30)
[2017-09-17] MEDS ORDERED: INSULIN IV INFUSION PROTOCOL STA (11:46)
[2017-09-17] MEDS ORDERED: INSULIN HUMAN REGULAR IV BOLUS 2 UNIT in SYRINGE 0 ML IV SCH (12:00)
[2017-09-17] MEDS ORDERED: MODERATE STRESS LEVEL ONE (12:00)
[2017-09-17] MEDS ORDERED: INSULIN REGULAR 250 UNITS in SODIUM CHLORIDE 0.9% 250ML 250 ML IV SCH (12:00)
[2017-09-17] MEDS ORDERED: INSULIN PROTOCOL GOAL RANGE ONE (12:00)
--- NOTE | 2017-09-17 13:58 | Pharmacy Progress Note ---
Glycemic Control Intl Consult Date of Service Sep 17, 2017. Scope Glycemic Pharmacist consulted by Dr Santiago on 09/17/17 for glycemic control and to write orders per [facility] inpatient glycemic control protocol Objective Weight (Kilograms): 78.600 Accuchecks BSG (last 24hrs): Test 09/17/17 05:20 09/17/17 05:49 09/17/17 06:29 09/17/17 08:59 Random Glucose 300 mg/dl (70-99) 397 mg/dl (70-99) Bedside Glucose 286 mg/dl (70-99) 311 mg/dl (70-99) Test 09/17/17 10:54 Bedside Glucose 348 mg/dl (70-99) Laboratory Data (last 24hrs) Test 09/17/17 05:20 09/17/17 08:59 Anion Gap 8.0 mmol/L 7.0 mmol/L BUN/Creatinine Ratio 19.1 21.2 Blood Urea Nitrogen 32 mg/dl 37 mg/dl Creatinine 1.66 mg/dl 1.73 mg/dl Potassium Level 5.6 mmol/L 5.8 mmol/L Sodium Level 132 mmol/L 131 mmol/L White Blood Count 10.60 K/uL Red Blood Count 4.29 M/uL Hemoglobin 12.0 g/dL Hematocrit 36.8 % Mean Corpuscular Volume 85.8 fL Mean Corpuscular Hemoglobin 28.0 pg Mean Corpuscular Hemoglobin Concent 32.6 g/dl Platelet Count 222 K/uL Mean Platelet Volume 8.9 fL Neutrophils (%) (Auto) 95.6 % Lymphocytes (%) (Auto) 3.4 % Monocytes (%) (Auto) 0.5 % Eosinophils (%) (Auto) 0.1 % Basophils (%) (Auto) 0.1 % Neutrophils # (Auto) 10.14 K/uL Lymphocytes # (Auto) 0.36 K/uL Monocytes # (Auto) 0.05 K/uL Eosinophils # (Auto) 0.01 K/uL Basophils # (Auto) 0.01 K/uL HbA1c 8.9% on 07/15/17 Recent Pertinent Medications Outpatient Anti-diabetic Regimen: * Regular Insulin SQ Pump * Basal rate: 2 units/hr * Bolus CHO: 1-2 The patient is currently receiving: * Basal insulin: Lantus 55 units every 24 hours * Correctional Insulin: Novolog Correction per scale ACHS Goal Range: Low 100 mg/dL - High 150 mg/dL Correction Factor: 12 mg/dL/unit * Prandial insulin: Per carb ratio of 1 unit per 2 grams CHO consumed Risk Factors for Insulin Resistance: * Steroids * Infection * Diet Assessment & Plan ASSESSMENT: * 71yo male known to pharmacy from previous admission/glycemic consult. Most recently earlier this month. * Pt experiences SEVERE steroid induced hyperglycemia requiring IV insulin infusion per previous admission. * Last admission, steroid induced hyperglycemia was controlled with IV insulin infusion monotherapy x 3 days. This was extremely exhausting for patient with the frequent, RTC accuchecks and insulin titration. * Pt needs an insulin infusion this admission for sustained SEVERE hyperglycemia, BSGs 300, 286, 311, 348 despite large dose of basal insulin and multiple rapid /short acting insulin boluses * Will initiate an IV insulin infusion to serve as "correctional insulin" for steroid induced hyperglycemia. Will continue a stressed outpatient dosing SQ regimen with the IV insulin infusion in hopes that we can stop the insulin infusion this evening at bedtime. * Will use SQ dosing regimen that worked well for admission earlier this month. PLAN FOR INPATIENT GLYCEMIC CONTROL: IV insulin infusion + SQ basal bolus insulin regimen based on estimated total daily dose of 150 units SQ * Starting IV insulin infusion per protocol to serve as correctional insulin for steroid induced hyperglycemia * Goal Range 100 - 180 mg/dl * Basal insulin * Lantus 55 units SQ x 1 dose this AM {outpatient basal insulin dose is 48 units/day} * Additional 10 units of Lantus x 1 dose at dinner time this evening to facilitate transition off of insulin infusion * Bolus insulin * NovoLog per scale ACHS or Q6hrs while NPO * Goal Range: Low 100 mg/dL - High 150 mg/dL * Correction Factor: 12 mg/dL/unit * Nutritional / Prandial insulin per carb ratio of 1 unit per 1 grams CHO consumed * Please note that the plan above was derived based on current level of insulin resistance and hospital stress. These recommendations are appropriate for inpatient admission only. Plan of care upon discharge will need to be reassessed to avoid potential outpatient hypo/hyperglycemia. Thank you.
[2017-09-17] MEDS: DC IV INSULIN INFUSION SCH ×4 (14:00→20:00)
[2017-09-17] MEDS ORDERED: INSULIN GLARGINE SOLOSTAR 100 UNITS/ML 3 ML PEN SC SCH ×2 (18:00)
--- NOTE | 2017-09-17 18:03 | Family Medicine Progress Note ---
Progress Note Date of Service Sep 17, 2017. Subjective Pt describes feeling progressively better, less short of breath. Constitutional: No fever, No chills, No sweats Respiratory: + cough, + wheezing, + shortness of breath, + dyspnea at rest Cardiovascular: No chest pain, No edema, No palpitations Abdomen: No pain, No nausea, No vomiting, No diarrhea Endo: No fatigue Skin: No rash Medications Current Inpatient Medications Medications (Trade) Dose Ordered Sig/Nessa Route Start Time Stop Time Status Last Admin Dose Admin Enoxaparin Sodium (Lovenox Inj) 40 mg Q24H SC 09/17/17 09:00 10/17/17 08:59 09/17/17 09:26 40 MG Acetaminophen (Tylenol Tab) 650 mg Q4H PRN PO 09/17/17 05:00 10/17/17 04:59 Al Hydrox/Mg Hydrox/Simethicone (Maalox Max Susp) 15 ml Q4H PRN PO 09/17/17 05:00 10/17/17 04:59 Ondansetron HCl (Zofran Inj) 4 mg Q6H PRN IV 09/17/17 05:00 10/17/17 04:59 Nitroglycerin (Nitrostat Tab) 0.4 mg UD PRN SL 09/17/17 05:00 10/17/17 04:59 Polyethylene (Miralax Powder Packet) 17 gm DAILY PRN PO 09/17/17 05:00 10/17/17 04:59 Cetirizine HCl (zyrTEC TAB) 10 mg DAILY PRN PO 09/17/17 05:00 10/17/17 04:59 09/17/17 09:11 10 MG Clopidogrel Bisulfate (plAVix TAB) 75 mg DAILY PO 09/17/17 09:00 10/17/17 08:59 09/17/17 09:11 75 MG Lisinopril (Zestril Tab) 10 mg QAM PO 09/17/17 09:00 10/17/17 08:59 09/17/17 09:11 10 MG Metoprolol Tartrate (Lopressor Tab) 25 mg BID PO 09/17/17 09:00 10/17/17 08:59 09/17/17 09:11 25 MG Multivitamins/ Minerals (Multivitamin W/ Minerals Tab) 1 tab DAILY PO 09/17/17 09:00 10/17/17 08:59 09/17/17 09:11 1 TAB Lovastatin (Mevacor Tab) 10 mg HS PO 09/17/17 21:00 10/17/17 20:59 Fish Oil ([place]-3 (Purified Fish Oil) Cap) 1 gm DAILY PO 09/17/17 09:00 10/17/17 08:59 09/17/17 09:11 1 GM Miscellaneous Information (Order Awaiting Action) 1 ea QS N/A 09/17/17 08:00 10/17/17 07:59 Methylprednisolone Sodium Succinate 60 mg/Syringe 0.96 ml @ 1.5 mls/min Q6H IV 09/17/17 06:00 10/17/17 05:59 09/17/17 12:11 1.5 MLS/MIN Miscellaneous Information (Consult Glycemic Management Pharmacy) 1 ea UD PRN N/A 09/17/17 05:30 10/17/17 05:29 Glucose (Glucose 40% Gel) 15-30 GRAMS 15 GRAMS... UD PRN PO 09/17/17 05:45 10/17/17 05:44 Glucose (Glucose Chew Tab) 4-8 Tablets 4 Tabl... UD PRN PO 09/17/17 05:45 10/17/17 05:44 Dextrose (Dextrose 50% 50ML Syringe) 25-50ML OF 50% DW IV FOR... UD PRN IV 09/17/17 05:45 10/17/17 05:44 Glucagon (Glucagon Inj) 1 mg UD PRN SQ 09/17/17 05:45 10/17/17 05:44 Insulin Aspart (novoLOG ASPART) SLIDING SCALE ACHS SC 09/17/17 06:00 10/17/17 05:59 Future hold 09/17/17 05:57 12 UNITS Ipratropium [place] (Atrovent 0.02% 0.5MG/2.5ML Neb) 0.5 mg Q6R INH 09/17/17 09:00 10/17/17 08:59 09/17/17 14:30 0.5 MG Levalbuterol (Xopenex 1.25MG/ 0.5ML Neb) 1.25 mg Q6R INH 09/17/17 09:00 10/17/17 08:59 09/17/17 14:30 1.25 MG Levofloxacin 750 mg/Prmx 150 ml @ 100 mls/hr Q48H IV 09/17/17 11:30 09/24/17 11:29 09/17/17 12:06 100 MLS/HR Tiotropium [place] (Spiriva Handihaler Inhaler) 1 puff QAM INH 09/18/17 09:00 10/18/17 08:59 Budesonide/ Formoterol Fumarate (Symbicort 160/ 4.5 Inh) 2 puffs BID INH 09/17/17 21:00 10/17/17 20:59 Levofloxacin (Consult) 1 ea UD PRN N/A 09/17/17 11:15 10/17/17 11:14 Insulin Human Regular 250 units/ Sodium Chloride 252.5 ml @ 0 mls/hr TODAY@1200 IV 09/17/17 12:00 09/17/17 21:00 09/17/17 12:06 2 MLS/HR Insulin Aspart (novoLOG ASPART) SLIDING SCALE [facility] 09/17/17 12:00 09/17/17 20:59 09/17/17 12:11 13 UNITS Miscellaneous Information (Dc Iv Insulin Infusion) 1 ea Q2H N/A 09/17/17 14:00 09/17/17 21:00 Insulin Aspart (novoLOG ASPART) SLIDING SCALE TODAY@0000,0400 NC 09/18/17 00:00 09/18/17 04:01 Insulin Glargine (Lantus Solostar Pen) 10 units 09/17/17@1800 NC 09/17/17 18:00 09/17/17 18:01 Objective Vital Signs 09/17/17 05:20 Red Blood Count 4.29, Mean Corpuscular Volume 85.8, Mean Corpuscular Hemoglobin 28.0, Mean Corpuscular Hemoglobin Concent 32.6, Mean Platelet Volume 8.9, Neutrophils (%) (Auto) 95.6, Lymphocytes (%) (Auto) 3.4, Monocytes (%) (Auto) 0.5, Eosinophils (%) (Auto) 0.1, Basophils (%) (Auto) 0.1, Neutrophils # (Auto) 10.14, Lymphocytes # (Auto) 0.36, Monocytes # (Auto) 0.05, Eosinophils # (Auto) 0.01, Basophils # (Auto) 0.01 Test 09/17/17 05:20 09/17/17 06:19 09/17/17 08:59 09/17/17 13:06 White Blood Count 10.60 K/uL (4.8-10.8) Red Blood Count 4.29 M/uL (4.7-6.1) Hemoglobin 12.0 g/dL (14.0-18.0) Hematocrit 36.8 % (42-52) Mean Corpuscular Volume 85.8 fL (80-100) Mean Corpuscular Hemoglobin 28.0 pg (25-34) Mean Corpuscular Hemoglobin Concent 32.6 g/dl (32-36) Platelet Count 222 K/uL (130-400) Mean Platelet Volume 8.9 fL (7.4-10.4) Neutrophils (%) (Auto) 95.6 % Lymphocytes (%) (Auto) 3.4 % Monocytes (%) (Auto) 0.5 % Eosinophils (%) (Auto) 0.1 % Basophils (%) (Auto) 0.1 % Neutrophils # (Auto) 10.14 K/uL (1.4-6.5) Lymphocytes # (Auto) 0.36 K/uL (1.2-3.4) Monocytes # (Auto) 0.05 K/uL (0.11-0.59) Eosinophils # (Auto) 0.01 K/uL (0-0.5) Basophils # (Auto) 0.01 K/uL (0-0.2) RDW Standard Deviation 51.6 fL (36.4-46.3) RDW Coefficient of Variation 16.3 % (11.5-14.5) Immature Granulocyte % (Auto) 0.3 % Immature Granulocyte # (Auto) 0.03 K/uL (0.00-0.02) Hepatitis C Antibody Screen NEG (NEG) Prothrombin Time 10.7 SECONDS (9.0-12.0) Prothromb Time International Ratio 1.0 (0.9-1.1) Est Creatinine Clear Calc Drug Dose 43.6 ml/min Magnesium Level 1.5 mg/dl (1.8-2.4) Beta-Hydroxybutyric Acid 7.05 mg/dL (0.2-2.81) Troponin I < 0.015 ng/ml (0-0.045) Test 09/17/17 15:34 09/17/17 17:32 Bedside Glucose 223 mg/dl (70-99) Physical Exam General Appearance: WD/WN, + mild distress Eyes: normal inspection ENT: hearing grossly normal Neck: supple, no adenopathy Respiratory/Chest: + respiratory distress, + decreased breath sounds, + wheezing Cardiovascular: + tachycardia Abdomen: non tender, soft, no organomegaly, no pulsatile mass Neurologic/Psychiatric: alert, normal mood/affect, oriented x 3 Skin: normal color, warm/dry, no rash Laboratory Results 09/17/17 05:20 Red Blood Count 4.29, Mean Corpuscular Volume 85.8, Mean Corpuscular Hemoglobin 28.0, Mean Corpuscular Hemoglobin Concent 32.6, Mean Platelet Volume 8.9, Neutrophils (%) (Auto) 95.6, Lymphocytes (%) (Auto) 3.4, Monocytes (%) (Auto) 0.5, Eosinophils (%) (Auto) 0.1, Basophils (%) (Auto) 0.1, Neutrophils # (Auto) 10.14, Lymphocytes # (Auto) 0.36, Monocytes # (Auto) 0.05, Eosinophils # (Auto) 0.01, Basophils # (Auto) 0.01 Test 09/17/17 05:20 09/17/17 06:19 09/17/17 08:59 09/17/17 13:06 White Blood Count 10.60 K/uL (4.8-10.8) Red Blood Count 4.29 M/uL (4.7-6.1) Hemoglobin 12.0 g/dL (14.0-18.0) Hematocrit 36.8 % (42-52) Mean Corpuscular Volume 85.8 fL (80-100) Mean Corpuscular Hemoglobin 28.0 pg (25-34) Mean Corpuscular Hemoglobin Concent 32.6 g/dl (32-36) Platelet Count 222 K/uL (130-400) Mean Platelet Volume 8.9 fL (7.4-10.4) Neutrophils (%) (Auto) 95.6 % Lymphocytes (%) (Auto) 3.4 % Monocytes (%) (Auto) 0.5 % Eosinophils (%) (Auto) 0.1 % Basophils (%) (Auto) 0.1 % Neutrophils # (Auto) 10.14 K/uL (1.4-6.5) Lymphocytes # (Auto) 0.36 K/uL (1.2-3.4) Monocytes # (Auto) 0.05 K/uL (0.11-0.59) Eosinophils # (Auto) 0.01 K/uL (0-0.5) Basophils # (Auto) 0.01 K/uL (0-0.2) RDW Standard Deviation 51.6 fL (36.4-46.3) RDW Coefficient of Variation 16.3 % (11.5-14.5) Immature Granulocyte % (Auto) 0.3 % Immature Granulocyte # (Auto) 0.03 K/uL (0.00-0.02) Hepatitis C Antibody Screen NEG (NEG) Prothrombin Time 10.7 SECONDS (9.0-12.0) Prothromb Time International Ratio 1.0 (0.9-1.1) Est Creatinine Clear Calc Drug Dose 43.6 ml/min Magnesium Level 1.5 mg/dl (1.8-2.4) Beta-Hydroxybutyric Acid 7.05 mg/dL (0.2-2.81) Troponin I < 0.015 ng/ml (0-0.045) Test 09/17/17 15:34 09/17/17 17:32 Bedside Glucose 223 mg/dl (70-99) Assessment and Plan 71-year-old male with past medical history of COPD, recent exacerbation in early August 2017, diabetes type 2, coronary artery disease status post CABG 2 with AVR, hyperlipidemia presented as a direct admit from [facility] for acute hypoxic and hypercarbic respiratory failure. Acute hypoxic and hypercarbic respiratory failure/COPD exacerbation - Chest x-ray did not show any acute pathology - Received 125 mg Solu-Medrol with DuoNeb treatment at outside hospital ER - Continue prednisone 60 mg every 6 hours with DuoNeb's - Pt started on the following inhalers; Spiriva, Symbicort - Pt started on BIPAP - Sputum cultures collected and results pending - Pt started on Levaquin - Pt reports not taking inhaled corticosteroid+LABA at home. Pt reports not being d/c'ed with these meds at previous hospitalization - Will follow up medication regimen at discharge. - Flu vaccination declined - Pulmonology consulted, appreciate recommendation Hyperkalemia - Possibly secondary to acidosis - no EKG changes seen - K+ 5.6 and 5.8 this morning T2DM/Hyperglycemia -Pt's glucose between 200-300 -Uses insulin pump at home which he has not carried with him -Pharmacy consult for glycemic management CAD/CABG 2/AVR/hypertension -Troponins trended, negative -Continue clopidogrel, metoprolol, lovastatin, lisinopril DVT prophylaxis: Lovenox
[2017-09-17 18:26] LABS: BUN/CREATININE RATIO 27.3 (10-20); CALCIUM 8.6 mg/dl (8.5-10.1); CREATININE 1.7 mg/dl (0.60-1.40); POTASSIUM 5.3 mmol/L (3.5-5.1)
[2017-09-17] MEDS: LOVASTATIN 20 MG TAB PO SCH (20:09)
[2017-09-17] MEDS: BUDESONIDE/FORMOTEROL FUMARATE 160/4.5 60 PUFFS/INHALER INH SCH (21:00)
[2017-09-18] VITALS (14 sets, daily range): BP systolic 88–111; BP diastolic 52–71; PULSE 71–98; TEMP 36.3–36.8; O2SAT 92–99
[2017-09-18] MEDS: METHYLPREDNISOLONE IV 60 MG in SYRINGE 0 ML IV SCH ×2 (00:09→06:16)
[2017-09-18] MEDS: INSULIN ASPART 100 UNITS/ML 3 ML PEN SC SCH ×6 (00:11→21:00)
[2017-09-18] MEDS: LEVALBUTEROL 1.25MG/0.5ML NEB INH SCH ×4 (02:10→19:25)
[2017-09-18] MEDS: IPRATROPIUM BROMIDE NEB SOLN 0.02% 2.5 ML VIAL INH SCH ×4 (02:10→19:25)
[2017-09-18 06:42] LABS: ALB/GLOB RATIO 0.8 (0.9-2); BUN/CREATININE RATIO 33.1 (10-20); CALCIUM 8.5 mg/dl (8.5-10.1); CREATININE 1.43 mg/dl (0.60-1.40); POTASSIUM 5.1 mmol/L (3.5-5.1)
[2017-09-18] MEDS: METOPROLOL TARTRATE 25 MG TAB PO SCH ×2 (08:15→21:19)
[2017-09-18] MEDS: CEROVITE ADV FORMULA TAB PO SCH (08:15)
[2017-09-18] MEDS: TIOTROPIUM BROMIDE 5 PUFF/90 MCG INH INH SCH ×2 (08:15→08:29)
[2017-09-18] MEDS: LISINOPRIL 10 MG TAB PO SCH (08:15)
[2017-09-18] MEDS: CLOPIDOGREL BISULFATE 75 MG TAB PO SCH (08:15)
[2017-09-18] MEDS: BUDESONIDE/FORMOTEROL FUMARATE 160/4.5 60 PUFFS/INHALER INH SCH ×2 (08:15→21:18)
[2017-09-18] MEDS: ENOXAPARIN 40 MG/0.4 ML SYR SC SCH (08:16)
[2017-09-18] MEDS: OMEGA-3 (PURIFIED FISH OIL) 1 GM CAP PO SCH (08:16)
[2017-09-18] MEDS: INSULIN GLARGINE SOLOSTAR 100 UNITS/ML 3 ML PEN SC SCH (08:23)
[2017-09-18 08:35] LABS: HEMATOCRIT 30.9 % (42-52); MEAN CELL VOLUME 86.6 fL (80-100); MEAN CORPUSCULAR HEMOGLOBIN 28.6 pg (25-34); MEAN PLATELET VOLUME 9.1 fL (7.4-10.4); PLATELET COUNT 240 K/uL (130-400); RED BLOOD COUNT 3.57 M/uL (4.7-6.1); WHITE BLOOD COUNT 13.65 K/uL (4.8-10.8)
--- NOTE | 2017-09-18 10:31 | Pharmacy Progress Note ---
Glycemic Control Progress Note Date of Service Sep 18, 2017. Scope Glycemic Pharmacist consulted for glycemic control to write orders per [facility] inpatient glycemic control protocol. Objective Accuchecks BSG (last 24hrs): Test 09/17/17 10:54 09/17/17 13:25 09/17/17 14:35 09/17/17 15:34 Bedside Glucose 348 mg/dl (70-99) 304 mg/dl (70-99) 306 mg/dl (70-99) 223 mg/dl (70-99) Test 09/17/17 16:32 09/17/17 17:37 09/17/17 17:59 09/17/17 18:37 Bedside Glucose 211 mg/dl (70-99) 218 mg/dl (70-99) 215 mg/dl (70-99) Random Glucose 222 mg/dl (70-99) Test 09/17/17 19:30 09/17/17 20:33 09/17/17 20:59 09/18/17 00:00 Bedside Glucose 203 mg/dl (70-99) 156 mg/dl (70-99) 160 mg/dl (70-99) 176 mg/dl (70-99) Test 09/18/17 04:17 09/18/17 05:34 09/18/17 05:54 09/18/17 07:33 Bedside Glucose 231 mg/dl (70-99) 88 mg/dl (70-99) 217 mg/dl (70-99) Random Glucose 221 mg/dl (70-99) HbA1c: outdated, 8.9% on 07/15/17 Recent Pertinent Medications Outpatient Anti-diabetic Regimen: * Regular Insulin SQ Pump * Basal rate: 2 units/hr * Bolus CHO: 1-2 Risk Factors for Insulin Resistance: * Steroids * Infection * Diet Assessment & Plan ASSESSMENT: * 71yo male known to pharmacy from previous admission/glycemic consult. Most recently earlier this month. * Pt experiences SEVERE steroid induced hyperglycemia requiring IV insulin infusion per previous admission. Pt BSGs are very responsive to steroids. BSGs improve significantly when steroid dose is tapered. * Over the past 24hrs patient has received 136 units of SQ insulin + IV insulin infusion. Pt had severe sustained hyperglycemia yesterday secondary to solumedrol. IV insulin infusion initiated during the day only for patient comfort/convenience. Drip stopped at 2100. BSG was 160mg/dl at the time infusion was d/c. Lantus should be approaching steady state in the next day or so. IV insulin infusion may be required short term {again} until SQ doses at steady state OR until steroids tapered. * Recent BSGs = 217, 221, 231, 176, 160, 211. * Much improved from the time of admission * Outpatient basal insulin dose ~ 48 units/day on insulin pump. Will keep inpatient basal dose just slightly stressed to prevent hypo when steroids tapered. Do not want large basal insulin dose on board with steroid induced hyperglycemia as this would lead to hypo when steroids tapered. * Continue aggressive CF/CR for steroid induced hyperglycemia as steroids have their most profound effect on post-prandial hyperglycemia. PLAN FOR INPATIENT GLYCEMIC CONTROL: SQ basal bolus insulin regimen based on estimated total daily dose of 150 units. Will distribute regimen as 1/3 basal and 2/3 prandial/correctional for steroid induced hyperglycemia. * May need to re-start IV insulin infusion per protocol if BSG > 250 x 2 despite aggressive SQ insulin doses. Will continue SQ with IV insulin if it is started. IV insulin infusion will only serve as correctional insulin for steroid induced hyperglycemia. * Basal insulin * Lantus 50 units SQ daily in AM {outpatient basal insulin dose is 48 units/day } * Bolus insulin * NovoLog per scale ACHS or Q6hrs while NPO * Goal Range: Low 100 mg/dL - High 150 mg/dL * Correction Factor: 10 mg/dL/unit * Nutritional / Prandial insulin per carb ratio of 1 unit per 1.5 grams CHO consumed * Please note that the plan above was derived based on current level of insulin resistance and hospital stress. These recommendations are appropriate for inpatient admission only. Plan of care upon discharge will need to be reassessed to avoid potential outpatient hypo/hyperglycemia. Thank you.
[2017-09-18] MEDS ORDERED: LEVOFLOXACIN / D5W 750 MG in PREMIXED IN D5W 150 ML IV SCH (12:00)
[2017-09-18] MEDS: GUAIFENESIN 600 MG TABCR PO SCH ×2 (12:13→21:19)
[2017-09-18] MEDS: METHYLPREDNISOLONE IV 40 MG in SYRINGE 0 ML IV SCH ×2 (12:13→17:46)
--- NOTE | 2017-09-18 14:35 | Family Medicine Progress Note ---
Progress Note Date of Service Sep 18, 2017. Subjective Pt evaluation today including: conversation w/ patient, physical exam, chart review, lab review Voiding: no voiding problems Pt says that he is less SOB today, feeling much better. Constitutional: No fever, No chills, No sweats Respiratory: + cough, + sputum, + wheezing, + shortness of breath Cardiovascular: No chest pain, No orthopnea, No edema Abdomen: No pain, No nausea, No vomiting, No diarrhea Medications Current Inpatient Medications Medications (Trade) Dose Ordered Sig/Nessa Route Start Time Stop Time Status Last Admin Dose Admin Enoxaparin Sodium (Lovenox Inj) 40 mg Q24H SC 09/17/17 09:00 10/17/17 08:59 09/18/17 08:16 40 MG Acetaminophen (Tylenol Tab) 650 mg Q4H PRN PO 09/17/17 05:00 10/17/17 04:59 Al Hydrox/Mg Hydrox/Simethicone (Maalox Max Susp) 15 ml Q4H PRN PO 09/17/17 05:00 10/17/17 04:59 Ondansetron HCl (Zofran Inj) 4 mg Q6H PRN IV 09/17/17 05:00 10/17/17 04:59 Nitroglycerin (Nitrostat Tab) 0.4 mg UD PRN SL 09/17/17 05:00 10/17/17 04:59 Polyethylene (Miralax Powder Packet) 17 gm DAILY PRN PO 09/17/17 05:00 10/17/17 04:59 Cetirizine HCl (zyrTEC TAB) 10 mg DAILY PRN PO 09/17/17 05:00 10/17/17 04:59 09/17/17 09:11 10 MG Clopidogrel Bisulfate (plAVix TAB) 75 mg DAILY PO 09/17/17 09:00 10/17/17 08:59 09/18/17 08:15 75 MG Lisinopril (Zestril Tab) 10 mg QAM PO 09/17/17 09:00 10/17/17 08:59 09/18/17 08:15 10 MG Metoprolol Tartrate (Lopressor Tab) 25 mg BID PO 09/17/17 09:00 10/17/17 08:59 09/18/17 08:15 25 MG Multivitamins/ Minerals (Multivitamin W/ Minerals Tab) 1 tab DAILY PO 09/17/17 09:00 10/17/17 08:59 09/18/17 08:15 1 TAB Lovastatin (Mevacor Tab) 10 mg HS PO 09/17/17 21:00 10/17/17 20:59 09/17/17 20:09 10 MG Fish Oil ([place]-3 (Purified Fish Oil) Cap) 1 gm DAILY PO 09/17/17 09:00 10/17/17 08:59 09/18/17 08:16 1 GM Miscellaneous Information (Consult Glycemic Management Pharmacy) 1 ea UD PRN N/A 09/17/17 05:30 10/17/17 05:29 Glucose (Glucose 40% Gel) 15-30 GRAMS 15 GRAMS... UD PRN PO 09/17/17 05:45 10/17/17 05:44 Glucose (Glucose Chew Tab) 4-8 Tablets 4 Tabl... UD PRN PO 09/17/17 05:45 10/17/17 05:44 Dextrose (Dextrose 50% 50ML Syringe) 25-50ML OF 50% DW IV FOR... UD PRN IV 09/17/17 05:45 10/17/17 05:44 Glucagon (Glucagon Inj) 1 mg UD PRN SQ 09/17/17 05:45 10/17/17 05:44 Insulin Aspart (novoLOG ASPART) SLIDING SCALE ACHS SC 09/17/17 06:00 10/17/17 05:59 Future hold 09/18/17 12:12 38 UNITS Ipratropium Henning (Atrovent 0.02% 0.5MG/2.5ML Neb) 0.5 mg Q6R INH 09/17/17 09:00 10/17/17 08:59 09/18/17 14:10 0.5 MG Levalbuterol (Xopenex 1.25MG/ 0.5ML Neb) 1.25 mg Q6R INH 09/17/17 09:00 10/17/17 08:59 09/18/17 14:10 1.25 MG Tiotropium [place] (Spiriva Handihaler Inhaler) 1 puff QAM INH 09/18/17 09:00 10/18/17 08:59 Budesonide/ Formoterol Fumarate (Symbicort 160/ 4.5 Inh) 2 puffs BID INH 09/17/17 21:00 10/17/17 20:59 09/18/17 08:15 2 PUFFS Levofloxacin (Consult) 1 ea UD PRN N/A 09/17/17 11:15 10/17/17 11:14 Insulin Glargine (Lantus Solostar Pen) 50 units DAILY SC 09/18/17 09:00 10/18/17 08:59 09/18/17 08:23 50 UNITS Levofloxacin 750 mg/Prmx 150 ml @ 100 mls/hr Q24H IV 09/18/17 12:00 09/24/17 11:29 09/18/17 12:13 100 MLS/HR Insulin Aspart (novoLOG ASPART) SLIDING SCALE TODAY@0000,0400 SC 09/19/17 00:00 09/19/17 04:01 Methylprednisolone Sodium Succinate 40 mg/Syringe 0.64 ml @ 1.5 mls/min Q6 IV 09/18/17 12:00 10/18/17 11:59 09/18/17 12:13 1.5 MLS/MIN Guaifenesin (Mucinex Contr Rel Tab) 600 mg Q12 PO 09/18/17 12:00 10/18/17 11:59 09/18/17 12:13 600 MG Objective Physical Exam General Appearance: WD/WN, no apparent distress Neck: supple, no adenopathy Respiratory/Chest: chest non-tender, no respiratory distress, no accessory muscle use, + wheezing Cardiovascular: regular rate, rhythm, no edema, no gallop Abdomen: normal bowel sounds, non tender, soft, no organomegaly, no pulsatile mass Neurologic/Psychiatric: alert, normal mood/affect, oriented x 3 Skin: normal color, warm/dry, no rash Laboratory Results 09/18/17 05:54 09/18/17 05:54 Test 09/17/17 20:29 09/18/17 05:54 09/18/17 10:43 Troponin I < 0.015 ng/ml (0-0.045) Red Blood Count 3.57 M/uL (4.7-6.1) Mean Corpuscular Volume 86.6 fL (80-100) Mean Corpuscular Hemoglobin 28.6 pg (25-34) Mean Corpuscular Hemoglobin Concent 33.0 g/dl (32-36) RDW Standard Deviation 52.5 fL (36.4-46.3) RDW Coefficient of Variation 16.6 % (11.5-14.5) Mean Platelet Volume 9.1 fL (7.4-10.4) Anion Gap 6.0 mmol/L (3-11) Est Creatinine Clear Calc Drug Dose 52.8 ml/min Estimated GFR () 57.1 Estimated GFR (Non- 49.3 BUN/Creatinine Ratio 33.1 (10-20) Calcium Level 8.5 mg/dl (8.5-10.1) Magnesium Level 2.0 mg/dl (1.8-2.4) Total Bilirubin 0.3 mg/dl (0.2-1) Aspartate Amino Transf (AST/SGOT) 9 U/L (15-37) Alanine Aminotransferase (ALT/SGPT) 22 U/L (12-78) Alkaline Phosphatase 65 U/L (45-117) Total Protein 6.1 gm/dl (6.4-8.2) Albumin 2.7 gm/dl (3.4-5.0) Globulin 3.4 gm/dl (2.5-4.0) Albumin/Globulin Ratio 0.8 (0.9-2) Bedside Glucose 321 mg/dl (70-99) Date/Time Source Procedure Growth Status 09/17/17 16:05 Sputum Expectorated Sputum Gram Stain - Final Complete 09/17/17 16:05 Sputum Expectorated Sputum Sputum Culture - Final Complete Assessment and Plan 71-year-old male with past medical history of COPD, recent exacerbation in early August 2017, diabetes type 2, coronary artery disease status post CABG 2 with AVR, hyperlipidemia presented as a direct admit from [facility] for acute hypoxic and hypercarbic respiratory failure. 09/18 Pt is feeling and breathing better today Tapering steroids today. 40 mg q 6 hours. Continuing Duonebs Pt reports dry cough, feels congested. Ordered Guaifenesin. Sputum cultures were collected yesterday, but sample was inadequate, reordered collection Pt continues to have labile blood glucose on steroid-->Pharmacy currently consulted, appreciate the recs Continuing Levaquin Pt instructed to use BIPAP as much as he can tolerate throughout the day. Acute hypoxic and hypercarbic respiratory failure/COPD exacerbation - Chest x-ray did not show any acute pathology - Received 125 mg Solu-Medrol with DuoNeb treatment at outside hospital ER - Tapering steroids-->60 mg every 6 hours switched to 40 mg q 6 hours - Pt started on Symbicort - Pt started on BIPAP. Pt to use as much as tolerated. - Sputum cultures reordered and recollected - Continue Levaquin, day 2 - Pt reports not taking inhaled corticosteroid+LABA at home. - Pt reports not being d/c'ed with these meds at previous hospitalization - Will follow up medication regimen at discharge - Flu vaccination declined - Pulmonology consulted, appreciate recommendation Hyperkalemia - Resolved - Possibly secondary to acidosis - no EKG changes seen T2DM/Hyperglycemia -Glucose improved yesterday afternoon, labile sugars today on steroids -Uses insulin pump at home which he has not carried with him -Pharmacy consult for glycemic management CAD/CABG 2/AVR/hypertension -Troponins trended, negative -Continue clopidogrel, metoprolol, lovastatin, lisinopril DVT prophylaxis: Lovenox
--- NOTE | 2017-09-18 15:56 | Pulmonology Progress Note ---
Pulmonary Progress Note Date of Service Sep 18, 2017. Attending Dr. Romero Subjective Patient seen and examined. States he is feeling the better today. Still has intermittent wheezes. Denies shortness of breath. Patient admits to not being compliant with respiratory medications at home prior to hospitalization. Objective Vital signs reviewed. MAXIMUM TEMPERATURE 36.8, blood pressure 99/52 to 101/67 , pulse 71-92% respiratory rate 16-20, pulse oximetry 94-99% on 2 L nasal cannula. He intermittently uses BiPAP 12/5, FiO2 30%. General: Awake alert oriented 3, no acute distress. Speaking in full sentences CVS: S1-S2 regular rate and rhythm. Sternotomy scar healing. Lungs: Decreased breath sounds bilaterally, prolonged expiratory phase with mild expiratory wheezes bilaterally. Abdomen: Nontender, nondistended bowel sounds positive Extremities: Trace edema on the left lower extremity, no edema on the right upper extremity Labs reviewed. White blood cell count 13. Hemoglobin 10.2. Sputum culture from 09/17/2017-contaminated Sputum culture from 09/18/2017-pending Imaging reviewed and reviewed by me. Medications reviewed Assessment & Plan Acute on chronic hypoxic hypercapnic respiratory failure Nocturnal hypoxemia COPD exacerbation Coronary artery disease Patient more awake alert and oriented today. He is still mildly short of breath and dyspneic on exertion. Responding well to BiPAP. He admits to not being compliant with his respiratory medications. Encouraged compliance to decrease hospital admission rate. Patient prefers intermittently use BiPAP and nasal cannula. Continue to maintain SaO2 between 88-92%. Continue to taper steroids. Continue with Spiriva or incruse ellipta. Patient states that he wasn't using either one and was using older inhalers from several prior admissions He should also be continued on an inhaled corticosteroid as LABA. He would prefer to be continued on Symbicort, rather than Breo. Continue course of Levaquin at this time. Recommend flutter valve when necessary. Patient has extensive cardiac history so I feel that the benefit outweighs the risk and that he should come continue on beta blockers at this time. Patient has appointment with biomass power plant superintendent at [facility] on September 23 and would like for the hospitalist team to reschedule appointment with biomass power plant superintendent, here at [facility] if possible. Data Medications: Current Inpatient Medications Medications (Trade) Dose Ordered Sig/Nessa Route Start Time Stop Time Status Last Admin Dose Admin Enoxaparin Sodium (Lovenox Inj) 40 mg Q24H SC 09/17/17 09:00 10/17/17 08:59 09/18/17 08:16 40 MG Acetaminophen (Tylenol Tab) 650 mg Q4H PRN PO 09/17/17 05:00 10/17/17 04:59 Al Hydrox/Mg Hydrox/Simethicone (Maalox Max Susp) 15 ml Q4H PRN PO 09/17/17 05:00 10/17/17 04:59 Ondansetron HCl (Zofran Inj) 4 mg Q6H PRN IV 09/17/17 05:00 10/17/17 04:59 Nitroglycerin (Nitrostat Tab) 0.4 mg UD PRN SL 09/17/17 05:00 10/17/17 04:59 Polyethylene (Miralax Powder Packet) 17 gm DAILY PRN PO 09/17/17 05:00 10/17/17 04:59 Cetirizine HCl (zyrTEC TAB) 10 mg DAILY PRN PO 09/17/17 05:00 10/17/17 04:59 09/17/17 09:11 10 MG Clopidogrel Bisulfate (plAVix TAB) 75 mg DAILY PO 09/17/17 09:00 10/17/17 08:59 09/18/17 08:15 75 MG Lisinopril (Zestril Tab) 10 mg QAM PO 09/17/17 09:00 10/17/17 08:59 09/18/17 08:15 10 MG Metoprolol Tartrate (Lopressor Tab) 25 mg BID PO 09/17/17 09:00 10/17/17 08:59 09/18/17 08:15 25 MG Multivitamins/ Minerals (Multivitamin W/ Minerals Tab) 1 tab DAILY PO 09/17/17 09:00 10/17/17 08:59 09/18/17 08:15 1 TAB Lovastatin (Mevacor Tab) 10 mg HS PO 09/17/17 21:00 10/17/17 20:59 09/17/17 20:09 10 MG Fish Oil ([place]-3 (Purified Fish Oil) Cap) 1 gm DAILY PO 09/17/17 09:00 10/17/17 08:59 09/18/17 08:16 1 GM Miscellaneous Information (Consult Glycemic Management Pharmacy) 1 ea UD PRN N/A 09/17/17 05:30 10/17/17 05:29 Glucose (Glucose 40% Gel) 15-30 GRAMS 15 GRAMS... UD PRN PO 09/17/17 05:45 10/17/17 05:44 Glucose (Glucose Chew Tab) 4-8 Tablets 4 Tabl... UD PRN PO 09/17/17 05:45 10/17/17 05:44 Dextrose (Dextrose 50% 50ML Syringe) 25-50ML OF 50% DW IV FOR... UD PRN IV 09/17/17 05:45 10/17/17 05:44 Glucagon (Glucagon Inj) 1 mg UD PRN SQ 09/17/17 05:45 10/17/17 05:44 Insulin Aspart (novoLOG ASPART) SLIDING SCALE ACHS SC 09/17/17 06:00 10/17/17 05:59 Future hold 09/18/17 12:12 38 UNITS Ipratropium Freeman (Atrovent 0.02% 0.5MG/2.5ML Neb) 0.5 mg Q6R INH 09/17/17 09:00 10/17/17 08:59 09/18/17 14:10 0.5 MG Levalbuterol (Xopenex 1.25MG/ 0.5ML Neb) 1.25 mg Q6R INH 09/17/17 09:00 10/17/17 08:59 09/18/17 14:10 1.25 MG Tiotropium Freeman (Spiriva Handihaler Inhaler) 1 puff QAM INH 09/18/17 09:00 10/18/17 08:59 Budesonide/ Formoterol Fumarate (Symbicort 160/ 4.5 Inh) 2 puffs BID INH 09/17/17 21:00 10/17/17 20:59 09/18/17 08:15 2 PUFFS Levofloxacin (Consult) 1 ea UD PRN N/A 09/17/17 11:15 10/17/17 11:14 Insulin Glargine (Lantus Solostar Pen) 50 units DAILY SC 09/18/17 09:00 10/18/17 08:59 09/18/17 08:23 50 UNITS Levofloxacin 750 mg/Prmx 150 ml @ 100 mls/hr Q24H IV 09/18/17 12:00 09/24/17 11:29 09/18/17 12:13 100 MLS/HR Insulin Aspart (novoLOG ASPART) SLIDING SCALE TODAY@0000,0400 SC 09/19/17 00:00 09/19/17 04:01 Methylprednisolone Sodium Succinate 40 mg/Syringe 0.64 ml @ 1.5 mls/min Q6 IV 09/18/17 12:00 10/18/17 11:59 09/18/17 12:13 1.5 MLS/MIN Guaifenesin (Mucinex Contr Rel Tab) 600 mg Q12 PO 09/18/17 12:00 10/18/17 11:59 09/18/17 12:13 600 MG I & O: 24-Hour Column 09/19/17 08:00 Intake Total 245 ml Output Total 1875 ml Balance -1630 ml Vital Signs: Date Time Temp Pulse Resp B/P (MAP) Pulse Ox O2 Delivery O2 Flow Rate FiO2 09/18/17 14:13 93 16 94 Nasal Cannula 2.0 09/18/17 12:00 Nasal Cannula 30 BiPAP 09/18/17 11:47 36.5 93 20 100/64 (76) 99 Nasal Cannula 2.0 09/18/17 08:00 Nasal Cannula 30 BiPAP 09/18/17 07:54 36.8 91 20 101/67 (78) 94 Room Air 09/18/17 07:27 83 16 95 Nasal Cannula 2.0 09/18/17 05:33 71 97 30 09/18/17 04:25 36.5 81 18 99/52 (68) 99 BiPAP 09/18/17 04:00 Nasal Cannula 30 BiPAP 09/18/17 02:12 88 97 30 09/18/17 02:11 88 16 97 BiPAP/CPAP 30 09/18/17 00:00 Nasal Cannula 30 BiPAP 09/17/17 23:35 36.4 77 18 103/66 (78) 100 BiPAP 09/17/17 22:36 73 94 30 09/17/17 20:00 Nasal Cannula 30 BiPAP 09/17/17 19:48 36.5 95 18 100/67 (78) 100 CPAP 09/17/17 19:39 83 98 30 09/17/17 19:39 83 21 98 BiPAP/CPAP 30 09/17/17 16:00 Nasal Cannula 30 BiPAP 09/17/17 15:54 36.3 84 18 93/59 (70) 100 Room Air Laboratory Results: Last 24 Hours Test 09/17/17 16:32 09/17/17 17:37 09/17/17 17:59 09/17/17 18:37 Bedside Glucose 211 mg/dl 218 mg/dl 215 mg/dl Sodium Level 131 mmol/L Potassium Level 5.3 mmol/L Chloride Level 98 mmol/L Carbon Dioxide Level 29 mmol/L Anion Gap 4.0 mmol/L Blood Urea Nitrogen 46 mg/dl Creatinine 1.70 mg/dl Est Creatinine Clear Calc Drug Dose 44.4 ml/min Estimated GFR () 46.3 Estimated GFR (Non- 40.0 BUN/Creatinine Ratio 27.3 Random Glucose 222 mg/dl Calcium Level 8.6 mg/dl Test 09/17/17 19:30 09/17/17 20:29 09/17/17 20:33 09/17/17 20:59 Bedside Glucose 203 mg/dl 156 mg/dl 160 mg/dl Troponin I < 0.015 ng/ml Test 09/18/17 00:00 09/18/17 04:17 09/18/17 05:34 09/18/17 05:54 Bedside Glucose 176 mg/dl 231 mg/dl 88 mg/dl White Blood Count 13.65 K/uL Red Blood Count 3.57 M/uL Hemoglobin 10.2 g/dL Hematocrit 30.9 % Mean Corpuscular Volume 86.6 fL Mean Corpuscular Hemoglobin 28.6 pg Mean Corpuscular Hemoglobin Concent 33.0 g/dl RDW Standard Deviation 52.5 fL RDW Coefficient of Variation 16.6 % Platelet Count 240 K/uL Mean Platelet Volume 9.1 fL Sodium Level 135 mmol/L Potassium Level 5.1 mmol/L Chloride Level 102 mmol/L Carbon Dioxide Level 27 mmol/L Anion Gap 6.0 mmol/L Blood Urea Nitrogen 47 mg/dl Creatinine 1.43 mg/dl Est Creatinine Clear Calc Drug Dose 52.8 ml/min Estimated GFR () 57.1 Estimated GFR (Non- 49.3 BUN/Creatinine Ratio 33.1 Random Glucose 221 mg/dl Calcium Level 8.5 mg/dl Magnesium Level 2.0 mg/dl Total Bilirubin 0.3 mg/dl Aspartate Amino Transf (AST/SGOT) 9 U/L Alanine Aminotransferase (ALT/SGPT) 22 U/L Alkaline Phosphatase 65 U/L Total Protein 6.1 gm/dl Albumin 2.7 gm/dl Globulin 3.4 gm/dl Albumin/Globulin Ratio 0.8 Test 09/18/17 07:33 09/18/17 10:43 Bedside Glucose 217 mg/dl 321 mg/dl
[2017-09-18] MEDS: LOVASTATIN 20 MG TAB PO SCH (21:18)
[2017-09-19] VITALS (13 sets, daily range): BP systolic 96–121; BP diastolic 56–75; PULSE 71–92; TEMP 36.3–37; O2SAT 95–100
[2017-09-19] MEDS: METHYLPREDNISOLONE IV 40 MG in SYRINGE 0 ML IV SCH ×4 (00:07→18:32)
[2017-09-19] MEDS: LEVALBUTEROL 1.25MG/0.5ML NEB INH SCH ×4 (01:58→19:33)
[2017-09-19] MEDS: IPRATROPIUM BROMIDE NEB SOLN 0.02% 2.5 ML VIAL INH SCH ×4 (01:58→19:33)
[2017-09-19] MEDS: INSULIN ASPART 100 UNITS/ML 3 ML PEN SC SCH ×6 (04:32→20:33)
[2017-09-19 06:13] LABS: HEMATOCRIT 33.3 % (42-52); MEAN CELL VOLUME 84.7 fL (80-100); MEAN CORPUSCULAR HEMOGLOBIN 27.7 pg (25-34); MEAN CORPUSCULAR HGB CONC 32.7 g/dl (32-36); MEAN PLATELET VOLUME 8.8 fL (7.4-10.4); PLATELET COUNT 285 K/uL (130-400); RED BLOOD COUNT 3.93 M/uL (4.7-6.1); WHITE BLOOD COUNT 15.18 K/uL (4.8-10.8)
[2017-09-19 06:35] LABS: ESTIMATED AVERAGE GLUCOSE 140 mg/dl; HA1C FLAG Normal (Normal)
[2017-09-19 06:48] LABS: BUN/CREATININE RATIO 28.7 (10-20); CREATININE 1.27 mg/dl (0.60-1.40); POTASSIUM 4.8 mmol/L (3.5-5.1)
[2017-09-19] MEDS: BUDESONIDE/FORMOTEROL FUMARATE 160/4.5 60 PUFFS/INHALER INH SCH ×2 (08:05→20:35)
[2017-09-19] MEDS: TIOTROPIUM BROMIDE 5 PUFF/90 MCG INH INH SCH (08:06)
[2017-09-19] MEDS: LISINOPRIL 10 MG TAB PO SCH (08:07)
[2017-09-19] MEDS: LEVOFLOXACIN 750 MG TAB PO SCH (08:07)
[2017-09-19] MEDS: OMEGA-3 (PURIFIED FISH OIL) 1 GM CAP PO SCH (08:07)
[2017-09-19] MEDS: CEROVITE ADV FORMULA TAB PO SCH (08:07)
[2017-09-19] MEDS: METOPROLOL TARTRATE 25 MG TAB PO SCH ×2 (08:08→20:34)
[2017-09-19] MEDS: CLOPIDOGREL BISULFATE 75 MG TAB PO SCH (08:08)
[2017-09-19] MEDS: GUAIFENESIN 600 MG TABCR PO SCH ×2 (08:08→20:34)
[2017-09-19] MEDS: ENOXAPARIN 40 MG/0.4 ML SYR SC SCH (08:09)
[2017-09-19] MEDS: INSULIN GLARGINE SOLOSTAR 100 UNITS/ML 3 ML PEN SC SCH (08:15)
--- NOTE | 2017-09-19 08:51 | Family Medicine Progress Note ---
Progress Note Date of Service Sep 19, 2017. Subjective Pt evaluation today including: conversation w/ patient, physical exam, chart review, lab review, review of studies Pain: denies PO Intake: adequate Voiding: no voiding problems Pt reports that prior to admission was feeling fine and was taking his medications, however his son who is in charge of his medications does not always wake up at the same time every morning "sometimes 9 sometimes 11am" and that he doesn't always get all his medications on time everyday. He is requesting a detailed schedule of his medications that he can follow so as to not have to depend solely on his son, he also desires to be independent and live on his own, accompanied by his ex , in the future and so wishes to know about his medication for that reason as well. He says he does not like going to [place] for his cardiology appointments and would like to follow up with [facility] - says he has seen Dr. Ernandez and would like to continue to see him. Says he has not had a follow up with a credit correspondence clerk (Dr. Fernandez) as his appointment for PFT's wasn't until later in September. Constitutional: No fever, No chills Respiratory: + cough, + wheezing, + shortness of breath, + dyspnea at rest Cardiovascular: No chest pain, No edema, No palpitations Abdomen: No pain, No nausea, No vomiting Male : No dysuria Medications Current Inpatient Medications Medications (Trade) Dose Ordered Sig/Nessa Route Start Time Stop Time Status Last Admin Dose Admin Enoxaparin Sodium (Lovenox Inj) 40 mg Q24H SC 09/17/17 09:00 10/17/17 08:59 09/19/17 08:09 40 MG Acetaminophen (Tylenol Tab) 650 mg Q4H PRN PO 09/17/17 05:00 10/17/17 04:59 Al Hydrox/Mg Hydrox/Simethicone (Maalox Max Susp) 15 ml Q4H PRN PO 09/17/17 05:00 10/17/17 04:59 Ondansetron HCl (Zofran Inj) 4 mg Q6H PRN IV 09/17/17 05:00 10/17/17 04:59 Nitroglycerin (Nitrostat Tab) 0.4 mg UD PRN SL 09/17/17 05:00 10/17/17 04:59 Polyethylene (Miralax Powder Packet) 17 gm DAILY PRN PO 09/17/17 05:00 10/17/17 04:59 Cetirizine HCl (zyrTEC TAB) 10 mg DAILY PRN PO 09/17/17 05:00 10/17/17 04:59 09/17/17 09:11 10 MG Clopidogrel Bisulfate (plAVix TAB) 75 mg DAILY PO 09/17/17 09:00 10/17/17 08:59 09/19/17 08:08 75 MG Lisinopril (Zestril Tab) 10 mg QAM PO 09/17/17 09:00 10/17/17 08:59 09/19/17 08:07 10 MG Metoprolol Tartrate (Lopressor Tab) 25 mg BID PO 09/17/17 09:00 10/17/17 08:59 09/19/17 08:08 25 MG Multivitamins/ Minerals (Multivitamin W/ Minerals Tab) 1 tab DAILY PO 09/17/17 09:00 10/17/17 08:59 09/19/17 08:07 1 TAB Lovastatin (Mevacor Tab) 10 mg HS PO 09/17/17 21:00 10/17/17 20:59 09/18/17 21:18 10 MG Fish Oil ([place]-3 (Purified Fish Oil) Cap) 1 gm DAILY PO 09/17/17 09:00 10/17/17 08:59 09/19/17 08:07 1 GM Miscellaneous Information (Consult Glycemic Management Pharmacy) 1 ea UD PRN N/A 09/17/17 05:30 10/17/17 05:29 Glucose (Glucose 40% Gel) 15-30 GRAMS 15 GRAMS... UD PRN PO 09/17/17 05:45 10/17/17 05:44 Glucose (Glucose Chew Tab) 4-8 Tablets 4 Tabl... UD PRN PO 09/17/17 05:45 10/17/17 05:44 Dextrose (Dextrose 50% 50ML Syringe) 25-50ML OF 50% DW IV FOR... UD PRN IV 09/17/17 05:45 10/17/17 05:44 Glucagon (Glucagon Inj) 1 mg UD PRN SQ 09/17/17 05:45 10/17/17 05:44 Insulin Aspart (novoLOG ASPART) SLIDING SCALE ACHS SC 09/17/17 06:00 10/17/17 05:59 Future hold 09/19/17 17:09 22 UNITS Ipratropium Morrison (Atrovent 0.02% 0.5MG/2.5ML Neb) 0.5 mg Q6R INH 09/17/17 09:00 10/17/17 08:59 09/19/17 14:14 0.5 MG Levalbuterol (Xopenex 1.25MG/ 0.5ML Neb) 1.25 mg Q6R INH 09/17/17 09:00 10/17/17 08:59 09/19/17 14:14 1.25 MG Tiotropium Morrison (Spiriva Handihaler Inhaler) 1 puff QAM INH 09/18/17 09:00 10/18/17 08:59 09/19/17 08:06 1 PUFF Budesonide/ Formoterol Fumarate (Symbicort 160/ 4.5 Inh) 2 puffs BID INH 09/17/17 21:00 10/17/17 20:59 09/19/17 08:05 2 PUFFS Insulin Glargine (Lantus Solostar Pen) 50 units DAILY SC 09/18/17 09:00 10/18/17 08:59 09/19/17 08:15 50 UNITS Methylprednisolone Sodium Succinate 40 mg/Syringe 0.64 ml @ 1.5 mls/min Q6 IV 09/18/17 12:00 10/18/17 11:59 09/19/17 18:32 1.5 MLS/MIN Guaifenesin (Mucinex Contr Rel Tab) 600 mg Q12 PO 09/18/17 12:00 10/18/17 11:59 09/19/17 08:08 600 MG Levofloxacin (Levaquin Tab) 750 mg DAILY@11 PO 09/19/17 11:00 09/21/17 11:01 09/19/17 08:07 750 MG Menthol (Nice Marcello) 1 marcello PRN PRN PO 09/19/17 13:30 10/19/17 13:29 Docusate Sodium (coLACE CAP) 100 mg QPM PO 09/19/17 21:00 10/19/17 20:59 Objective Physical Exam General Appearance: WD/WN, no apparent distress, + thin, + pertinent finding ( BiPaP in place) Eyes: normal inspection, EOMI Respiratory/Chest: chest non-tender, + decreased breath sounds, + accessory muscle use, + wheezing Cardiovascular: regular rate, rhythm, no edema, no gallop Abdomen: normal bowel sounds, non tender, soft Extremities: non-tender, normal inspection, no pedal edema Neurologic/Psychiatric: alert, normal mood/affect, oriented x 3 Skin: normal color, warm/dry, no rash Laboratory Results Last Resulted 09/19/17 05:41 Last Resulted 09/19/17 05:41 Assessment and Plan 71-year-old male with past medical history of COPD, recent exacerbation in early August 2017, diabetes type 2, coronary artery disease status post CABG 2 with AVR, hyperlipidemia presented as a direct admit from [facility] for acute hypoxic and hypercarbic respiratory failure. Acute hypoxic and hypercarbic respiratory failure/COPD exacerbation - Chest x-ray did not show any acute pathology - Received 125 mg Solu-Medrol with DuoNeb treatment at outside hospital ER. Tapering IV Solumedrol: 40 mg TID starting tomorrow. - Continue Symbicort - Pt on BIPAP. Pt to use as much as tolerated. - Sputum cultures reordered and recollected - Continue Levaquin, day 3 - Pt reports not taking inhaled corticosteroid+LABA at home. Pt reports not being d/c'ed with these meds at previous hospitalization. Will continue to re- educate pt about medication regimen. - Pulmonology consulted, appreciate recommendation T2DM/Hyperglycemia -Glucose improved yesterday afternoon, labile sugars today on steroids -Uses insulin pump at home which he has not carried with him -Pharmacy consult for glycemic management CAD/CABG 2/AVR/hypertension -Troponins trended, negative -Continue clopidogrel, metoprolol, lovastatin, lisinopril Hyperkalemia - Resolved - Possibly secondary to acidosis - no EKG changes seen DVT prophylaxis: Lovenox Code: DNR Dispo: Tele Resident Physician Supervision Note: Resident Physician Supervision Note: I interviewed and examined the patient. Discussed with Dr. Gamez and agree with findings and plan as documented in the note. Documented By: Cole Peng Continued [facility] stay due to: multiple IV medications needed Discharge planning: home with home health Resident Tracking Resident Involvement: Resident Care Provided Care Provided: Adult Hospital Medicine
--- NOTE | 2017-09-19 11:51 | Pulmonology Progress Note ---
Pulmonary Progress Note Date of Service Sep 19, 2017. Attending Dr. Bueno Subjective Feeling improved overall. Cough has transitioned from yellow to white in quality , no hemoptysis - sputum culture sent today. No fevers or chills. No chest pain , dysphagia, or peripheral edema. Right sided chest tightness improving. No fevers or chills. Continues to report wheeze - improved with use of nebulizer. Able to sleep for several hours on BiPAP. Objective 71-yo male transferred to [facility] from [place] with hypoxic hypercapnic respiratory failure. PMHx includes: Recent admission to [facility] early August 2017 with respiratory failure. DM II, bronchitic COPD (PHARMACY ANALYST Breo 200/25), CAD s/p CABG and AVR, HTN, HLD. He is a former smoker: 20-pack year, quit age 51. 71-yo male presents with his second admission this month with hypoxic respiratory failure. He reports apx 5-year history of chronic cough which developed post episode of pneumonia. as well as baseline LAO with ambulating 150 yards. He reports history of snoring but denies previous PSG. He has used albuterol PRN and does have a nebulizer at home as well as nocturnal and PRN O2 -2.5LPM via NC. He reports he was recently prescribed Breo 200/25 by sample by his PCP in preparation of establishing with [facility] (Dr. Santiago 10/04). Patient was admitted and treated with steroids, bronchodilators, levofloxacin and BiPAP, with clinical response. Today: - Alternated between PHARMACY ANALYST 2.5LPM O2 and BiPAP i10/e7-30%. - WBC/Hgb/Hct/Plts: 15.18/10.9/33.3/285 - CO2: 28 - Methylprednisolone: 40mg Q6, Symbicort, Spiriva, Q6-Levalbuterol - ipratropium Physical Exam: Constitutional: WDWN elderly male lying in hospital bed watching television. NAD Head: + facial symmetry. Eyes: EOMi, PERRLA, no injection Mouth: moist mucous membranes. Respiratory: Bilateral wheeze throughout with scattered rales at bases. No rhonchi. CV: Regular rate. No murmur appreciated with overlying pulmonary exam. Articulated vertical sternal scar GI: Soft, active bowel sounds. Non-tender MSK/Extremities: moving and developed symmetrically. No peripheral edema. Neurologic: A&O. Good data recall. Appropriate affect. Assessment & Plan Acute on chronic hypoxic hypercapnic respiratory failure - Still markedly bronchospastic on exam but responding clinically to treatment - Continue IV steroids at current dose through today - Continue IS/Flutter, Symbicort, Spiriva, bronchodilators as prescribed - 7-days levofloxacin - Titrate O2 between 89-94% - Nocturnal BiPAP - patient agreeable and will need OP PSG and pulmonary f/u to establish with PFTs Data Medications: Current Inpatient Medications Medications (Trade) Dose Ordered Sig/Nessa Route Start Time Stop Time Status Last Admin Dose Admin Enoxaparin Sodium (Lovenox Inj) 40 mg Q24H SC 09/17/17 09:00 10/17/17 08:59 09/19/17 08:09 40 MG Acetaminophen (Tylenol Tab) 650 mg Q4H PRN PO 09/17/17 05:00 10/17/17 04:59 Al Hydrox/Mg Hydrox/Simethicone (Maalox Max Susp) 15 ml Q4H PRN PO 09/17/17 05:00 10/17/17 04:59 Ondansetron HCl (Zofran Inj) 4 mg Q6H PRN IV 09/17/17 05:00 10/17/17 04:59 Nitroglycerin (Nitrostat Tab) 0.4 mg UD PRN SL 09/17/17 05:00 10/17/17 04:59 Polyethylene (Miralax Powder Packet) 17 gm DAILY PRN PO 09/17/17 05:00 10/17/17 04:59 Cetirizine HCl (zyrTEC TAB) 10 mg DAILY PRN PO 09/17/17 05:00 10/17/17 04:59 09/17/17 09:11 10 MG Clopidogrel Bisulfate (plAVix TAB) 75 mg DAILY PO 09/17/17 09:00 10/17/17 08:59 09/19/17 08:08 75 MG Lisinopril (Zestril Tab) 10 mg QAM PO 09/17/17 09:00 10/17/17 08:59 09/19/17 08:07 10 MG Metoprolol Tartrate (Lopressor Tab) 25 mg BID PO 09/17/17 09:00 10/17/17 08:59 09/19/17 08:08 25 MG Multivitamins/ Minerals (Multivitamin W/ Minerals Tab) 1 tab DAILY PO 09/17/17 09:00 10/17/17 08:59 09/19/17 08:07 1 TAB Lovastatin (Mevacor Tab) 10 mg HS PO 09/17/17 21:00 10/17/17 20:59 09/18/17 21:18 10 MG Fish Oil ([place]-3 (Purified Fish Oil) Cap) 1 gm DAILY PO 09/17/17 09:00 10/17/17 08:59 09/19/17 08:07 1 GM Miscellaneous Information (Consult Glycemic Management Pharmacy) 1 ea UD PRN N/A 09/17/17 05:30 10/17/17 05:29 Glucose (Glucose 40% Gel) 15-30 GRAMS 15 GRAMS... UD PRN PO 09/17/17 05:45 10/17/17 05:44 Glucose (Glucose Chew Tab) 4-8 Tablets 4 Tabl... UD PRN PO 09/17/17 05:45 10/17/17 05:44 Dextrose (Dextrose 50% 50ML Syringe) 25-50ML OF 50% DW IV FOR... UD PRN IV 09/17/17 05:45 10/17/17 05:44 Glucagon (Glucagon Inj) 1 mg UD PRN SQ 09/17/17 05:45 10/17/17 05:44 Insulin Aspart (novoLOG ASPART) SLIDING SCALE ACHS SC 09/17/17 06:00 10/17/17 05:59 Future hold 09/19/17 08:12 40 UNITS Ipratropium Foss (Atrovent 0.02% 0.5MG/2.5ML Neb) 0.5 mg Q6R INH 09/17/17 09:00 10/17/17 08:59 09/19/17 07:12 0.5 MG Levalbuterol (Xopenex 1.25MG/ 0.5ML Neb) 1.25 mg Q6R INH 09/17/17 09:00 10/17/17 08:59 09/19/17 07:12 1.25 MG Tiotropium Foss (Spiriva Handihaler Inhaler) 1 puff QAM INH 09/18/17 09:00 10/18/17 08:59 09/19/17 08:06 1 PUFF Budesonide/ Formoterol Fumarate (Symbicort 160/ 4.5 Inh) 2 puffs BID INH 09/17/17 21:00 10/17/17 20:59 09/19/17 08:05 2 PUFFS Insulin Glargine (Lantus Solostar Pen) 50 units DAILY SC 09/18/17 09:00 10/18/17 08:59 09/19/17 08:15 50 UNITS Methylprednisolone Sodium Succinate 40 mg/Syringe 0.64 ml @ 1.5 mls/min Q6 IV 09/18/17 12:00 10/18/17 11:59 09/19/17 06:09 1.5 MLS/MIN Guaifenesin (Mucinex Contr Rel Tab) 600 mg Q12 PO 09/18/17 12:00 10/18/17 11:59 09/19/17 08:08 600 MG Levofloxacin (Levaquin Tab) 750 mg DAILY@11 PO 09/19/17 11:00 09/23/17 11:01 09/19/17 08:07 750 MG Vital Signs: Date Time Temp Pulse Resp B/P (MAP) Pulse Ox O2 Delivery O2 Flow Rate FiO2 09/19/17 08:00 Nasal Cannula 2.5 09/19/17 07:40 36.4 72 22 121/73 (89) 98 Nasal Cannula 2.0 09/19/17 07:15 71 16 98 Nasal Cannula 2.0 09/19/17 04:05 99 BiPAP 30 09/19/17 03:55 37.0 77 20 96/59 (71) 99 CPAP 09/19/17 01:59 92 96 30 09/19/17 01:58 92 15 96 BiPAP/CPAP 30 09/19/17 00:00 99 BiPAP 30 09/18/17 23:32 36.6 78 20 111/71 (84) 99 BiPAP 09/18/17 22:00 81 98 30 09/18/17 20:00 Nasal Cannula 2.5 30 BiPAP 09/18/17 19:41 36.3 92 20 106/66 (79) 92 CPAP 09/18/17 19:26 98 95 30 09/18/17 19:25 98 20 95 BiPAP/CPAP 30 09/18/17 16:05 36.6 95 20 88/55 (66) 99 Nasal Cannula 2.0 09/18/17 16:00 Nasal Cannula 30 BiPAP 09/18/17 14:13 93 16 94 Nasal Cannula 2.0 09/18/17 12:00 Nasal Cannula 30 BiPAP 09/18/17 11:47 36.5 93 20 100/64 (76) 99 Nasal Cannula 2.0 Laboratory Results: Last 24 Hours Test 09/18/17 10:43 09/18/17 16:04 09/18/17 21:16 09/19/17 00:04 Bedside Glucose 321 mg/dl 122 mg/dl 95 mg/dl 100 mg/dl Test 09/19/17 04:05 09/19/17 05:41 09/19/17 06:46 Bedside Glucose 118 mg/dl 147 mg/dl White Blood Count 15.18 K/uL Red Blood Count 3.93 M/uL Hemoglobin 10.9 g/dL Hematocrit 33.3 % Mean Corpuscular Volume 84.7 fL Mean Corpuscular Hemoglobin 27.7 pg Mean Corpuscular Hemoglobin Concent 32.7 g/dl RDW Standard Deviation 51.8 fL RDW Coefficient of Variation 16.4 % Platelet Count 285 K/uL Mean Platelet Volume 8.8 fL Sodium Level 138 mmol/L Potassium Level 4.8 mmol/L Chloride Level 104 mmol/L Carbon Dioxide Level 28 mmol/L Anion Gap 6.0 mmol/L Blood Urea Nitrogen 36 mg/dl Creatinine 1.27 mg/dl Est Creatinine Clear Calc Drug Dose 59.4 ml/min Estimated GFR () 65.9 Estimated GFR (Non- 56.9 BUN/Creatinine Ratio 28.7 Random Glucose 134 mg/dl Calcium Level 9.0 mg/dl
[2017-09-19] MEDS ORDERED: COUGH DROP (SUGAR FREE) LOZ 24 LOZ/1 BOX ONE (12:59)
[2017-09-19] MEDS ORDERED: NURSING VERBAL MED ORDER ONE (13:15)
[2017-09-19] MEDS ORDERED: COUGH DROP (SUGAR FREE) LOZ 24 LOZ/1 BOX PO PRN (13:30)
--- NOTE | 2017-09-19 14:35 | Pharmacy Progress Note ---
Glycemic Control Progress Note Date of Service Sep 19, 2017. Scope Glycemic Pharmacist consulted for glycemic control to write orders per [facility] inpatient glycemic control protocol. Objective Accuchecks BSG (last 24hrs): Test 09/18/17 16:04 09/18/17 21:16 09/19/17 00:04 09/19/17 04:05 Bedside Glucose 122 mg/dl (70-99) 95 mg/dl (70-99) 100 mg/dl (70-99) 118 mg/dl (70-99) Test 09/19/17 05:41 09/19/17 06:46 Random Glucose 134 mg/dl (70-99) Bedside Glucose 147 mg/dl (70-99) HbA1c: Test 09/18/17 05:54 Hemoglobin A1c 6.5 % (4.5-5.6) H Recent Pertinent Medications The patient is currently receiving: * Basal insulin: Lantus 50 units every 24 hours * Correctional Insulin: Novolog Correction per scale ACHS Goal Range: Low 100 mg/dL - High 150 mg/dL Correction Factor: 10 mg/dL/unit * Prandial insulin: Per carb ratio of 1 unit per 1.5 grams CHO consumed Outpatient Anti-Diabetic Meds * Regular Insulin SQ Pump * Basal rate: 2 units/hr * Bolus CHO: 1-2 Assessment & Plan ASSESSMENT: * See progress note from 09/17/17 for more background info, in short: * Pt receiving SQ basal bolus insulin regimen for hyperglycemia secondary to baseline DM (outpatient regimen on hold), stress/infection and steroids * Patient is currently receiving an average of 169 units of insulin per day * 50 units of basal insulin * 119 units of prandial/correctional insulin * BSGs ranging 95 - 321 mg/dl over the past 24hrs * Changes needed to insulin regimen: * AM Fasting BSG = 147 mg/dl. This is above goal range for patient but is markedly improved compared to 09/18. Will keep inpatient basal dose just slightly stressed to prevent hypo when steroids tapered. * Post-prandial BSGs are within goal range. No changes today. * Continue ~30% basal/70% bolus since steroids have most profound effect on prandial BSG. Steroids remain at 40 mg IV q6 hours. Will loosen CF/CR with each step down in steroids. PLAN FOR INPATIENT GLYCEMIC CONTROL: * Continue Lantus 50 units SQ q24 * Bolus insulin * NovoLog per scale ACHS * Goal Range: Low 100 mg/dL - High 150 mg/dL * Correction Factor: 10 mg/dL/unit * Nutritional / Prandial insulin per carb ratio of 1 unit per 1.5 grams CHO consumed RECOMMENDATIONS FOR DISCHARGE: * * Please note that the plan above was derived based on current level of insulin resistance and hospital stress. These recommendations are appropriate for inpatient admission only. Plan of care upon discharge will need to be reassessed to avoid potential outpatient hypo/hyperglycemia. Thank you.
[2017-09-19] MEDS: DOCUSATE SODIUM 100 MG CAP PO SCH (20:34)
[2017-09-19] MEDS: LOVASTATIN 20 MG TAB PO SCH (20:34)
[2017-09-19] MEDS ORDERED: METHYLPREDNISOLONE IV 40 MG in SYRINGE 0 ML IV SCH (21:00)
[2017-09-20] VITALS (10 sets, daily range): BP systolic 107–133; BP diastolic 49–79; PULSE 60–80; TEMP 36.5–36.6; O2SAT 95–99
[2017-09-20] MEDS: LEVALBUTEROL 1.25MG/0.5ML NEB INH SCH ×4 (02:00→19:34)
[2017-09-20] MEDS: IPRATROPIUM BROMIDE NEB SOLN 0.02% 2.5 ML VIAL INH SCH ×4 (02:00→19:34)
[2017-09-20 06:16] LABS: HEMATOCRIT 33.6 % (42-52); MEAN CELL VOLUME 84.8 fL (80-100); MEAN CORPUSCULAR HEMOGLOBIN 28.3 pg (25-34); MEAN CORPUSCULAR HGB CONC 33.3 g/dl (32-36); PLATELET COUNT 307 K/uL (130-400); RED BLOOD COUNT 3.96 M/uL (4.7-6.1); WHITE BLOOD COUNT 13.93 K/uL (4.8-10.8)
[2017-09-20 06:42] LABS: BUN/CREATININE RATIO 27.5 (10-20); CALCIUM 8.7 mg/dl (8.5-10.1); CREATININE 1.03 mg/dl (0.60-1.40); POTASSIUM 4.3 mmol/L (3.5-5.1)
[2017-09-20] MEDS: INSULIN ASPART 100 UNITS/ML 3 ML PEN SC SCH ×4 (08:38→22:19)
[2017-09-20] MEDS: TIOTROPIUM BROMIDE 5 PUFF/90 MCG INH INH SCH (08:39)
[2017-09-20] MEDS: BUDESONIDE/FORMOTEROL FUMARATE 160/4.5 60 PUFFS/INHALER INH SCH ×2 (08:39→21:40)
[2017-09-20] MEDS: GUAIFENESIN 600 MG TABCR PO SCH ×2 (08:40→21:43)
[2017-09-20] MEDS: LISINOPRIL 10 MG TAB PO SCH (08:40)
[2017-09-20] MEDS: METOPROLOL TARTRATE 25 MG TAB PO SCH ×2 (08:40→21:43)
[2017-09-20] MEDS: CEROVITE ADV FORMULA TAB PO SCH (08:40)
[2017-09-20] MEDS: CLOPIDOGREL BISULFATE 75 MG TAB PO SCH (08:41)
[2017-09-20] MEDS: OMEGA-3 (PURIFIED FISH OIL) 1 GM CAP PO SCH (08:41)
[2017-09-20] MEDS: ENOXAPARIN 40 MG/0.4 ML SYR SC SCH (08:42)
[2017-09-20] MEDS: INSULIN GLARGINE SOLOSTAR 100 UNITS/ML 3 ML PEN SC SCH (08:43)
[2017-09-20] MEDS ORDERED: METHYLPREDNISOLONE IV 40 MG in SYRINGE 0 ML IV SCH (09:00)
--- NOTE | 2017-09-20 09:27 | PULMONARY PROGRESS NOTE ---
DATE: 09/20/2017 TIME: 9:00 a.m. SUBJECTIVE: The patient is feeling much better. He is less short of breath. He wore his BiPAP during the night. He is getting more comfortable with it. He has relatively little cough today. OBJECTIVE: GENERAL: The patient is comfortable at rest. VITAL SIGNS: Temperature is 36.5. ENT: Exam unremarkable. CARDIOVASCULAR: Heart rate was 72 per minute. Blood pressure 125/66. HEENT: There is a scar on the anterior chest from a relatively recent surgery. LUNGS: Auscultation of the lung spencer reveal mild wheezing on expiration. Respiratory rate was 18. Saturation was 98% on 2 liters. ABDOMEN: Mildly obese. It was soft and nontender. EXTREMITIES: Showed no cyanosis, clubbing or edema. LABORATORY DATA: CBC today shows a white count of 13.93. Hemoglobin 11.2. Platelets 307,000. Electrolytes show sodium 137, potassium 4.3, chloride 103, bicarbonate 30. BUN is 28 with a creatinine of 1.03. Blood sugar was 105. ASSESSMENT: 1. Acute on chronic respiratory failure with hypoxia and hypercarbia. 2. Chronic obstructive pulmonary disease exacerbation. 3. Coronary artery disease. COMMENTS AND RECOMMENDATIONS: The patient appears to be much improved. I had previously seen him during a hospital stay in early August. He was much more short of breath and tight in the chest that time than he is currently. I believe his steroids can be tapered back. He is currently on 40 mg of methylprednisolone t.i.d. Would suggest decreasing to 20 mg t.i.d. and then if he does well address change clerk to prednisone tomorrow. We would try to ambulate the patient today. We would continue with his other medications. The patient may need a sleep study. It is possible he might potentially qualify for BiPAP at home without a sleep study. I would suggest doing an overnight pulse oximetry study on his usual 2 liters of oxygen and see how that goes. Case was discussed with Dr. Gamez and with Dr. Peng.
--- NOTE | 2017-09-20 09:57 | Family Medicine Progress Note ---
Progress Note Date of Service Sep 20, 2017. Subjective Pt evaluation today including: conversation w/ patient, physical exam, chart review, lab review, review of studies, conversation w/ java consultant, review of inpatient medication list Pt reports improvement in work of breathing, is eating and voiding well, no events overnight. Constitutional: No fever, No chills Respiratory: + wheezing, + shortness of breath, + dyspnea on exertion, No cough Cardiovascular: No chest pain, No edema Abdomen: No pain, No nausea, No vomiting Medications Current Inpatient Medications Medications (Trade) Dose Ordered Sig/Nessa Route Start Time Stop Time Status Last Admin Dose Admin Enoxaparin Sodium (Lovenox Inj) 40 mg Q24H SC 09/17/17 09:00 10/17/17 08:59 09/20/17 08:42 40 MG Acetaminophen (Tylenol Tab) 650 mg Q4H PRN PO 09/17/17 05:00 10/17/17 04:59 Al Hydrox/Mg Hydrox/Simethicone (Maalox Max Susp) 15 ml Q4H PRN PO 09/17/17 05:00 10/17/17 04:59 Ondansetron HCl (Zofran Inj) 4 mg Q6H PRN IV 09/17/17 05:00 10/17/17 04:59 Nitroglycerin (Nitrostat Tab) 0.4 mg UD PRN SL 09/17/17 05:00 10/17/17 04:59 Polyethylene (Miralax Powder Packet) 17 gm DAILY PRN PO 09/17/17 05:00 10/17/17 04:59 Cetirizine HCl (zyrTEC TAB) 10 mg DAILY PRN PO 09/17/17 05:00 10/17/17 04:59 09/17/17 09:11 10 MG Clopidogrel Bisulfate (plAVix TAB) 75 mg DAILY PO 09/17/17 09:00 10/17/17 08:59 09/20/17 08:41 75 MG Lisinopril (Zestril Tab) 10 mg QAM PO 09/17/17 09:00 10/17/17 08:59 09/20/17 08:40 10 MG Metoprolol Tartrate (Lopressor Tab) 25 mg BID PO 09/17/17 09:00 10/17/17 08:59 09/20/17 08:40 25 MG Multivitamins/ Minerals (Multivitamin W/ Minerals Tab) 1 tab DAILY PO 09/17/17 09:00 10/17/17 08:59 09/20/17 08:40 1 TAB Lovastatin (Mevacor Tab) 10 mg HS PO 09/17/17 21:00 10/17/17 20:59 09/19/17 20:34 10 MG Fish Oil ([place]-3 (Purified Fish Oil) Cap) 1 gm DAILY PO 09/17/17 09:00 10/17/17 08:59 09/20/17 08:41 1 GM Miscellaneous Information (Consult Glycemic Management Pharmacy) 1 ea UD PRN N/A 09/17/17 05:30 10/17/17 05:29 Glucose (Glucose 40% Gel) 15-30 GRAMS 15 GRAMS... UD PRN PO 09/17/17 05:45 10/17/17 05:44 Glucose (Glucose Chew Tab) 4-8 Tablets 4 Tabl... UD PRN PO 09/17/17 05:45 10/17/17 05:44 Dextrose (Dextrose 50% 50ML Syringe) 25-50ML OF 50% DW IV FOR... UD PRN IV 09/17/17 05:45 10/17/17 05:44 Glucagon (Glucagon Inj) 1 mg UD PRN SQ 09/17/17 05:45 10/17/17 05:44 Insulin Aspart (novoLOG ASPART) SLIDING SCALE ACHS SC 09/17/17 06:00 10/17/17 05:59 Future hold 09/20/17 08:38 13 UNITS Ipratropium [place] (Atrovent 0.02% 0.5MG/2.5ML Neb) 0.5 mg Q6R INH 09/17/17 09:00 10/17/17 08:59 09/20/17 07:35 0.5 MG Levalbuterol (Xopenex 1.25MG/ 0.5ML Neb) 1.25 mg Q6R INH 09/17/17 09:00 10/17/17 08:59 09/20/17 07:35 1.25 MG Tiotropium [place] (Spiriva Handihaler Inhaler) 1 puff QAM INH 09/18/17 09:00 10/18/17 08:59 09/20/17 08:39 1 PUFF Budesonide/ Formoterol Fumarate (Symbicort 160/ 4.5 Inh) 2 puffs BID INH 09/17/17 21:00 10/17/17 20:59 09/20/17 08:39 2 PUFFS Insulin Glargine (Lantus Solostar Pen) 50 units DAILY SC 09/18/17 09:00 10/18/17 08:59 09/20/17 08:43 50 UNITS Guaifenesin (Mucinex Contr Rel Tab) 600 mg Q12 PO 09/18/17 12:00 10/18/17 11:59 09/20/17 08:40 600 MG Levofloxacin (Levaquin Tab) 750 mg DAILY@11 PO 09/19/17 11:00 09/21/17 11:01 09/19/17 08:07 750 MG Menthol (Nice Marcello) 1 marcello PRN PRN PO 09/19/17 13:30 10/19/17 13:29 Docusate Sodium (coLACE CAP) 100 mg QPM PO 09/19/17 21:00 10/19/17 20:59 09/19/17 20:34 100 MG Methylprednisolone Sodium Succinate 20 mg/Syringe 0.32 ml @ 1.5 mls/min Q8H IV 09/20/17 16:00 10/20/17 15:59 Objective Physical Exam General Appearance: WD/WN, no apparent distress Eyes: normal inspection, EOMI Respiratory/Chest: + accessory muscle use, + wheezing (RT side>>LT side, diffuse) Cardiovascular: regular rate, rhythm, no edema, no gallop, no JVD Abdomen: normal bowel sounds, non tender, soft Laboratory Results Last Resulted 09/20/17 05:49 Last Resulted 09/20/17 05:49 Assessment and Plan 71-year-old male with past medical history of COPD, recent exacerbation in early August 2017, diabetes type 2, coronary artery disease status post CABG 2 with AVR, hyperlipidemia presented as a direct admit from [facility] for acute hypoxic and hypercarbic respiratory failure. Acute hypoxic and hypercarbic respiratory failure/COPD exacerbation - Records from [facility] document ABG CO2 of 59.5, with pH 7.29. - Ordering overnight pulse oximetry, to be done while pt is on 2L O2 to see if pt qualifies for BiPaP. - Chest x-ray did not show any acute pathology - Received 125 mg Solu-Medrol with DuoNeb treatment at outside hospital ER. Tapering IV Solumedrol: 40 mg TID. - Continue Symbicort - Pt on BIPAP. Pt to use as much as tolerated. - Sputum cultures reordered and recollected - Continue Levaquin, day 4 - Pt reports not taking inhaled corticosteroid+LABA at home. Pt reports not being d/c'ed with these meds at previous hospitalization. Will continue to re- educate pt about medication regimen. - Pulmonology consulted, appreciate recommendation T2DM/Hyperglycemia -Glucose improved -Uses insulin pump at home which he has not carried with him -Pharmacy consult for glycemic management CAD/CABG 2/AVR/hypertension -Troponins trended, negative -Continue clopidogrel, metoprolol, lovastatin, lisinopril Hyperkalemia - Resolved - Possibly secondary to acidosis - no EKG changes seen DVT prophylaxis: Lovenox Code: DNR Dispo: Tele Resident Physician Supervision Note: I was present with Dr. Gamez during the history and exam. I discussed the case with the resident and agree with the findings and plan as documented in the note. Also discussed the case with Dr. Bueno. Taper steroids, we will convert to by mouth prednisone tomorrow. Monitor pulse oximetry readings off BiPAP this evening to see if he would qualify for BiPAP at home Documented By: Cole Peng Resident Tracking Resident Involvement: Resident Care Provided Care Provided: Adult Hospital Medicine
[2017-09-20] MEDS: LEVOFLOXACIN 750 MG TAB PO SCH (13:36)
[2017-09-20] MEDS: METHYLPREDNISOLONE IV 20 MG in SYRINGE 0 ML IV SCH (18:04)
[2017-09-20] MEDS: DOCUSATE SODIUM 100 MG CAP PO SCH (21:00)
[2017-09-20] MEDS: LOVASTATIN 20 MG TAB PO SCH (21:42)
[2017-09-21] VITALS (9 sets, daily range): BP systolic 105–119; BP diastolic 56–72; PULSE 63–79; TEMP 36.4–36.7; O2SAT 94–98
[2017-09-21] MEDS: METHYLPREDNISOLONE IV 20 MG in SYRINGE 0 ML IV SCH ×2 (00:13→08:02)
[2017-09-21] MEDS: LEVALBUTEROL 1.25MG/0.5ML NEB INH SCH ×3 (02:57→14:19)
[2017-09-21] MEDS: IPRATROPIUM BROMIDE NEB SOLN 0.02% 2.5 ML VIAL INH SCH ×3 (02:57→14:19)
[2017-09-21] MEDS: BUDESONIDE/FORMOTEROL FUMARATE 160/4.5 60 PUFFS/INHALER INH SCH (08:03)
[2017-09-21] MEDS: CEROVITE ADV FORMULA TAB PO SCH (08:03)
[2017-09-21] MEDS: CLOPIDOGREL BISULFATE 75 MG TAB PO SCH (08:03)
[2017-09-21] MEDS: METOPROLOL TARTRATE 25 MG TAB PO SCH (08:03)
[2017-09-21] MEDS: TIOTROPIUM BROMIDE 5 PUFF/90 MCG INH INH SCH (08:04)
[2017-09-21] MEDS: OMEGA-3 (PURIFIED FISH OIL) 1 GM CAP PO SCH (08:05)
[2017-09-21] MEDS: LISINOPRIL 10 MG TAB PO SCH (08:05)
[2017-09-21] MEDS: ENOXAPARIN 40 MG/0.4 ML SYR SC SCH (08:06)
[2017-09-21] MEDS: GUAIFENESIN 600 MG TABCR PO SCH (08:08)
[2017-09-21] MEDS: INSULIN ASPART 100 UNITS/ML 3 ML PEN SC SCH ×2 (08:12→13:43)
[2017-09-21] MEDS: INSULIN GLARGINE SOLOSTAR 100 UNITS/ML 3 ML PEN SC SCH (08:13)
--- NOTE | 2017-09-21 10:26 | Pharmacy Progress Note ---
Glycemic Control Progress Note Date of Service Sep 21, 2017. Scope Glycemic Pharmacist consulted for glycemic control to write orders per [facility] inpatient glycemic control protocol. Objective Accuchecks BSG (last 24hrs): Test 09/20/17 11:18 09/20/17 16:06 09/20/17 20:20 Bedside Glucose 127 mg/dl (70-99) 122 mg/dl (70-99) 178 mg/dl (70-99) HbA1c: Test 09/18/17 05:54 Hemoglobin A1c 6.5 % (4.5-5.6) H Recent Pertinent Medications The patient is currently receiving: * Basal insulin: Lantus 50 units every 24 hours in the morning * Correctional Insulin: Novolog Correction per scale ACHS Goal Range: Low 110 mg/dL - High 140 mg/dL Correction Factor: 12 mg/dL/unit * Prandial insulin: Per carb ratio of 1 unit per 2 grams CHO consumed Outpatient Anti-Diabetic Meds Regular Insulin pump: basal is 2 units/hr and bolus is a CR of 1-2 units Assessment & Plan ASSESSMENT: * See progress note from 09/17 for more background info, in short: * Pt receiving SQ basal bolus insulin regimen for hyperglycemia secondary to baseline DM (outpatient regimen on hold), infection (COPD exacerbation on oral Levaquin), steroids (currently on Solu-Medrol 20 mg IV q8 hours- plan to change to oral prednisone today). * Patient is currently receiving an average of 102 units of insulin per day * 50 units of basal insulin * 62 units of prandial/correctional insulin * BSGs ranging 105 - 178 mg/dl over the past 24hrs * Changes needed to insulin regimen: * AM Fasting BSG = 103 mg/dl. This is within goal range for patient based on inpatient targets and co-morbidities. Therefore Basal insulin will be continued for today. Tomorrow plan to split Lantus into BID dosing in preparation for discharge. Will tighten Novolog parameters that day as basal will be lacking. * Post-prandial BSGs are currently within range. Patient is very sensitive to changes in steroid dosing. Loosened parameters slightly this evening in preparation for change to oral steroids. Will re-tighten tomorrow when changing to twice daily Lantus dosing. * Total daily dose = ~100 units. I expect this usage to decrease with decreasing steroids. PLAN FOR INPATIENT GLYCEMIC CONTROL: * START Lantus 25 units SQ BID starting tomorrow * LOOSEN correction factor to 15 mg/dl/unit and then TIGHTEN tomorrow to 12 mg/ dL/unit * LOOSEN carb ratio to 1 unit per 3 grams CHO consumed and then TIGHTEN tomorrow to 1 unit per 2 grams CHO consumed * Continuing goal range of Low 110 mg/dL - High 140 mg/dL RECOMMENDATIONS FOR DISCHARGE: * Patient's blood sugar appears very well controlled currently, can continue regimen as long as patient does not have any low blood sugars. Thank you.
--- NOTE | 2017-09-21 12:41 | PULMONARY PROGRESS NOTE ---
DATE: 09/21/2017 TIME: 12:25 p.m. SUBJECTIVE: The patient feels pretty well. He has had no acute episodes of shortness of breath or distress. He has been walking around the unit without difficulty. Last night he did an overnight pulse oximetry study on room air and there was less than 2 minutes of time with saturations less than 88%. OBJECTIVE: GENERAL: The patient appears comfortable. VITAL SIGNS: Temperature is 36.5. Heart rate is 78 per minute, the rhythm is regular. Blood pressure 105/63. EARS, NOSE, THROAT: Exam is unremarkable. LUNGS: Lung spencer revealed mild wheezing on expiration. Respiratory rate was 20 breaths per minute and not labored. Oxygen saturation was 95% on room air. EXTREMITIES: Showed no edema. LABORATORY DATA: White count today is 13.93. Hemoglobin 11.2. Platelets 307,000. Blood sugar this morning 117. ASSESSMENT: 1. Acute on chronic respiratory failure with hypoxia and hypercarbia. 2. Chronic obstructive pulmonary disease exacerbation. 3. Coronary artery disease. COMMENTS AND RECOMMENDATIONS: I have no objection to patient being discharged today. He seems stable. A 2-step would be helpful to be certain that he does not desaturate when he ambulates. He does not have portable oxygen at home at present. Prednisone can be tapered as an outpatient. Currently, he is on methylprednisolone still. I would start him on 40 mg a day of prednisone and taper over about a 2-week period. The patient has a nebulizer at home. He is on tiotropium and Symbicort. The patient states he is scheduled for pulmonary functions in about 2 weeks. Thank you for asking me to assist in his care.
[2017-09-21] MEDS ORDERED: SYMIN INH (12:43)
[2017-09-21] MEDS ORDERED: PRED10TA PO (12:43)
--- NOTE | 2017-09-21 13:01 | Discharge Instructions ---
Discharge Instructions Date of Service Sep 21, 2017. Admission Reason for Admission: Copd Exacerbation Discharge Discharge Diagnosis / Problem: COPD Exacerbation Discharge Goals Goal(s): Decrease discomfort, Improve function, Increase independence, Improve disease control, Learn about illness Activity Recommendations Activity Limitations: as noted below Lifting Limitations: gradually increase as tolerated Exercise/Sports Limitations: as tolerated May Resume Sexual Activity: when tolerated Shower/Bathe: no limitations . Instructions / Follow-Up Instructions / Follow-Up Mr. Bruner, you were admitted for an exacerbation of your COPD disease. We are sending you home on all your medications. Please take these as prescribed. Morning meds include: Symbicort Tiotropium [place] (Spiriva) inhaler *Prednisone pills (see instructions - will only take this for 16 days total, and then stop.) Guaiafenasin Lisinopril Lopressor Plavix Zyrtec Afternoon/evening meds: Symbicort 2 puffs Guiafenasin Lopressor Mevacor Take these inhalers as you need them for shortness of breath: Albuterol (Ventolin) inhaler or nebulizer. Use your insulin pump as prescribed. You are to take Prednisone in pill form for the next 16 days, as prescribed. If you have any questions, please ask your pharmacist. Please keep your appointment in [place] with your heart surgeon tomorrow. Please continue to see your mental telepathist here (Dr. Ernandez) as you and Dr. Ernandez plan. There is no indication at this time to see him urgently. Thank you for allowing us to participate in your care. Current Hospital Diet Patient's current hospital diet: AHA Diet (Heart Healthy), Diabetes Type 2 Diet Discharge Diet Recommended Diet: AHA Diet (Heart Healthy), Diabetes Type 2 Diet Pending Studies Studies pending at discharge: no Laboratory Results Hemoglobin A1c Test 09/18/17 05:54 Range/Units Estimated Average Glucose 140 mg/dl Hemoglobin A1c 6.5 H 4.5-5.6 % Lipid Panel Test 07/15/17 08:07 Range/Units Triglycerides Level 79 0-150 mg/dl Cholesterol Level 211 H 0-200 mg/dl HDL Cholesterol 57 mg/dl Cholesterol/HDL Ratio 3.7 LDL Cholesterol, Calculated 138 mg/dl Medical Emergencies . Who to Call and When: Medical Emergencies: If at any time you feel your situation is an emergency, please call 911 immediately. . Non-Emergent Contact Non-Emergency issues call your: Primary Care Provider . . "Provider Documentation" section prepared by Reena Gamez. . VTE Core Measure Inpt VTE Proph given/why not?: Enoxaparin (Lovenox)SQ
[2017-09-21] MEDS ORDERED: SPRIN INH (13:02)
[2017-09-21] MEDS: LEVOFLOXACIN 750 MG TAB PO SCH (13:44)
--- NOTE | 2017-09-21 18:20 | Discharge Summary ---
Discharge Summary Date of Service Sep 21, 2017. (Reena Gamez M.D.) Discharge Summary Admission Date: Sep 17, 2017 at 03:56 Discharge Date: Sep 21, 2017 Discharge Disposition: Home Principal Diagnosis: COPD exacerbation Immunizations: Have You Had Influenza Vaccine: Unknown History of Tetanus Vaccine?: Unknown History of Pneumococcal: Unknown History of Hepatitis B Vaccine: Unknown (Reena Gamez M.D.) Medication Reconciliation New Medications: Prednisone (Prednisone) 10 Mg Tab 10 MG PO QAM, #40 TAB 40mg x 4 days 30mg x 4 days 20mg x 4 days 10mg x 4 days stop. Budesonide/Formoterol Fumarate (Symbicort 160-4.5 Mcg/Act) 60 Puffs/Inhaler Aero 2 PUFFS INH BID for 30 Days, #1 INHALER 6 Refills Tiotropium [place] (Spiriva Handihaler) 5 Puff/90 Mcg Aerp 1 PUFF INH QAM for 30 Days, #1 INHALER 6 Refills Continued Medications: Albuterol Hfa (Ventolin Hfa) 200 Puffs/55171 Mcg Aers 2 PUFFS INH Q4 PRN for SOB/Wheezing Cetirizine (Zyrtec) 10 Mg Tab 10 MG PO DAILY PRN for ALLERGIES Clopidogrel (Plavix) 75 Mg Tab 75 MG PO DAILY Guaifenesin [place] (Guaifenesin Er) 600 Mg Tabcr 600 MG PO Q12H for 30 Days, #60 TAB Insulin Human Regular (Insulin Regular Pump ) Pump 1 EA N/A UD Lisinopril (Zestril) 10 Mg Tab 10 MG PO QAM for 30 Days, #30 TAB Lovastatin (Mevacor) 10 Mg Tab 10 MG PO HS Metoprolol Tartrate (Lopressor) (Lopressor) 25 Mg Tab 25 MG PO BID Multiple Vitamins W/ Minerals (Centrum Silver Adult 50+) 1 Tab Tab 1 TAB PO DAILY [place]-3 Fatty Acids (Fish Oil) 1,200 Mg Cap 1200 MG PO DAILY Discontinued Medications: Ipratropium-Albuterol (Duoneb) 3 Ml Nebu 1 TREATMENT INH Q4H PRN for SOB/Wheezing Discharge Exam Review of Systems: Constitutional: No fever, No chills, No sweats Respiratory: No cough, No sputum, No wheezing, No dyspnea at rest Cardiovascular: No chest pain, No edema Abdomen: No pain, No nausea, No vomiting, No diarrhea, No constipation Genitourinary - Male: No dysuria Physical Exam: General Appearance: WD/WN, no apparent distress Eyes: normal inspection, EOMI Respiratory/Chest: chest non-tender, no respiratory distress, no accessory muscle use, + wheezing (mild in left upper lobe, otherwise clear) Cardiovascular: regular rate, rhythm, no edema, no gallop, no JVD Abdomen / GI: normal bowel sounds, non tender, soft Extremities: normal inspection, no calf tenderness, normal capillary refill Neurologic/Psychiatric: alert, normal mood/affect, normal reflexes Skin: normal color, warm/dry, no rash (Reena Gamez M.D.) Hospital Course Mr. Bruner admitted for shortness of breath, COPD exacerbation with PMH of diabetes type 2, coronary artery disease status post CABG 2 with AVR, hyperlipidemia. He presented as a direct admit from [facility] for acute hypoxic and hypercarbic respiratory failure. We treated him with Levaquin, BiPaP, as well as duonebs, symbicort and spiriva inhalers. Educated pt on these inhalers - sent home with specific guide to his home meds. Pt seems to struggle with all his medications and his goal is to be independent. Pt will continue to use his O2 at home as needed, and did not qualify for BiPaP at this time. A sleep study may be prudent given his oxygen demand seems to increase during the night/sleep. Sent home on inhalers, as well as steroid taper. All other home medications were continued. We appreciate the opportunity to participate in his care. For more details of his care, please see below. Acute hypoxic and hypercarbic respiratory failure/COPD exacerbation - Records from [facility] document ABG CO2 of 59.5, with pH 7.29. - Ordered overnight pulse oximetry, done while pt is on room air - pt did not qualify for BiPaP. - Chest x-ray did not show any acute pathology - Solumedrol, tapered to Prednisone. - Continue Symbicort - Pt on BIPAP. Pt to use as much as tolerated. - Continue Levaquin - Pt reports not taking inhaled corticosteroid+LABA at home. Pt reports not being d/c'ed with these meds at previous hospitalization. Will continue to re- educate pt about medication regimen. - Pulmonology consulted, appreciate recommendation T2DM/Hyperglycemia -Glucose improved -Uses insulin pump at home which he has not carried with him -Pharmacy consult for glycemic management CAD/CABG 2/AVR/hypertension -Troponins trended, negative -Continue clopidogrel, metoprolol, lovastatin, lisinopril Hyperkalemia - Resolved - Possibly secondary to acidosis - no EKG changes seen DVT prophylaxis: Lovenox Code: DNR Total Time Spent: Greater than 30 minutes This includes examination of the patient, discharge planning, medication reconciliation, and communication with other providers. (Reena Gamez M.D.) Resident Physician Supervision Note: I was present with Dr. Gamez during the history and exam. I discussed the case with the resident and agree with the findings and plan as documented in the note. Any exceptions or clarifications are listed here: His lung exam is improved compared to both 48 and 24 hours ago. I also discussed the case with pulmonology. Documented By: Cole Peng Total Time Spent: Less than 30 minutes (Cole Peng.,D.O.) Discharge Instructions Please refer to the electronic Patient Visit Report (Discharge Instructions) for additional information. (Reena Gamez M.D.) Additional Copies To Balaji Lopez M.D. Resident Tracking Resident Involvement: Resident Care Provided Care Provided: Adult [facility] (Reena Gamez M.D.)
[2017-09-22] MEDS ORDERED: INSULIN ASPART 100 UNITS/ML 3 ML PEN SC SCH (07:00)
[2017-09-22] MEDS ORDERED: INSULIN GLARGINE SOLOSTAR 100 UNITS/ML 3 ML PEN SC SCH (09:00)
== END 2017-09-21 16:35 | disposition home or self-care (01) | DRG 189 ==
LOC: C.2T 03:56
PROVIDERS: ADMIT Internal Medicine; ATTEND Family Medicine
DX: J96.01 Acute respiratory failure with hypoxia (principal); J44.1 Chronic obstructive pulmonary disease with (acute) exacerbation; J96.02 Acute respiratory failure with hypercapnia; I25.10 Atherosclerotic heart disease of native coronary artery without angina pectoris; Z95.1 Presence of aortocoronary bypass graft; E78.5 Hyperlipidemia, unspecified; Z83.3 Family history of diabetes mellitus; I10 Essential (primary) hypertension; Z95.2 Presence of prosthetic heart valve; Z66 Do not resuscitate; E11.319 Type 2 diabetes mellitus with unspecified diabetic retinopathy without macular edema; Z87.891 Personal history of nicotine dependence; E11.65 Type 2 diabetes mellitus with hyperglycemia; E87.5 Hyperkalemia

== ENCOUNTER → 2017-09-29 | Outpatient (CLI) | payer OTHER, MEDICARE ==
[~2017-09-29] MED LIST changes: -IPRASOL4 INH; +PRED10TA PO; +SPRIN INH; +SYMIN INH; -UMEC1INH INH
[2017-09-29 15:15] LABS: BLOOD UREA NITROGEN 31 mg/dl (7-18); BUN/CREATININE RATIO 24.1 (10-20); CARBON DIOXIDE 27 mmol/L (21-32); CHLORIDE 100 mmol/L (98-107); CHOLESTEROL 248 mg/dl (0-200); CREATININE 1.29 mg/dl (0.60-1.40); GLUCOSE 237 mg/dl (70-99); POTASSIUM 5.1 mmol/L (3.5-5.1); SODIUM 134 mmol/L (136-145)
[2017-09-29 15:18] LABS: RATIO 44.7 mcg/mg (0-30.0)
[2017-09-29 15:26] LABS: CHOLESTEROL/HDL RATIO 2.7; HDL CHOLESTEROL 93 mg/dl; LDL CHOLESTEROL CALCULATED 113 mg/dl; TRIGLYCERIDES 208 mg/dl (0-150); VERY LOW DENSITY LIPOPROT CALC 42 mg/dl
[2017-09-30 06:20] LABS: ESTIMATED AVERAGE GLUCOSE 157 mg/dl; HA1C FLAG Normal (Normal)
== END | disposition home or self-care (01) ==
LOC: C.LAB1850 12:48
PROVIDERS: ATTEND Nurse Practitioner Family
DX: E11.9 Type 2 diabetes mellitus without complications (principal); N40.1 Benign prostatic hyperplasia with lower urinary tract symptoms